=== PATIENT | female | born 1945 | race Caucasian/White ===

== ENCOUNTER 2017-01-09 09:13 | Day surgery (SDC) | payer OTHER ==
[2016-12-31 12:11] VITALS: BMI 46.0
--- NOTE | 2017-01-05 18:00 | HISTORY & PHYSICAL EXAMINATION ---
DATE OF ADMISSION: 01/09/2017 PREOPERATIVE DIAGNOSIS: Endometrial and/or cervical polyp. PROCEDURE: D\T\C, hysteroscopy and polypectomy. HISTORY OF PRESENT ILLNESS: The patient is a 71-year-old 3, para 3-0-0-3 white female who is postmenopausal, who had sudden onset of bright red bleeding in September, lasted for 2 days. The bleeding did become caramel cutter hand and is now only a brownish discharge at this time. She has had no cramping or abdominal pain. She has been on Xarelto and Plavix as a result of a CVA event several years ago. Pelvic exam was difficult, although on internal exam, a polyp could be felt protruding from the cervical os. Ultrasound showed that the uterus is small, but with a 17 mm thickened lining with cystic areas within it. The ovaries could not be identified. The patient is now scheduled for D\T\C, hysteroscopy, polypectomy. The patient understands the risks of procedure and is willing to proceed. PAST MEDICAL HISTORY: Significant for atrial fibrillation, hypertension, dyslipidemia, chronic kidney disease, the history of the CVA event in 1996, hypothyroidism, depression. ALLERGIES: CLINDAMYCIN, PIPERACILLIN AND VANCOMYCIN; WHICH CAUSED BLISTERING OF THE SKIN. MEDICATIONS: Atorvastatin 20 mg daily, hydrochlorothiazide 25 mg daily, levothyroxine 112 mcg daily, metoprolol 50 mg daily, omeprazole 20 mg daily, sertraline 50 mg daily, tramadol 50 mg 1 every 4-6 hours as needed for pain, Tylenol to be taken p.r.n. for pain, valsartan 320 mg daily, Xarelto 15 mg daily. PAST SURGICAL HISTORY: She had a pin placed to her hip at age 13 for a slipped epiphysis and then surgery to remove the pin. She has problems with contracture issues, is unable to extend her left hip. She has had 2 knee replacements followed by surgery because of infection in the surgical knee requiring a spacer and then subsequent revision. OBSTETRICAL AND GYNECOLOGICAL HISTORY: Uneventful premenstrual, premenopausal time period with 3 vaginal deliveries without complications. Menopause was also uneventful, no bleeding. She is unaware of when menopause actually happened, but seemed to be in the normal time period. No bleeding until this recent event in September. SOCIAL HISTORY: She does not smoke or drink. FAMILY HISTORY: Noncontributory. PHYSICAL EXAMINATION: GENERAL: She is a well-nourished, well-developed female who appears her stated age. LUNGS: Clear to auscultation. HEART: Somewhat irregular, but for the most part appeared to be in normal sinus rhythm at this time. ABDOMEN: Soft and nontender. There is no hepatosplenomegaly or other masses palpable. PELVIC: Declined at this time as we will perform this under general anesthetic. EXTREMITIES: Without calf tenderness. She has limited mobility of her knees and her hips, both particularly with extension of her left hip. ASSESSMENT: A 71-year-old with palpable cervical polyp noted on pelvic exam, confirmed by ultrasound with thickened endometrium, now scheduled for a dilation and curettage, hysteroscopy, polypectomy. Please see the orders for further directions. She will stop her Xarelto and Plavix as planned following her consult in internal medicine. She will take her Lopressor the morning of the surgery as also recommended by her internal medicine physician. I discussed at length positioning for the procedure and the possibility for bleeding, possible infection after the procedure. The patient and her daughter's questions were all answered to their satisfaction and they are willing to proceed. ROGER
[~2017-01-09] VITALS: Ht 157.5 cm; Wt 113.6 kg
[~2017-01-09 09:13] MED LIST: ACET-1175 PO; ATOR-54 PO; ATROPINE SULFATE 0.1 MG/ML 5ML SYR IV PRN; CEFAZOLIN 3000 MG/65 ML D5W 65 ML IV SCH; CLOP1TAB54 PO; EpHEDrine SULFATE INJ 50 MG/ML AMP IV PRN; FENTANYL CITRATE INJ 50 MCG/1 ML 2 ML VIAL IV PRN; FERR324T PO; HYDR25TA4 PO; LACTATED RINGER'S 1000ML IV SCH; LEVO112T2 PO; METO-551 PO; PRLSR20 PO; RIVA1TAB4 PO; SERT50TA PO; TRAM-10 PO; VALS320T PO
[2017-01-09 09:41] VITALS: BP 157/79; PULSE 73; TEMP 36.7; O2SAT 93; Ht 157.5 cm; Wt 113.6 kg
[2017-01-09 09:46] LABS: HEMATOCRIT 43.4 % (37-47); MEAN CELL VOLUME 91.4 fL (80-100); MEAN CORPUSCULAR HEMOGLOBIN 31.6 pg (25-34); MEAN PLATELET VOLUME 10.8 fL (7.4-10.4); PLATELET COUNT 178 K/uL (130-400); RED BLOOD COUNT 4.75 M/uL (4.2-5.4)
[2017-01-09 09:50] LABS: MEAN CORPUSCULAR HGB CONC 34.6 g/dl (32-36)
[2017-01-09] MEDS ORDERED: SUCCINYLCHOLINE CHLORIDE 20 MG/ML 10 ML VIAL IV ONE (10:05)
[2017-01-09] MEDS ORDERED: PHENYLEPHRINE HCL INJ 10 MG/ML VIAL ONE (10:05)
[2017-01-09] MEDS ORDERED: EpHEDrine SULFATE INJ 50 MG/ML AMP ONE (10:05)
[2017-01-09] MEDS ORDERED: DEXAMETHASONE SOD INJ 4 MG/ML VIAL ONE (10:05)
[2017-01-09] MEDS ORDERED: ONDANSETRON INJ 2 MG/ML 2 ML VIAL ONE (10:05)
[2017-01-09] MEDS ORDERED: PROPOFOL IV EMULSION 10 MG/ML 20 ML VIAL IV ONE ×2 (10:05→11:02)
[2017-01-09] MEDS ORDERED: LIDOCAINE HCL 2% 2 ML VIAL (20MG/ML) ONE (10:05)
[2017-01-09] MEDS ORDERED: GLYCOPYRROLATE INJ 0.2 MG/ML VIAL ONE (10:05)
[2017-01-09] MEDS ORDERED: ROCURONIUM BROMIDE 10 MG/ML 5 ML VIAL ONE (10:05)
[2017-01-09] MEDS ORDERED: NEOSTIGMINE METHYLSULFATE 5 MG/5 ML SYR ONE (10:05)
[2017-01-09] MEDS ORDERED: FENTANYL CITRATE INJ 50 MCG/1 ML 2 ML VIAL ONE (10:06)
[2017-01-09] MEDS ORDERED: MIDAZOLAM HCL 1 MG/ML 2ML VIAL ONE (10:06)
--- NOTE | 2017-01-09 10:06 | History & Physical Bridge Note ---
H&P Re-Evaluation Bridge Note: I have examined the patient, reviewed the History & Physical and in the interval since the performance of the History & Physical I have noted the following changes of clinical significance: No changes noted
[2017-01-09 10:09] LABS: BUN/CREATININE RATIO 23.8 (10-20); CALCIUM 9.1 mg/dl (8.5-10.1); CREATININE 1.3 mg/dl (0.60-1.20)
[2017-01-09] MEDS ORDERED: SODIUM CHLORIDE 0.9% 1000ML 1,000 ML IV SCH (11:28)
[2017-01-09] MEDS ORDERED: OXYCODONE/ACETAMINOPHEN 5-325 TAB PO PRN ×2 (11:30)
[2017-01-09] MEDS ORDERED: ONDANSETRON INJ 2 MG/ML 2 ML VIAL IV PRN (11:30)
--- NOTE | 2017-01-09 11:30 | [facility] Operative Report ---
Operative Report Operative Date Jan 09, 2017. Pre-Operative Diagnosis Endometrial polyp Post-Operative Diagnosis same Procedure(s) Performed D&C, polypectomy, diagnostic hysteroscopy Surgeon Dr. Belia Angel Aerodynamics Engineer Surgeon(s) None Estimated Blood Loss 10ml Findings cervix is normal with tip of polyp protruding from the os Specimens A: Endometrial polyp and curettings Drains none Anesthesia GET Complication(s) None Disposition Recovery Room / PACU I attest to the content of the Intraoperative Record and any orders documented therein. Any exceptions are noted below.
--- NOTE | 2017-01-09 11:32 | Discharge Instructions ---
Discharge Instructions Visit Reason for Visit: Post Menopausal Bleeding, Cervical Polyp Discharge Discharge Diagnosis / Problem: polyp removal Discharge Goals Goal(s): Therapeutic intervention Activity Recommendations Activity Limitations: per Instructions/Follow-up section Anesthesia . Post Anesthesia Instructions: If you have had General Anesthesia or IV Sedation: * Do not drive today. * Resume driving when surgeon permits. * Do not make important decisions or sign legal documents today. * Call surgeon for: 1. Temperature elevations greater than 101 degrees F. 2. Uncontrollable pain. 3. Excessive bleeding. 4. Persistent nausea and vomiting. 5. Medication intolerance (nausea, vomiting or rash). * For nausea and vomiting use only clear liquids such as: tea, soda, bouillon until nausea subsides, then gradually increase diet as tolerated. * If you have any concerns or questions, call your surgeon's office. If physician is unavailable and it is an emergency, call 911 or go to the nearest emergency room. . Instructions / Follow-Up Instructions / Follow-Up ACTIVITY RECOMMENDATIONS: * Avoid tampons, douching, hot tubs, pools, and intercourse until bleeding has stopped. * May shower as usual. * No strenuous activity for 24-48 hours. After 24-48 hours, you may do anything you feel like doing (driving and sports are okay). SPECIAL CARE INSTRUCTIONS: Special Diet: * Mild nausea may occur in the immediate post-operative period. * Take clear liquids such as tea, cola or bouillon until all nausea has subsided; you may then resume your normal diet. Special Care: * Light bleeding and vaginal spotting can last from a few days to 3-4 weeks. Call your doctor if bleeding becomes heavier than the heaviest part of your period. * Check your temperature twice a day for one week. If it goes above 100.4 degrees Fahrenheit (38.0 Celsius), notify your doctor. * Call your doctor's office for an appointment for 6 weeks after your surgery. FOLLOW-UP VISIT: Call your doctor's office for an appointment for 6 weeks after your surgery. Procedures Procedures Performed: Hysteroscopy, Dilation and Curettage, Polypectomy Pending Studies Studies pending at discharge: no Medical Emergencies . Who to Call and When: Medical Emergencies: If at any time you feel your situation is an emergency, please call 911 immediately. . Non-Emergent Contact Non-Emergency issues call your: Primary Care Provider . . "Provider Documentation" section prepared by Belia Angel.
[2017-01-09 12:00] VITALS: BP 121/76; PULSE 68; TEMP 36.3; O2SAT 93
--- NOTE | 2017-01-09 12:29 | Anesthesiology Progress Note ---
Anesthesia Post Op Note Date & Time Jan 09, 2017 at 12:29 Vital Signs Pain Intensity: 0 Vital Signs Past 12 Hours Date Time Temp Pulse Resp B/P Pulse Ox O2 Delivery O2 Flow Rate FiO2 01/09/17 11:55 36.4 68 16 143/91 99 Nasal Cannula 3 01/09/17 11:45 71 16 148/86 99 Nasal Cannula 3 01/09/17 11:35 65 16 141/87 99 Mask 10 01/09/17 11:25 36.2 75 14 161/91 97 Mask 10 01/09/17 09:41 36.7 73 20 157/79 93 Room Air Notes Mental Status: alert / awake / arousable, participated in evaluation Pt Amnestic to Procedure: Yes Nausea / Vomiting: adequately controlled Pain: adequately controlled Airway Patency, RR, SpO2: stable & adequate BP & HR: stable & adequate Hydration State: stable & adequate Anesthetic Complications: no major complications apparent
[2017-01-09 12:30] VITALS: BP 116/67; PULSE 66; O2SAT 93
[2017-01-09 13:00] VITALS: BP 125/79; PULSE 76; O2SAT 98
--- NOTE | 2017-01-09 17:14 | OPERATIVE REPORT ---
DATE OF OPERATION: 01/09/2017 SURGEON: Belia Angel MD PREOPERATIVE DIAGNOSIS: Postmenopausal bleeding with endometrial polyp. POSTOPERATIVE DIAGNOSIS: Same. PROCEDURE: D\T\C, polypectomy, and diagnostic hysteroscopy. ANESTHESIA: General endotracheal. BLOOD LOSS: 10 mL. HISTORY OF PRESENT ILLNESS: The patient is a 71-year-old 3, para 3-0-0-3 white female who has been on anticoagulant for 10 years as a result of a prior cerebrovascular accident. She developed postmenopausal bleeding. She was noted to have on exam a polyp extruding from the cervix. She is now scheduled for D\T\C, hysteroscopy and polypectomy. The patient has had limited flexibility in her hips and knees, so therefore the case is being done in the main hospital OR for better visualization. The patient understands the risks of the procedure and is willing to proceed. GROSS FINDINGS: External genitalia are multiparous and without lesions. Cervix is without lesions, but the tip of the endometrial polyp is protruding from the os. Under direct hysteroscopic visualization, there was only 1 polyp noted and it encompassed the endometrial cavity. DESCRIPTION OF PROCEDURE: After the patient received adequate general endotracheal anesthesia, she was prepped and draped in the usual sterile fashion. After bladder was emptied, a weighted speculum was placed in the vagina and the anterior lip of the cervix was grasped with a single tooth tenaculum. The portion of the polyp that was extruding was removed. The cervix was then dilated to a #29 Hanks dilator. Sharp curettage and polyp forceps were used to remove the remaining polyp. Post-polypectomy hysteroscopy using normal saline as the expanding medium showed that there was no retained tissue and no residual polyp stalk. After it was apparent that the polyp had been removed in total, the case was terminated. The single tooth tenaculum was removed from the cervix. Hemostasis was noted to be excellent and the patient was taken down from the [facility] and hemostasis was excellent at the end of the case. The patient did well and was stable upon arrival in recovery room. I attest to the content of the Intraoperative Record and any orders documented therein. Any exceptio ns are noted below.
== END 2017-01-09 13:50 | disposition home or self-care (01) ==
LOC: C.ACU 09:13
PROVIDERS: ATTEND Obstetrics & Gynecology
DX: N95.0 Postmenopausal bleeding (principal); N84.0 Polyp of corpus uteri; I48.91 Unspecified atrial fibrillation; I12.9 Hypertensive chronic kidney disease with stage 1 through stage 4 chronic kidney disease, or unspecified chronic kidney disease; N18.9 Chronic kidney disease, unspecified; E78.5 Hyperlipidemia, unspecified; E03.9 Hypothyroidism, unspecified; F32.9 Major depressive disorder, single episode, unspecified; Z86.73 Personal history of transient ischemic attack (TIA), and cerebral infarction without residual deficits

== ENCOUNTER → 2017-09-09 | Outpatient (CLI) | payer OTHER ==
[~2017-09-09] MED LIST changes: -ATROPINE SULFATE 0.1 MG/ML 5ML SYR IV PRN; -CEFAZOLIN 3000 MG/65 ML D5W 65 ML IV SCH; -EpHEDrine SULFATE INJ 50 MG/ML AMP IV PRN; -FENTANYL CITRATE INJ 50 MCG/1 ML 2 ML VIAL IV PRN; -LACTATED RINGER'S 1000ML IV SCH
[2017-09-09 12:19] LABS: BASO % 0.3 %; BASO ABS # 0.02 K/uL (0-0.2); COMPLETE YES; EOS % 3.3 %; HEMATOCRIT 40.6 % (37-47); IG% 0.5 %; LYMPH % 22.5 %; LYMPH ABS # 1.29 K/uL (1.2-3.4); MEAN CELL VOLUME 94.2 fL (80-100); MEAN CORPUSCULAR HEMOGLOBIN 30.2 pg (25-34); MEAN PLATELET VOLUME 11.1 fL (7.4-10.4); MONO % 7.5 %; NEUT % 65.9 %; PLATELET COUNT 169 K/uL (130-400); RED BLOOD COUNT 4.31 M/uL (4.2-5.4); WHITE BLOOD COUNT 5.73 K/uL (4.8-10.8)
[2017-09-09 12:26] LABS: ALT/SGPT 16 U/L (12-78); BLOOD UREA NITROGEN 29 mg/dl (7-18); BUN/CREATININE RATIO 28.4 (10-20); C-REACTIVE PROTEIN < 0.29 mg/dl (0-0.29); CALCIUM 9.6 mg/dl (8.5-10.1); CARBON DIOXIDE 27 mmol/L (21-32); CHLORIDE 106 mmol/L (98-107); CHOLESTEROL 133 mg/dl (0-200); CREATININE 1.03 mg/dl (0.60-1.20); GLUCOSE 88 mg/dl (70-99); POTASSIUM 4.1 mmol/L (3.5-5.1); SODIUM 140 mmol/L (136-145)
[2017-09-09 12:35] LABS: ALB/GLOB RATIO 0.9 (0.9-2); ALKALINE PHOSPHATASE 67 U/L (45-117); AST/SGOT 24 U/L (15-37); HDL CHOLESTEROL 45 mg/dl; LDL CHOLESTEROL CALCULATED 46 mg/dl; THYROID STIMULATING HORMONE 0.296 uIu/ml (0.300-4.500); TRIGLYCERIDES 212 mg/dl (0-150); VERY LOW DENSITY LIPOPROT CALC 42 mg/dl
== END | disposition home or self-care (01) ==
LOC: C.LABBFT 10:09
PROVIDERS: ATTEND Internal Medicine
DX: E78.5 Hyperlipidemia, unspecified (principal); N18.9 Chronic kidney disease, unspecified; E03.9 Hypothyroidism, unspecified; E55.9 Vitamin D deficiency, unspecified; L98.499 Non-pressure chronic ulcer of skin of other sites with unspecified severity

== ENCOUNTER → 2018-03-31 | Outpatient (CLI) | payer OTHER ==
[2018-03-31 17:32] LABS: BLOOD UREA NITROGEN 33 mg/dl (7-18); CALCIUM 9.1 mg/dl (8.5-10.1); CARBON DIOXIDE 26 mmol/L (21-32); CREATININE 1.35 mg/dl (0.60-1.20); GLUCOSE 81 mg/dl (70-99); POTASSIUM 4.4 mmol/L (3.5-5.1); SODIUM 137 mmol/L (136-145)
== END | disposition home or self-care (01) ==
LOC: C.LABBFT 12:01
PROVIDERS: ATTEND Physician Assistant Medical
DX: N18.3 Chronic kidney disease, stage 3 (moderate) (principal); E03.9 Hypothyroidism, unspecified; E55.9 Vitamin D deficiency, unspecified

== ENCOUNTER 2018-06-13 12:34 | Inpatient (IN) | payer OTHER ==
[~2018-06-13] VITALS: Ht 167.6 cm; Wt 108.0 kg
[2018-06-13] MEDS ORDERED: CEFTRIAXONE SOD INJ 1 GM ADDVIAL IV STA (12:52)
[2018-06-13] MEDS ORDERED: SODIUM CHLORIDE 0.9% 1000ML 1,000 ML IV STA ×2 (12:52→13:55)
[2018-06-13 13:28] LABS: HEMATOCRIT 39.1 % (37-47); HEMOGLOBIN 13.3 g/dL (12.0-16.0); MEAN CELL VOLUME 91.6 fL (80-100); MEAN CORPUSCULAR HEMOGLOBIN 31.1 pg (25-34); MEAN PLATELET VOLUME 11.4 fL (7.4-10.4); PLATELET COUNT 141 K/uL (130-400); RED CELL DISTRIBUTION WIDTH CV 12.7 % (11.5-14.5); RED CELL DISTRIBUTION WIDTH SD 42.4 fL (36.4-46.3)
[2018-06-13 13:45] LABS: BLOOD UREA NITROGEN 43 mg/dl (7-18); CALCIUM 8.8 mg/dl (8.5-10.1); CARBON DIOXIDE 23 mmol/L (21-32); CREATININE 1.99 mg/dl (0.60-1.20); GLUCOSE 103 mg/dl (70-99); SODIUM 137 mmol/L (136-145)
--- NOTE | 2018-06-13 13:59 | DIAGNOSTIC IMAGING REPORT ---
L TOE(S) MIN 2 VIEWS HISTORY: 72 years-old Female L 1st toe acute pain of the left great toe COMPARISON: None available TECHNIQUE: 3 views of the left toes FINDINGS: Demineralized appearance of the bones. There is flexion of the interphalangeal joints which limits the study. Moderate first MTP joint osteoarthritis. Degenerative changes are seen, the remaining intertarsal phalangeal and interphalangeal joints. Demineralized appearance of the bones without acute fracture or dislocation identified. Moderate soft tissue swelling about the forefoot. With [employer] over the lateral mid foot. IMPRESSION: 1. Soft tissue swelling without acute fracture identified. 2. Degenerative changes as above. 3. Demineralized appearance of the bones. The above report was generated using voice recognition software. It may contain grammatical, syntax or spelling errors. Electronically signed by: Andrés Mar M.D. 06/13/2018 1:58 PM Dictated Date/Time: 06/13/2018 1:57 PM
[2018-06-13 14:00] LABS: BASO % 0.1 %; BASO ABS # 0.02 K/uL (0-0.2); EOS ABS # 0.01 K/uL (0-0.5); IG# 0.11 K/uL (0.00-0.02); LYMPH % 4.8 %; LYMPH ABS # 1.01 K/uL (1.2-3.4); MONO % 2.5 %; MONO ABS # 0.52 K/uL (0.11-0.59); NEUT % 92.1 %; NEUT ABS # 19.53 K/uL (1.4-6.5)
[2018-06-13] MEDS ORDERED: ACETAMINOPHEN 325 MG TAB PO PRN (14:00)
[2018-06-13] MEDS ORDERED: MAGNESIUM HYDROXIDE SUSP 30 ML UDC PO PRN (14:00)
[2018-06-13] MEDS ORDERED: ONDANSETRON INJ 2 MG/ML 2 ML VIAL IV PRN (14:00)
[2018-06-13] MEDS ORDERED: ALUMINUM/MAGNESIUM/SIMETH (MAALOX MAX) 30 ML UDC PO PRN (14:00)
[2018-06-13] MEDS ORDERED: POLYETHYLENE (MIRALAX) 17 GM PACK PO PRN (14:00)
[2018-06-13] MEDS ORDERED: TRAMADOL HCL 50 MG TAB PO PRN (14:00)
[2018-06-13] MEDS ORDERED: SPIR1TAB72 PO (14:11)
[2018-06-13] MEDS ORDERED: TRAM-10 PO (14:11)
[2018-06-13] MEDS ORDERED: XRL15 PO (14:11)
[2018-06-13] MEDS ORDERED: CHOL2000 PO (14:11)
[2018-06-13 14:15] VITALS: O2SAT 96; Ht 167.6 cm; Wt 108.0 kg
[2018-06-13] MEDS ORDERED: IRBE1TAB50 PO (14:18)
[2018-06-13] MEDS ORDERED: IMIPENEM-CILASTATIN 250 MG in DEXTROSE 5% 100ML 100 ML IV STA (14:35)
--- NOTE | 2018-06-13 14:43 | History and Physical ---
History & Physical Date & Time of Service: Jun 13, 2018 at 14:35 Chief Complaint: Infected Sore On Toe Primary Care Physician: Tacos Davis M.D. History of Present Illness 72 F with complaints of constant left toe pain beginning three days ago that has progressed to erythema ascending left leg to groin Per daughter subsequent to old stroke pt is non ambulatory and uses feet to push wheel chair, , the patient had a callous on her left big toe two weeks ago, which started bleeding last week. 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 The patient also complains of nausea and chills and urinary incontinence last pm. Past Medical/Surgical History Medical Problems: (1) Atrial Fibrillation (2) Cellulitis of leg (3) CVA (4) Hyperlipidemia Nec/Nos (5) Morbid Obesity (6) Visual loss, right eye Family History She is family history of heart disease diabetes and stroke Social History Smoking Status: Never Smoker Drug Use: none Marital Status: Occupational Status: retired Immunizations History of Influenza Vaccine: Yes Influenza Vaccine Date: Oct 11, 2009 History of Tetanus Vaccine?: No History of Pneumococcal: Yes Pneumococcal Date: Oct 11, 2009 History of Hepatitis B Vaccine: No Allergies Coded Allergies: Clindamycin (Verified Allergy, Unknown, HIVES, 06/13/18) Piperacillin (Verified Allergy, Unknown, HIVES, 06/13/18) Vancomycin (Verified Allergy, Unknown, unknown, 06/13/18) Home Medications Scheduled Atorvastatin (Lipitor), 20 MG PO QAM Cholecalciferol (Vitamin D3), 1 CAP PO BID Clopidogrel Bisulfate (Plavix), 75 MG PO QAM Ferrous Gluconate (Iron Supplement), 324 MG PO DAILY Hctz/Spironolactone (Spironolactone/Hydrochlor 25-25 mg), 1 TAB PO DAILY Irbesartan (Irbesartan), 1 TAB PO DAILY Levothyroxine Sodium (Synthroid), 112 MCG PO QAM Metoprolol Tartrate (Lopressor), 75 MG PO BID Omeprazole (Prilosec), 20 MG PO QAM Rivaroxaban (Xarelto), 15 MG PO DAILY Sertraline (Zoloft), 50 MG PO QAM Tramadol (Ultram), 50 MG PO HS Scheduled PRN Acetaminophen (Tylenol), 650 MG PO Q6HR PRN for Pain or Fever Tramadol (Ultram), 50 MG PO Q6 PRN for Pain Review of Systems ROS: well nourished well developed. Patient is obese she is functionally paraplegic having not been able to walk since her stroke in 1996 she scoots around with her feet which cause difficulty with callus formation of her legs No double vision blurry vision No problems with speech or swallowing No palpitations, chest pain or pressure No Wheezing or breathing issues No abdominal pain she did have nausea vomiting in the last 24 hours but no diarrhea No burning urine urine frequency or changes in color but she did have urinary continence in the last 24 hours No focal joint pain or muscle pain She is changes of chronic venous stasis to her left lower extremity this is from previously known peripheral artery disease however there is worsening erythema she also has marked onychomycosis callus formation and hemorrhage into a callus on her left foot No unusual bruising or bleeding except for her foot No focused back pain or numbness or loss of strength over her usual baseline No changes in memory or confusion Physical Exam Vital Signs Date Time Temp Pulse Resp B/P (MAP) Pulse Ox O2 Delivery O2 Flow Rate FiO2 06/13/18 14:22 86 25 97/77 96 Room Air 06/13/18 14:16 90 06/13/18 14:13 96 26 77/59 94 Room Air 06/13/18 14:12 77/59 06/13/18 14:04 92 20 82/63 95 Room Air 06/13/18 12:37 37.1 72 20 92/58 96 Room Air General Appearance: + mild distress, + obese Head: normocephalic, atraumatic Eyes: normal inspection, PERRL, EOMI, sclerae normal Neck: supple, no JVD Respiratory/Chest: chest non-tender, lungs clear, + decreased breath sounds ( Due to body habitus and morbid obesity) Cardiovascular: regular rate, rhythm (Although history of atrial fibrillation) , no murmur Abdomen/GI: normal bowel sounds, non tender, soft Extremities/Musculoskelatal: + pertinent finding (Markedly decreased pulses her left foot also decreased capillary refill) Neurologic/Psych: alert, oriented x 3 Skin: + pertinent finding (Changes of chronic venous stasis and callus formation noted on bilateral feet with hammertoes on bilateral feet) Diagnostics Laboratory Results Results Past 24 Hours Test 06/13/18 13:10 06/13/18 14:14 Range/Units White Blood Count 21.20 4.8-10.8 K/uL Red Blood Count 4.27 4.2-5.4 M/uL Hemoglobin 13.3 12.0-16.0 g/dL Hematocrit 39.1 37-47 % Mean Corpuscular Volume 91.6 80-100 fL Mean Corpuscular Hemoglobin 31.1 25-34 pg Mean Corpuscular Hemoglobin Concent 34.0 32-36 g/dl Platelet Count 141 130-400 K/uL Mean Platelet Volume 11.4 7.4-10.4 fL Neutrophils (%) (Auto) 92.1 % Lymphocytes (%) (Auto) 4.8 % Monocytes (%) (Auto) 2.5 % Eosinophils (%) (Auto) 0.0 % Basophils (%) (Auto) 0.1 % Neutrophils # (Auto) 19.53 1.4-6.5 K/uL Lymphocytes # (Auto) 1.01 1.2-3.4 K/uL Monocytes # (Auto) 0.52 0.11-0.59 K/uL Eosinophils # (Auto) 0.01 0-0.5 K/uL Basophils # (Auto) 0.02 0-0.2 K/uL RDW Standard Deviation 42.4 36.4-46.3 fL RDW Coefficient of Variation 12.7 11.5-14.5 % Immature Granulocyte % (Auto) 0.5 % Immature Granulocyte # (Auto) 0.11 0.00-0.02 K/uL Red Blood Cell Morphology Unremarkable Sodium Level 137 136-145 mmol/L Potassium Level 4.0 3.5-5.1 mmol/L Chloride Level 104 98-107 mmol/L Carbon Dioxide Level 23 21-32 mmol/L Anion Gap 10.0 3-11 mmol/L Blood Urea Nitrogen 43 7-18 mg/dl Creatinine 1.99 0.60-1.20 mg/dl Estimated GFR () 28.4 Estimated GFR (Non- 24.5 BUN/Creatinine Ratio 21.4 10-20 Random Glucose 103 70-99 mg/dl Lactic Acid Level 2.5 0.4-2.0 mmol/L Calcium Level 8.8 8.5-10.1 mg/dl Microbiology Results 06/13/18 Blood Culture, Received Pending 06/13/18 Blood Culture, Ordered Pending 06/13/18 Blood Culture, Ordered Pending 06/13/18 Blood Culture, Received Pending Diagnostic Radiology Toe x-ray without changes of osteomyelitis Impression Assessment and Plan (1) Cellulitis of leg Assessment & Plan: due to history of concern of resistent organisms, will have on renal dose adjusted daptomycin and primaxin, ID consult and cultures are pending evaluate perfusion with arterial Doppler to gauge if can repair to aid in healing (2) Acute kidney injury Assessment & Plan: hold diuretics and arbs, hydrate and follow renal dose adjusting meds (3) Atrial Fibrillation Assessment & Plan: maintain rate control with metoprolol and anticoagulation with xarelto (4) CVA Assessment & Plan: Pt has mobility issues and is a fall risk PT/OT (5) Morbid Obesity Assessment & Plan: this impacts venous stasis, mobility and healing (6) Depression Assessment & Plan: continue zoloft, clinically seems compensated (7) HTN (hypertension) holding arb and diuretics, is low on admission, hydrate and follow maintaining metoprolol for bp control and afib Resuscitation Status VTE Prophylaxis Will order VTE Prophylaxis: Yes Reason for no VTE drug order: Contraindicated (pt takes full anticoagulation with xarelto) Reason no Mechanical VTE Order: Refusal of treatment by pt
[2018-06-13] MEDS ORDERED: CLONIDINE HCL 0.1 MG TAB PO PRN (14:45)
[2018-06-13] MEDS ORDERED: OXYCODONE HCL IR 5 MG TAB (IMMEDIATE RELEASE) PO PRN (14:45)
[2018-06-13 15:57] VITALS: BP 94/58; PULSE 83; TEMP 37.4; O2SAT 92
[2018-06-13] MEDS: DAPTOMYCIN IV SCH (16:18)
[2018-06-13] MEDS: SODIUM CHLORIDE 0.9% 1000ML 1,000 ML IV SCH (16:18)
[2018-06-13] MEDS ORDERED: NURSING DECISION MEDICATION ORDER SCH (16:45)
--- NOTE | 2018-06-13 16:47 | EMERGENCY ROOM VISIT NOTE ---
History Report prepared by Itz: Julio C Reed Under the Supervision of: Nuria RamO. First contact with patient: 12:46 Chief Complaint: TOE PAIN, INJURY Stated Complaint: INFECTED SORE ON TOE History of Present Illness The patient is a 72 year old female who presents to the Emergency Room with complaints of constant left toe pain beginning three days ago. Per daughter, the patient had a callous on her left big toe two weeks ago. She states that the patient's callous then started bleeding last week. She notes that she has not seen the patient's toe within the last week, but reports that she noticed that the patient's left leg was becoming red yesterday. She states that the patient's toe might be infected. The patient also complains of nausea and chills last night. She denies any cough, rhinorrhea, sorethroat, vomiting, diarrhea, CP, and SOB. She rates her pain as a 3/10. She notes that she has a history of PAD and has a problem with her thyroid. Source of History: patient Onset: three days Position: toe(s) (left) Symptom Intensity: 3/10 Timing: constant Associated Symptoms: + chills, + nausea, No sorethroat, No cough, No chest pain, No SOB, No vomiting, No diarrhea Note: The patient also denies any rhinorrhea. Review of Systems See HPI for pertinent positives & negatives. A total of 10 systems reviewed and were otherwise negative. Past Medical & Surgical Medical Problems: (1) Atrial Fibrillation (2) Cellulitis (3) CVA (4) Depression (5) HTN (hypertension) (6) Hyperlipidemia Nec/Nos (7) Morbid Obesity (8) Stomach ulcer Surgical Problems: (1) History of hip surgery (2) History of knee surgery Family History Cancer Heart disease Hypertension Social History Smoking Status: Never Smoker Drug Use: none Marital Status: Occupation Status: retired Current/Historical Medications Scheduled Atorvastatin (Lipitor), 20 MG PO QAM Cholecalciferol (Vitamin D3), 1 CAP PO BID Clopidogrel Bisulfate (Plavix), 75 MG PO QAM Ferrous Gluconate (Iron Supplement), 324 MG PO DAILY Hctz/Spironolactone (Spironolactone/Hydrochlor 25-25 mg), 1 TAB PO DAILY Irbesartan (Irbesartan), 1 TAB PO DAILY Levothyroxine Sodium (Synthroid), 112 MCG PO QAM Metoprolol Tartrate (Lopressor), 75 MG PO BID Omeprazole (Prilosec), 20 MG PO QAM Rivaroxaban (Xarelto), 15 MG PO DAILY Sertraline (Zoloft), 50 MG PO QAM Tramadol (Ultram), 50 MG PO HS Scheduled PRN Acetaminophen (Tylenol), 650 MG PO Q6HR PRN for Pain or Fever Tramadol (Ultram), 50 MG PO Q6 PRN for Pain Allergies Coded Allergies: Clindamycin (Verified Allergy, Unknown, HIVES, 06/13/18) Piperacillin (Verified Allergy, Unknown, HIVES, 06/13/18) Vancomycin (Verified Allergy, Unknown, unknown, 06/13/18) Physical Exam Vital Signs Date Time Temp Pulse Resp B/P (MAP) Pulse Ox O2 Delivery O2 Flow Rate FiO2 06/13/18 12:37 37.1 72 20 92/58 96 Room Air Physical Exam GENERAL: Sitting up in bed, alert, disheveled appearing, well nourished, no distress, non-toxic EYE EXAM: normal conjunctiva. OROPHARYNX: no exudate, no erythema, lips, buccal mucosa, and tongue normal and mucous membranes are moist NECK: supple, no nuchal rigidity, no adenopathy, non-tender LUNGS: Clear to auscultation. Normal chest wall mechanics HEART: no murmurs, S1 normal and S2 normal ABDOMEN: abdomen soft, non-tender, normo-active bowel sounds, no masses, no rebound or guarding. BACK: Back is symmetrical on inspection and there is no deformity, no midline tenderness, no CVA tenderness. SKIN: no rashes and no bruising UPPER EXTREMITIES: upper extremities are grossly normal. LOWER EXTREMITIES: No pitting edema. Necrotic ulcer at the base of the left first toe with erythema tracking up to the left mid thigh. NEURO EXAM: Normal sensorium, cranial nerves II-XII grossly intact, normal speech, no gross weakness of arms, no gross weakness of legs. Medical Decision & Procedures ER Provider Diagnostic Interpretation: Radiology results as stated below per my review and the radiologist's interpretation: L TOE(S) MIN 2 VIEWS FINDINGS: Demineralized appearance of the bones. There is flexion of the interphalangeal joints which limits the study. Moderate first MTP joint osteoarthritis. Degenerative changes are seen, the remaining intertarsal phalangeal and interphalangeal joints. Demineralized appearance of the bones without acute fracture or dislocation identified. Moderate soft tissue swelling about the forefoot. With [employer] over the lateral mid foot. IMPRESSION: 1. Soft tissue swelling without acute fracture identified. 2. Degenerative changes as above. 3. Demineralized appearance of the bones. The above report was generated using voice recognition software. It may contain grammatical, syntax or spelling errors. Electronically signed by: Andrés Mar M.D. 06/13/2018 1:58 PM Dictated Date/Time: 06/13/2018 1:57 PM Laboratory Results 06/13/18 13:10 Red Blood Count 4.27, Mean Corpuscular Volume 91.6, Mean Corpuscular Hemoglobin 31.1, Mean Corpuscular Hemoglobin Concent 34.0, Mean Platelet Volume 11.4, Neutrophils (%) (Auto) 92.1, Lymphocytes (%) (Auto) 4.8, Monocytes (%) (Auto) 2.5, Eosinophils (%) (Auto) 0.0, Basophils (%) (Auto) 0.1, Neutrophils # (Auto) 19.53, Lymphocytes # (Auto) 1.01, Monocytes # (Auto) 0.52, Eosinophils # (Auto) 0.01, Basophils # (Auto) 0.02 06/13/18 13:10 Test 06/13/18 13:10 White Blood Count 21.20 K/uL (4.8-10.8) Red Blood Count 4.27 M/uL (4.2-5.4) Hemoglobin 13.3 g/dL (12.0-16.0) Hematocrit 39.1 % (37-47) Mean Corpuscular Volume 91.6 fL (80-100) Mean Corpuscular Hemoglobin 31.1 pg (25-34) Mean Corpuscular Hemoglobin Concent 34.0 g/dl (32-36) Platelet Count 141 K/uL (130-400) Mean Platelet Volume 11.4 fL (7.4-10.4) Neutrophils (%) (Auto) 92.1 % Lymphocytes (%) (Auto) 4.8 % Monocytes (%) (Auto) 2.5 % Eosinophils (%) (Auto) 0.0 % Basophils (%) (Auto) 0.1 % Neutrophils # (Auto) 19.53 K/uL (1.4-6.5) Lymphocytes # (Auto) 1.01 K/uL (1.2-3.4) Monocytes # (Auto) 0.52 K/uL (0.11-0.59) Eosinophils # (Auto) 0.01 K/uL (0-0.5) Basophils # (Auto) 0.02 K/uL (0-0.2) RDW Standard Deviation 42.4 fL (36.4-46.3) RDW Coefficient of Variation 12.7 % (11.5-14.5) Immature Granulocyte % (Auto) 0.5 % Immature Granulocyte # (Auto) 0.11 K/uL (0.00-0.02) Red Blood Cell Morphology Unremarkable Anion Gap 10.0 mmol/L (3-11) Estimated GFR () 28.4 Estimated GFR (Non- 24.5 BUN/Creatinine Ratio 21.4 (10-20) Lactic Acid Level 2.5 mmol/L (0.4-2.0) Calcium Level 8.8 mg/dl (8.5-10.1) Total Creatine Kinase 276 U/L (26-192) Laboratory results per my review. Medications Administered Medications (Trade) Dose Ordered Sig/Abril Route Start Time Stop Time Status Last Admin Dose Admin Sodium Chloride 1,000 ml @ 999 mls/hr Q1H1M STAT IV 06/13/18 12:52 06/13/18 13:52 DC 06/13/18 12:52 999 MLS/HR Ceftriaxone Sodium (Rocephin Inj) 1 gm NOW STAT IV 06/13/18 12:52 06/13/18 12:54 DC 06/13/18 13:10 1 GM Sodium Chloride 1,000 ml @ 999 mls/hr Q1H1M STAT IV 06/13/18 13:55 06/13/18 15:00 DC 06/13/18 13:55 999 MLS/HR ED Course ED COURSE: Vital signs were reviewed and showed that he was hypotensive. The patients medical record was reviewed The above diagnostic studies were performed and reviewed. ED treatments and interventions as stated above. 1249: The patient was evaluated in room A3. A complete history and physical examination was performed. 1252: Rocephin Inj 1gm IV, Sodium Chloride 1000 ml @ 999 mls/hr IV 1347: Upon reevaluation, the patient is stable. I discussed my findings with the patient and she understands and agrees with the treatment plan. Based on the patients age, coexisting illnesses, exam and lab findings the decision to treat as an inpatient was made. The patient remained stable while under my care. Discussed the patient's case with Dr. White - CONSTANCE Garcia. The patient will be evaluated for further management. 1355: Sodium Chloride 1000 ml @ 999 mls/hr IV 1412: The patient's pressure dropped to 82. Her repeat pressure was 75. She started to receive pressure bags and two additional liters. Medical Decision Differential diagnosis includes etiologies such as sepsis, UTI, pneumonia, metabolic, electrolyte abnormalities, cardiac sources, intracerebral event, toxicologic, neurologic, as well as others were entertained. Patient is a 72-year-old female who presents the ER for left foot pain. On exam patient has a clear cellulitis tracking up to her mid thigh. question oseto of the left first toe. Patient was given IV Rocephin due to allergies. She was fairly well appearing upon presentation. Consequently only obtained one blood culture a lactic acid CBC and BMP. She had a leukocytosis of 21,000. Lactate was 2.5. She did eventually drop her pressure into the 70s. Additional IV was obtained. She was given pressure backed 2-1/2 L normal saline. At that point internal medicine had also ordered additional antibiotics. I did call the pharmacy to have them shipped up quicker. Patient still had good mentation. She was not tachycardic. She was monitored closely set up to the floor. Repeat blood pressures trended back up to systolics of 97. She had no additional complaints. Medication Reconcilliation Current Medication List: was personally reviewed by or Blood Pressure Screening Patient's blood pressure: Low blood pressure Elevated blood pressure will be monitored by hospitalist. Consults Time Called: 1345 Consulting Physician: Dr. White - CONSTANCE Garcia Returned Call: 134 I reviewed the patient's case with Dr. White. He will evaluate the patient for further management. Impression Primary Impression: Sepsis Additional Impressions: Hypotension Cellulitis of leg Critical Care I have personally spent 35 minutes of critical care time in the direct management of this patient. This includes bedside care, interpretation of diagnostic studies, and testing, discussion with consultants, patient, and family members, and other required patient management activities. This 35 minutes is in excess of all separately billable procedures. Scribe Attestation The scribe's documentation has been prepared under my direction and personally reviewed by me in its entirety. I confirm that the note above accurately reflects all work, treatment, procedures, and medical decision making performed by me. Departure Information Dispostion Being Evaluated By Hospitalist Tacos Newman M.D. (PCP) Patient Instructions My [facility] Problem Qualifiers Primary Impression: Sepsis Sepsis type: sepsis due to unspecified organism Qualified Codes: A41.9 - Sepsis, unspecified organism Additional Impressions: Hypotension Hypotension type: unspecified hypotension type Qualified Codes: I95.9 - Hypotension, unspecified Cellulitis of leg Laterality: left Qualified Codes: L03.116 - Cellulitis of left lower limb
[2018-06-13] MEDS: MICONAZOLE NITRATE POWDER 43 GM EXT PRN (17:15)
[2018-06-13] MEDS: IMIPENEM-CILASTATIN 250 MG in DEXTROSE 5% 100ML 100 ML IV SCH (19:34)
--- NOTE | 2018-06-13 19:36 | DIAGNOSTIC IMAGING REPORT ---
LEFT LOWER EXTERNALLY ARTERIAL DOPPLER STUDY CLINICAL HISTORY: eval for worsening occlusion. Left leg pain. COMPARISON STUDY: Left lower extremity arterial Doppler study 02/14/2013. FINDINGS: The left ankle-brachial index measured with the posterior tibial artery was 0.7 and the dorsalis pedis artery was 0.6. The left peroneal artery is not identified on this study. Monophasic waveforms seen throughout the left lower arterial system suggestive of diffuse hepatic structures. There is diffuse calcified plaque throughout the visualized arteries. No occlusion. No elevated velocities to suggest stenosis. IMPRESSION: 1. No areas of arterial occlusion identified within the left lower extremity. 2. Monophasic waveforms seen throughout the left lower extremity arterial system consistent with diffuse atherosclerotic disease. 3. No areas of hemodynamically significant stenosis identified. 4. Ankle brachial indices as described above. Electronically signed by: Fransisco Edwards M.D. 06/13/2018 7:35 PM Dictated Date/Time: 06/13/2018 7:32 PM
[2018-06-13 19:38] VITALS: BP 104/72; PULSE 72; O2SAT 97
[2018-06-13] MEDS: METOPROLOL TARTRATE 25 MG TAB PO SCH (19:40)
[2018-06-13] MEDS ORDERED: METOPROLOL TARTRATE 50 MG TAB PO SCH (21:00)
[2018-06-13] MEDS ORDERED: LINEZOLID / D5W 600 MG in PREMIXED IN D5W 300 ML IV SCH (21:00)
[2018-06-14] MEDS: SODIUM CHLORIDE 0.9% 1000ML 1,000 ML IV SCH ×3 (00:56→23:46)
[2018-06-14] MEDS: IMIPENEM-CILASTATIN 250 MG in DEXTROSE 5% 100ML 100 ML IV SCH ×4 (01:47→20:07)
[2018-06-14] MEDS: LEVOTHYROXINE 112 MCG TAB PO SCH (05:57)
[2018-06-14 06:22] LABS: HEMOGLOBIN 11.4 g/dL (12.0-16.0); MEAN CELL VOLUME 92.8 fL (80-100); MEAN CORPUSCULAR HEMOGLOBIN 30.2 pg (25-34); MEAN CORPUSCULAR HGB CONC 32.6 g/dl (32-36); RED CELL DISTRIBUTION WIDTH SD 44.4 fL (36.4-46.3); WHITE BLOOD COUNT 11.45 K/uL (4.8-10.8)
[2018-06-14 06:48] LABS: CALCIUM 8.1 mg/dl (8.5-10.1); CREATININE 1.38 mg/dl (0.60-1.20); MEAN PLATELET VOLUME 11.6 fL (7.4-10.4); PLATELET COUNT 93 K/uL (130-400); POTASSIUM 3.6 mmol/L (3.5-5.1)
[2018-06-14 07:46] VITALS: BP 108/60; PULSE 71; TEMP 37.6; O2SAT 96
--- NOTE | 2018-06-14 08:20 | Progress Note ---
Subjective Date of Service: Jun 14, 2018. Subjective this pt is feeling improved, she has less redness to the site and overall has more energy Problem List Medical Problems: (1) Cellulitis of leg Status: Acute (2) Hypotension Status: Acute (3) Sepsis Status: Acute Review of Systems Constitutional: No fever, No chills Respiratory: No cough, No sputum, No wheezing Abdomen: No pain, No nausea Musculoskeletal: No joint pain, No muscle pain Female : No dysuria, No urinary frequency Psychiatric: No depression symptoms, No anhedonism Skin: + new/changing skin lesions, + color change Objective Vital Signs Date Time Temp Pulse Resp B/P (MAP) Pulse Ox O2 Delivery O2 Flow Rate FiO2 06/14/18 07:46 37.6 71 16 108/60 (76) 96 06/13/18 20:00 Room Air 06/13/18 19:38 72 18 104/72 (83) 97 Room Air 06/13/18 16:00 Room Air 06/13/18 15:57 37.4 83 20 94/58 (70) 92 Room Air 06/13/18 15:14 92 16 97/73 96 06/13/18 14:53 90 28 98/66 96 Room Air 06/13/18 14:22 86 25 97/77 96 Room Air 06/13/18 14:16 90 06/13/18 14:15 96 Room Air 06/13/18 14:13 96 26 77/59 94 Room Air 06/13/18 14:12 77/59 06/13/18 14:04 92 20 82/63 95 Room Air 06/13/18 12:37 37.1 72 20 92/58 96 Room Air Physical Exam General Appearance: + mild distress, + obese Eyes: normal inspection, sclerae normal Neck: supple, no JVD Respiratory/Chest: chest non-tender, lungs clear, normal breath sounds Cardiovascular: regular rate, rhythm, no murmur Abdomen: non tender, soft Extremities: + slow capillary refill, + pertinent finding (poor pulses but overall improved) Laboratory Results Last 24 Hours Test 06/13/18 13:10 06/14/18 06:01 White Blood Count 21.20 K/uL 11.45 K/uL Red Blood Count 4.27 M/uL 3.77 M/uL Hemoglobin 13.3 g/dL 11.4 g/dL Hematocrit 39.1 % 35.0 % Mean Corpuscular Volume 91.6 fL 92.8 fL Mean Corpuscular Hemoglobin 31.1 pg 30.2 pg Mean Corpuscular Hemoglobin Concent 34.0 g/dl 32.6 g/dl Platelet Count 141 K/uL 93 K/uL Mean Platelet Volume 11.4 fL 11.6 fL Neutrophils (%) (Auto) 92.1 % Lymphocytes (%) (Auto) 4.8 % Monocytes (%) (Auto) 2.5 % Eosinophils (%) (Auto) 0.0 % Basophils (%) (Auto) 0.1 % Neutrophils # (Auto) 19.53 K/uL Lymphocytes # (Auto) 1.01 K/uL Monocytes # (Auto) 0.52 K/uL Eosinophils # (Auto) 0.01 K/uL Basophils # (Auto) 0.02 K/uL RDW Standard Deviation 42.4 fL 44.4 fL RDW Coefficient of Variation 12.7 % 13.0 % Immature Granulocyte % (Auto) 0.5 % Immature Granulocyte # (Auto) 0.11 K/uL Red Blood Cell Morphology Unremarkable Sodium Level 137 mmol/L 139 mmol/L Potassium Level 4.0 mmol/L 3.6 mmol/L Chloride Level 104 mmol/L 108 mmol/L Carbon Dioxide Level 23 mmol/L 23 mmol/L Anion Gap 10.0 mmol/L 8.0 mmol/L Blood Urea Nitrogen 43 mg/dl 37 mg/dl Creatinine 1.99 mg/dl 1.38 mg/dl Estimated GFR () 28.4 44.2 Estimated GFR (Non- 24.5 38.1 BUN/Creatinine Ratio 21.4 26.4 Random Glucose 103 mg/dl 90 mg/dl Lactic Acid Level 2.5 mmol/L Calcium Level 8.8 mg/dl 8.1 mg/dl Total Creatine Kinase 276 U/L Platelet Estimate DECREASED Est Creatinine Clear Calc Drug Dose 45.8 ml/min Magnesium Level 1.4 mg/dl Assessment and Plan (1) Cellulitis of leg Assessment & Plan: due to history of concern of resistant organisms, will have on renal dose adjusted daptomycin and primaxin, ID consult and cultures are pending, wbc did improve evaluate perfusion with arterial Doppler to gauge if can repair to aid in healing, however in past intervention was not recommended preliminary gram positive blood cultures may suggest bacteremia at presentation , may prolongue antibiotic course (2) Acute kidney injury Assessment & Plan: hold diuretics and arbs, hydrate and follow renal dose adjusting meds, improving (3) Atrial Fibrillation Assessment & Plan: contines to maintain rate control with metoprolol and anticoagulation with xarelto (4) CVA Assessment & Plan: Pt has mobility issues and is a fall risk PT/OT, may need subacute rehab (5) Morbid Obesity Assessment & Plan: this impacts venous stasis, mobility and healing (6) Depression Assessment & Plan: continue zoloft, clinically seems compensated (7) HTN (hypertension) (8) Hypomagnesemia Assessment & Plan: replete orally and watch for diarrhea holding arb and diuretics, is low on admission, hydrate and follow maintaining metoprolol for bp control and afib Problem Qualifiers (1) Cellulitis of leg: Laterality: left Qualified Codes: L03.116 - Cellulitis of left lower limb
[2018-06-14] MEDS: PANTOprazole SOD 40 MG TAB PO SCH (08:40)
[2018-06-14] MEDS: METOPROLOL TARTRATE 25 MG TAB PO SCH ×2 (08:40→20:06)
[2018-06-14] MEDS: RIVAROXABAN TAB 15 MG TAB PO SCH (08:40)
[2018-06-14] MEDS: CLOPIDOGREL BISULFATE 75 MG TAB PO SCH (08:40)
[2018-06-14] MEDS: SERTRALINE HCL 50 MG TAB PO SCH (08:41)
[2018-06-14] MEDS ORDERED: RIVAROXABAN 10 MG TAB PO SCH (09:00)
[2018-06-14] MEDS: MAGNESIUM OXIDE 400 MG TAB PO SCH ×2 (10:29→20:05)
[2018-06-14] MEDS: MICONAZOLE NITRATE POWDER 43 GM EXT PRN (10:31)
--- NOTE | 2018-06-14 11:38 | Medical Consult ---
Consultation Date of Consultation: Jun 14, 2018. Attending Physician: Naren White M.D. Reason for Consultation: Advice on antibiotic choice with allergies History of Present Illness 72-year-old female with history of hypertension, atrial fibrillation, prior CVA , reported vascular disease involving her left leg, who was had a callus on her left great toe for several weeks. Reportedly last week area started to bleed, and over the last 3 days, patient developed progressively worsening redness and swelling involving her left leg up into her groin. She did not report any significant fever. She did have nausea with episode of vomiting. She eventually came to the emergency department where she was found to have evidence of left lower extremity cellulitis, and was admitted and started empirically on daptomycin and imipenem. X-ray of the toe, read by me, shows no obvious bone involvement. Vascular ultrasound shows no obvious high-grade arterial stenosis in the left leg. Blood cultures have been negative to date. Patient has remained afebrile. Past Medical/Surgical History Medical Problems: (1) Cellulitis of leg Status: Acute (2) Hypotension Status: Acute (3) Sepsis Status: Acute Medical Problems: (1) Atrial Fibrillation (2) Cellulitis (3) CVA (4) Depression (5) HTN (hypertension) (6) Hyperlipidemia Nec/Nos (7) Hypomagnesemia (8) Morbid Obesity (9) Stomach ulcer Surgical Problems: (1) History of hip surgery (2) History of knee surgery Family History Cancer Heart disease Hypertension Social History Smoking Status: Never Smoker Drug Use: none Marital Status: Occupation Status: retired Allergies Coded Allergies: Clindamycin (Verified Allergy, Unknown, HIVES, 06/13/18) Piperacillin (Verified Allergy, Unknown, HIVES, 06/13/18) Vancomycin (Verified Allergy, Unknown, unknown, 06/13/18) Current Inpatient Medications Current Inpatient Medications Medications (Trade) Dose Ordered Sig/Abril Route Start Time Stop Time Status Last Admin Dose Admin Clopidogrel Bisulfate (plAVix TAB) 75 mg QAM PO 06/14/18 08:00 07/14/18 08:59 06/14/18 08:40 75 MG Levothyroxine Sodium (Synthroid Tab) 112 mcg DAILYBB PO 06/14/18 06:30 07/14/18 06:59 06/14/18 05:57 112 MCG Sertraline HCl (Zoloft Tab) 50 mg QAM PO 06/14/18 08:00 07/14/18 08:59 06/14/18 08:41 50 MG Tramadol HCl (Ultram Tab) 50 mg Q6 PRN PO 06/13/18 14:00 07/13/18 13:59 Pantoprazole Sodium (Protonix Tab) 40 mg QAM PO 06/14/18 08:00 07/14/18 08:59 06/14/18 08:40 40 MG Acetaminophen (Tylenol Tab) 650 mg Q4H PRN PO 06/13/18 14:00 07/13/18 13:59 Al Hydrox/Mg Hydrox/Simethicone (Maalox Max Susp) 15 ml Q4H PRN PO 06/13/18 14:00 07/13/18 13:59 Magnesium Hydroxide (Milk Of Magnesia Susp) 30 ml Q6H PRN PO 06/13/18 14:00 07/13/18 13:59 Polyethylene (Miralax Powder Packet) 17 gm DAILY PRN PO 06/13/18 14:00 07/13/18 13:59 Ondansetron HCl (Zofran Inj) 4 mg Q6H PRN IV 06/13/18 14:00 07/13/18 13:59 Imipenem/ Cilastatin Sodium 250 mg/Dextrose 110 ml @ 100 mls/hr Q6H IV 06/13/18 20:00 06/23/18 19:59 06/14/18 08:40 100 MLS/HR Sodium Chloride 1,000 ml @ 100 mls/hr Q10H IV 06/13/18 14:15 07/13/18 14:14 06/14/18 10:29 100 MLS/HR Metoprolol Tartrate (Lopressor Tab) 75 mg BID PO 06/13/18 20:00 07/13/18 20:59 06/14/18 08:40 75 MG Rivaroxaban (Xarelto Tab) 15 mg QAM PO 06/14/18 08:00 07/14/18 08:59 06/14/18 08:40 15 MG Daptomycin 475 mg/ Syringe 9.5 ml @ 4.75 mls/ min Q24H IV 06/13/18 16:00 06/23/18 15:59 06/13/18 16:18 4.75 MLS/MIN Clonidine HCl (Catapres Tab) 0.1 mg Q8 PRN PO 06/13/18 14:45 07/13/18 14:44 Oxycodone HCl (Roxicodone Immediate Rel Tab) 5 mg Q6 PRN PO 06/13/18 14:45 06/27/18 14:44 Miconazole Nitrate (Desenex Powder) 1 appln PRN PRN EXT 06/13/18 17:15 07/13/18 17:14 06/14/18 10:31 1 APPLN Magnesium Oxide (Mag-Ox Tab) 400 mg BID PO 06/14/18 08:30 07/14/18 08:29 06/14/18 10:29 400 MG Review of Systems All systems were reviewed and are negative except as per HPI Physical Exam Date Time Temp Pulse Resp B/P (MAP) Pulse Ox O2 Delivery O2 Flow Rate FiO2 06/14/18 08:57 Room Air 06/14/18 07:46 37.6 71 16 108/60 (76) 96 06/13/18 20:00 Room Air 06/13/18 19:38 72 18 104/72 (83) 97 Room Air 06/13/18 16:00 Room Air 06/13/18 15:57 37.4 83 20 94/58 (70) 92 Room Air 06/13/18 15:14 92 16 97/73 96 06/13/18 14:53 90 28 98/66 96 Room Air 06/13/18 14:22 86 25 97/77 96 Room Air 06/13/18 14:16 90 06/13/18 14:15 96 Room Air 06/13/18 14:13 96 26 77/59 94 Room Air 06/13/18 14:12 77/59 06/13/18 14:04 92 20 82/63 95 Room Air 06/13/18 12:37 37.1 72 20 92/58 96 Room Air General Appearance: WD/WN, no apparent distress Head: normocephalic, atraumatic Eyes: normal inspection, EOMI, sclerae normal ENT: normal ENT inspection, hearing grossly normal, pharynx normal Neck: supple, no adenopathy, thyroid normal, trachea midline Respiratory/Chest: chest non-tender, lungs clear, normal breath sounds, no respiratory distress Cardiovascular: regular rate, rhythm, no gallop, no murmur Abdomen/GI: normal bowel sounds, non tender, soft, no organomegaly Back: normal inspection, no CVA tenderness Extremities/Musculoskelatal: no calf tenderness, + slow capillary refill Neurologic/Psych: alert, oriented x 3, + pertinent finding (Leg weakness) Skin: normal color, warm/dry, + pertinent finding (Left great toe plantar callus with old blood, cellulitis of her left leg to the groin.) Lymphatic: no adenopathy Laboratory Results Date/Time Source Procedure Growth Status 06/13/18 14:03 Blood Blood Culture Pending Received 06/13/18 13:10 Blood Blood Culture Pending Received Last 24 Hours Test 06/13/18 13:10 06/14/18 06:01 White Blood Count 21.20 K/uL 11.45 K/uL Red Blood Count 4.27 M/uL 3.77 M/uL Hemoglobin 13.3 g/dL 11.4 g/dL Hematocrit 39.1 % 35.0 % Mean Corpuscular Volume 91.6 fL 92.8 fL Mean Corpuscular Hemoglobin 31.1 pg 30.2 pg Mean Corpuscular Hemoglobin Concent 34.0 g/dl 32.6 g/dl Platelet Count 141 K/uL 93 K/uL Mean Platelet Volume 11.4 fL 11.6 fL Neutrophils (%) (Auto) 92.1 % Lymphocytes (%) (Auto) 4.8 % Monocytes (%) (Auto) 2.5 % Eosinophils (%) (Auto) 0.0 % Basophils (%) (Auto) 0.1 % Neutrophils # (Auto) 19.53 K/uL Lymphocytes # (Auto) 1.01 K/uL Monocytes # (Auto) 0.52 K/uL Eosinophils # (Auto) 0.01 K/uL Basophils # (Auto) 0.02 K/uL RDW Standard Deviation 42.4 fL 44.4 fL RDW Coefficient of Variation 12.7 % 13.0 % Immature Granulocyte % (Auto) 0.5 % Immature Granulocyte # (Auto) 0.11 K/uL Red Blood Cell Morphology Unremarkable Sodium Level 137 mmol/L 139 mmol/L Potassium Level 4.0 mmol/L 3.6 mmol/L Chloride Level 104 mmol/L 108 mmol/L Carbon Dioxide Level 23 mmol/L 23 mmol/L Anion Gap 10.0 mmol/L 8.0 mmol/L Blood Urea Nitrogen 43 mg/dl 37 mg/dl Creatinine 1.99 mg/dl 1.38 mg/dl Estimated GFR () 28.4 44.2 Estimated GFR (Non- 24.5 38.1 BUN/Creatinine Ratio 21.4 26.4 Random Glucose 103 mg/dl 90 mg/dl Lactic Acid Level 2.5 mmol/L Calcium Level 8.8 mg/dl 8.1 mg/dl Total Creatine Kinase 276 U/L Platelet Estimate DECREASED Est Creatinine Clear Calc Drug Dose 45.8 ml/min Magnesium Level 1.4 mg/dl [~ rep ct add3]] L TOE(S) MIN 2 VIEWS HISTORY: 72 years-old Female L 1st toe acute pain of the left great toe COMPARISON: None available TECHNIQUE: 3 views of the left toes FINDINGS: Demineralized appearance of the bones. There is flexion of the interphalangeal joints which limits the study. Moderate first MTP joint osteoarthritis. Degenerative changes are seen, the remaining intertarsal phalangeal and interphalangeal joints. Demineralized appearance of the bones without acute fracture or dislocation identified. Moderate soft tissue swelling about the forefoot. With [employer] over the lateral mid foot. IMPRESSION: 1. Soft tissue swelling without acute fracture identified. 2. Degenerative changes as above. 3. Demineralized appearance of the bones. The above report was generated using voice recognition software. It may contain grammatical, syntax or spelling errors. Assessment & Plan Left lower extremity cellulitis with left great toe being likely portal of entry. Current antibiotics appropriate pending further culture results. Length of IV antibiotics will be determined by clinical response. Will follow.
[2018-06-14 15:34] VITALS: BP 103/72; PULSE 119; TEMP 36.5; O2SAT 95
[2018-06-14] MEDS: DAPTOMYCIN IV SCH (16:11)
[2018-06-14 23:05] VITALS: BP 139/85; PULSE 88; TEMP 37.2; O2SAT 95
[2018-06-15] VITALS: O2SAT 95
[2018-06-15] MEDS: IMIPENEM-CILASTATIN 250 MG in DEXTROSE 5% 100ML 100 ML IV SCH ×3 (02:09→13:12)
[2018-06-15 06:09] LABS: HEMATOCRIT 35.6 % (37-47); HEMOGLOBIN 11.6 g/dL (12.0-16.0); MEAN CORPUSCULAR HEMOGLOBIN 30.3 pg (25-34); MEAN CORPUSCULAR HGB CONC 32.6 g/dl (32-36); RED CELL DISTRIBUTION WIDTH CV 13.1 % (11.5-14.5); RED CELL DISTRIBUTION WIDTH SD 44.7 fL (36.4-46.3); WHITE BLOOD COUNT 7.12 K/uL (4.8-10.8)
[2018-06-15 06:13] LABS: MEAN PLATELET VOLUME 11.2 fL (7.4-10.4); PLATELET COUNT 89 K/uL (130-400)
[2018-06-15 07:39] VITALS: BP 125/77; PULSE 66; TEMP 36.5; O2SAT 95
[2018-06-15 08:00] VITALS: O2SAT 95
[2018-06-15] MEDS: SODIUM CHLORIDE 0.9% 1000ML 1,000 ML IV SCH ×2 (08:17→19:59)
[2018-06-15] MEDS: PANTOprazole SOD 40 MG TAB PO SCH (08:18)
[2018-06-15] MEDS: LEVOTHYROXINE 112 MCG TAB PO SCH (08:18)
[2018-06-15] MEDS: CLOPIDOGREL BISULFATE 75 MG TAB PO SCH (08:18)
[2018-06-15] MEDS: MAGNESIUM OXIDE 400 MG TAB PO SCH ×2 (08:18→19:59)
[2018-06-15] MEDS: RIVAROXABAN TAB 15 MG TAB PO SCH (08:18)
[2018-06-15] MEDS: METOPROLOL TARTRATE 25 MG TAB PO SCH ×2 (08:18→20:00)
[2018-06-15] MEDS: SERTRALINE HCL 50 MG TAB PO SCH (08:18)
[2018-06-15 14:52] VITALS: BP 120/80; PULSE 66; TEMP 36.5; O2SAT 97
--- NOTE | 2018-06-15 15:14 | Progress Note ---
Subjective Date of Service: Jun 15, 2018. Subjective This patient continues to feel well her rash from her leg infection is improving her intertrigo is also being treated with powder we are awaiting final sensitivities of her blood cultures to determine the duration and type of antibiotic especially given the fact that she does have drug allergies Problem List Medical Problems: (1) Cellulitis of leg Status: Acute (2) Hypotension Status: Acute (3) Sepsis Status: Acute Review of Systems Constitutional: No fever, No chills, No weakness, No fatigue Respiratory: No cough, No shortness of breath, No dyspnea on exertion Cardiac: No chest pain, No orthopnea, No edema Abdomen: No pain, No nausea, No vomiting, No diarrhea Musculoskeletal: + problem reported (Changes of chronic leg discoloration), No joint pain, No muscle pain Psychiatric: No depression symptoms, No anhedonism, No anxiety Objective Vital Signs Date Time Temp Pulse Resp B/P (MAP) Pulse Ox O2 Delivery O2 Flow Rate FiO2 06/15/18 07:39 36.5 66 18 125/77 (93) 95 06/15/18 00:00 95 Room Air 06/14/18 23:05 37.2 88 20 139/85 (103) 95 Room Air 06/14/18 16:20 Room Air 06/14/18 15:34 36.5 119 20 103/72 (82) 95 Room Air 06/14/18 08:57 Room Air Physical Exam General Appearance: + mild distress, + obese Eyes: normal inspection, sclerae normal Neck: supple, no adenopathy Respiratory/Chest: chest non-tender, lungs clear Cardiovascular: regular rate, rhythm, + systolic murmur Abdomen: normal bowel sounds, non tender, soft Extremities: + pedal edema, + pertinent finding (Changes of chronic venous stasis) Neurologic/Psychiatric: alert, oriented x 3 Laboratory Results Last 24 Hours Test 06/15/18 05:39 White Blood Count 7.12 K/uL Red Blood Count 3.83 M/uL Hemoglobin 11.6 g/dL Hematocrit 35.6 % Mean Corpuscular Volume 93.0 fL Mean Corpuscular Hemoglobin 30.3 pg Mean Corpuscular Hemoglobin Concent 32.6 g/dl RDW Standard Deviation 44.7 fL RDW Coefficient of Variation 13.1 % Platelet Count 89 K/uL Mean Platelet Volume 11.2 fL Assessment and Plan (1) Cellulitis of leg Assessment & Plan: due to history of concern of resistant organisms, will have on renal dose adjusted daptomycin as preliminary cultures are strep, ID consult and final cultures are pending, reasonable perfusion with arterial Doppler capillary refill is slow preliminary gram positive blood cultures may suggest bacteremia at presentation , will prologue antibiotic course (2) Acute kidney injury Assessment & Plan: continue hold diuretics and arbs, blood pressure is controlled (3) Atrial Fibrillation Assessment & Plan: remains with rate control with metoprolol and anticoagulation with xarelto (4) CVA Assessment & Plan: Pt has mobility issues and is a fall risk PT/OT, may need subacute rehab (5) Morbid Obesity Assessment & Plan: this impacts venous stasis, mobility and healing (6) Depression Assessment & Plan: mariaoft, clinically seems compensated (7) HTN (hypertension) Assessment & Plan: Patient's hypertension has been controlled despite holding diuretic therapy and ARB therapy. The patient will continue to have these held unless hypertension needs to be treated this will likely also help improve her chronic kidney disease however we may consider adding low-dose ARB for renal protective effects holding arb and diuretics, is low on admission, hydrate and follow maintaining metoprolol for bp control and afib Problem Qualifiers (1) Cellulitis of leg: Laterality: left Qualified Codes: L03.116 - Cellulitis of left lower limb
[2018-06-15] MEDS: DAPTOMYCIN IV SCH (16:33)
[2018-06-15 19:58] VITALS: BP 136/89; PULSE 84
--- NOTE | 2018-06-15 20:19 | Infectious Disease Progress Nt ---
Progress Note Date of Service Jun 15, 2018. Subjective Pt evaluation today including: conversation w/ patient, physical exam, chart review, lab review, review of studies, conversation w/ polymer materials consultant, review of inpatient medication list Patient feeling better, remains afebrile. Left leg erythema improving. Blood cultures now positive for group B Streptococcus. All Other Systems: Reviewed and Negative Medications Current Inpatient Medications Medications (Trade) Dose Ordered Sig/Abril Route Start Time Stop Time Status Last Admin Dose Admin Clopidogrel Bisulfate (plAVix TAB) 75 mg QAM PO 06/14/18 08:00 07/14/18 08:59 06/15/18 08:18 75 MG Levothyroxine Sodium (Synthroid Tab) 112 mcg DAILYBB PO 06/14/18 06:30 07/14/18 06:59 06/15/18 08:18 112 MCG Sertraline HCl (Zoloft Tab) 50 mg QAM PO 06/14/18 08:00 07/14/18 08:59 06/15/18 08:18 50 MG Tramadol HCl (Ultram Tab) 50 mg Q6 PRN PO 06/13/18 14:00 07/13/18 13:59 06/15/18 20:04 50 MG Pantoprazole Sodium (Protonix Tab) 40 mg QAM PO 06/14/18 08:00 07/14/18 08:59 06/15/18 08:18 40 MG Acetaminophen (Tylenol Tab) 650 mg Q4H PRN PO 06/13/18 14:00 07/13/18 13:59 06/14/18 22:34 650 MG Al Hydrox/Mg Hydrox/Simethicone (Maalox Max Susp) 15 ml Q4H PRN PO 06/13/18 14:00 07/13/18 13:59 Magnesium Hydroxide (Milk Of Magnesia Susp) 30 ml Q6H PRN PO 06/13/18 14:00 07/13/18 13:59 Polyethylene (Miralax Powder Packet) 17 gm DAILY PRN PO 06/13/18 14:00 07/13/18 13:59 Ondansetron HCl (Zofran Inj) 4 mg Q6H PRN IV 06/13/18 14:00 07/13/18 13:59 Sodium Chloride 1,000 ml @ 100 mls/hr Q10H IV 06/13/18 14:15 07/13/18 14:14 06/15/18 19:59 100 MLS/HR Metoprolol Tartrate (Lopressor Tab) 75 mg BID PO 06/13/18 20:00 07/13/18 20:59 06/15/18 20:00 75 MG Rivaroxaban (Xarelto Tab) 15 mg QAM PO 06/14/18 08:00 07/14/18 08:59 06/15/18 08:18 15 MG Daptomycin 475 mg/ Syringe 9.5 ml @ 4.75 mls/ min Q24H IV 06/13/18 16:00 06/23/18 15:59 06/15/18 16:33 4.75 MLS/MIN Clonidine HCl (Catapres Tab) 0.1 mg Q8 PRN PO 06/13/18 14:45 07/13/18 14:44 Oxycodone HCl (Roxicodone Immediate Rel Tab) 5 mg Q6 PRN PO 06/13/18 14:45 06/27/18 14:44 Miconazole Nitrate (Desenex Powder) 1 appln PRN PRN EXT 06/13/18 17:15 07/13/18 17:14 06/14/18 10:31 1 APPLN Magnesium Oxide (Mag-Ox Tab) 400 mg BID PO 06/14/18 08:30 07/14/18 08:29 06/15/18 19:59 400 MG Objective Vital Signs Date Time Temp Pulse Resp B/P (MAP) Pulse Ox O2 Delivery O2 Flow Rate FiO2 06/15/18 19:58 84 136/89 (105) 06/15/18 14:52 36.5 66 18 120/80 (93) 97 06/15/18 08:00 95 Room Air 06/15/18 07:39 36.5 66 18 125/77 (93) 95 06/15/18 00:00 95 Room Air 06/14/18 23:05 37.2 88 20 139/85 (103) 95 Room Air Physical Exam General Appearance: WD/WN, no apparent distress Eyes: normal inspection, EOMI, sclerae normal ENT: normal ENT inspection, pharynx normal Neck: supple, no adenopathy, thyroid normal, trachea midline Respiratory/Chest: chest non-tender, lungs clear, normal breath sounds, no respiratory distress Cardiovascular: regular rate, rhythm, no gallop, no murmur Abdomen: normal bowel sounds, non tender, soft, no organomegaly Extremities: no calf tenderness, + inflammation (Left lower leg improving), + swelling (Left lower leg improving) Neurologic/Psychiatric: alert, oriented x 3 Skin: warm/dry, no rash, + pertinent finding (Left leg cellulitis improving) Lymphatic: no adenopathy Laboratory Results RUN DATE: 06/15/18 [facility] LAB PAGE 1 RUN TIME: 1223 Specimen Inquiry PATIENT: ENDER FOSTER Terrence LOC: [facility] U # : [id number] AGE/SX: 72/F ROOM: [facility] REG : 06/13/[address]: Naren White M : 1945 BED: 1 DIS : STATUS: ADM IN TLOC: SPEC #: [id number] JUAN ANTONIO: 06/13/18-1310 STATUS: RES REQ #: [id number] RECD: 06/13/18-[address]: Franc Jules DO SOURCE: BLOOD ENTR: 06/13/18-[address] [facility] [address]: Naren White M.D. [facility]: Tacos Davis M.D. ORDERED: BLOOD CULTURE COMMENTS: SET 1 Procedure Result Verified Site BLD CULT Preliminary 06/15/18-1223 Organism 1 GROUP B BETA STREP SENS SENSITIVITY TO FOLLOW Phoned Positive Blood Culture Gram Stain Report to MICHELLE GENTILE on 06/14/18 At 1213 By JAMMIE. Results were verbalized back to JAMMIE. Last 24 Hours Test 06/15/18 05:39 White Blood Count 7.12 K/uL Red Blood Count 3.83 M/uL Hemoglobin 11.6 g/dL Hematocrit 35.6 % Mean Corpuscular Volume 93.0 fL Mean Corpuscular Hemoglobin 30.3 pg Mean Corpuscular Hemoglobin Concent 32.6 g/dl RDW Standard Deviation 44.7 fL RDW Coefficient of Variation 13.1 % Platelet Count 89 K/uL Mean Platelet Volume 11.2 fL Assessment and Plan (1) Cellulitis of leg Status: Acute due to history of concern of resistant organisms, will have on renal dose adjusted daptomycin as preliminary cultures are strep, ID consult and final cultures are pending, reasonable perfusion with arterial Doppler capillary refill is slow preliminary gram positive blood cultures may suggest bacteremia at presentation , will prologue antibiotic course (2) Acute kidney injury Status: Acute continue hold diuretics and arbs, blood pressure is controlled (3) Atrial Fibrillation Status: Chronic remains with rate control with metoprolol and anticoagulation with xarelto (4) CVA Status: Chronic Pt has mobility issues and is a fall risk PT/OT, may need subacute rehab (5) Morbid Obesity Status: Chronic this impacts venous stasis, mobility and healing (6) Depression Status: Chronic zoloft, clinically seems compensated (7) HTN (hypertension) Status: Chronic Left lower extremity cellulitis with left great toe being likely portal of entry , with blood cultures positive for group B strep, likely pathogen in this case. Patient will need 14 days of IV antibiotics, would recommend ceftriaxone 2 g daily. Will discuss with all involved. Will follow.
[2018-06-15 23:29] VITALS: BP 126/73; PULSE 71; TEMP 36.7; O2SAT 95
[2018-06-16] MEDS ORDERED: NURSING VERBAL MED ORDER ONE (04:45)
[2018-06-16] MEDS: SODIUM CHLORIDE 0.9% 1000ML 1,000 ML IV SCH ×2 (05:23→13:51)
[2018-06-16] MEDS: LEVOTHYROXINE 112 MCG TAB PO SCH (05:23)
[2018-06-16 07:28] VITALS: BP 128/81; PULSE 74; TEMP 36.8; O2SAT 97
[2018-06-16] MEDS: PANTOprazole SOD 40 MG TAB PO SCH (08:13)
[2018-06-16] MEDS: RIVAROXABAN TAB 15 MG TAB PO SCH (08:13)
[2018-06-16] MEDS: SERTRALINE HCL 50 MG TAB PO SCH (08:13)
[2018-06-16] MEDS: CLOPIDOGREL BISULFATE 75 MG TAB PO SCH (08:13)
[2018-06-16] MEDS: MAGNESIUM OXIDE 400 MG TAB PO SCH ×2 (08:13→16:33)
[2018-06-16] MEDS: METOPROLOL TARTRATE 25 MG TAB PO SCH (08:13)
[2018-06-16 08:30] VITALS: O2SAT 97
[2018-06-16 09:20] LABS: HEMATOCRIT 35.8 % (37-47); HEMOGLOBIN 11.8 g/dL (12.0-16.0); MEAN CORPUSCULAR HEMOGLOBIN 30.6 pg (25-34); MEAN PLATELET VOLUME 11.3 fL (7.4-10.4); PLATELET COUNT 105 K/uL (130-400); RED CELL DISTRIBUTION WIDTH SD 43.8 fL (36.4-46.3); WHITE BLOOD COUNT 5.84 K/uL (4.8-10.8)
[2018-06-16 09:57] LABS: CALCIUM 8.7 mg/dl (8.5-10.1); CREATININE 0.86 mg/dl (0.60-1.20); POTASSIUM 3.8 mmol/L (3.5-5.1)
[2018-06-16] MEDS ORDERED: CEFT1INJ26 IV (12:24)
[2018-06-16] MEDS ORDERED: MGNO400 PO (12:24)
--- NOTE | 2018-06-16 12:25 | Discharge Instructions ---
Discharge Instructions Date of Service Jun 16, 2018. Admission Reason for Admission: Cellulitis Of Leg Discharge Discharge Diagnosis / Problem: strep skin infection Discharge Goals Goal(s): Diagnostic testing, Therapeutic intervention Activity Recommendations Activity Limitations: as noted below Lifting Limitations: gradually increase as tolerated Please follow up with a foot doctor to help with your blood blister beneath your callous on your left foot . Current Hospital Diet Patient's current hospital diet: Regular Diet Discharge Diet Recommended Diet: Regular Diet Pending Studies Studies pending at discharge: no Medical Emergencies . Who to Call and When: Medical Emergencies: If at any time you feel your situation is an emergency, please call 911 immediately. . Non-Emergent Contact Non-Emergency issues call your: Primary Care Provider, Specialist (podiarist) Call Non-Emergent contact if: temperature is above 101, your pain is not controlled . . "Provider Documentation" section prepared by Naren White. .
[2018-06-16] MEDS ORDERED: CEFTRIAXONE SOD INJ 1 GM in DEXTROSE 5% ADD-VANTAGE 50ML 50 ML IV ONE (12:30)
[2018-06-16 15:38] VITALS: BP 128/81; PULSE 74; TEMP 36.8; O2SAT 97
--- NOTE | 2018-06-16 16:46 | Discharge Summary ---
Discharge Summary Date of Service Jun 16, 2018. Discharge Summary Admission Date: Jun 13, 2018 at 14:01 Discharge Date: Jun 16, 2018 Discharge Disposition: Home with services Principal Diagnosis: cellulitis left lower leg, shanta resolved Immunizations: Have You Had Influenza Vaccine: Yes Influenza Vaccine Date: Oct 11, 2009 History of Tetanus Vaccine?: No History of Pneumococcal: Yes Pneumococcal Date: Oct 11, 2009 History of Hepatitis B Vaccine: No Medication Reconciliation New Medications: Ceftriaxone Sodium (Rocephin) 1 Gm Inj 1 GM IV DAILY, #11 DOSE Magnesium Oxide (Magnesium-Oxide) 400 Mg Tab 400 MG PO BID, #60 TAB 4 Refills Continued Medications: Acetaminophen (Tylenol) 325 Mg Tab 650 MG PO Q6HR PRN for Pain or Fever, TAB Atorvastatin (Lipitor) 20 Mg Tab 20 MG PO QAM, TAB Cholecalciferol (Vitamin D3) 2,000 Unit Cap 1 CAP PO BID for 90 Days, #180 CAP 3 Refills Clopidogrel Bisulfate (Plavix) 75 Mg Tab 75 MG PO QAM, TAB Ferrous Gluconate (Iron Supplement) 324 Mg Tab 324 MG PO DAILY, TAB Levothyroxine Sodium (Synthroid) 112 Mcg Tab 112 MCG PO QAM, TAB Metoprolol Tartrate (Lopressor) 50 Mg Tab 75 MG PO BID, TAB Omeprazole (Prilosec) 20 Mg Capcr 20 MG PO QAM, CAP Rivaroxaban (Xarelto) 15 Mg Tab 15 MG PO DAILY Sertraline (Zoloft) 50 Mg Tab 50 MG PO QAM, TAB Tramadol (Ultram) 50 Mg Tab 50 MG PO Q6 PRN for Pain, TAB Tramadol (Ultram) 50 Mg Tab 50 MG PO HS Discontinued Medications: Hctz/Spironolactone (Spironolactone/Hydrochlor 25-25 mg) 1 Ea Tab 1 TAB PO DAILY Irbesartan (Irbesartan) 300 Mg Tab 1 TAB PO DAILY for 90 Days, #90 TAB 3 Refills Discharge Exam Review of Systems: Constitutional: No fever, No chills, No sweats Abdomen: No pain, No nausea Musculoskeletal: No joint pain, No muscle pain Physical Exam: General Appearance: + mild distress, + obese Eyes: normal inspection, sclerae normal Respiratory/Chest: chest non-tender, lungs clear, normal breath sounds Abdomen / GI: normal bowel sounds, soft Extremities: + pertinent finding (cellulitis has resolved , has callous on feet) Hospital Course (1) Cellulitis of leg blood cultures are strep, with her allergies and sensitivities will have home to complete rocephin for a two week total reasonable perfusion with arterial Doppler capillary refill is slow she does have a hemorrhagic bullae below callous, will see outpt podiatry for possible drainage (2) Acute kidney injury resolved,will hold arb at discharge and also spironolactone but will recommend close follow up (3) Atrial Fibrillation remains with rate control with metoprolol and anticoagulation with xarelto (4) CVA Pt has mobility issues and is a fall risk, family has cared for her for some time, will be home with family (5) Morbid Obesity this impacts venous stasis, mobility and healing (6) Depression zoloft, clinically seems compensated (7) HTN (hypertension) continue holding arb and diuretics, maintaining metoprolol for bp control and afib Total Time Spent: Greater than 30 minutes This includes examination of the patient, discharge planning, medication reconciliation, and communication with other providers. Discharge Instructions Please refer to the electronic Patient Visit Report (Discharge Instructions) for additional information. Problem Qualifiers (1) Cellulitis of leg: Laterality: left Qualified Codes: L03.116 - Cellulitis of left lower limb
--- NOTE | 2018-06-22 13:07 | EDITING REQUIRED CODING QUERY ---
SEPSIS To promote full compliance with coding requirements relating to patient care, physician participation is requested in all cases of paper bag maker uncertainty. Please assist us with the question(s) below: In responding to this query, please exercise your independent professional judgement. The fact that a question is asked does not imply that any particular answer is desired or expected. We appreciate your clarification on this issue. Throughout the medical record, you have clearly documented a localized infection and your patient has clinical evidence of a generalized sepsis or severe sepsis. The term urosepsis is a nonspecific entity and is coded as an UTI. If the patient has sepsis, severe sepsis, from an urinary source or some other source, please clarify in your response below. The medical record reflects the following clinical findings: Left leg cellulitis, hypotension, KATINA ( )Bacteremia (Nonspecific laboratory finding of bacteria in the blood) Specify Organism ( xx) Present on Admission ( ) Not present on admission ( ) Unable to clinically determine ( ) Septicemia (Systemic disease associated with the presence of pathogenic microorganisms in the blood): Specify Organism ( ) Present on Admission ( ) Not present on admission ( ) Unable to clinically determine ( ) Sepsis Specify Organism Specify Associated Condition/Diagnosis ( ) Present on Admission ( ) Not present on admission ( ) Unable to clinically determine ( ) Severe Sepsis (Sepsis associated with acute organ dysfunction) Specify Organism Specify Associated Condition/Diagnosis ( ) Present on Admission ( ) Not present on admission ( ) Unable to clinically determine ( ) Septic Shock (Severe sepsis with acute circulatory failure, unexplained by other causes) ( ) Present on Admission ( ) Not present on admission ( ) Unable to clinically determine ( ) Other, patient has:
== END 2018-06-16 16:58 | disposition home health service (06) | DRG 603 ==
LOC: C.EDB 12:35 → C.4E 14:01 → ENRESERV 14:09 → EDBEDREQ 14:17
PROVIDERS: ADMIT Internal Medicine; ATTEND Internal Medicine
DX: L03.116 Cellulitis of left lower limb (principal); N17.9 Acute kidney failure, unspecified; R78.81 Bacteremia; I48.91 Unspecified atrial fibrillation; F32.9 Major depressive disorder, single episode, unspecified; I10 Essential (primary) hypertension; E78.5 Hyperlipidemia, unspecified; E66.01 Morbid (severe) obesity due to excess calories; Z88.1 Allergy status to other antibiotic agents; Z83.3 Family history of diabetes mellitus; Z82.49 Family history of ischemic heart disease and other diseases of the circulatory system; I87.8 Other specified disorders of veins; Z86.73 Personal history of transient ischemic attack (TIA), and cerebral infarction without residual deficits; E83.42 Hypomagnesemia; B95.5 Unspecified streptococcus as the cause of diseases classified elsewhere

== ENCOUNTER → 2018-06-22 | Outpatient (CLI) | payer OTHER ==
[~2018-06-22] MED LIST changes: +CEFT1INJ26 IV; +CHOL2000 PO; -HYDR25TA4 PO; +MGNO400 PO; -RIVA1TAB4 PO; -VALS320T PO; +XRL15 PO
[2018-06-22 16:45] LABS: BASO % 0.3 %; BASO ABS # 0.03 K/uL (0-0.2); EOS % 4.1 %; EOS ABS # 0.36 K/uL (0-0.5); HEMATOCRIT 37.5 % (37-47); HEMOGLOBIN 12.4 g/dL (12.0-16.0); IG# 0.14 K/uL (0.00-0.02); LYMPH % 18.2 %; LYMPH ABS # 1.59 K/uL (1.2-3.4); MEAN CELL VOLUME 92.8 fL (80-100); MEAN CORPUSCULAR HEMOGLOBIN 30.7 pg (25-34); MEAN CORPUSCULAR HGB CONC 33.1 g/dl (32-36); MEAN PLATELET VOLUME 11.3 fL (7.4-10.4); MONO % 4.1 %; MONO ABS # 0.36 K/uL (0.11-0.59); NEUT % 71.7 %; NEUT ABS # 6.28 K/uL (1.4-6.5); PLATELET COUNT 194 K/uL (130-400); RED CELL DISTRIBUTION WIDTH CV 12.8 % (11.5-14.5); RED CELL DISTRIBUTION WIDTH SD 43.2 fL (36.4-46.3); WHITE BLOOD COUNT 8.76 K/uL (4.8-10.8)
[2018-06-22 17:00] LABS: ALKALINE PHOSPHATASE 75 U/L (45-117); ALT/SGPT 16 U/L (12-78); AST/SGOT 24 U/L (15-37); BLOOD UREA NITROGEN 17 mg/dl (7-18); CALCIUM 9.2 mg/dl (8.5-10.1); CARBON DIOXIDE 28 mmol/L (21-32); CREATININE 1.04 mg/dl (0.60-1.20); GLUCOSE 128 mg/dl (70-99); POTASSIUM 4.1 mmol/L (3.5-5.1); SODIUM 140 mmol/L (136-145); TOTAL PROTEIN 7.3 gm/dl (6.4-8.2)
== END | disposition home or self-care (01) ==
LOC: C.LABSPEC 14:18
PROVIDERS: ATTEND Internal Medicine Infectious Disease
DX: L03.116 Cellulitis of left lower limb (principal); E83.42 Hypomagnesemia

== ENCOUNTER 2020-12-01 20:45 | Observation (INO) ==
[2020-12-01] MEDS ORDERED: XYLOCAINE 1%/SOD BICARB 20 ML VIAL INFIL ONE (21:09)
[2020-12-01] MEDS ORDERED: METOPROLOL TARTRATE 25 MG TAB PO STA (21:46)
--- NOTE | 2020-12-01 23:04 | Emergency Department Note ---
Impression & Plan Acute anterior epistaxis ED Provider Note INFORMANT: Patient ED PROVIDER(S): Jason Lewis MD CHIEF COMPLAINT: Epistaxis PLAN: Disposition: Discharged Condition: Good Outpatient prescription management: none Referral: Back to the ER the day after tomorrow for packing removal. MEDICAL DECISION MAKING: Patient presented back to the emergency department for evaluation of continued epistaxis despite Merocel packing placement earlier today by Dr. Calhoun. She had some mild anterior bleeding. Some mild posterior bleeding noted. He was unable to find a source to cauterize. I did review the case with him. I evaluated her and was unable to find a source of bleeding despite thorough inspection of the right naris. No obvious bleeding from the left naris. The patient and I discussed treatment options. Without an obvious source to cauterize she would need packing. I did place a 7.5 cm Rhinostat balloon. This was inflated in the standard fashion and the bleeding appeared to be controlled. She was observed. She was given her oral evening dose of her metoprolol. The patient had improvement of her blood pressure. Clinically she looked well. She felt comfortable with conservative management. She will need to come back to the emergency department the day after tomorrow for packing removal. If she has any worsening problems or recurrent bleeding she will come back sooner. I gave my usual and customary discussion regarding this issue. By the evaluation outlined above other emergent etiologies such as those listed in the differential, as well as others, were deemed relatively unlikely. The patient was educated about the findings as listed above. All questions were answered and the patient was pleased with the treatment. Return instructions were outlined and the patient was discharged in stable condition. The patient was referred for follow-up for a recheck of the current condition. Triage Nursing notes reviewed and agree them. Additional history obtained from her treating physician from earlier today, Dr. Calhoun. Vital Signs: reviewed and remarkable for hypertension Differential diagnosis: Anterior epistaxis, coagulopathy, traumatic injury, fracture, septal hematoma, posterior epistaxis, infections, as well as other pathologies. Diagnostics interpreted by me: Deferred Consultation(s): none HPI: The patient is a 75 year old female who presents to the Emergency Room with complaints of epistaxis. This started again this evening after being in the emergency department and receiving right nasal packing. The patient also notes the following associated symptoms, none. The patient has tried additional Afrin for relieving factors. Current pain is rated as 0/10. Patient did not paola e her evening Xarelto. Pt denies LOC, headache, fevers, chills, diaphoresis, visual changes, neck pain, chest pain, breathing difficulties, nausea, vomiting, abdominal pain, back pain, melena, hematochezia, urinary symptoms, numbness, weakness, lymphadenopathy, rash, or other complaints. ROS: See above HPI for pertinent positives & negatives. A total of 8 systems reviewed and were otherwise negative. PAST MEDICAL HISTORY:See Below , high cholesterol, A. fib PAST SURGICAL HISTORY:See Below, FAMILY HISTORY:See Below SOCIAL HISTORY:See Below, lives with family HOME MEDICATIONS:[See Below] ALLERGIES:[See Below] VITALS:[See Below] PHYSICAL EXAMINATION: GENERAL: Awake, alert, well-appearing, in no distress HENT: Normocephalic, atraumatic. Oropharynx unremarkable except for minimal posterior bleeding noted. Dried blood around the mouth. The patient had a Merocel packing in the right naris that was tinted pink. EYES: Normal conjunctiva. Sclera non-icteric. NECK: Inspection normal. Non-tender. Supple. No nuchal rigidity. FROM. No masses. RESPIRATORY: Clear to auscultation. No wheezes. No rales. Normal respiratory effort. CARDIAC: Normal rate. Normal rhythm. No murmurs. No rubs. Extremities warm and well perfused. Pulses equal. No JVD. MUSCULOSKELETAL: Atraumatic. NEURO: Normal sensorium. No sensory or motor deficits noted. SKIN: No rash or jaundice noted. ED COURSE: Anterior Nasal Packing: Verbal consent obtained. Risks and benefits discussed. Clots were removed. The naris was prepped with Afrin and lidocaine. A 7.5-cm nasal balloon was placed in a standard fashion. The patient tolerated this well. Bleeding was controlled. No complications. Jason Lewis MD Past Med/Surg History Medical History Acute kidney injury Atrial fibrillation Cellulitis of leg CVA (cerebral vascular accident) Depression Graves disease H/O gastric ulcer HTN (hypertension) Hypomagnesemia Peripheral vascular disease Surgical History H/O colonoscopy No significant past surgical history S/P foot surgery, left S/P hammer toe correction S/P knee surgery Status post hip surgery Family History Other No pertinent family history Social History Smoking Status: Former smoker Second Hand Exposure: No; Hx Alcohol Use: No Hx Substance Use: No Preferred Language: Georgian Hearing Ability: Normal Cbx Operator Required: No Beliefs That Will Affect Care: None marital status: Current Living Situation: Family current occupational status: retired Feels Safe at Home: Yes Physical Activity Frequency: Does not Exercise Seatbelt Use: never Allergies Allergies Allergy/AdvReac Type Severity Reaction Status Date / Time clindamycin Allergy Intermediate HIVES Verified 12/01/20 13:23 piperacillin Allergy Intermediate HIVES Verified 12/01/20 13:23 vancomycin Allergy Unknown unknown Verified 12/01/20 13:23 Home Meds Home Medications Medication Instructions Recorded Confirmed acetaminophen [Tylenol] 650 mg PO Q6H PRN 11/17/18 12/01/20 cholecalciferol (vitamin D3) 1,000 unit PO BID 11/17/18 12/01/20 [Vitamin D3] atorvastatin 20 mg PO QAM 12/01/20 12/01/20 cholecalciferol (vitamin D3) 50,000 unit PO WK 12/01/20 12/01/20 tramadol 50 mg PO HS PRN 12/01/20 12/01/20 Previous Rx's Medication Instructions Recorded omeprazole 20 mg capsule,delayed 20 mg PO DAILY #30 cap 06/09/19 release levothyroxine 100 mcg tablet 100 mcg PO DAILY #90 tab 03/20/20 metoprolol tartrate 50 mg tablet 75 mg PO BID #270 tab 04/25/20 nystatin 100,000 unit/gram topical 1 appln TOP BID PRN #60 gm 05/16/20 powder rivaroxaban 15 mg tablet 15 mg PO DAILY #90 tab 06/20/20 sertraline 50 mg tablet 50 mg PO DAILY #30 tab 09/13/20 clopidogrel 75 mg tablet 75 mg PO DAILY #30 tab 09/17/20 Saccharomyces boulardii [Florastor] 250 mg PO BID #20 cap 12/01/20 doxycycline hyclate 100 mg PO BID 7 Days #14 tab 12/01/20 Results & Data (ED) Vital Signs Vital Signs - 24 hr 12/01/20 20:47 12/01/20 21:53 Temperature 36.4 C L Temperature Source Oral Pulse Rate 76 Pulse Rate [Finger] 80 Respiratory Rate 18 18 Respiratory Effort / Characteristics Non-Labored Spontaneous Respiratory Depth Normal Blood Pressure 187/129 H Blood Pressure [Right Arm] 148/90 H Blood Pressure Mean 148 Blood Pressure Mean [Right Arm] 109 Pulse Oximetry 96 93 Oxygen Delivery Method Room Air Room Air Sepsis Recent Fever Within 48 Hours No Sepsis New/Unexplained Change in Mental Status N/A Sepsis Action Taken by Nursing No Action Required Administered Medications Discontinued Medications Lidocaine HCl (Xylocaine 1%/Sod Bicarb 20 Ml Vial) Confirm Administered Dose 20 ml [facility]FIL [facility] Stop: 12/01/20 21:10 Last Admin: 12/01/20 21:12 Dose: 20 ml Documented by: [id number] Metoprolol Tartrate (Metoprolol Tartrate 25 Mg Tab) 75 mg PO NOW STA Stop: 12/01/20 21:47 Last Admin: 12/01/20 21:53 Dose: 75 mg Documented by: [id number] Discharge Plan Visit Data Chief Complaint: Nose Bleed (Minor) Stated Complaint: NOSE BLEED ED Provider: Jason Lewis Discharge Problem: Acute anterior epistaxis Patient Disposition: Home - Self-Care Discharge Instructions Activity Restrictions/Additional Instructions: Hold your Xarelto tonight and tomorrow. Restart on Thursday. Continue current medications and new prescriptions. Return to the emergency department in 2 days for packing removal. Any time on Thursday is acceptable. Return to the emergency room sooner for any fever, difficulty breathing, uncontrolled bleeding, or as needed. Forms Stand Alone Forms: [facility], Virtual Emergency Department, Important Visit Information Prescriptions Prescriptions: No Action omeprazole 20 mg capsule,delayed release(DR/EC) 20 mg PO DAILY Qty: 30 RF: 5 levothyroxine 100 mcg tablet 100 mcg PO DAILY Qty: 90 RF: 3 metoprolol tartrate 50 mg tablet 75 mg PO BID Qty: 270 RF: 3 rivaroxaban 15 mg tablet 15 mg PO DAILY Qty: 90 RF: 3 sertraline 50 mg tablet 50 mg PO DAILY Qty: 30 RF: 5 clopidogrel 75 mg tablet 75 mg PO DAILY Qty: 30 RF: 5 nystatin 100,000 unit/gram powder 1 appln TOP BID PRN (Reason: Candidiasis) Qty: 60 RF: 5 acetaminophen [Tylenol] 325 mg Tablet 650 mg PO Q6H PRN (Reason: Pain) RF: 0 cholecalciferol (vitamin D3) [Vitamin D3] 1,000 unit Capsule 1,000 unit PO BID RF: 0 Hold Instructions: on higher dose x2 months, then switch back atorvastatin 20 mg tablet 20 mg PO QAM RF: 0 tramadol 50 mg tablet 50 mg PO HS PRN (Reason: pain) RF: 0 cholecalciferol (vitamin D3) 1,250 mcg (50,000 unit) capsule 50,000 unit PO WK RF: 0 Saccharomyces boulardii [Florastor] 250 mg capsule 250 mg PO BID Qty: 20 RF: 0 doxycycline hyclate 100 mg tablet 100 mg PO BID 7 Days Qty: 14 RF: 0 Referrals Referrals: Rustam Davis MD [Primary Care Provider] -
[2020-12-01 23:47] LABS: Basophils # (auto) 0.03 K/uL (0-0.2); Basophils % (auto) 0.3 %; Eosinophils # (auto) 0.35 K/uL (0-0.5); Eosinophils % (auto) 3.2 %; Hematocrit (blood only) 39.6 % (37-47); Hemoglobin 13.2 g/dL (12.0-16.0); Immature Granulocytes # (auto) 0.03 K/uL (0.00-0.02); Immature Granulocytes % (auto) 0.3 %; Lymphocytes # (auto) 2.64 K/uL (1.2-3.4); Lymphocytes % (auto) 24.1 %; Mean Corpuscular Hemoglobin 31.7 pg (25-34); Mean Corpuscular Hgb Conc 33.3 g/dL (32-36); Mean Corpuscular Volume 95.2 fL (80-100); Mean Platelet Volume 10.3 fL (7.4-10.4); Monocytes # (auto) 0.77 K/uL (0.11-0.59); Neutrophils # (auto) 7.14 K/uL (1.4-6.5); Neutrophils % (auto) 65.1 %; Platelet Count 230 K/uL (130-400); RDW Coefficient of Variation 13.2 % (11.5-14.5); RDW Standard Deviation 46.3 fL (36.4-46.3); Red Blood Count 4.16 M/uL (4.2-5.4); White Blood Count 10.96 K/uL (4.8-10.8)
[2020-12-01 23:58] LABS: INR 1.1 (0.9-1.1); Partial Thromboplastin Ratio 1.1; Prothrombin Time 11.6 Seconds (9.0-12.0)
[2020-12-02 00:10] LABS: Alanine Aminotransferase 21 U/L (12-78); Albumin Level 3.2 gm/dl (3.4-5.0); Aspartate Aminotransferase 24 U/L (15-37); Blood Urea Nitrogen 57 mg/dl (7-18); Calcium 9.3 mg/dl (8.5-10.1); Carbon Dioxide 28 mmol/L (21-32); Chloride 105 mmol/L (98-107); Est GFR (African American) 65.4; Est GFR (Non-African American) 56.4; Glucose 98 mg/dl (70-99); Potassium 4.7 mmol/L (3.5-5.1); Sodium 138 mmol/L (136-145)
[2020-12-02 00:13] LABS: Albumin Globulin Ratio 0.8 (0.9-2); Alkaline Phosphatase 80 U/L (45-117); Bilirubin,Total 0.9 mg/dl (0.2-1); Globulin 4.3 gm/dl (2.5-4.0); Total Protein 7.5 gm/dl (6.4-8.2)
[2020-12-02 00:50] LABS: Influenza A virus by PCR Negative (Neg); Influenza B virus by PCR Negative (Neg); RSV by PCR Negative (Neg); SARS CoV2 RNA(COVID-19) InHosp NEGATIVE (Negative)
--- NOTE | 2020-12-02 01:25 | History & Physical Report ---
Date of Service December 02, 2020 Assessment & Plan (1) Epistaxis: Missy Olson is a 75-year-old female with a past medical history of atrial fibrillation on DOAC anticoagulation with rivaroxaban, hyperlipidemia, hypothyroidism, hypertension, CKD 3, and history of CVD on Plavix with an episod e of epistaxis. who presents. Per ED report patient was treated with Rhino Rocket and had a recurrent bleed and has been recommended for admission for observation. Epistaxis while on anticoagulation Hemoglobin 13.2, last known baseline 13.0 Patient skipped her last dose of rivaroxaban - H&H Q6H Tachycardia is not present No life-threatening or critical bleed to indicate urgent reversal Admit for observation, trend H&H Case discussed with Dr. Diaz by emergency provider, may consult and be seen by ENT in the morning if having persistent bleeding Type and screen on file PT/PTT within normal limits, XA level not available Atrial fibrillation Continue rate control with metoprolol 75 mg tartrate twice daily DOAC held in the setting of acute bleed Pt irregularly irregular on exam Story of CVA Plavix held in the setting of acute bleed No indication for DDAVP at this time Continue atorvastatin 20 mg every morning Hypothyroidism Continue PEDIATRICIAN Synthroid 100 mcg daily Anxiety/depression Continue sertraline 50 mg daily GERD Convert to pantoprazole 20 mg daily while inpatient Diet: N.p.o. in the setting of acute epistaxis DVT prophylaxis: SCDs, pharmacal prophylaxis contraindicated in the setting of bleed Disposition: Medical/surgical with telemetry CODE STATUS: Full code (2) On rivaroxaban therapy: (3) Acute anterior epistaxis: (4) Chronic kidney disease, stage III (moderate): (5) PAD (peripheral artery disease): (6) Morbid obesity: (7) Gait disturbance: (8) Vitamin D deficiency: (9) Anticoagulant long-term use: (10) Hyperlipidemia: (11) Hypothyroidism: (12) Atrial fibrillation: (13) Graves disease: History of Present Illness Chief Complaint: Epistaxis Primary Care Provider: Tacos Davis MD Missy Olson is a 75-year-old female with a past medical history of atrial fibrillation on DOAC anticoagulation with rivaroxaban, hyperlipidemia, hypothyroidism, hypertension, CKD 3, and history of CVD on Plavix with an episode of epistaxis. who presents. Per ED report patient was treated with Rh vivek Rocket and had a recurrent bleed and has been recommended for admission for observation. Missy reports that she is on 2 blood thinners, 1 for A. fib in 1 for a stroke. She reports that the evening of admission she developed a sudden large-volume nosebleed. She reports she had 1 similar nosebleed 2 years ago, otherwise has not had any problems with nosebleeds. Denies any regular gum bleeding or other bleeding. She reports that the bleeding did not stop with pinching her nose. She reports she gets intermittently dizzy at baseline, but has not had any increased dizziness. She does not feel lightheaded. She denies chest pain, chest pressure, palpitations, difficulty breathing, shortness of breath, nausea, vomiting, diarrhea, constipation, vomiting. She denies recent fever, chills, sweats and recent illness. She reports she has a mild stomachache. She reports she has not had a change in urination, and last peed before coming to the hospital. Medical: Reviewed in EMR SHX: Reviewed in EMR Allergies: Reviewed in EMR, pt reports multiple antibiotic allergies but is a poor historian of these MEdications: Poor historian, reviewed in EMR. Pt reports last took blood thinner a day before admission, took her Thursday AM meds otherwise Social: Lives with her daughter at home, independently ambulatory, denies falls. Denies tobacco, alcohol, recreational drug use. Denies sick contacts. CODE STATUS: Full code per pt Allergies Allergy/AdvReac Type Severity Reaction Status Date / Time clindamycin Allergy Intermediate HIVES Verified 12/01/20 13:23 piperacillin Allergy Intermediate HIVES Verified 12/01/20 13:23 vancomycin Allergy Unknown unknown Verified 12/01/20 13:23 Home Medications Medication Instructions Recorded Confirmed Type acetaminophen [Tylenol] 650 mg PO Q6H PRN 11/17/18 12/01/20 History cholecalciferol (vitamin D3) 1,000 unit PO BID 11/17/18 12/01/20 History [Vitamin D3] omeprazole 20 mg capsule,delayed 20 mg PO DAILY #30 cap 06/09/19 12/01/20 Rx release levothyroxine 100 mcg tablet 100 mcg PO DAILY #90 tab 03/20/20 12/01/20 Rx metoprolol tartrate 50 mg tablet 75 mg PO BID #270 tab 04/25/20 12/01/20 Rx nystatin 100,000 unit/gram topical 1 appln TOP BID PRN #60 gm 05/16/20 12/01/20 Rx powder rivaroxaban 15 mg tablet 15 mg PO DAILY #90 tab 06/20/20 12/01/20 Rx sertraline 50 mg tablet 50 mg PO DAILY #30 tab 09/13/20 12/01/20 Rx clopidogrel 75 mg tablet 75 mg PO DAILY #30 tab 09/17/20 12/01/20 Rx Saccharomyces boulardii [Florastor] 250 mg PO BID #20 cap 12/01/20 12/01/20 Rx atorvastatin 20 mg PO QAM 12/01/20 12/01/20 History cholecalciferol (vitamin D3) 50,000 unit PO WK 12/01/20 12/01/20 History doxycycline hyclate 100 mg PO BID 7 Days #14 tab 12/01/20 12/01/20 Rx tramadol 50 mg PO HS PRN 12/01/20 12/01/20 History Past Med/Surg History Medical History Acute kidney injury Atrial fibrillation Cellulitis of leg CVA (cerebral vascular accident) Depression Graves disease H/O gastric ulcer HTN (hypertension) Hypomagnesemia Peripheral vascular disease Surgical History H/O colonoscopy No significant past surgical history S/P foot surgery, left S/P hammer toe correction S/P knee surgery Status post hip surgery Family History Other No pertinent family history Social History Smoking Status: Never smoker Second Hand Exposure: No; Hx Alcohol Use: No Hx Substance Use: No Preferred Language: South Korean Communication Ability: Effective Hearing Ability: Normal Puncher Required: No Beliefs That Will Affect Care: None marital status: Current Living Situation: Family current occupational status: retired Other Information That Helps Us Care for You: No Feels Safe at Home: Yes Safety Concerns: Feels Safe At This Time Physical Activity Frequency: Does not Exercise Seatbelt Use: never Assistive Devices: Denture - Upper, Denture - Lower, Special Shoe and Wheelchair Review of Systems Review of Systems: Constitutional: Denies fever, chills, malaise Eyes: Denies double vision, vision change, eye pain ENT: Denies ear pain, sore throat, sinus pain Cardiovascular: Denies Chest pain, chest pressure, palpitations Respiratory: Denies shortness of breath, cough, sputum production, difficulty breathing Gastrointestinal: Denies abdominal pain, nausea, vomiting, constipation, diarrhea Genitourinary: Denies pain with urination, urinary urgency, urinary frequency Musculoskeletal: Denies acute weakness, muscle aches/pain, joint aches/pain Integumentary:Denies rash, lesions, bruising Neurological: Denies headache, numbness, tingling. Endorses chronic weakness in her left arm and left leg residual from past stroke. Patient reports unable to extend her left fingers at baseline, sensation in distal fingertips intact bilaterally. Physical Exam Physical Exam: General: A&Ox3. NAD. Cooperative. HEENT: Normocephalic. Rhino Rocket present in right nare. Left nare patent, no septal erosion or perforation. No sign of left-sided plexus bleed. Posterior oropharynx with blood and small residual blood clot. Pulm: CTAB A&P. -wheezes, -rales, -rhonchi. Symmetrical chest rise. No increase work of breathing. No respiratory distress. Cardiac: irregularly irregular, -mrg. Radial pulses intact and symmetrical. Abdominal: Nontender, nondistended, soft. BS present. Ext: Minimal L hip flexion, ankle dorsiflexion/plantarflexion. L elbow flexion intact, left finger ore smelter 3/5. L finger extension 1/5. R hi pflexion, ankle dors iflexion/plantarflexion 5/5. Sensation intact in fingertips and toes. Results & Data Results & Data ([facility]) Vital Signs (Past 12 Hours) Vital Signs Temp Pulse Pulse Resp BP BP Pulse Ox 12/01/20 23:50 68 20 168/83 H 95 12/01/20 21:53 80 18 148/90 H 93 12/01/20 20:47 36.4 C L 76 18 187/129 H 96 Supervising Physician Co-Signing Physician Notes Attending addendum: I have physically seen this patient, have supervised the medical residents activities, and agree with the H&P unless as otherwise noted. Assessment and Plan: Epistaxis uncontrolled in the ED- Hold Xarelto and Plavix H&H every 6 hours Observation admission If bleeds more significantly overnight, will look at reversing. Atrial fibrillation/CVA/hypertension- Continue metoprolol tartrate 75 mg twice daily with hold parameters Hold Xarelto and Plavix as noted above Resume after definitive treatment of epistaxis Remaining orders and notations as noted Resident Activity Tracking Resident Involvement: Resident Care Provided Care Provided: Adult Hospital Medicine
[2020-12-02] MEDS ORDERED: ACETAMINOPHEN 325 MG TAB PO PRN ×2 (03:10)
[2020-12-02] MEDS ORDERED: traMADol HCL 50 MG TABLET PO PRN (03:10)
[2020-12-02] MEDS: SODIUM CHLORIDE 0.9% 1000ML 1,000 ML IV SCH ×3 (03:10→23:59)
[2020-12-02] MEDS ORDERED: NYSTATIN POWDER 15GM BTL EXT PRN (03:10)
[2020-12-02] MEDS: LEVOTHYROXINE SODIUM 100 MCG TABLET PO SCH (06:21)
[2020-12-02 06:58] LABS: Hematocrit (blood only) 37.5 % (37-47); Hemoglobin 12.2 g/dL (12.0-16.0)
[2020-12-02] MEDS ORDERED: WATER, STERILE 10 ML, TETRACAINE 0.4 GM TOP ONE (07:22)
[2020-12-02 07:29] LABS: BUN Creatinine Ratio 70.5 (10-20); Calcium 8.9 mg/dl (8.5-10.1); Creatinine Clr Calc Pharmacy 56.5 ml/min; Est GFR (African American) 71.5; Est GFR (Non-African American) 61.7; Potassium 4.3 mmol/L (3.5-5.1)
[2020-12-02] MEDS: PANTOprazole 40 MG TAB PO SCH (07:43)
[2020-12-02] MEDS: ATORVASTATIN 20 MG TAB PO SCH (07:43)
[2020-12-02] MEDS: SERTRALINE HCL 50 MG TABLET PO SCH (07:43)
[2020-12-02] MEDS: METOPROLOL TARTRATE 25 MG TAB PO SCH ×2 (07:44→20:27)
--- NOTE | 2020-12-02 08:10 | ENT Consultation ---
Date of Consultation December 02, 2020 Assessment & Plan (1) Epistaxis: For endoscopic cautery and packing (2) On rivaroxaban therapy: (3) Acute anterior epistaxis: (4) Chronic kidney disease, stage III (moderate): (5) PAD (peripheral artery disease): (6) Atrial fibrillation: (7) Visual loss, right eye: (8) Hemiparesis affecting left side as late effect of stroke: History of Present Illness Reason for Consultation: Right-sided nosebleed. This 75-year-old female presented with acute onset of right-sided epistaxis. She did have a similar episode previously. She was seen earlier and had a Merocel packing but broke through that packing and had to have the epi stat inserted on the right side but continued to have oozing and was admitted for observation and then endoscopic cautery if needed. She complains of significant pressure of the right side of the nose and still has some oozing posteriorly. Attending Physician: Sherwin Anderson MD Allergies Allergy/AdvReac Type Severity Reaction Status Date / Time clindamycin Allergy Intermediate HIVES Verified 12/01/20 13:23 piperacillin Allergy Intermediate HIVES Verified 12/01/20 13:23 vancomycin Allergy Unknown unknown Verified 12/01/20 13:23 Home Medications Medication Instructions Recorded Confirmed Type acetaminophen [Tylenol] 650 mg PO Q6H PRN 11/17/18 12/01/20 History cholecalciferol (vitamin D3) 1,000 unit PO BID 11/17/18 12/01/20 History [Vitamin D3] omeprazole 20 mg capsule,delayed 20 mg PO DAILY #30 cap 06/09/19 12/01/20 Rx release levothyroxine 100 mcg tablet 100 mcg PO DAILY #90 tab 03/20/20 12/01/20 Rx metoprolol tartrate 50 mg tablet 75 mg PO BID #270 tab 04/25/20 12/01/20 Rx nystatin 100,000 unit/gram topical 1 appln TOP BID PRN #60 gm 05/16/20 12/01/20 Rx powder rivaroxaban 15 mg tablet 15 mg PO DAILY #90 tab 06/20/20 12/01/20 Rx sertraline 50 mg tablet 50 mg PO DAILY #30 tab 09/13/20 12/01/20 Rx clopidogrel 75 mg tablet 75 mg PO DAILY #30 tab 09/17/20 12/01/20 Rx Saccharomyces boulardii [Florastor] 250 mg PO BID #20 cap 12/01/20 12/01/20 Rx atorvastatin 20 mg PO QAM 12/01/20 12/01/20 History cholecalciferol (vitamin D3) 50,000 unit PO WK 12/01/20 12/01/20 History doxycycline hyclate 100 mg PO BID 7 Days #14 tab 12/01/20 12/01/20 Rx tramadol 50 mg PO HS PRN 12/01/20 12/01/20 History Patient History Medical History Acute kidney injury Atrial fibrillation Cellulitis of leg CVA (cerebral vascular accident) Depression Graves disease H/O gastric ulcer HTN (hypertension) Hypomagnesemia Peripheral vascular disease Surgical History H/O colonoscopy No significant past surgical history S/P foot surgery, left S/P hammer toe correction S/P knee surgery Status post hip surgery Family History Other No pertinent family history Social History Smoking Status: Never smoker Second Hand Exposure: No; Hx Alcohol Use: No Hx Substance Use: No Preferred Language: Tongan Communication Ability: Effective Hearing Ability: Normal Mutual Funds Agent Required: No Beliefs That Will Affect Care: None marital status: Current Living Situation: Family current occupational status: retired Other Information That Helps Us Care for You: No Feels Safe at Home: Yes Safety Concerns: Feels Safe At This Time Physical Activity Frequency: Does not Exercise Seatbelt Use: never Assistive Devices: Denture - Upper, Denture - Lower, Special Shoe and Wheelchair Physical Exam Constitutional: + ill appearing and + obese Eyes: PERRL, conjunctivae normal, anicteric sclerae ENMT: Nose: + nasal mucous membrane abnormality (Epistatic packing in the right nostril with dried blood and slight oozing) and + nasal discharge (Slight bleeding continues) Neck: trachea midline, no thyromegaly Respiratory: normal respiratory effort, lungs clear to auscultation Cardiovascular: Irregularly irregular rate Results & Data ([facility]) Vital Signs (Past 12 Hours) Vital Signs Temp Pulse Pulse Resp BP BP Pulse Ox 12/02/20 07:38 36.5 C 68 16 170/88 H 92 12/02/20 07:11 71 12/02/20 05:29 68 12/02/20 04:47 36.5 C 64 21 166/80 H 94 12/02/20 02:30 36.5 C 64 21 166/80 H 94 12/02/20 02:03 71 22 143/86 H 96 12/01/20 23:50 68 20 168/83 H 95 12/01/20 21:53 80 18 148/90 H 93 12/01/20 20:47 36.4 C L 76 18 187/129 H 96
[2020-12-02] MEDS ORDERED: GELATIN SPONGE SZ 100 ONE (08:31)
--- NOTE | 2020-12-02 08:44 | Anesthesiology Consultation ---
Date of Service December 02, 2020 Assessment & Plan (1) Encounter for pre-operative examination: Chart Review Chart Review: Acceptable Risk for Surgery Consults Requested none History Surgery Operation Date: 12/02/20 09:15 Proposed Procedures p Nasal Bleed Control - Chantelle Diaz MD Height/Weight Height: 5 ft 2 in Weight: 92.4 kg Allergies Allergy/AdvReac Type Severity Reaction Status Date / Time clindamycin Allergy Intermediate HIVES Verified 12/01/20 13:23 piperacillin Allergy Intermediate HIVES Verified 12/01/20 13:23 vancomycin Allergy Unknown unknown Verified 12/01/20 13:23 Medications Home Medications Medication Instructions Recorded Confirmed Last Taken acetaminophen [Tylenol] 650 mg PO Q6H PRN 11/17/18 12/01/20 05/06/19 08:00 cholecalciferol (vitamin D3) 1,000 unit PO BID 11/17/18 12/01/20 06/04/19 [Vitamin D3] omeprazole 20 mg capsule,delayed 20 mg PO DAILY #30 cap 06/09/19 12/01/20 Unknown release levothyroxine 100 mcg tablet 100 mcg PO DAILY #90 tab 03/20/20 12/01/20 Unknown metoprolol tartrate 50 mg tablet 75 mg PO BID #270 tab 04/25/20 12/01/20 Unknown nystatin 100,000 unit/gram topical 1 appln TOP BID PRN #60 gm 05/16/20 12/01/20 Unknown powder rivaroxaban 15 mg tablet 15 mg PO DAILY #90 tab 06/20/20 12/01/20 Unknown sertraline 50 mg tablet 50 mg PO DAILY #30 tab 09/13/20 12/01/20 Unknown clopidogrel 75 mg tablet 75 mg PO DAILY #30 tab 09/17/20 12/01/20 Unknown Saccharomyces boulardii [Florastor] 250 mg PO BID #20 cap 12/01/20 12/01/20 Unknown atorvastatin 20 mg PO QAM 12/01/20 12/01/20 Unknown cholecalciferol (vitamin D3) 50,000 unit PO WK 12/01/20 12/01/20 Unknown doxycycline hyclate 100 mg PO BID 7 Days #14 tab 12/01/20 12/01/20 Unknown tramadol 50 mg PO HS PRN 12/01/20 12/01/20 Unknown Active Medications Generic Name Dose Route Start Last Admin Trade Name Greer PRN Reason Stop Dose Admin Atorvastatin Calcium 20 mg 12/02/20 09:00 12/02/20 07:43 Atorvastatin 20 Mg Tab PO 01/01/21 08:59 20 mg QAM AZUL Administration Sodium Chloride 1,000 mls @ 100 mls/hr 12/02/20 03:10 12/02/20 03:10 Nss 1000ml IV 12/03/20 09:09 100 mls/hr .Q10H AZUL Administration Levothyroxine Sodium 100 mcg 12/02/20 06:30 12/02/20 06:21 Levothyroxine Sodium 100 Mcg Tablet PO 01/01/21 06:29 100 mcg DAILYBB AZUL Administration Metoprolol Tartrate 75 mg 12/02/20 09:00 12/02/20 07:44 Metoprolol Tartrate 25 Mg Tab PO 01/01/21 08:59 75 mg BID AZUL Administration Pantoprazole Sodium 40 mg 12/02/20 09:00 12/02/20 07:43 Pantoprazole 40 Mg Tab PO 01/01/21 08:59 40 mg DAILY AZUL Administration Sertraline HCl 50 mg 12/02/20 09:00 12/02/20 07:43 Sertraline Hcl 50 Mg Tablet PO 01/01/21 08:59 50 mg DAILY AZUL Administration Past Medical History Medical History Acute kidney injury Atrial fibrillation Cellulitis of leg CVA (cerebral vascular accident) Depression Graves disease H/O gastric ulcer HTN (hypertension) Hypomagnesemia Peripheral vascular disease Past Family History Family History Other No pertinent family history Past Surgical History Surgical History H/O colonoscopy No significant past surgical history S/P foot surgery, left S/P hammer toe correction S/P knee surgery Status post hip surgery Social History Smoking Status: Never smoker Hx Alcohol Use: No Hx Substance Use: No substance use type: does not use Physical Exam Vital Signs Last Vital Signs Temp 36.5 C 12/02/20 07:38 Pulse 68 12/02/20 07:38 Resp 16 12/02/20 07:38 BP 170/88 H 12/02/20 07:38 Pulse Ox 92 12/02/20 07:38 Testing Laboratory Results 12/02/20 06:37 12/02/20 06:37 PT 11.6 Seconds (9.0-12.0) 12/01/20 23:35 INR 1.1 (0.9-1.1) 12/01/20 23:35 APTT 31.0 Seconds (21.0-31.0) 12/01/20 23:35 Blood Type O Positive 12/01/20 23:35 Antibody Screen NEGATIVE 12/01/20 23:35 Electrocardiogram Date: 10/22/20 Findings: + AFIB @ (95)
[2020-12-02] MEDS ORDERED: LIDOCAINE/EPINE 2% 1:100,000 20ML ONE (08:46)
[2020-12-02] MEDS ORDERED: MUPIROCIN 2% OINT 22 GM TUBE ONE (08:46)
[2020-12-02] MEDS ORDERED: TRIAMCINOLONE ACET 40 MG/ML VIAL ONE (08:47)
[2020-12-02] MEDS ORDERED: LIDOCAINE 4% INH SOLN 4 ML BTL ONE (08:47)
[2020-12-02] MEDS ORDERED: EpINEphrine HCL INJ 1 MG/ML 1ML SYRINGE ONE (08:47)
[2020-12-02] MEDS ORDERED: MIDAZOLAM HCL 1 MG/ML 2ML VIAL ONE (09:17)
[2020-12-02] MEDS ORDERED: fentaNYL citrate 100 MCG/2 ML VIAL ONE (09:17)
--- NOTE | 2020-12-02 10:04 | Operative Report ---
PG Post Operative Report Pre & Post Diagnosis Operation Date: 12/02/20 09:15 Pre-Op Diagnosis: EPISTAXIS Post-Op Diagnosis: EPISTAXIS I identified the patient and participated in the time-out.: Yes Procedure Operation Date: 12/02/20 09:15 Actual Procedures p Nasal Bleed Control, endoscopic cautery and posterior packing- Chantelle Diaz MD Surgeon Chantelle Diaz MD Compotype Operator None Estimated Blood Loss 25 Findings Consistent with Post-Op Diagnosis Specimens None Anesthesia Type MAC Complications none Disposition Accompanied Patient To Recovery: Yes Disposition: Recovery Room Indications Acute epistaxis with 2 visits to ER requiring Merisel then epistatic packing with continued oozing Description of Procedure She was brought to the operating room, properly identified, prepped and draped in the usual sterile manner after sedation. The 0 degree endoscope was used with the camera visualizing the right nasal cavity which was decongested and anesthetized using topical cottonoids with a solution of 4 cc of 4% Xylocaine mixed with 1 cc of epinephrine. Injection was not used. The clots were removed and the bleeding site was identified as small protruding vessel right mid to posterior septum opposite the right middle turbinate. This was cauterized using the suction cautery with good control. Packing was started posteriorly with a single piece of Gelfoam with bacitracin followed by 5 cc of FloSeal and then another piece of Gelfoam anteriorly. She tolerated the procedure well and was taken recovery area in satisfactory condition. I attest to the content of the Intraoperative Record and any orders documented therein. Any exceptions are noted below.
--- NOTE | 2020-12-02 10:14 | Anesthesiology Progress Note ---
Date of Service December 02, 2020 Anesthesia Post Procedure Vital Signs Vital Signs: Temp Pulse Pulse Pulse Resp BP BP 12/02/20 10:10 78 18 119/44 L 12/02/20 10:03 36.6 C 79 16 109/87 12/02/20 07:38 36.5 C 68 16 170/88 H 12/02/20 07:11 71 12/02/20 05:29 68 12/02/20 04:47 36.5 C 64 21 166/80 H 12/02/20 02:30 36.5 C 64 21 166/80 H 12/02/20 02:03 71 22 143/86 H 12/01/20 23:50 68 20 168/83 H 12/01/20 21:53 80 18 148/90 H 12/01/20 20:47 36.4 C L 76 18 187/129 H Pulse Ox 12/02/20 10:10 95 12/02/20 10:03 98 12/02/20 07:38 92 12/02/20 07:11 12/02/20 05:29 12/02/20 04:47 94 12/02/20 02:30 94 12/02/20 02:03 96 12/01/20 23:50 95 12/01/20 21:53 93 12/01/20 20:47 96 Transfer of Care Handoff Completed per policy Notes Mental Status: alert / awake / arousable and participated in evaluation Nausea / Vomiting: adequately controlled Pain: adequately controlled Airway Patency, RR, SpO2: stable & adequate BP & HR: stable & adequate Hydration State: stable & adequate Anesthetic Complications: no major complications apparent and Pt Satisfied with anesthetic care
[2020-12-02 11:43] LABS: Hematocrit (blood only) 35.9 % (37-47); Hemoglobin 11.6 g/dL (12.0-16.0)
--- NOTE | 2020-12-02 14:37 | Hospitalist Progress Note ---
Date of Service December 02, 2020 Assessment & Plan (1) Epistaxis: Epistaxis while on anticoagulation. Patient has had epistaxis with Xeralto before about two gabriel ago per her daughter which was treated in the ED Hemoglobin 13.2, hgb today 11.6 Patient skipped her last dose of rivaroxaban NEON PUMPER - Take to OR 12/02 for endoscopic cautery and packing Continue NSS @ 100 ml/hr (2) On rivaroxaban therapy: (3) Atrial fibrillation: Hold rivaroxaban until ok with ENT to resume Continue metoprolol Rate controlled on monitor (4) CVA (cerebral vascular accident): Hold clopidogrel for now Continue statin (5) Hypothyroidism: continue Synthroid (6) DVT prophylaxis: SCD Daughter updated over the phone Dispo: if no bleeding recurrence overnight, can probably discharge tomorrow. Discussed with daughter - she is her time clock inspector caregiver and she has no concerns about her care at home. Admission and Anticipated Discharge Date Admission Date: December 02, 2020 Supervising Physician Co-Signing Physician Notes chart reviewed and case d/w S Lou LAMAS. as above Subjective Ms. Olson is still drowsy following anesthesia for procedure. She does awaken with verbal stimulus and denies any discomfort. Patient is rate controlled atrial fibrillation on the monitor Review of Systems Constitutional: no fever, no chills and no body aches Respiratory: no cough and no dyspnea Cardiovascular: no chest pain, no dyspnea and no palpitations Gastrointestinal: no abdominal pain, no nausea and no vomiting Genitourinary: no dysuria and no urinary hesitancy Musculoskeletal: no back pain and no joint pain Integumentary: no rash Physical Exam Physical Exam: General: no distress Eyes: normal inspection, PERLL Respiratory: chest non tender, clear to auscultation, normal breath sounds, no respiratory distress, no accessory muscle use Cardiac: regular rate and rhythm, no rub or gallop, no murmur, no edema, no jvd GI/: active bowel sounds, no abd pain or tenderness, soft, non distended Extremities: normal range of motion, normal strength, non tender Neuro/Psych: drowsy and oriented x 3, normal mood and affect Skin: normal color, dry Results & Data Results & Data ([facility]) Vital Signs (Past 12 Hours) Vital Signs Temp Pulse Pulse Pulse Resp BP Pulse Ox 12/02/20 12:30 37 C 67 16 135/77 94 12/02/20 12:00 36.9 C 72 16 147/83 H 97 12/02/20 11:30 37 C 75 16 151/76 H 93 12/02/20 11:00 36.9 C 74 16 127/75 94 12/02/20 10:36 36.7 C 72 18 146/78 H 97 12/02/20 10:20 36.7 C 78 18 129/80 96 12/02/20 10:10 78 18 119/44 L 95 12/02/20 10:03 36.6 C 79 16 109/87 98 12/02/20 07:38 36.5 C 68 16 170/88 H 92 12/02/20 07:11 71 12/02/20 05:29 68 12/02/20 04:47 36.5 C 64 21 166/80 H 94 12/02/20 02:30 36.5 C 64 21 166/80 H 94 PG Care Time/CCT Total # of Minutes Spent Total Time Spent with Patient: Total time spent is greater than 50% in coordination of care (as documented) at patient's floor/unit and/or counseling patient: Coding Level of Care Code 51522 Subseq Hosp Care Lvl 2 Diagnoses Epistaxis R04.0 On rivaroxaban therapy Z79.01 Atrial fibrillation I48.91 CVA (cerebral vascular accident) I63.9 Hypothyroidism E03.9 DVT prophylaxis Z29.9
[2020-12-02 16:51] LABS: Hemoglobin 11.3 g/dL (12.0-16.0)
--- NOTE | 2020-12-02 19:43 | Billing Data ---
Date of Service December 02, 2020 Coding Level of Care Code 43187 OBS Care - Level 3
[2020-12-03] MEDS: LEVOTHYROXINE SODIUM 100 MCG TABLET PO SCH (05:21)
[2020-12-03 06:07] LABS: Hematocrit (blood only) 35.4 % (37-47); Hemoglobin 11.7 g/dL (12.0-16.0); Mean Corpuscular Hemoglobin 31.5 pg (25-34); Mean Corpuscular Hgb Conc 33.1 g/dL (32-36); Mean Corpuscular Volume 95.2 fL (80-100); Mean Platelet Volume 10.7 fL (7.4-10.4); Platelet Count 180 K/uL (130-400); RDW Coefficient of Variation 13.5 % (11.5-14.5); RDW Standard Deviation 46.8 fL (36.4-46.3); Red Blood Count 3.72 M/uL (4.2-5.4); White Blood Count 8.02 K/uL (4.8-10.8)
[2020-12-03 06:53] LABS: Calcium 8.7 mg/dl (8.5-10.1); Creatinine Clr Calc Pharmacy 55.2 ml/min; Est GFR (African American) 69.7; Est GFR (Non-African American) 60.1; Potassium 4.2 mmol/L (3.5-5.1)
[2020-12-03] MEDS: ATORVASTATIN 20 MG TAB PO SCH (07:40)
[2020-12-03] MEDS: SERTRALINE HCL 50 MG TABLET PO SCH (07:40)
[2020-12-03] MEDS: PANTOprazole 40 MG TAB PO SCH (07:41)
[2020-12-03] MEDS: METOPROLOL TARTRATE 25 MG TAB PO SCH (07:41)
[2020-12-03] MEDS ORDERED: SODIUM CHLORIDE 0.9% 1000ML 1,000 ML IV SCH (08:00)
[2020-12-03 08:14] VITALS: TEMP 97.9; O2SAT 94
--- NOTE | 2020-12-03 10:09 | Discharge Summary ---
Date of Service December 03, 2020 Admission HPI Per Admitting Provider Missy Olson is a 75-year-old female with a past medical history of atrial fibrillation on DOAC anticoagulation with rivaroxaban, hyperlipidemia, hypothyroidism, hypertension, CKD 3, and history of CVD on Plavix with an episode of epistaxis. who presents. Per ED report patient was treated with Rhino Rocket and had a recurrent bleed and has been recommended for admission for observation. Missy reports that she is on 2 blood thinners, 1 for A. fib in 1 for a stroke. She reports that the evening of admission she developed a sudden large-volume nosebleed. She reports she had 1 similar nosebleed 2 years ago, otherwise has not had any problems with nosebleeds. Denies any regular gum bleeding or other bleeding. She reports that the bleeding did not stop with pinching her nose. She reports she gets intermittently dizzy at baseline, but has not had any increased dizziness. She does not feel lightheaded. She denies chest pain, chest pressure, palpitations, difficulty breathing, shortness of breath, nausea, vomiting, diarrhea, constipation, vomiting. She denies recent fever, chills, sweats and recent illness. She reports she has a mild stomachache. She reports she has not had a change in urination, and last peed before coming to the hospital. Medical: Reviewed in EMR SHX: Reviewed in EMR Allergies: Reviewed in EMR, pt reports multiple antibiotic allergies but is a poor historian of these MEdications: Poor historian, reviewed in EMR. Pt reports last took blood thinner a day before admission, took her Thursday AM meds otherwise Social: Lives with her daughter at home, independently ambulatory, denies falls. Denies tobacco, alcohol, recreational drug use. Denies sick contacts. CODE STATUS: Full code per pt Admission Exam Per Admitting Provider General: A&Ox3. NAD. Cooperative. HEENT: Normocephalic. Rhino Rocket present in right nare. Left nare patent, no septal erosion or perforation. No sign of left-sided plexus bleed. Posterior oropharynx with blood and small residual blood clot. Pulm: CTAB A&P. -wheezes, -rales, -rhonchi. Symmetrical chest rise. No increase work of breathing. No respiratory distress. Cardiac: irregularly irregular, -mrg. Radial pulses intact and symmetrical. Abdominal: Nontender, nondistended, soft. BS present. Ext: Minimal L hip flexion, ankle dorsiflexion/plantarflexion. L elbow flexion intact, left finger character impersonator 3/5. L finger extension 1/5. R hi pflexion, ankle dorsiflexion/plantarflexion 5/5. Sensation intact in fingertips and toes. Principal Diagnosis Epistaxis Discharge Exam Constitutional well developed, well nourished and + obese; no acute distress Eyes PERRL, conjunctivae normal, anicteric sclerae ENMT Mouth: + dentures and + edentulous; no TMJ abnormality and oral opening not small Mallampati Class: II turbinates without evidence of bleeding Neck trachea midline, no thyromegaly normal visual inspection; neck extension not limited Respiratory normal respiratory effort, lungs clear to auscultation normal respiratory effort Auscultation: lungs clear to auscultation bilaterally Cardiovascular Rate/Rhythm: regular rate; + abnormal rhythm Heart Sounds: no murmur Gastrointestinal (Abdomen) normal bowel sounds, soft, nontender, no hepatosplenomegaly Musculoskeletal Minimal L hip flexion, ankle dorsiflexion/plantarflexion. L elbow flexion intact, left finger character impersonator 3/5. L finger extension 1/5. R hi pflexion, ankle dorsiflexion/plantarflexion 5/5. Sensation intact in fingertips and toes. wheelchair bound Skin no rashes, warm and dry Neurologic moves all extremities Psychiatric Orientation: alert and oriented x 3 Genitourinary NO MUSA Lymphatic no cervical or axillary lymphadenopathy Discharge Data Allergies Allergy/AdvReac Type Severity Reaction Status Date / Time clindamycin Allergy Intermediate HIVES Verified 12/01/20 13:23 piperacillin Allergy Intermediate HIVES Verified 12/01/20 13:23 vancomycin Allergy Unknown unknown Verified 12/01/20 13:23 Consultations 12/02/20 03:10 Consult Otolaryngology (Head and Neck) Routine Procedures Performed Operation Date: 12/02/20 09:15 Actual Procedures p Nasal Bleed Control - Chantelle Diaz MD Hospital Course (1) Epistaxis: Epistaxis while on anticoagulation. Patient has had epistaxis with Xeralto before about two gabriel ago per her daughter which was treated in the ED Developed re-bleeding and drop in h/h ENT consulted s/p cauterization on 12/[address] Diaz Discussed with Dr. Diaz, as patient would like to be discharged -- ok to resume Xarelto on with follow-up with PCP on Thursday for close monitoring Repeat CBC with improvement in h/h Of note, patient with POSITIVE fecal occult blood -- discussed with both patient and daughter about having this repeated as an outpatient as was likely positive due to epistaxis and swallowing blood as no mackenzie blood in stool noted or dysuria. If repeat positive still, would recommend following up with colonoscopy outpatient. Per patient, she has had them done in the past but not recently. (2) On rivaroxaban therapy: (3) Acute anterior epistaxis: (4) Chronic kidney disease, stage III (moderate): (5) PAD (peripheral artery disease): (6) Morbid obesity: (7) Gait disturbance: (8) Vitamin D deficiency: (9) Anticoagulant long-term use: (10) Hyperlipidemia: (11) Hypothyroidism: continued Synthroid (12) Atrial fibrillation: Held rivaroxaban due to bleeding -- discussed with ENT to be resumed this week Afib rate controlled -- continued metoprolol (13) Graves disease: Total Time Total Time Spent Total Time Spent (In Minutes): 60 Discharge Plan Discharge Items Patient Disposition: Home - Self-Care Reason For Visit: EPISTAXIS Discharge Diagnosis: Epistaxis Goals: You have been hospitalized for an urgent problem which required surgery. During your stay at [facility], we have made an effort to correct the problem that brought you to the hospital while keeping you as comfortable as possible. Surgery and medications were used to bring your condition under control and your discharge instructions will include directions for any me dications you should take after leaving the hospital. Please make sure to follow the advice of your surgeon regarding follow up with the surgeon and with your primary care provider. Activity: Resume your previous activity Non-emergency contact: Primary Care Provider Call non-emergency contact if: you have any medication questions and your symptoms worsen Follow-up/Referrals: Rustam Davis MD [Primary Care Provider] - 12/07/20 10:30 am Chantelle Diaz MD [Physician] - (1-2 weeks) Diet: Heart Healthy Addtl Attending Provider Instructions: You have been hospitalized for a nose bleed. This was attempted to be controlled without intervention, however you required consultation with ENT and underwent cauterization to stop the bleeding. You blood counts have remained stable, and are improved on morning labs. You should resume your Rivaroxaban THURSDAY, DECEMBER 06. It is ideal to hold this medication for 7 days, but given your history of afib/stroke, it is best to resume as soon as possible but will need to monitor closely for bleeding. You should continue to monitor for bleeding and alert your primary care provider immediately if you notice blood in your stool, urine, or repeat nose bleeds. A fecal occult blood sample was positive for your stool, which is likely secondary to nose bleed and swallowing some amount of the blood. You should have this repeated in the upcoming 1-2 months to ensure resolution and if still positive should consider having a colonoscopy in the future. You should follow up with your primary care provider in the next week to monitor your progress. Please return to the emergency for any repeat bleeding that will not stop, shortness of breath, chest pain, or for any other symptoms that are concerning for you. It has been a pleasure being a part of the medical team providing for you while you have been in the hospital. Take care! Pending Studies at Discharge: No Stand-Alone Forms: My [facility] [employer], Smoking Cessation Medications and DC Order Prescriptions: Continued omeprazole 20 mg capsule,delayed release(DR/EC) 20 mg PO DAILY Qty: 30 RF: 5 levothyroxine 100 mcg tablet 100 mcg PO DAILY Qty: 90 RF: 3 metoprolol tartrate 50 mg tablet 75 mg PO BID Qty: 270 RF: 3 rivaroxaban 15 mg tablet 15 mg PO DAILY Qty: 90 RF: 3 sertraline 50 mg tablet 50 mg PO DAILY Qty: 30 RF: 5 clopidogrel 75 mg tablet 75 mg PO DAILY Qty: 30 RF: 5 nystatin 100,000 unit/gram powder 1 appln TOP BID PRN (Reason: Candidiasis) Qty: 60 RF: 5 acetaminophen [Tylenol] 325 mg Tablet 650 mg PO Q6H PRN (Reason: Pain) RF: 0 cholecalciferol (vitamin D3) [Vitamin D3] 1,000 unit Capsule 1,000 unit PO BID RF: 0 Hold Instructions: on higher dose x2 months, then switch back atorvastatin 20 mg tablet 20 mg PO QAM RF: 0 tramadol 50 mg tablet 50 mg PO HS PRN (Reason: pain) RF: 0 cholecalciferol (vitamin D3) 1,250 mcg (50,000 unit) capsule 50,000 unit PO WK RF: 0 Saccharomyces boulardii [Florastor] 250 mg capsule 250 mg PO BID Qty: 20 RF: 0 doxycycline hyclate 100 mg tablet 100 mg PO BID 7 Days Qty: 14 RF: 0 Discharge Orders: Discharge Order (Routine); Ordered 12/03/20 Ordered By: Kassy Fox Admission Data Admit Date/Time: 12/02/20 01:56 Attending Provider: Naren White Admit Provider: Matthew Das Primary Care Provider: Rustam Davis Other Providers: Sherwin Anderson Yi How Other Interventions: Discharge Summary Assessment (RN) Last Done: 12/03/20 11:02 Coding Level of Care Code 28395 OBS Care - Discharge Diagnoses Epistaxis R04.0 On rivaroxaban therapy Z79.01 Acute anterior epistaxis R04.0 Chronic kidney disease, stage III (moderate) N18.3 PAD (peripheral artery disease) I73.9 Morbid obesity E66.01 Gait disturbance R26.9 Vitamin D deficiency E55.9 Anticoagulant long-term use Z79.01 Hyperlipidemia E78.5 Hypothyroidism E03.9 Atrial fibrillation I48.91 Graves disease E05.00
[2020-12-03 11:15] VITALS: BP 134/84; PULSE 71
== END 2020-12-03 12:30 | disposition home or self-care (01) ==
LOC: ED 20:45 → 2N 20:45 → SUATTDRO 12-02 01:56 → 2N 12-02 02:26

== ENCOUNTER 2021-02-28 04:56 | Inpatient (IN) ==
--- NOTE | 2021-02-28 05:28 | Emergency Department Note ---
History of Present Illness General Chief complaint: Infection, Wound Stated complaint: FEVER, VOMITING, LEFT LEG INFECTION? Time Seen by Provider: 02/28/21 05:03 Source: patient Mode of arrival: ambulatory Limitations: no limitations History of Present Illness Provider complaint: Fever, chills, leg infection Onset (ago): day(s) 1 Location: lower extremity Radiation: non-radiation This is a 75-year-old female brought in by family with concerns for fevers, chills, and worsening leg infection. Both patient and family at bedside states she has a chronic redness and wound noted to the left lower extremity. They family member states the patient's daughter was concerned and felt that the leg appeared more red and was covering a wider area than before. She also was concerned that patient had a fever tonight. Patient notes feeling very chilled yesterday, but states she did not have a fever or feel warm until this morning. She denies any change in appetite, change in bowel or bladder function, cough, chest pain, trouble breathing, or headaches. Patient states the involved area on her left lower extremity is not painful, she denies numbness or tingling. Patient states she is not a diabetic although does have a history of kidney p roblems. States she is a former smoker. States she has previously been told she had MRSA. Patient states her leg wound has been managed by her PCP, she has not needed to see wound care or a vascular surgeon. Patient states she does take blood thinners. Patient is not currently on antibiotics. Pt seen during a time of high acuity and national emergency pandemic while wearing PPE. Home Medications Medication Instructions Recorded Confirmed Type acetaminophen [Tylenol] 650 mg PO Q6H PRN 11/17/18 02/28/21 History cholecalciferol (vitamin D3) 1,000 unit PO BID 11/17/18 02/28/21 History [Vitamin D3] omeprazole 20 mg capsule,delayed 20 mg PO DAILY #30 cap 06/09/19 02/28/21 Rx release metoprolol tartrate 50 mg tablet 75 mg PO BID #270 tab 04/25/20 02/28/21 Rx nystatin 100,000 unit/gram topical 1 appln TOP BID PRN #60 gm 05/16/20 02/28/21 Rx powder rivaroxaban 15 mg tablet 15 mg PO DAILY #90 tab 06/20/20 02/28/21 Rx sertraline 50 mg tablet 50 mg PO DAILY #30 tab 09/13/20 02/28/21 Rx Saccharomyces boulardii [Florastor] 250 mg PO BID #20 cap 12/01/20 02/28/21 Rx cholecalciferol (vitamin D3) 1,250 50,000 unit PO WK #8 cap 12/05/20 02/28/21 Rx mcg (50,000 unit) capsule clopidogrel 75 mg tablet 75 mg PO DAILY #30 tab 01/17/21 02/28/21 Rx atorvastatin 20 mg tablet 20 mg PO QAM #90 tab 02/11/21 02/28/21 Rx ferrous sulfate [iron] 325 mg PO [id number] 02/28/21 02/28/21 History levothyroxine 100 mcg PO QAM 02/28/21 02/28/21 History tramadol 50 mg PO HS PRN 02/28/21 02/28/21 History Allergies Allergy/AdvReac Type Severity Reaction Status Date / Time clindamycin Allergy Intermediate HIVES Verified 02/28/21 07:08 piperacillin Allergy Intermediate HIVES Verified 02/28/21 07:08 vancomycin Allergy Unknown unknown Verified 02/28/21 07:08 Past Med/Surg History Medical History Acute kidney injury Anticoagulant long-term use Atrial fibrillation Cellulitis of leg Chronic kidney disease, stage III (moderate) CVA (cerebral vascular accident) Depression Elevated blood protein Graves disease H/O gastric ulcer Hemiparesis affecting left side as late effect of stroke HTN (hypertension) Hyperlipidemia Hypomagnesemia Hypothyroidism Morbid obesity PAD (peripheral artery disease) Peripheral vascular disease Vitamin D deficiency Surgical History H/O colonoscopy No significant past surgical history S/P foot surgery, left S/P hammer toe correction S/P knee surgery Status post hip surgery Family History Other No pertinent family history Social History Smoking Status: Never smoker Second Hand Exposure: No; Hx Alcohol Use: No Hx Substance Use: No Preferred Language: Macedonian Communication Ability: Effective Visual Impairment: No Limitations Hearing Ability: Normal Operations Recruiter Required: No Beliefs That Will Affect Care: None marital status: Current Living Situation: Family current occupational status: retired Other Information That Helps Us Care for You: No Feels Safe at Home: Yes Safety Concerns: Feels Safe At This Time Physical Activity Frequency: Does not Exercise Seatbelt Use: never Assistive Devices: None Review of Systems See HPI for pertinent positives & negatives. and A total of 10 systems reviewed and were otherwise negative Physical Exam Vital Signs Vital Signs - 24 hr 02/28/21 05:00 02/28/21 05:46 02/28/21 06:00 Temperature 37.3 C Temperature Source Temporal Artery Scan Pulse Rate 88 75 Pulse Rate from SpO2 Sensor 83 Respiratory Rate 20 16 24 Respiratory Effort / Characteristics Non-Labored Spontaneous Respiratory Depth Normal Normal Blood Pressure 117/74 88/57 L Blood Pressure [Right Arm] 73/34 L Blood Pressure Mean 88 67 Blood Pressure Mean [Right Arm] 47 Blood Pressure Position Sitting Blood Pressure Position [Right Arm] Lying Pulse Oximetry 98 96 89 L Oxygen Delivery Method Room Air Room Air Sepsis Recent Fever Within 48 Hours Yes Sepsis New/Unexplained Change in Mental Status N/A Sepsis Action Taken by Nursing No Action Required 02/28/21 06:06 02/28/21 06:10 02/28/21 06:12 Temperature Temperature Source Pulse Rate 75 79 Pulse Rate from SpO2 Sensor 82 Respiratory Rate 25 H 25 H Respiratory Effort / Characteristics Non-Labored Respiratory Depth Blood Pressure 87/66 L Blood Pressure [Right Arm] Blood Pressure Mean 73 Blood Pressure Mean [Right Arm] Blood Pressure Position Blood Pressure Position [Right Arm] Pulse Oximetry 92 95 95 Oxygen Delivery Method Room Air Sepsis Recent Fever Within 48 Hours Sepsis New/Unexplained Change in Mental Status Sepsis Action Taken by Nursing 02/28/21 06:26 02/28/21 06:30 02/28/21 06:31 Temperature Temperature Source Pulse Rate 78 80 90 Pulse Rate from SpO2 Sensor 83 74 84 Respiratory Rate 25 H 26 H 24 Respiratory Effort / Characteristics Respiratory Depth Blood Pressure 103/71 66/28 L Blood Pressure [Right Arm] Blood Pressure Mean 81 40 Blood Pressure Mean [Right Arm] Blood Pressure Position Blood Pressure Position [Right Arm] Pulse Oximetry 94 92 92 Oxygen Delivery Method Sepsis Recent Fever Within 48 Hours Sepsis New/Unexplained Change in Mental Status Sepsis Action Taken by Nursing 02/28/21 06:33 02/28/21 06:37 Temperature Temperature Source Pulse Rate 74 Pulse Rate from SpO2 Sensor 78 Respiratory Rate 26 H 28 H Respiratory Effort / Characteristics Respiratory Depth Blood Pressure 113/70 Blood Pressure [Right Arm] Blood Pressure Mean 84 Blood Pressure Mean [Right Arm] Blood Pressure Position Blood Pressure Position [Right Arm] Pulse Oximetry 96 Oxygen Delivery Method Sepsis Recent Fever Within 48 Hours Sepsis New/Unexplained Change in Mental Status Sepsis Action Taken by Nursing GENERAL: alert, well appearing, well nourished, no distress, non-toxic EYE EXAM: normal conjunctiva, PERRL and EOM's grossly intact OROPHARYNX: no exudate, no erythema, lips, buccal mucosa, and tongue normal and mucous membranes are moist NECK: supple, no nuchal rigidity, no adenopathy, non-tender LUNGS: Clear to auscultation. Normal chest wall mechanics, no w/r/r HEART: no murmurs, S1 normal and S2 normal ABDOMEN: abdomen soft, non-tender, normo-active bowel sounds, no masses, no rebound or guarding. BACK: Back is symmetrical on inspection and there is no deformity, no midline tenderness, no CVA tenderness. SKIN: no rashes and no bruising UPPER EXTREMITIES: upper extremities are grossly normal. FROM, nml pulses b/l. LOWER EXTREMITIES: No pitting edema. FROM, nml to decreased pulses b/l. Chronic appearing erythema and skin changes noted to the left anterior tib-fib region. Acute appearing surrounding erythema surrounding the chronic appearing area that also extends proximally along the posterior and medial aspect of her leg. No active discharge or drainage. Compartments soft. No crepitus. No joint effusions. NEURO EXAM: Normal sensorium, cranial nerves II-XII grossly intact, normal speech, no gross weakness of arms, no gross weakness of legs. Gross sensation intact. Course Course 0610: Pt doesn't recall reaction to vancomycin. BP 88/57. IVF opened wide. 0625: Involved area of left lower extremity outlined with sterile marking pen. Repeat blood pressure is improving, new systolic 103. 0642: Discussed with hospitalist. Oncoming day team to see pt in the ER. 0702: BP had dropped again, now back up once 2nd L IVF started. 0824: BP had dropped again when IVF changed over to maintenance, given 250 ml bolus and now holding and IVF turned back to maintenance rate. Pt continues to be well appearing, denies any new or evolving symptoms. Hospitalist team recontacted to assure they were aware of patient as case was discussed with thomas varma just before change of shift. They confirmed they are aware or the admission. Administered Medications Acetaminophen (Acetaminophen 325 Mg Tab) 650 mg PO Q6H PRN PRN Reason: Pain Stop: 03/30/21 12:18 Last Admin: 02/28/21 13:31 Dose: 650 mg Documented by: [id number] Clopidogrel Bisulfate (Clopidogrel Bisulfate 75 Mg Tab) 75 mg PO DAILY [facility] Stop: 03/30/21 12:29 Last Admin: 03/01/21 08:08 Dose: 75 mg Documented by: [id number] Admin: 02/28/21 13:25 Dose: 75 mg Documented by: [id number] Ergocalciferol (Ergocalciferol 50,000 Units 1250 Mcg Cap) 50,000 units PO We@0900 [facility] Stop: 03/30/21 12:29 Last Admin: 02/28/21 13:27 Dose: Not Given Documented by: [id number] Ferrous Sulfate (Ferrous Sulfate 325 Mg Tab) 325 mg PO MoWeFr@0900 [facility] Stop: 03/31/21 08:59 Last Admin: 03/01/21 08:08 Dose: 325 mg Documented by: [id number] Cefepime HCl 2,000 mg/ Syringe 20 mls @ 5 mls/min IV Q12H [facility]; Protocol Stop: 03/07/21 17:59 Last Admin: 03/01/21 17:51 Dose: 5 mls/min Documented by: [id number] Admin: 03/01/21 05:44 Dose: 5 mls/min Documented by: [id number] Admin: 02/28/21 19:18 Dose: 5 mls/min Documented by: [id number] Lactated Ringer's (Lr) 1,000 mls @ 100 mls/hr IV .Q10H [facility] Stop: 03/31/21 18:42 Last Admin: 03/01/21 20:38 Dose: 100 mls/hr Documented by: [id number] Levothyroxine Sodium (Levothyroxine Sodium 100 Mcg Tablet) 100 mcg PO DAILYBB [facility] Stop: 03/31/21 06:29 Last Admin: 03/01/21 05:43 Dose: 100 mcg Documented by: [id number] Metoprolol Tartrate (Metoprolol Tartrate 25 Mg Tab) 75 mg PO BID [facility] Stop: 03/30/21 20:59 Last Admin: 03/01/21 20:39 Dose: 75 mg Documented by: [id number] Admin: 03/01/21 08:08 Dose: 75 mg Documented by: [id number] Admin: 02/28/21 21:04 Dose: 75 mg Documented by: [id number] Pantoprazole Sodium (Pantoprazole 40 Mg Tab) 40 mg PO DAILY [facility] Stop: 03/31/21 08:59 Last Admin: 03/01/21 08:08 Dose: 40 mg Documented by: [id number] Rivaroxaban (Rivaroxaban 15 Mg Tab) 15 mg PO DAILY@1800 [facility] Stop: 03/30/21 17:59 Last Admin: 03/01/21 17:51 Dose: 15 mg Documented by: [id number] Admin: 02/28/21 17:51 Dose: 15 mg Documented by: [id number] Saccharomyces Boulardii (Saccharomyces Boulardii 250 Mg Cap) 250 mg PO BID [facility] Stop: 03/30/21 20:59 Last Admin: 03/01/21 20:39 Dose: 250 mg Documented by: [id number] Admin: 03/01/21 08:08 Dose: 250 mg Documented by: [id number] Admin: 02/28/21 21:05 Dose: 250 mg Documented by: [id number] Sertraline HCl (Sertraline Hcl 50 Mg Tablet) 50 mg PO DAILY [facility] Stop: 03/30/21 12:29 Last Admin: 03/01/21 08:08 Dose: 50 mg Documented by: [id number] Admin: 02/28/21 13:25 Dose: 50 mg Documented by: [id number] Tramadol HCl (Tramadol Hcl 50 Mg Tablet) 50 mg PO HS PRN PRN Reason: pain Stop: 03/30/21 12:18 Last Admin: 02/28/21 21:07 Dose: 50 mg Documented by: [id number] Vitamin D (Cholecalciferol 1,000 Units 25 Mcg Tab) 1,000 units PO BID [facility] Stop: 03/30/21 20:59 Last Admin: 03/01/21 20:39 Dose: 1,000 units Documented by: [id number] Admin: 03/01/21 08:08 Dose: 1,000 units Documented by: [id number] Admin: 02/28/21 21:04 Dose: 1,000 units Documented by: [id number] Discontinued Medications Lactated Ringer's (Lr) 1,000 mls @ 150 mls/hr IV .Q6H40M [facility] Stop: 03/30/21 05:29 Last Admin: 03/01/21 07:15 Dose: Not Given Documented by: [id number] Infusion: 02/28/21 12:58 Dose: 0 mls/hr Documented by: [id number] Admin: 02/28/21 06:15 Dose: 150 mls/hr Documented by: [id number] Daptomycin 425 mg/ Syringe 8.5 mls @ 0 mls/min IV ONE ONE; Protocol Stop: 02/28/21 06:31 Last Admin: 02/28/21 06:28 Dose: 5 mls/min Documented by: [id number] Cefepime HCl 2,000 mg/ Syringe 20 mls @ 5 mls/min IV ONE ONE Stop: 02/28/21 06:33 Last Admin: 02/28/21 06:28 Dose: 5 mls/min Documented by: [id number] Lactated Ringer's (Lr) 1,000 mls @ 999 mls/hr IV .Q1H1M [facility] Stop: 02/28/21 07:43 Last Infusion: 02/28/21 08:03 Dose: 0 mls/hr Documented by: [id number] Admin: 02/28/21 07:00 Dose: 999 mls/hr Documented by: [id number] Lactated Ringer's (Lr) 1,000 mls @ 125 mls/hr IV .Q8H [facility] Stop: 03/30/21 07:59 Last Infusion: 03/01/21 18:55 Dose: 0 mls/hr Documented by: [id number] Admin: 03/01/21 16:28 Dose: 125 mls/hr Documented by: [id number] Infusion: 03/01/21 16:07 Dose: 125 mls/hr Documented by: [id number] Admin: 03/01/21 08:07 Dose: 125 mls/hr Documented by: [id number] Infusion: 03/01/21 08:07 Dose: 125 mls/hr Documented by: [id number] Admin: 03/01/21 03:07 Dose: 125 mls/hr Documented by: [id number] Infusion: 03/01/21 01:51 Dose: 125 mls/hr Documented by: [id number] Admin: 02/28/21 17:51 Dose: 125 mls/hr Documented by: [id number] Admin: 02/28/21 07:52 Dose: Not Given Documented by: [id number] Daptomycin 425 mg/ Syringe 8.5 mls @ 2.75 mls/min IV Q24H [facility]; Protocol Stop: 03/08/21 05:59 Last Admin: 03/01/21 05:43 Dose: 2.75 mls/min Documented by: [id number] Lactated Ringer's (Lr) 500 mls @ 999 mls/hr IV .Q31M ONE Stop: 03/01/21 00:27 Last Infusion: 03/01/21 00:40 Dose: 0 mls/hr Documented by: [id number] Admin: 03/01/21 00:09 Dose: 999 mls/hr Documented by: [id number] Critical Care Time Critical Care Time: Yes Total Critical Care Time: 58 Critical care of 58 min performed to assess and manage high likelihood of life-threatening septic shock, involving labs and imaging performed with assessment to evaluate sepsis diagnosis with frequent reassessment. This time includes bedside time, treatment discussions with patient/family/consultants, documentation time and excludes procedure time. Medical Decision Making Differential Diagnosis Differential diagnosis includees etiologies such as cellulitis, abscess, MRSA infection, DVT, necrotizing fasciitis, dermatitis, drug eruption, as well as others were entertained. Medical Records Attestation: I reviewed the patient's medical records. Home Medications Current Medication List: was personally reviewed by me Laboratory Data Attestation: I reviewed the patient's lab results. Result diagrams: 03/01/21 04:44 03/01/21 04:44 Lab Results 02/28/21 02/28/21 02/28/21 Range/Units 05:34 05:34 05:34 WBC 22.71 H (4.8-10.8) K/uL RBC 4.78 (4.2-5.4) M/uL Hgb 15.1 (12.0-16.0) g/dL Hct 45.1 (37-47) % MCV 94.4 (80-100) fL MCH 31.6 (25-34) pg MCHC 33.5 (32-36) g/dL RDW Std Deviation 42.2 (36.4-46.3) fL RDW Coeff of Fozia 12.3 (11.5-14.5) % Plt Count 175 (130-400) K/uL MPV 11.1 H (7.4-10.4) fL Immature Gran % (Auto) 0.7 % Neut % (Auto) 92.9 % Lymph % (Auto) 3.3 % Simpson % (Auto) 2.9 % Eos % (Auto) 0.1 % Baso % (Auto) 0.1 % Neut # (Auto) 21.09 H (1.4-6.5) K/uL Lymph # (Auto) 0.76 L (1.2-3.4) K/uL Simpson # (Auto) 0.65 H (0.11-0.59) K/uL Eos # (Auto) 0.02 (0-0.5) K/uL Baso # (Auto) 0.02 (0-0.2) K/uL Immature Gran # (Auto) 0.17 H (0.00-0.02) K/uL PT (9.0-12.0) Seconds INR (0.9-1.1) APTT (21.0-31.0) Seconds PTT Ratio Sodium 139 (136-145) mmol/L Potassium 4.3 (3.5-5.1) mmol/L Chloride 106 (98-107) mmol/L Carbon Dioxide 30 (21-32) mmol/L Anion Gap 3.0 (3-11) BUN 29 H (7-18) mg/dl Creatinine 1.35 H (0.6-1.2) mg/dl Est Cr Clr Drug Dosing 39.6 ml/min Est GFR ( Amer) 44.4 Est GFR (Non-Af Amer) 38.3 BUN/Creatinine Ratio 21.2 H (10-20) Glucose 114 H (70-99) mg/dl Lactate (0.4-2.0) mmol/L Calcium 9.1 (8.5-10.1) mg/dl Magnesium 2.0 (1.8-2.4) mg/dl Total Bilirubin 0.7 (0.2-1) mg/dl AST 29 (15-37) U/L ALT 22 (12-78) U/L Alkaline Phosphatase 87 (45-117) U/L Troponin I 0.204 H* (0-0.045) ng/ml Total Protein 8.1 (6.4-8.2) gm/dl Albumin 3.3 L (3.4-5.0) gm/dl Globulin 4.8 H (2.5-4.0) gm/dl Albumin/Globulin Ratio 0.7 L (0.9-2) Procalcitonin 7.96 H (0-0.5) ng/ml COVID-19 Eval Order SARS-CoV-2 (PCR) (Negative) Influenza Type A (PCR) (Neg) Influenza Type B (PCR) (Neg) RSV (RT-PCR) (Neg) 02/28/21 02/28/21 02/28/21 Range/Units 05:34 05:34 05:45 WBC (4.8-10.8) K/uL RBC (4.2-5.4) M/uL Hgb (12.0-16.0) g/dL Hct (37-47) % MCV (80-100) fL MCH (25-34) pg MCHC (32-36) g/dL RDW Std Deviation (36.4-46.3) fL RDW Coeff of Fozia (11.5-14.5) % Plt Count (130-400) K/uL MPV (7.4-10.4) fL Immature Gran % (Auto) % Neut % (Auto) % Lymph % (Auto) % Simpson % (Auto) % Eos % (Auto) % Baso % (Auto) % Neut # (Auto) (1.4-6.5) K/uL Lymph # (Auto) (1.2-3.4) K/uL Simpson # (Auto) (0.11-0.59) K/uL Eos # (Auto) (0-0.5) K/uL Baso # (Auto) (0-0.2) K/uL Immature Gran # (Auto) (0.00-0.02) K/uL PT 11.9 (9.0-12.0) Seconds INR 1.2 H (0.9-1.1) APTT 32.2 H (21.0-31.0) Seconds PTT Ratio 1.2 Sodium (136-145) mmol/L Potassium (3.5-5.1) mmol/L Chloride (98-107) mmol/L Carbon Dioxide (21-32) mmol/L Anion Gap (3-11) BUN (7-18) mg/dl Creatinine (0.6-1.2) mg/dl Est Cr Clr Drug Dosing ml/min Est GFR ( Amer) Est GFR (Non-Af Amer) BUN/Creatinine Ratio (10-20) Glucose (70-99) mg/dl Lactate 2.9 H* (0.4-2.0) mmol/L Calcium (8.5-10.1) mg/dl Magnesium (1.8-2.4) mg/dl Total Bilirubin (0.2-1) mg/dl AST (15-37) U/L ALT (12-78) U/L Alkaline Phosphatase (45-117) U/L Troponin I (0-0.045) ng/ml Total Protein (6.4-8.2) gm/dl Albumin (3.4-5.0) gm/dl Globulin (2.5-4.0) gm/dl Albumin/Globulin Ratio (0.9-2) Procalcitonin (0-0.5) ng/ml COVID-19 Eval Order CovFluRsv at [facility] SARS-CoV-2 (PCR) (Negative) Influenza Type A (PCR) (Neg) Influenza Type B (PCR) (Neg) RSV (RT-PCR) (Neg) 02/28/21 02/28/21 Range/Units 05:45 07:33 WBC (4.8-10.8) K/uL RBC (4.2-5.4) M/uL Hgb (12.0-16.0) g/dL Hct (37-47) % MCV (80-100) fL MCH (25-34) pg MCHC (32-36) g/dL RDW Std Deviation (36.4-46.3) fL RDW Coeff of Fozia (11.5-14.5) % Plt Count (130-400) K/uL MPV (7.4-10.4) fL Immature Gran % (Auto) % Neut % (Auto) % Lymph % (Auto) % Simpson % (Auto) % Eos % (Auto) % Baso % (Auto) % Neut # (Auto) (1.4-6.5) K/uL Lymph # (Auto) (1.2-3.4) K/uL Simpson # (Auto) (0.11-0.59) K/uL Eos # (Auto) (0-0.5) K/uL Baso # (Auto) (0-0.2) K/uL Immature Gran # (Auto) (0.00-0.02) K/uL PT (9.0-12.0) Seconds INR (0.9-1.1) APTT (21.0-31.0) Seconds PTT Ratio Sodium (136-145) mmol/L Potassium (3.5-5.1) mmol/L Chloride (98-107) mmol/L Carbon Dioxide (21-32) mmol/L Anion Gap (3-11) BUN (7-18) mg/dl Creatinine (0.6-1.2) mg/dl Est Cr Clr Drug Dosing ml/min Est GFR ( Amer) Est GFR (Non-Af Amer) BUN/Creatinine Ratio (10-20) Glucose (70-99) mg/dl Lactate 3.1 H* (0.4-2.0) mmol/L Calcium (8.5-10.1) mg/dl Magnesium (1.8-2.4) mg/dl Total Bilirubin (0.2-1) mg/dl AST (15-37) U/L ALT (12-78) U/L Alkaline Phosphatase (45-117) U/L Troponin I (0-0.045) ng/ml Total Protein (6.4-8.2) gm/dl Albumin (3.4-5.0) gm/dl Globulin (2.5-4.0) gm/dl Albumin/Globulin Ratio (0.9-2) Procalcitonin (0-0.5) ng/ml COVID-19 Eval Order SARS-CoV-2 (PCR) NEGATIVE (Negative) Influenza Type A (PCR) Negative (Neg) Influenza Type B (PCR) Negative (Neg) RSV (RT-PCR) Negative (Neg) Imaging Data My Impression: X-ray: I interpreted the following studies. Chest: A single view study of the chest was reviewed and was negative for cardiomegaly, focal infiltrate, effusion, pulmonary edema, or wide mediastinum. ECG Data Attestation: I personally reviewed and interpreted this ECG as follows: Indication: + weakness Rate (beats per minute): 81 Rhythm: + atrial fibrillation ECG Intervals/blocks: + Normal QRS and + Normal QT ECG [place]: + Normal ECG ST segments: + Nonspecific ST abnormalities MDM Narrative This is a well appearing 75 yo women who presents ad family's insistence due to concern for worsening infection of the LLE and fever. Pt admits to feeling chills, denies fevers. Denies pain. No other evolving symptoms. A sepsis evaluation was started and after significant discussion with pharmacy and review of pt's prior hx in EMR, IV anbitiotics chosen. Pt given IVF. She did have hopotension which was fluid responsive. Patient and family confirm she likely doesn't drink enough water. I suspect hypovolemia contributed to hypotension in the setting of sepsis. Pt given 30 ml/kg based on ideal body weight. Pt hadn't yet urinated while I was with her in the ER after >3 hours and > 2 L of IVF. Cellulitis of LLE obvious, outlined with sterile marking pen by me and likely the source of her sepsis. KATINA also noted. Trop elevated. Reassuring ekg and no chest pain, elevated trop more likely from sepsis. Pt anticoagulated due to a.fib. Pt and family updated on all results and plan. Case discussed with hospitalist. An order was placed for continuous cardiac monitoring. The monitor shows a rate of 80 with _a.fib_ rhythm. Impression & Plan Sepsis, Cellulitis, CKD (chronic kidney disease), Atrial fibrillation, Dehydration, Elevated troponin Discharge Plan Visit Data Chief Complaint: Infection, Wound Stated Complaint: FEVER, VOMITING, LEFT LEG INFECTION? ED Provider: Bijal Luna Discharge Problem: Sepsis, Cellulitis, CKD (chronic kidney disease), Atrial fibrillation, Dehydration, Elevated troponin Patient Disposition: Admitted As Inpatient Discharge Instructions Interventions: ED Discharge Assessment Last Done: 02/28/21 12:56 Discharge Problem: Sepsis Qualifiers: Sepsis type: sepsis due to unspecified organism Sepsis acute organ dysfunction status: with acute organ dysfunction Severe sepsis acute organ dysfunction type: acute renal failure Acute renal failure type: unspecified Severe sepsis shock status: without septic shock Qualified Code(s): A41.9 - Sepsis, unspecified organism Cellulitis Qualifiers: Site of cellulitis: extremity Site of cellulitis of extremity: lower extremity Laterality: left Qualified Code(s): L03.116 - Cellulitis of left lower limb CKD (chronic kidney disease) Qualifiers: Chronic kidney disease stage: unspecified stage Qualified Code(s): N18.9 - Chronic kidney disease, unspecified Atrial fibrillation Qualifiers: Atrial fibrillation type: unspecified chronic Qualified Code(s): I48.20 - Chronic atrial fibrillation, unspecified
[2021-02-28 05:51] LABS: Hematocrit (blood only) 45.1 % (37-47); Hemoglobin 15.1 g/dL (12.0-16.0); Mean Corpuscular Hemoglobin 31.6 pg (25-34); Mean Corpuscular Hgb Conc 33.5 g/dL (32-36); Mean Corpuscular Volume 94.4 fL (80-100); Mean Platelet Volume 11.1 fL (7.4-10.4); Platelet Count 175 K/uL (130-400); RDW Coefficient of Variation 12.3 % (11.5-14.5); RDW Standard Deviation 42.2 fL (36.4-46.3); Red Blood Count 4.78 M/uL (4.2-5.4); White Blood Count 22.71 K/uL (4.8-10.8)
[2021-02-28 06:01] LABS: INR 1.2 (0.9-1.1); Partial Thromboplastin Ratio 1.2; Partial Thromboplastin Time 32.2 Seconds (21.0-31.0); Prothrombin Time 11.9 Seconds (9.0-12.0)
[2021-02-28 06:05] LABS: Albumin Level 3.3 gm/dl (3.4-5.0); BUN Creatinine Ratio 21.2 (10-20); Calcium 9.1 mg/dl (8.5-10.1); Creatinine Clr Calc Pharmacy 39.6 ml/min; Est GFR (African American) 44.4; Est GFR (Non-African American) 38.3; Potassium 4.3 mmol/L (3.5-5.1)
[2021-02-28 06:12] LABS: Basophils # (auto) 0.02 K/uL (0-0.2); Basophils % (auto) 0.1 %; Eosinophils # (auto) 0.02 K/uL (0-0.5); Eosinophils % (auto) 0.1 %; Immature Granulocytes # (auto) 0.17 K/uL (0.00-0.02); Immature Granulocytes % (auto) 0.7 %; Lymphocytes # (auto) 0.76 K/uL (1.2-3.4); Lymphocytes % (auto) 3.3 %; Monocytes # (auto) 0.65 K/uL (0.11-0.59); Monocytes % (auto) 2.9 %; Neutrophils # (auto) 21.09 K/uL (1.4-6.5); Neutrophils % (auto) 92.9 %
[2021-02-28] MEDS: LACTATED RINGER'S 1,000 ML IV SCH ×3 (06:15→17:51)
[2021-02-28 06:21] LABS: Albumin Globulin Ratio 0.7 (0.9-2); Bilirubin,Total 0.7 mg/dl (0.2-1); Globulin 4.8 gm/dl (2.5-4.0); Total Protein 8.1 gm/dl (6.4-8.2); Troponin I 0.204 ng/ml (0-0.045)
[2021-02-28] MEDS ORDERED: CEFEPIME 2,000 MG in SYRINGE 0 ML IV ONE (06:30)
[2021-02-28] MEDS ORDERED: DAPTOmycin 425 MG in SYRINGE 0 ML IV ONE (06:30)
[2021-02-28] MEDS ORDERED: LACTATED RINGER'S 1,000 ML IV ONE (06:43)
[2021-02-28 06:47] LABS: Influenza A virus by PCR Negative (Neg); Influenza B virus by PCR Negative (Neg); RSV by PCR Negative (Neg); SARS CoV2 RNA(COVID-19) InHosp NEGATIVE (Negative)
--- NOTE | 2021-02-28 07:22 | History & Physical Report ---
Date of Service February 28, 2021 Assessment & Plan (1) Sepsis: Septic shock Presents with left lower extremity cellulitis, tachypnea, leukocytosis of 22, subjective fevers at home, elevated lactate at 2.9, and hypotension which responded to crystalloid bolus. Procalcitonin elevated at 7.96 Admit to PCU Continue LR at 125 mL's per hour and recheck lactate With a history of MRSA and Pseudomonas-continue IV cefepime and IV daptomycin started in the ER Follow cellulitis clinically Follow CBC, CMP, procalcitonin in the morning Follow blood cultures (2) Cellulitis: As above Tramadol as needed for pain (3) Elevated troponin: Troponin 0.2 on admission, could be myocardial demand ischemia in the setting of sepsis She has no chest pain and no acute ischemic changes on ECG Serial troponin Check echocardiogram Monitor on telemetry (4) Atrial fibrillation: With rate controlled atrial fibrillation upon admission She has permanent atrial fibrillation Continue home Xarelto which is renally dosed Continue home metoprolol tartrate 75 mg p.o. twice daily Monitor on telemetry (5) Anticoagulant long-term use: For atrial fibrillation, continue Xarelto (6) Chronic kidney disease, stage III (moderate): Creatinine at 1.35 which is an increase from her baseline of 0.9-1.0, with some mild renal insufficiency here Could be secondary to sepsis Giving IV fluid resuscitation Follow BMP (7) CVA (cerebral vascular accident): With a remote history of CVA with residual left-sided hemiparesis Is mostly wheelchair-bound Continue Xarelto and Plavix Hold home atorvastatin while on daptomycin (8) Depression: Stable Continue home sertraline 50 mg daily (9) H/O gastric ulcer: Continue PPI No acute issues (10) Hemiparesis affecting left side as late effect of stroke: As above (11) HTN (hypertension): Blood pressures low upon admission but improved with IV fluids Continue metoprolol with hold parameters as above for rate control (12) Hyperlipidemia: Hold statin while on daptomycin (13) Hypothyroidism: TSH normal at 3.9 in 10/2020 Continue home levothyroxine (14) Morbid obesity: BMI 39.9 Weight loss to be managed as an outpatient (15) PAD (peripheral artery disease): With a history of left popliteal artery occlusion which did not have intervention Last seen by vascular surgery in 2012 who recommended no intervention. Continue Plavix, resume statin once off daptomycin (16) Vitamin D deficiency: Continue vitamin D (17) DVT prophylaxis: Xarelto Disposition-admit to PCU Full code-discussed with patient with her son at the bedside I also contacted her daughter by phone who is the POA and updated her History of Present Illness Chief Complaint: Fever, chills, leg infection Primary Care Provider: Tacos Davis MD This patient is a 75-year-old female with a history of permanent atrial fibrillation on Xarelto, hypertension, hyperlipidemia, CKD stage III, CVA with weakness and wheelchair dependence, anxiety/depression, GERD/PUD, and PAD, who presents to the ER with fevers, chills, and worsening leg infection over the last 24 hours. She does have a history of chronic venous stasis and redness and wound to the left lower extremity. Family member noted that the leg appeared more red and was covering a wider area than before. She does have a history of MRSA and Pseudomonas infections. She has not been seen by her PCP or started on antibiotics as an outpatient. In the ER, she was found to have a leukocytosis of 22 with neutrophilia, mild acute renal insufficiency, elevated lactate of 2.9, and elevated troponin of 0.2, and an elevated procalcitonin at 7.96. Her Covid-19 was negative. She was hypotensive at one point at 66/28 in the ER but after receiving isotonic IV fluids, her BP came up to 112/63. She was afebrile but was tachypneic. She will be admitted for lower extremity cellulitis and sepsis with shock. Allergies Allergy/AdvReac Type Severity Reaction Status Date / Time clindamycin Allergy Intermediate HIVES Verified 02/28/21 07:08 piperacillin Allergy Intermediate HIVES Verified 02/28/21 07:08 vancomycin Allergy Unknown unknown Verified 02/28/21 07:08 Home Medications Medication Instructions Recorded Confirmed Type acetaminophen [Tylenol] 650 mg PO Q6H PRN 11/17/18 02/28/21 History cholecalciferol (vitamin D3) 1,000 unit PO BID 11/17/18 02/28/21 History [Vitamin D3] omeprazole 20 mg capsule,delayed 20 mg PO DAILY #30 cap 06/09/19 02/28/21 Rx release metoprolol tartrate 50 mg tablet 75 mg PO BID #270 tab 04/25/20 02/28/21 Rx nystatin 100,000 unit/gram topical 1 appln TOP BID PRN #60 gm 05/16/20 02/28/21 Rx powder rivaroxaban 15 mg tablet 15 mg PO DAILY #90 tab 06/20/20 02/28/21 Rx sertraline 50 mg tablet 50 mg PO DAILY #30 tab 09/13/20 02/28/21 Rx Saccharomyces boulardii [Florastor] 250 mg PO BID #20 cap 12/01/20 02/28/21 Rx cholecalciferol (vitamin D3) 1,250 50,000 unit PO WK #8 cap 12/05/20 02/28/21 Rx mcg (50,000 unit) capsule clopidogrel 75 mg tablet 75 mg PO DAILY #30 tab 01/17/21 02/28/21 Rx atorvastatin 20 mg tablet 20 mg PO QAM #90 tab 02/11/21 02/28/21 Rx ferrous sulfate [iron] 325 mg PO 3XWK 02/28/21 02/28/21 History levothyroxine 100 mcg PO QAM 02/28/21 02/28/21 History tramadol 50 mg PO HS PRN 02/28/21 02/28/21 History Past Med/Surg History Medical History Acute kidney injury Anticoagulant long-term use Atrial fibrillation Cellulitis of leg Chronic kidney disease, stage III (moderate) CVA (cerebral vascular accident) Depression Elevated blood protein Graves disease H/O gastric ulcer Hemiparesis affecting left side as late effect of stroke HTN (hypertension) Hyperlipidemia Hypomagnesemia Hypothyroidism Morbid obesity PAD (peripheral artery disease) Peripheral vascular disease Vitamin D deficiency Surgical History H/O colonoscopy No significant past surgical history S/P foot surgery, left S/P hammer toe correction S/P knee surgery Status post hip surgery Family History Other No pertinent family history Social History Smoking Status: Never smoker Second Hand Exposure: No; Hx Alcohol Use: No Hx Substance Use: No Preferred Language: [place]ankan Communication Ability: Effective Visual Impairment: No Limitations Hearing Ability: Normal Transfer Specialist Required: No Beliefs That Will Affect Care: None marital status: Current Living Situation: Family current occupational status: retired Other Information That Helps Us Care for You: No Feels Safe at Home: Yes Safety Concerns: Feels Safe At This Time Physical Activity Frequency: Does not Exercise Seatbelt Use: never Assistive Devices: Wheelchair Review of Systems Review of Systems: All systems reviewed & are unremarkable except as noted in HPI & below Denies headache or lightheadedness, no chest pain or shortness of breath, no cough. Denies abdominal pain, no constipation or diarrhea. No urinary symptoms. Physical Exam Constitutional: WD/WN, vitals as above + obese Eyes: PERRL, conjunctivae normal, anicteric sclerae ENMT: external ear and nose normal, oropharynx normal Neck: trachea midline, no thyromegaly Respiratory: normal respiratory effort, lungs clear to auscultation Cardiovascular: Rate/Rhythm: regular rate and + irregularly irregular Heart Sounds: no murmur Extremities: + edema (Trace pitting edema of the lower extremities left greater than right) Chest (Breasts): Chest: normal inspection of chest Gastrointestinal (Abdomen): normal bowel sounds, soft, nontender, no hepatosplenomegaly Musculoskeletal: Extremities: + extremities abnormal to inspection (Left lower extremity with some atrophy and contracture of the ankle), no cyanosis and no clubbing Skin: + ulcer (Scabbed wound left anterior leg) and + erythema (Entire left leg circumferential spreading up to distal thigh anterior) Chronic venous stasis changes with purplish discoloration of left anterior leg Neurologic: moves all extremities, + focal motor deficit (4/5 strength in left upper and left lower extremities) and awake; not confused Psychiatric: A+Ox3, euthymic affect Genitourinary: Gibbons catheter in place draining clear yellow urine Results & Data Results & Data ([facility]) Vital Signs (Past 12 Hours) Vital Signs Temp Pulse Resp BP BP Pulse Ox 02/28/21 07:03 79 24 112/63 92 02/28/21 06:37 28 H 02/28/21 06:33 74 26 H 113/70 96 02/28/21 06:31 90 24 66/28 L 92 02/28/21 06:30 80 26 H 92 02/28/21 06:26 78 25 H 103/71 94 02/28/21 06:12 79 25 H 87/66 L 95 02/28/21 06:10 75 25 H 95 02/28/21 06:06 92 02/28/21 06:00 75 24 88/57 L 89 L 02/28/21 05:46 16 73/34 L 96 02/28/21 05:00 37.3 C 88 20 117/74 98 Laboratory Results 02/28/21 02/28/21 02/28/21 Range/Units 07:33 05:45 05:45 WBC (4.8-10.8) K/uL RBC (4.2-5.4) M/uL Hgb (12.0-16.0) g/dL Hct (37-47) % MCV (80-100) fL MCH (25-34) pg MCHC (32-36) g/dL RDW Std Deviation (36.4-46.3) fL RDW Coeff of Fozia (11.5-14.5) % Plt Count (130-400) K/uL MPV (7.4-10.4) fL Immature Gran % (Auto) % Neut % (Auto) % Lymph % (Auto) % [place] % (Auto) % Eos % (Auto) % Baso % (Auto) % Neut # (Auto) (1.4-6.5) K/uL Lymph # (Auto) (1.2-3.4) K/uL [place] # (Auto) (0.11-0.59) K/uL Eos # (Auto) (0-0.5) K/uL Baso # (Auto) (0-0.2) K/uL Immature Gran # (Auto) (0.00-0.02) K/uL PT (9.0-12.0) Seconds INR (0.9-1.1) APTT (21.0-31.0) Seconds PTT Ratio Sodium (136-145) mmol/L Potassium (3.5-5.1) mmol/L Chloride (98-107) mmol/L Carbon Dioxide (21-32) mmol/L Anion Gap (3-11) BUN (7-18) mg/dl Creatinine (0.6-1.2) mg/dl Est Cr Clr Drug Dosing ml/min Est GFR ( Amer) Est GFR (Non-Af Amer) BUN/Creatinine Ratio (10-20) Glucose (70-99) mg/dl Lactate Pending (0.4-2.0) mmol/L Calcium (8.5-10.1) mg/dl Magnesium (1.8-2.4) mg/dl Total Bilirubin (0.2-1) mg/dl AST (15-37) U/L ALT (12-78) U/L Alkaline Phosphatase (45-117) U/L Troponin I (0-0.045) ng/ml Total Protein (6.4-8.2) gm/dl Albumin (3.4-5.0) gm/dl Globulin (2.5-4.0) gm/dl Albumin/Globulin Ratio (0.9-2) Procalcitonin (0-0.5) ng/ml COVID-19 Eval Order CovFluRsv at [facility] SARS-CoV-2 (PCR) NEGATIVE (Negative) Influenza Type A (PCR) Negative (Neg) Influenza Type B (PCR) Negative (Neg) RSV (RT-PCR) Negative (Neg) 02/28/21 02/28/21 02/28/21 Range/Units 05:34 05:34 05:34 WBC 22.71 H (4.8-10.8) K/uL RBC 4.78 (4.2-5.4) M/uL Hgb 15.1 (12.0-16.0) g/dL Hct 45.1 (37-47) % MCV 94.4 (80-100) fL MCH 31.6 (25-34) pg MCHC 33.5 (32-36) g/dL RDW Std Deviation 42.2 (36.4-46.3) fL RDW Coeff of Fozia 12.3 (11.5-14.5) % Plt Count 175 (130-400) K/uL MPV 11.1 H (7.4-10.4) fL Immature Gran % (Auto) 0.7 % Neut % (Auto) 92.9 % Lymph % (Auto) 3.3 % [place] % (Auto) 2.9 % Eos % (Auto) 0.1 % Baso % (Auto) 0.1 % Neut # (Auto) 21.09 H (1.4-6.5) K/uL Lymph # (Auto) 0.76 L (1.2-3.4) K/uL [place] # (Auto) 0.65 H (0.11-0.59) K/uL Eos # (Auto) 0.02 (0-0.5) K/uL Baso # (Auto) 0.02 (0-0.2) K/uL Immature Gran # (Auto) 0.17 H (0.00-0.02) K/uL PT 11.9 (9.0-12.0) Seconds INR 1.2 H (0.9-1.1) APTT 32.2 H (21.0-31.0) Seconds PTT Ratio 1.2 Sodium (136-145) mmol/L Potassium (3.5-5.1) mmol/L Chloride (98-107) mmol/L Carbon Dioxide (21-32) mmol/L Anion Gap (3-11) BUN (7-18) mg/dl Creatinine (0.6-1.2) mg/dl Est Cr Clr Drug Dosing ml/min Est GFR ( Amer) Est GFR (Non-Af Amer) BUN/Creatinine Ratio (10-20) Glucose (70-99) mg/dl Lactate 2.9 H* (0.4-2.0) mmol/L Calcium (8.5-10.1) mg/dl Magnesium (1.8-2.4) mg/dl Total Bilirubin (0.2-1) mg/dl AST (15-37) U/L ALT (12-78) U/L Alkaline Phosphatase (45-117) U/L Troponin I (0-0.045) ng/ml Total Protein (6.4-8.2) gm/dl Albumin (3.4-5.0) gm/dl Globulin (2.5-4.0) gm/dl Albumin/Globulin Ratio (0.9-2) Procalcitonin (0-0.5) ng/ml COVID-19 Eval Order SARS-CoV-2 (PCR) (Negative) Influenza Type A (PCR) (Neg) Influenza Type B (PCR) (Neg) RSV (RT-PCR) (Neg) 02/28/21 02/28/21 Range/Units 05:34 05:34 WBC (4.8-10.8) K/uL RBC (4.2-5.4) M/uL Hgb (12.0-16.0) g/dL Hct (37-47) % MCV (80-100) fL MCH (25-34) pg MCHC (32-36) g/dL RDW Std Deviation (36.4-46.3) fL RDW Coeff of Fozia (11.5-14.5) % Plt Count (130-400) K/uL MPV (7.4-10.4) fL Immature Gran % (Auto) % Neut % (Auto) % Lymph % (Auto) % [place] % (Auto) % Eos % (Auto) % Baso % (Auto) % Neut # (Auto) (1.4-6.5) K/uL Lymph # (Auto) (1.2-3.4) K/uL [place] # (Auto) (0.11-0.59) K/uL Eos # (Auto) (0-0.5) K/uL Baso # (Auto) (0-0.2) K/uL Immature Gran # (Auto) (0.00-0.02) K/uL PT (9.0-12.0) Seconds INR (0.9-1.1) APTT (21.0-31.0) Seconds PTT Ratio Sodium 139 (136-145) mmol/L Potassium 4.3 (3.5-5.1) mmol/L Chloride 106 (98-107) mmol/L Carbon Dioxide 30 (21-32) mmol/L Anion Gap 3.0 (3-11) BUN 29 H (7-18) mg/dl Creatinine 1.35 H (0.6-1.2) mg/dl Est Cr Clr Drug Dosing 39.6 ml/min Est GFR ( Amer) 44.4 Est GFR (Non-Af Amer) 38.3 BUN/Creatinine Ratio 21.2 H (10-20) Glucose 114 H (70-99) mg/dl Lactate (0.4-2.0) mmol/L Calcium 9.1 (8.5-10.1) mg/dl Magnesium 2.0 (1.8-2.4) mg/dl Total Bilirubin 0.7 (0.2-1) mg/dl AST 29 (15-37) U/L ALT 22 (12-78) U/L Alkaline Phosphatase 87 (45-117) U/L Troponin I 0.204 H* (0-0.045) ng/ml Total Protein 8.1 (6.4-8.2) gm/dl Albumin 3.3 L (3.4-5.0) gm/dl Globulin 4.8 H (2.5-4.0) gm/dl Albumin/Globulin Ratio 0.7 L (0.9-2) Procalcitonin 7.96 H (0-0.5) ng/ml COVID-19 Eval Order SARS-CoV-2 (PCR) (Negative) Influenza Type A (PCR) (Neg) Influenza Type B (PCR) (Neg) RSV (RT-PCR) (Neg) Diagnostic Findings Chest x-ray image personally reviewed by me and agree with the following report: XR chest 1V portable CLINICAL HISTORY: SEPSIS COMPARISON STUDY: Chest radiograph May 06, 2019. FINDINGS: Patient is rotated. Lung volumes are diminished. Cardiomegaly is unchanged. There is no evidence for pulmonary edema. No lobar consolidation is identified. Patient is rotated. IMPRESSION: No acute cardiopulmonary findings. ECG Additional Comments: ECG on 02/28/2021 at 0 551 with atrial fibrillation, rate 81, PVCs versus aberrantly conducted complexes, nonspecific ST and T wave abnormality in lateral leads Code Status & VTE Plan Code Status Full code VTE Prophylaxis Plan VTE Prophylaxis will be ordered: Yes PG Care Time/CCT Total # of Minutes Spent Total Time Spent with Patient: Total time spent is greater than 50% in coordination of care (as documented) at patient's floor/unit and/or counseling patient: Coding Level of Care Code 99917 Initial Inpt Care Lvl 3 Diagnoses Sepsis A41.9 Sepsis acute organ dysfunction status: unspecified Sepsis type: sepsis due to unspecified organism Cellulitis L03.116 Laterality: left Site of cellulitis: extremity Site of cellulitis of extremity: lower extremity Elevated troponin R77.8 Atrial fibrillation I48.91 Anticoagulant long-term use Z79.01 Chronic kidney disease, stage III (moderate) N18.3 CVA (cerebral vascular accident) I63.9 Depression F32.9 H/O gastric ulcer Z87.19 Hemiparesis affecting left side as late effect of stroke I69.354 HTN (hypertension) I10 Hyperlipidemia E78.5 Hypothyroidism E03.9 Morbid obesity E66.01 PAD (peripheral artery disease) I73.9 Vitamin D deficiency E55.9 DVT prophylaxis Z29.9 (1) Cellulitis Laterality: left Site of cellulitis: extremity Site of cellulitis of extremity: lower extremity Qualified Code(s): L03.116 - Cellulitis of left lower limb (2) Sepsis Sepsis acute organ dysfunction status: unspecified Sepsis type: sepsis due to unspecified organism Qualified Code(s): A41.9 - Sepsis, unspecified organism
--- NOTE | 2021-02-28 08:48 | XRay Report ---
XR chest 1V portable CLINICAL HISTORY: SEPSIS COMPARISON STUDY: Chest radiograph May 06, 2019. FINDINGS: Patient is rotated. Lung volumes are diminished. Cardiomegaly is unchanged. There is no violet dence for pulmonary edema. No lobar consolidation is identified. Patient is rotated. IMPRESSION: No acute cardiopulmonary findings. ACT 112: Negative or not required by law. Electronically signed by: Mike Hardy M.D. 02/28/2021 8:46 AM
[2021-02-28 11:32] LABS: Appearance Urine Clear (Clear); Bacteria Urine Automated Negative (Negative); Bilirubin Urine Negative (Negative); Blood Urine Negative (Negative); Color Urine Yellow; Epithelial Cell Urine Auto >30 /lpf (0-5); Glucose Urine UA Negative (Negative); Ketones Urine Negative (Negative); Leukocyte Esterase Urine Negative (Negative); Nitrite Urine Negative (Negative); RBC Urine Automated 0-4 /hpf (0-4); Urobilinogen Urine Negative (Negative); pH Urine 7.5 (4.5-7.5)
[2021-02-28 11:35] LABS: Protein Urine Trace (Negative)
--- NOTE | 2021-02-28 12:06 | XCELERA ---
[id number]
[2021-02-28] MEDS ORDERED: ALUMINUM/MAGNESIUM SUSP 30 ML UDC PO PRN (12:19)
[2021-02-28] MEDS ORDERED: NYSTATIN POWDER 15GM BTL EXT PRN (12:19)
[2021-02-28] MEDS ORDERED: ONDANSETRON INJ 2 MG/ML 2 ML VIAL IV PRN (12:19)
[2021-02-28] MEDS ORDERED: MAGNESIUM HYDROXIDE SUSP 30 ML UDC PO PRN (12:19)
[2021-02-28] MEDS ORDERED: POLYETHYLENE (MIRALAX) 17 GM PACK PO PRN (12:19)
[2021-02-28] MEDS: ERGOCALCIFEROL 50,000 UNITS 1250 MCG CAP PO SCH ×2 (13:25→13:27)
[2021-02-28] MEDS: SERTRALINE HCL 50 MG TABLET PO SCH (13:25)
[2021-02-28] MEDS: CLOPIDOGREL BISULFATE 75 MG TAB PO SCH (13:25)
[2021-02-28] MEDS: ACETAMINOPHEN 325 MG TAB PO PRN (13:31)
--- NOTE | 2021-02-28 15:31 | Electrocardiogram Report ---
Test Reason : Blood Pressure : / mmHG Vent. Rate : 081 BPM Atrial Rate : 340 BPM P-R Int : 000 ms QRS Dur : 082 ms QT Int : 386 ms P-R-T Axes : 000 044 071 degrees QTc Int : 448 ms Poor data quality, interpretation may be adversely affected Atrial fibrillation with frequent Aberrant conduction Nonspecific ST and T wave abnormality Abnormal ECG When compared with ECG of 06-MAY-2019 17:47, Nonspecific T wave abnormality no longer evident in Anterior leads Inverted T waves have replaced nonspecific T wave abnormality in Lateral leads Aberrant conduction is now Present Confirmed by Dario Negrete ([id number]) on 02/28/2021 3:31:06 PM Referred By: REFERRED SELF Confirmed By:Dario Negrete
[2021-02-28] MEDS: RIVAROXABAN 15 MG TAB PO SCH (17:51)
[2021-02-28] MEDS: CEFEPIME 2,000 MG in SYRINGE 0 ML IV SCH (19:18)
[2021-02-28] MEDS: METOPROLOL TARTRATE 25 MG TAB PO SCH (21:04)
[2021-02-28] MEDS: CHOLECALCIFEROL 1,000 UNITS 25 MCG TAB PO SCH (21:04)
[2021-02-28] MEDS: SACCHAROMYCES BOULARDII 250 MG CAP PO SCH (21:05)
[2021-02-28] MEDS: traMADol HCL 50 MG TABLET PO PRN (21:07)
[2021-02-28] MEDS ORDERED: LACTATED RINGER'S 500 ML IV ONE (23:57)
--- NOTE | 2021-03-01 00:08 | Communication Note ---
Date of Service: March 01, 2021 Notified patient was having softer pressure high 80's/50's. Per chart review it appears patient has had ~2L of fluid resuscitation throughout the day. Patient sleeping comfortably at this time. Review of echo showing EF 60-65% -Will give 500ml bolus LR at this time and resume LR 125ml/hr -Lactic has improved from 3.1 on admission to 1.8 on recheck -will continue to monitor patient throughout the night, if pressures begin to stay <80's systolic will consider consulting Real Estate Services Administrator for pressors. Resident Activity Tracking Resident Involvement: Resident Care Provided and Psychologist Counseling Coverage Note Care Provided: Adult Hospital Medicine
[2021-03-01] MEDS: LACTATED RINGER'S 1,000 ML IV SCH ×5 (03:07→20:38)
[2021-03-01] MEDS: LEVOTHYROXINE SODIUM 100 MCG TABLET PO SCH (05:43)
[2021-03-01] MEDS: CEFEPIME 2,000 MG in SYRINGE 0 ML IV SCH ×2 (05:44→17:51)
[2021-03-01 05:52] LABS: Albumin Globulin Ratio 0.6 (0.9-2); Albumin Level 2.2 gm/dl (3.4-5.0); BUN Creatinine Ratio 27.3 (10-20); Bilirubin,Total 0.8 mg/dl (0.2-1); Calcium 8.3 mg/dl (8.5-10.1); Creatinine Clr Calc Pharmacy 53.5 ml/min; Est GFR (African American) 63.8; Est GFR (Non-African American) 55.1; Globulin 3.9 gm/dl (2.5-4.0); Magnesium 1.8 mg/dl (1.8-2.4); Phosphorus 2.5 mg/dl (2.5-4.9); Potassium 4.4 mmol/L (3.5-5.1); Total Protein 6.1 gm/dl (6.4-8.2)
[2021-03-01] MEDS ORDERED: DAPTOmycin 425 MG in SYRINGE 0 ML IV SCH (06:00)
[2021-03-01 06:16] LABS: Basophils # (auto) 0.02 K/uL (0-0.2); Basophils % (auto) 0.1 %; Eosinophils # (auto) 0.07 K/uL (0-0.5); Eosinophils % (auto) 0.5 %; Hematocrit (blood only) 35.5 % (37-47); Hemoglobin 11.9 g/dL (12.0-16.0); Immature Granulocytes # (auto) 0.06 K/uL (0.00-0.02); Immature Granulocytes % (auto) 0.4 %; Lymphocytes # (auto) 1.26 K/uL (1.2-3.4); Lymphocytes % (auto) 9.1 %; Mean Corpuscular Hemoglobin 31.6 pg (25-34); Mean Corpuscular Hgb Conc 33.5 g/dL (32-36); Mean Corpuscular Volume 94.4 fL (80-100); Monocytes # (auto) 0.44 K/uL (0.11-0.59); Monocytes % (auto) 3.2 %; Neutrophils # (auto) 11.97 K/uL (1.4-6.5); Neutrophils % (auto) 86.7 %; Platelet Count 103 K/uL (130-400); RDW Coefficient of Variation 12.7 % (11.5-14.5); RDW Standard Deviation 43.6 fL (36.4-46.3); Red Blood Count 3.76 M/uL (4.2-5.4); White Blood Count 13.82 K/uL (4.8-10.8)
[2021-03-01] MEDS: CLOPIDOGREL BISULFATE 75 MG TAB PO SCH (08:08)
[2021-03-01] MEDS: SERTRALINE HCL 50 MG TABLET PO SCH (08:08)
[2021-03-01] MEDS: CHOLECALCIFEROL 1,000 UNITS 25 MCG TAB PO SCH ×2 (08:08→20:39)
[2021-03-01] MEDS: METOPROLOL TARTRATE 25 MG TAB PO SCH ×2 (08:08→20:39)
[2021-03-01] MEDS: SACCHAROMYCES BOULARDII 250 MG CAP PO SCH ×2 (08:08→20:39)
[2021-03-01] MEDS: PANTOprazole 40 MG TAB PO SCH (08:08)
[2021-03-01] MEDS: FERROUS SULFATE 325 MG TAB PO SCH (08:08)
--- NOTE | 2021-03-01 11:01 | Hospitalist Progress Note ---
Date of Service March 01, 2021 Assessment & Plan (1) Sepsis: Septic shock Presents with left lower extremity cellulitis, tachypnea, leukocytosis of 22, subjective fevers at home, elevated lactate at 2.9, and hypotension which responded to crystalloid bolus. Procalcitonin elevated at 7.96 and then up to 12 WBC count improved today down to 12, afebrile Leg slightly improved MRSA swab neg BP soft but improved and tolerating metoprolol today Continue LR but reduce to 100 mL's per hour and recheck lactate With a history of MRSA and Pseudomonas -continue IV cefepime but will dc IV daptomycin after today's dose, can redose tomorrow if worsening or no improving Follow cellulitis clinically Follow CBC, CMP, procalcitonin in the morning Follow blood cultures-NGTD (2) Cellulitis: As above Tramadol as needed for pain (3) Elevated troponin: Troponin 0.2 on admission and then trended downward, could be myocardial demand ischemia in the setting of sepsis She has no chest pain and no acute ischemic changes on ECG echocardiogram with no WMAs Monitor on telemetry (4) Atrial fibrillation: With rate controlled atrial fibrillation upon admission She has permanent atrial fibrillation Continue home Xarelto which is renally dosed Continue home metoprolol tartrate 75 mg p.o. twice daily Monitor on telemetry (5) Anticoagulant long-term use: For atrial fibrillation, continue Xarelto (6) Chronic kidney disease, stage III (moderate): Creatinine at 1.35 on admission which is an increase from her baseline of 0.9-1.0, with some mild renal insufficiency here--> now resolved with iVFs secondary to sepsis Follow BMP (7) CVA (cerebral vascular accident): With a remote history of CVA with residual left-sided hemiparesis Is mostly wheelchair-bound Continue Xarelto and Plavix Hold home atorvastatin while on daptomycin but can restart tomorrow (8) Depression: Stable Continue home sertraline 50 mg daily (9) H/O gastric ulcer: Continue PPI No acute issues (10) Hemiparesis affecting left side as late effect of stroke: As above PT/OT evals (11) HTN (hypertension): Blood pressures low upon admission but improved with IV fluids Continue metoprolol with hold parameters as above for rate control (12) Hyperlipidemia: Hold statin while on daptomycin (13) Hypothyroidism: TSH normal at 3.9 in 10/2020 Continue home levothyroxine (14) Morbid obesity: BMI 39.9 Weight loss to be managed as an outpatient (15) PAD (peripheral artery disease): With a history of left popliteal artery occlusion which did not have intervention Last seen by vascular surgery in 2013 who recommended no intervention. Continue Plavix, resume statin once off daptomycin (16) Vitamin D deficiency: Continue vitamin D (17) DVT prophylaxis: Xarelto Disposition-continued stay, transfer downgrade to [facility] tele Full code-discussed with patient with her son at the bedside Admission and Anticipated Discharge Date Admission Date: February 28, 2021 Subjective Feeling well. Had some soft BPs overnight and was given a small bolus of LR. Denies chest pain or SOB, remains on 2L. Denies nausea or abd pain. Is eating and drinking. Tele with rate controlled Afib, PVCs Review of Systems Review of Systems: All systems reviewed & are unremarkable except as noted in HPI & below Physical Exam Constitutional: WD/WN, vitals as above + obese Eyes: + anicteric sclerae Neck: trachea midline, no thyromegaly Respiratory: normal respiratory effort, lungs clear to auscultation Cardiovascular: Rate/Rhythm: regular rate and + irregularly irregular Heart Sounds: no murmur Extremities: + edema (Trace pitting edema of the lower extremities left greater than right) Chest (Breasts): Chest: normal inspection of chest Gastrointestinal (Abdomen): normal bowel sounds, soft, nontender, no hepatosplenomegaly Musculoskeletal: Extremities: + extremities abnormal to inspection (Left lower extremity with some atrophy and contracture of the ankle), no cyanosis and no clubbing Skin: + ulcer (Scabbed wound left anterior leg) and + erythema (left leg spreading up to distal thigh anterior slightly slightly improved) Neurologic: moves all extremities, + focal motor deficit (4/5 strength in left upper and left lower extremities) and awake; not confused Psychiatric: A+Ox3, euthymic affect Genitourinary: Gibbons in place with clear yellow urine Results & Data Results & Data ([facility]) Vital Signs (Past 12 Hours) Vital Signs Temp Pulse Pulse Resp BP Pulse Ox Pulse Ox 03/01/21 08:00 36.8 C 68 20 127/77 91 03/01/21 03:11 36.7 C 60 18 112/65 95 03/01/21 01:13 94 03/01/21 00:39 66 106/56 L 02/28/21 23:59 75 02/28/21 23:03 36.7 C 66 20 92/52 L 94 Laboratory Results 03/01/21 03/01/21 03/01/21 Range/Units 04:44 04:44 04:44 WBC 13.82 H (4.8-10.8) K/uL RBC 3.76 L (4.2-5.4) M/uL Hgb 11.9 L D (12.0-16.0) g/dL Hct 35.5 L (37-47) % MCV 94.4 (80-100) fL MCH 31.6 (25-34) pg MCHC 33.5 (32-36) g/dL RDW Std Deviation 43.6 (36.4-46.3) fL RDW Coeff of [place]oz[place] 12.7 (11.5-14.5) % Plt Count 103 L (130-400) K/uL MPV 11.0 H (7.4-10.4) fL Immature Gran % (Auto) 0.4 % Neut % (Auto) 86.7 % Lymph % (Auto) 9.1 % [place] % (Auto) 3.2 % Eos % (Auto) 0.5 % Baso % (Auto) 0.1 % Neut # (Auto) 11.97 H (1.4-6.5) K/uL Lymph # (Auto) 1.26 (1.2-3.4) K/uL [place] # (Auto) 0.44 (0.11-0.59) K/uL Eos # (Auto) 0.07 (0-0.5) K/uL Baso # (Auto) 0.02 (0-0.2) K/uL Immature Gran # (Auto) 0.06 H (0.00-0.02) K/uL Sodium 138 (136-145) mmol/L Potassium 4.4 (3.5-5.1) mmol/L Chloride 107 (98-107) mmol/L Carbon Dioxide 29 (21-32) mmol/L Anion Gap 2.0 L (3-11) BUN 27 H (7-18) mg/dl Creatinine 1.00 D (0.6-1.2) mg/dl Est Cr Clr Drug Dosing 53.5 ml/min Est GFR ( Amer) 63.8 Est GFR (Non-Af Amer) 55.1 BUN/Creatinine Ratio 27.3 H (10-20) Glucose 83 (70-99) mg/dl Lactate (0.4-2.0) mmol/L Calcium 8.3 L (8.5-10.1) mg/dl Phosphorus 2.5 (2.5-4.9) mg/dl Magnesium 1.8 (1.8-2.4) mg/dl Total Bilirubin 0.8 (0.2-1) mg/dl AST 17 (15-37) U/L ALT 14 (12-78) U/L Alkaline Phosphatase 64 (45-117) U/L Troponin I (0-0.045) ng/ml Total Protein 6.1 L D (6.4-8.2) gm/dl Albumin 2.2 L (3.4-5.0) gm/dl Globulin 3.9 (2.5-4.0) gm/dl Albumin/Globulin Ratio 0.6 L (0.9-2) Procalcitonin 12.09 H (0-0.5) ng/ml Urine Color Urine Appearance (Clear) Urine pH (4.5-7.5) Ur Specific [place] (1.000-1.030) Urine Protein (Negative) Urine Glucose (UA) (Negative) Urine Ketones (Negative) Urine Blood (Negative) Urine Nitrite (Negative) Urine Bilirubin (Negative) Urine Urobilinogen (Negative) Ur Leukocyte Esterase (Negative) Urine WBC (Auto) (0-5) /hpf Urine RBC (Auto) (0-4) /hpf U Hyaline Cast (Auto) (0-5) /lpf U Epithel Cells (Auto) (0-5) /lpf Urine Bacteria (Auto) (Negative) Ur Renal Epithelial Cell Nasal Screen MRSA (PCR) (Negative) 02/28/21 02/28/21 02/28/21 Range/Units 21:10 20:49 18:02 WBC (4.8-10.8) K/uL RBC (4.2-5.4) M/uL Hgb (12.0-16.0) g/dL Hct (37-47) % MCV (80-100) fL MCH (25-34) pg MCHC (32-36) g/dL RDW Std Deviation (36.4-46.3) fL RDW Coeff of Fozia (11.5-14.5) % Plt Count (130-400) K/uL MPV (7.4-10.4) fL Immature Gran % (Auto) % Neut % (Auto) % Lymph % (Auto) % [place] % (Auto) % Eos % (Auto) % Baso % (Auto) % Neut # (Auto) (1.4-6.5) K/uL Lymph # (Auto) (1.2-3.4) K/uL [place] # (Auto) (0.11-0.59) K/uL Eos # (Auto) (0-0.5) K/uL Baso # (Auto) (0-0.2) K/uL Immature Gran # (Auto) (0.00-0.02) K/uL Sodium (136-145) mmol/L Potassium (3.5-5.1) mmol/L Chloride (98-107) mmol/L Carbon Dioxide (21-32) mmol/L Anion Gap (3-11) BUN (7-18) mg/dl Creatinine (0.6-1.2) mg/dl Est Cr Clr Drug Dosing ml/min Est GFR ( Amer) Est GFR (Non-Af Amer) BUN/Creatinine Ratio (10-20) Glucose (70-99) mg/dl Lactate 1.8 (0.4-2.0) mmol/L Calcium (8.5-10.1) mg/dl Phosphorus (2.5-4.9) mg/dl Magnesium (1.8-2.4) mg/dl Total Bilirubin (0.2-1) mg/dl AST (15-37) U/L ALT (12-78) U/L Alkaline Phosphatase (45-117) U/L Troponin I 0.124 H* (0-0.045) ng/ml Total Protein (6.4-8.2) gm/dl Albumin (3.4-5.0) gm/dl Globulin (2.5-4.0) gm/dl Albumin/Globulin Ratio (0.9-2) Procalcitonin (0-0.5) ng/ml Urine Color Urine Appearance (Clear) Urine pH (4.5-7.5) Ur Specific [place] (1.000-1.030) Urine Protein (Negative) Urine Glucose (UA) (Negative) Urine Ketones (Negative) Urine Blood (Negative) Urine Nitrite (Negative) Urine Bilirubin (Negative) Urine Urobilinogen (Negative) Ur Leukocyte Esterase (Negative) Urine WBC (Auto) (0-5) /hpf Urine RBC (Auto) (0-4) /hpf U Hyaline Cast (Auto) (0-5) /lpf U Epithel Cells (Auto) (0-5) /lpf Urine Bacteria (Auto) (Negative) Ur Renal Epithelial Cell Nasal Screen MRSA (PCR) Negative (Negative) 02/28/21 02/28/21 Range/Units 11:55 11:15 WBC (4.8-10.8) K/uL RBC (4.2-5.4) M/uL Hgb (12.0-16.0) g/dL Hct (37-47) % MCV (80-100) fL MCH (25-34) pg MCHC (32-36) g/dL RDW Std Deviation (36.4-46.3) fL RDW Coeff of Fozia (11.5-14.5) % Plt Count (130-400) K/uL MPV (7.4-10.4) fL Immature Gran % (Auto) % Neut % (Auto) % Lymph % (Auto) % [place] % (Auto) % Eos % (Auto) % Baso % (Auto) % Neut # (Auto) (1.4-6.5) K/uL Lymph # (Auto) (1.2-3.4) K/uL [place] # (Auto) (0.11-0.59) K/uL Eos # (Auto) (0-0.5) K/uL Baso # (Auto) (0-0.2) K/uL Immature Gran # (Auto) (0.00-0.02) K/uL Sodium (136-145) mmol/L Potassium (3.5-5.1) mmol/L Chloride (98-107) mmol/L Carbon Dioxide (21-32) mmol/L Anion Gap (3-11) BUN (7-18) mg/dl Creatinine (0.6-1.2) mg/dl Est Cr Clr Drug Dosing ml/min Est GFR ( Amer) Est GFR (Non-Af Amer) BUN/Creatinine Ratio (10-20) Glucose (70-99) mg/dl Lactate (0.4-2.0) mmol/L Calcium (8.5-10.1) mg/dl Phosphorus (2.5-4.9) mg/dl Magnesium (1.8-2.4) mg/dl Total Bilirubin (0.2-1) mg/dl AST (15-37) U/L ALT (12-78) U/L Alkaline Phosphatase (45-117) U/L Troponin I 0.160 H* (0-0.045) ng/ml Total Protein (6.4-8.2) gm/dl Albumin (3.4-5.0) gm/dl Globulin (2.5-4.0) gm/dl Albumin/Globulin Ratio (0.9-2) Procalcitonin (0-0.5) ng/ml Urine Color Yellow Urine Appearance Clear (Clear) Urine pH 7.5 (4.5-7.5) Ur Specific [place] 1.020 (1.000-1.030) Urine Protein Trace H (Negative) Urine Glucose (UA) Negative (Negative) Urine Ketones Negative (Negative) Urine Blood Negative (Negative) Urine Nitrite Negative (Negative) Urine Bilirubin Negative (Negative) Urine Urobilinogen Negative (Negative) Ur Leukocyte Esterase Negative (Negative) Urine WBC (Auto) 1-5 (0-5) /hpf Urine RBC (Auto) 0-4 (0-4) /hpf U Hyaline Cast (Auto) 1-5 (0-5) /lpf U Epithel Cells (Auto) >30 H (0-5) /lpf Urine Bacteria (Auto) Negative (Negative) Ur Renal Epithelial Cell Not Reportable Nasal Screen MRSA (PCR) (Negative) BCxs -NGTD MRSA swab neg PG Care Time/CCT Total # of Minutes Spent Total Time Spent with Patient: Total time spent is greater than 50% in coordination of care (as documented) at patient's floor/unit and/or counseling patient: Coding Level of Care Code 04363 Subseq Hosp Care Lvl 3 Diagnoses Sepsis A41.9 Sepsis acute organ dysfunction status: unspecified Sepsis type: sepsis due to unspecified organism Cellulitis L03.116 Laterality: left Site of cellulitis: extremity Site of cellulitis of extremity: lower extremity Elevated troponin R77.8 Atrial fibrillation I48.91 Anticoagulant long-term use Z79.01 Chronic kidney disease, stage III (moderate) N18.3 CVA (cerebral vascular accident) I63.9 Depression F32.9 H/O gastric ulcer Z87.19 Hemiparesis affecting left side as late effect of stroke I69.354 HTN (hypertension) I10 Hyperlipidemia E78.5 Hypothyroidism E03.9 Morbid obesity E66.01 PAD (peripheral artery disease) I73.9 Vitamin D deficiency E55.9 DVT prophylaxis Z29.9 (1) Cellulitis Laterality: left Site of cellulitis: extremity Site of cellulitis of extremity: lower extremity Qualified Code(s): L03.116 - Cellulitis of left lower limb (2) Sepsis Sepsis acute organ dysfunction status: unspecified Sepsis type: sepsis due to unspecified organism Qualified Code(s): A41.9 - Sepsis, unspecified organism
[2021-03-01] MEDS: RIVAROXABAN 15 MG TAB PO SCH (17:51)
[2021-03-01] MEDS: traMADol HCL 50 MG TABLET PO PRN (23:29)
[2021-03-02] MEDS: CEFEPIME 2,000 MG in SYRINGE 0 ML IV SCH ×2 (06:12→17:03)
[2021-03-02] MEDS: LEVOTHYROXINE SODIUM 100 MCG TABLET PO SCH (06:12)
[2021-03-02] MEDS: LACTATED RINGER'S 1,000 ML IV SCH ×2 (06:13→17:03)
[2021-03-02] MEDS: METOPROLOL TARTRATE 25 MG TAB PO SCH ×2 (08:48→20:29)
[2021-03-02] MEDS: PANTOprazole 40 MG TAB PO SCH (08:48)
[2021-03-02] MEDS: CHOLECALCIFEROL 1,000 UNITS 25 MCG TAB PO SCH ×3 (08:48→20:29)
[2021-03-02] MEDS: SACCHAROMYCES BOULARDII 250 MG CAP PO SCH ×2 (08:48→20:28)
[2021-03-02] MEDS: SERTRALINE HCL 50 MG TABLET PO SCH (08:49)
[2021-03-02] MEDS: CLOPIDOGREL BISULFATE 75 MG TAB PO SCH (08:49)
[2021-03-02 11:25] LABS: Basophils # (auto) 0.01 K/uL (0-0.2); Basophils % (auto) 0.1 %; Eosinophils # (auto) 0.28 K/uL (0-0.5); Eosinophils % (auto) 3.1 %; Hematocrit (blood only) 35.5 % (37-47); Hemoglobin 11.8 g/dL (12.0-16.0); Immature Granulocytes # (auto) 0.01 K/uL (0.00-0.02); Immature Granulocytes % (auto) 0.1 %; Lymphocytes # (auto) 1.21 K/uL (1.2-3.4); Lymphocytes % (auto) 13.6 %; Mean Corpuscular Hemoglobin 31.1 pg (25-34); Mean Corpuscular Hgb Conc 33.2 g/dL (32-36); Mean Corpuscular Volume 93.7 fL (80-100); Mean Platelet Volume 11.1 fL (7.4-10.4); Monocytes # (auto) 0.42 K/uL (0.11-0.59); Monocytes % (auto) 4.7 %; Neutrophils # (auto) 6.99 K/uL (1.4-6.5); Neutrophils % (auto) 78.4 %; Platelet Count 105 K/uL (130-400); RDW Coefficient of Variation 12.4 % (11.5-14.5); RDW Standard Deviation 42.8 fL (36.4-46.3); Red Blood Count 3.79 M/uL (4.2-5.4); White Blood Count 8.92 K/uL (4.8-10.8)
[2021-03-02] MEDS: ATORVASTATIN 20 MG TAB PO SCH (11:26)
[2021-03-02 11:42] LABS: Albumin Level 2.3 gm/dl (3.4-5.0); BUN Creatinine Ratio 24.1 (10-20); Creatinine Clr Calc Pharmacy 52.8 ml/min; Est GFR (African American) 61.6; Est GFR (Non-African American) 53.1
[2021-03-02 11:45] LABS: Albumin Globulin Ratio 0.6 (0.9-2); Bilirubin,Total 0.6 mg/dl (0.2-1); Total Protein 6.3 gm/dl (6.4-8.2)
[2021-03-02] MEDS: RIVAROXABAN 15 MG TAB PO SCH (17:09)
--- NOTE | 2021-03-02 19:23 | Hospitalist Progress Note ---
Date of Service March 02, 2021 Assessment & Plan (1) Sepsis: Septic shock Presents with left lower extremity cellulitis, tachypnea, leukocytosis of 22, subjective fevers at home, elevated lactate at 2.9, and hypotension which responded to crystalloid bolus. Procalcitonin elevated at 7.96 and then up to 12, now back down again to 6 Leukocytosis resolved now and remains afebrile Leg slightly improved but still erythema Blood pressures are now mildly elevated DC IV fluids With a history of MRSA and Pseudomonas, but MRSA swab neg -continue IV cefepime but have since discontinued IV daptomycin Follow cellulitis clinically Follow CBC, CMP, procalcitonin in the morning Follow blood cultures-NGTD (2) Cellulitis: As above Tramadol as needed for pain (3) Elevated troponin: Troponin 0.2 on admission and then trended downward, could be myocardial demand ischemia in the setting of sepsis She has no chest pain and no acute ischemic changes on ECG echocardiogram with no WMAs Monitored on telemetry-no events, will downgrade to medical/surgical floor (4) Atrial fibrillation: With rate controlled atrial fibrillation upon admission She has permanent atrial fibrillation Continue home Xarelto which is renally dosed Continue home metoprolol tartrate 75 mg p.o. twice daily Can downgrade off telemetry (5) Anticoagulant long-term use: For atrial fibrillation, continue Xarelto (6) Chronic kidney disease, stage III (moderate): Creatinine at 1.35 on admission which is an increase from her baseline of 0.9-1.0, with some mild renal insufficiency here--> now resolved with iVFs- creatinine 1.03 secondary to sepsis Follow BMP (7) CVA (cerebral vascular accident): With a remote history of CVA with residual left-sided hemiparesis Is mostly wheelchair-bound Continue Xarelto and Plavix Continue atorvastatin (8) Depression: Stable Continue home sertraline 50 mg daily (9) H/O gastric ulcer: Continue PPI No acute issues (10) Hemiparesis affecting left side as late effect of stroke: As above PT/OT evals appreciated (11) HTN (hypertension): Blood pressures low upon admission but improved with IV fluids and now are actually a bit high Continue metoprolol with hold parameters as above for rate control (12) Hyperlipidemia: restarted atorvastatin (13) Hypothyroidism: TSH normal at 3.9 in 10/2020 Continue home levothyroxine (14) Morbid obesity: BMI 39.9 Weight loss to be managed as an outpatient (15) PAD (peripheral artery disease): With a history of left popliteal artery occlusion which did not have intervention Last seen by vascular surgery in 2013 who recommended no intervention. Continue Plavix, statin (16) Vitamin D deficiency: Continue vitamin D (17) Thrombocytopenia: Platelets mildly low at 105 but improved from yesterday Likely secondary to sepsis which is now improving Follow CBC (18) DVT prophylaxis: Xarelto Disposition-continued stay, transfer downgrade to med/surgical floor Full code-discussed with patient with her son at the bedside Admission and Anticipated Discharge Date Admission Date: February 28, 2021 Subjective Patient reports feeling very well today and asked when she can go home. She is eating and drinking, no nausea. Moved her bowels once today. Remains afebrile. Has been weaned off oxygen Telemetry with atrial fibrillation with PVCs with rates in the 70s to 80s. Denies chest pain or shortness of breath Review of Systems Review of Systems: All systems reviewed & are unremarkable except as noted in HPI & below Physical Exam Constitutional: WD/WN, vitals as above + obese Eyes: + anicteric sclerae ENMT: external ear and nose normal, oropharynx normal Neck: trachea midline, no thyromegaly Respiratory: normal respiratory effort, lungs clear to auscultation Cardiovascular: Rate/Rhythm: regular rate and + irregularly irregular Heart Sounds: no murmur Extremities: + edema (Trace pitting edema of the lower extremities left greater than right) Chest (Breasts): Chest: normal inspection of chest Gastrointestinal (Abdomen): normal bowel sounds, soft, nontender, no hepatosplenomegaly Musculoskeletal: Extremities: + extremities abnormal to inspection (Left lower extremity with some atrophy and contracture of the foot), no cyanosis and no clubbing Skin: + ulcer (Scabbed wound left anterior leg) and + erythema (left leg spreading up to distal thigh medially but improved) Neurologic: moves all extremities, + focal motor deficit (4/5 strength in left upper and left lower extremities) and awake; not confused Psychiatric: A+Ox3, euthymic affect Results & Data Results & Data ([facility]) Vital Signs (Past 12 Hours) Vital Signs Temp Pulse Pulse Resp BP Pulse Ox 03/02/21 18:12 36.5 C 87 20 146/72 H 97 03/02/21 15:30 36.9 C 69 20 119/64 93 03/02/21 14:19 68 03/02/21 11:00 36.7 C 70 16 140/74 92 03/02/21 08:36 72 03/02/21 08:30 37 C 87 20 147/74 H 94 Laboratory Results 03/02/21 03/02/21 03/02/21 Range/Units 11:00 11:00 11:00 WBC 8.92 (4.8-10.8) K/uL RBC 3.79 L (4.2-5.4) M/uL Hgb 11.8 L (12.0-16.0) g/dL Hct 35.5 L (37-47) % MCV 93.7 (80-100) fL MCH 31.1 (25-34) pg MCHC 33.2 (32-36) g/dL RDW Std Deviation 42.8 (36.4-46.3) fL RDW Coeff of Fozia 12.4 (11.5-14.5) % Plt Count 105 L (130-400) K/uL MPV 11.1 H (7.4-10.4) fL Immature Gran % (Auto) 0.1 % Neut % (Auto) 78.4 % Lymph % (Auto) 13.6 % [place] % (Auto) 4.7 % Eos % (Auto) 3.1 % Baso % (Auto) 0.1 % Neut # (Auto) 6.99 H (1.4-6.5) K/uL Lymph # (Auto) 1.21 (1.2-3.4) K/uL [place] # (Auto) 0.42 (0.11-0.59) K/uL Eos # (Auto) 0.28 (0-0.5) K/uL Baso # (Auto) 0.01 (0-0.2) K/uL Immature Gran # (Auto) 0.01 (0.00-0.02) K/uL Sodium 138 (136-145) mmol/L Potassium 4.0 (3.5-5.1) mmol/L Chloride 106 (98-107) mmol/L Carbon Dioxide 28 (21-32) mmol/L Anion Gap 4.0 (3-11) BUN 25 H (7-18) mg/dl Creatinine 1.03 (0.6-1.2) mg/dl Est Cr Clr Drug Dosing 52.8 ml/min Est GFR ( Amer) 61.6 Est GFR (Non-Af Amer) 53.1 BUN/Creatinine Ratio 24.1 H (10-20) Glucose 77 (70-99) mg/dl Calcium 9.0 (8.5-10.1) mg/dl Magnesium 2.0 (1.8-2.4) mg/dl Total Bilirubin 0.6 (0.2-1) mg/dl AST 14 L (15-37) U/L ALT 11 L (12-78) U/L Alkaline Phosphatase 73 (45-117) U/L Total Protein 6.3 L (6.4-8.2) gm/dl Albumin 2.3 L (3.4-5.0) gm/dl Globulin 4.0 (2.5-4.0) gm/dl Albumin/Globulin Ratio 0.6 L (0.9-2) Procalcitonin 6.02 H (0-0.5) ng/ml Blood cultures-no growth to date PG Care Time/CCT Total # of Minutes Spent Total Time Spent with Patient: Total time spent is greater than 50% in coordination of care (as documented) at patient's floor/unit and/or counseling patient: Coding Level of Care Code 92807 Subseq Hosp Care Lvl 3 Diagnoses Sepsis A41.9; R65.20; N17.9 Acute renal failure type: unspecified Sepsis acute organ dysfunction status: with acute organ dysfunction Sepsis type: sepsis due to unspecified organism Severe sepsis acute organ dysfunction type: acute renal failure Severe sepsis shock status: without septic shock Cellulitis L03.116 Laterality: left Site of cellulitis: extremity Site of cellulitis of extremity: lower extremity Elevated troponin R77.8 Atrial fibrillation I48.20 Atrial fibrillation type: unspecified chronic Anticoagulant long-term use Z79.01 Chronic kidney disease, stage III (moderate) N18.3 CVA (cerebral vascular accident) I63.9 Depression F32.9 H/O gastric ulcer Z87.19 Hemiparesis affecting left side as late effect of stroke I69.354 HTN (hypertension) I10 Hyperlipidemia E78.5 Hypothyroidism E03.9 Morbid obesity E66.01 PAD (peripheral artery disease) I73.9 Vitamin D deficiency E55.9 Thrombocytopenia D69.6 DVT prophylaxis Z29.9 (1) Sepsis Acute renal failure type: unspecified Sepsis acute organ dysfunction status: with acute organ dysfunction Sepsis type: sepsis due to unspecified organism Severe sepsis acute organ dysfunction type: acute renal failure Severe sepsis shock status: without septic shock Qualified Code(s): A41.9 - Sepsis, unspecified organism; R65.20 - Severe sepsis without septic shock; N17.9 - Acute kidney failure, unspecified (2) Cellulitis Laterality: left Site of cellulitis: extremity Site of cellulitis of extremity: lower extremity Qualified Code(s): L03.116 - Cellulitis of left lower limb (3) Atrial fibrillation Atrial fibrillation type: unspecified chronic Qualified Code(s): I48.20 - Chronic atrial fibrillation, unspecified
[2021-03-03] MEDS: traMADol HCL 50 MG TABLET PO PRN (00:29)
[2021-03-03 06:23] LABS: Basophils # (auto) 0.01 K/uL (0-0.2); Basophils % (auto) 0.1 %; Eosinophils # (auto) 0.29 K/uL (0-0.5); Hemoglobin 12.3 g/dL (12.0-16.0); Immature Granulocytes # (auto) 0.03 K/uL (0.00-0.02); Immature Granulocytes % (auto) 0.4 %; Lymphocytes # (auto) 1.21 K/uL (1.2-3.4); Lymphocytes % (auto) 16.7 %; Mean Corpuscular Hemoglobin 31.1 pg (25-34); Mean Corpuscular Hgb Conc 33.2 g/dL (32-36); Mean Corpuscular Volume 93.7 fL (80-100); Mean Platelet Volume 11.3 fL (7.4-10.4); Monocytes # (auto) 0.46 K/uL (0.11-0.59); Monocytes % (auto) 6.4 %; Neutrophils # (auto) 5.23 K/uL (1.4-6.5); Neutrophils % (auto) 72.4 %; Platelet Count 122 K/uL (130-400); RDW Coefficient of Variation 12.2 % (11.5-14.5); RDW Standard Deviation 42.1 fL (36.4-46.3); Red Blood Count 3.95 M/uL (4.2-5.4); White Blood Count 7.23 K/uL (4.8-10.8)
[2021-03-03] MEDS: LEVOTHYROXINE SODIUM 100 MCG TABLET PO SCH (06:31)
[2021-03-03] MEDS: CEFEPIME 2,000 MG in SYRINGE 0 ML IV SCH ×2 (06:34→17:07)
[2021-03-03 06:48] LABS: Calcium 9.1 mg/dl (8.5-10.1); Creatinine Clr Calc Pharmacy 54.9 ml/min; Est GFR (African American) 64.6; Est GFR (Non-African American) 55.7; Potassium 3.9 mmol/L (3.5-5.1)
[2021-03-03] MEDS: PANTOprazole 40 MG TAB PO SCH (07:47)
[2021-03-03] MEDS: CLOPIDOGREL BISULFATE 75 MG TAB PO SCH (07:47)
[2021-03-03] MEDS: SERTRALINE HCL 50 MG TABLET PO SCH (07:48)
[2021-03-03] MEDS: SACCHAROMYCES BOULARDII 250 MG CAP PO SCH ×2 (07:48→21:19)
[2021-03-03] MEDS: ATORVASTATIN 20 MG TAB PO SCH (07:48)
[2021-03-03] MEDS: METOPROLOL TARTRATE 25 MG TAB PO SCH ×2 (07:48→21:19)
[2021-03-03] MEDS: CHOLECALCIFEROL 1,000 UNITS 25 MCG TAB PO SCH ×2 (07:48→21:20)
[2021-03-03] MEDS ORDERED: FUROSEMIDE 20 MG in SYRINGE 0 ML IV ONE (10:45)
--- NOTE | 2021-03-03 15:20 | Hospitalist Progress Note ---
Date of Service March 03, 2021 Assessment & Plan (1) Sepsis: Septic shock Presents with left lower extremity cellulitis, tachypnea, leukocytosis of 22, subjective fevers at home, elevated lactate at 2.9, and hypotension to the 60s systolic which responded to crystalloid bolus. Procalcitonin elevated at 7.96 and then up to 12, now back down again to 4 Leukocytosis resolved now and remains afebrile LLE cellulitis improved but still erythema up medial thigh not much improved from yesterday Blood pressures are now mildly elevated With a history of MRSA and Pseudomonas, but MRSA swab neg -continue IV cefepime but have since discontinued IV daptomycin Follow cellulitis clinically Follow CBC, CMP, procalcitonin in the morning Follow blood cultures-NGTD Can likely go home on Thursday if cellulitis continues to improve. Would give po Cipro and keflex for Pseudomonas and Strep/Staph coverage (but doesn't need MRSA coverage) (2) Cellulitis: As above Tramadol as needed for pain (3) Elevated troponin: Troponin 0.2 on admission and then trended downward, could be myocardial demand ischemia in the setting of sepsis She has no chest pain and no acute ischemic changes on ECG echocardiogram with no WMAs Monitored on telemetry-no events, downgraded to medical/surgical floor (4) Atrial fibrillation: With rate controlled atrial fibrillation upon admission She has permanent atrial fibrillation Continue home Xarelto which is renally dosed Continue home metoprolol tartrate 75 mg p.o. twice daily have since downgraded off telemetry (5) Anticoagulant long-term use: For atrial fibrillation, continue Xarelto (6) Chronic kidney disease, stage III (moderate): Creatinine at 1.35 on admission which is an increase from her baseline of 0.9-1.0, with some mild renal insufficiency here--> now resolved with iVFs- creatinine 0.99 secondary to sepsis Follow BMP (7) CVA (cerebral vascular accident): With a remote history of CVA with residual left-sided hemiparesis Is mostly wheelchair-bound Continue Xarelto and Plavix Continue atorvastatin (8) Depression: Stable Continue home sertraline 50 mg daily (9) H/O gastric ulcer: Continue PPI No acute issues (10) Hemiparesis affecting left side as late effect of stroke: As above PT/OT evals appreciated (11) HTN (hypertension): Blood pressures low upon admission but improved with IV fluids and now are actually a bit high Continue metoprolol with hold parameters as above for rate control -giving IV lasix today for volume overload (12) Hyperlipidemia: restarted atorvastatin (13) Hypothyroidism: TSH normal at 3.9 in 10/2020 Continue home levothyroxine (14) Morbid obesity: BMI 39.9 Weight loss to be managed as an outpatient (15) PAD (peripheral artery disease): With a history of left popliteal artery occlusion which did not have intervention Last seen by vascular surgery in 2012 who recommended no intervention. Continue Plavix, statin (16) Vitamin D deficiency: Continue vitamin D (17) Thrombocytopenia: Platelets mildly low at 105 but improved today to 122 Likely secondary to sepsis which is now improving Follow CBC (18) Acute respiratory failure with hypoxia: requiring O2 since admission gave IV lasix today and now weaned to room air will give another dose of IV lasix in the AM (19) DVT prophylaxis: Xarelto Disposition-continued stay, on med/surgical floor, possible dc on Thursday if cellulitis continues to improve Full code Admission and Anticipated Discharge Date Admission Date: February 28, 2021 Subjective Pt feeling well. Has some SOB with movement when turned in bed. Is weaned off O2 now after receiving lasix this AM. Afebrile, no pain anywhere. Is eating and drinking. Had 2 BMs today Review of Systems Review of Systems: All systems reviewed & are unremarkable except as noted in HPI & below Physical Exam Constitutional: WD/WN, vitals as above + obese Eyes: + anicteric sclerae Neck: trachea midline, no thyromegaly Respiratory: normal respiratory effort, lungs clear to auscultation Cardiovascular: Rate/Rhythm: regular rate and + irregularly irregular Heart Sounds: no murmur Extremities: + edema (Trace pitting edema of the lower extremities left greater than right) Chest (Breasts): Chest: normal inspection of chest Gastrointestinal (Abdomen): normal bowel sounds, soft, nontender, no hepatosplenomegaly Musculoskeletal: Extremities: + extremities abnormal to inspection (Left lower extremity with some atrophy and contracture of the foot), no cyanosis and no clubbing Skin: + ulcer (Scabbed wound left anterior leg) and + erythema (left leg spreading to distal medial thigh but improved overall) Neurologic: moves all extremities, + focal motor deficit (4/5 strength in left upper and left lower extremities) and awake; not confused Psychiatric: A+Ox3, euthymic affect Results & Data Results & Data ([facility]) Vital Signs (Past 12 Hours) Vital Signs Temp Pulse Resp BP Pulse Ox 03/03/21 08:02 36.8 C 74 18 161/92 H 93 Laboratory Results 03/03/21 03/03/21 03/03/21 Range/Units 05:57 05:57 05:57 WBC 7.23 (4.8-10.8) K/uL RBC 3.95 L (4.2-5.4) M/uL Hgb 12.3 (12.0-16.0) g/dL Hct 37.0 (37-47) % MCV 93.7 (80-100) fL MCH 31.1 (25-34) pg MCHC 33.2 (32-36) g/dL RDW Std Deviation 42.1 (36.4-46.3) fL RDW Coeff of Fozia 12.2 (11.5-14.5) % Plt Count 122 L (130-400) K/uL MPV 11.3 H (7.4-10.4) fL Immature Gran % (Auto) 0.4 % Neut % (Auto) 72.4 % Lymph % (Auto) 16.7 % [place] % (Auto) 6.4 % Eos % (Auto) 4.0 % Baso % (Auto) 0.1 % Neut # (Auto) 5.23 (1.4-6.5) K/uL Lymph # (Auto) 1.21 (1.2-3.4) K/uL [place] # (Auto) 0.46 (0.11-0.59) K/uL Eos # (Auto) 0.29 (0-0.5) K/uL Baso # (Auto) 0.01 (0-0.2) K/uL Immature Gran # (Auto) 0.03 H (0.00-0.02) K/uL Sodium 139 (136-145) mmol/L Potassium 3.9 (3.5-5.1) mmol/L Chloride 106 (98-107) mmol/L Carbon Dioxide 29 (21-32) mmol/L Anion Gap 4.0 (3-11) BUN 24 H (7-18) mg/dl Creatinine 0.99 (0.6-1.2) mg/dl Est Cr Clr Drug Dosing 54.9 ml/min Est GFR ( Amer) 64.6 Est GFR (Non-Af Amer) 55.7 BUN/Creatinine Ratio 24.0 H (10-20) Glucose 93 (70-99) mg/dl Calcium 9.1 (8.5-10.1) mg/dl Magnesium 2.0 (1.8-2.4) mg/dl Procalcitonin 4.12 H (0-0.5) ng/ml BCxs NGTD PG Care Time/CCT Total # of Minutes Spent Total Time Spent with Patient: Total time spent is greater than 50% in coordination of care (as documented) at patient's floor/unit and/or counseling patient: Coding Level of Care Code 18714 Subseq Hosp Care Lvl 2 Diagnoses Sepsis A41.9; R65.20; N17.9 Acute renal failure type: unspecified Sepsis acute organ dysfunction status: with acute organ dysfunction Sepsis type: sepsis due to unspecified organism Severe sepsis acute organ dysfunction type: acute renal failure Severe sepsis shock status: without septic shock Cellulitis L03.116 Laterality: left Site of cellulitis: extremity Site of cellulitis of extremity: lower extremity Elevated troponin R77.8 Atrial fibrillation I48.20 Atrial fibrillation type: unspecified chronic Anticoagulant long-term use Z79.01 Chronic kidney disease, stage III (moderate) N18.3 CVA (cerebral vascular accident) I63.9 Depression F32.9 H/O gastric ulcer Z87.19 Hemiparesis affecting left side as late effect of stroke I69.354 HTN (hypertension) I10 Hyperlipidemia E78.5 Hypothyroidism E03.9 Morbid obesity E66.01 PAD (peripheral artery disease) I73.9 Vitamin D deficiency E55.9 Thrombocytopenia D69.6 Acute respiratory failure with hypoxia J96.01 DVT prophylaxis Z29.9 (1) Atrial fibrillation Atrial fibrillation type: unspecified chronic Qualified Code(s): I48.20 - Chronic atrial fibrillation, unspecified (2) Cellulitis Laterality: left Site of cellulitis: extremity Site of cellulitis of extremity: lower extremity Qualified Code(s): L03.116 - Cellulitis of left lower limb (3) Sepsis Acute renal failure type: unspecified Sepsis acute organ dysfunction status: with acute organ dysfunction Sepsis type: sepsis due to unspecified organism Severe sepsis acute organ dysfunction type: acute renal failure Severe sepsis shock status: without septic shock Qualified Code(s): A41.9 - Sepsis, unspecified organism; R65.20 - Severe sepsis without septic shock; N17.9 - Acute kidney failure, unspecified
[2021-03-03] MEDS: RIVAROXABAN 15 MG TAB PO SCH (17:08)
[2021-03-04] MEDS: CEFEPIME 2,000 MG in SYRINGE 0 ML IV SCH (05:20)
[2021-03-04] MEDS: LEVOTHYROXINE SODIUM 100 MCG TABLET PO SCH (05:20)
[2021-03-04 07:06] LABS: Basophils # (auto) 0.03 K/uL (0-0.2); Basophils % (auto) 0.4 %; Eosinophils # (auto) 0.38 K/uL (0-0.5); Eosinophils % (auto) 4.6 %; Hematocrit (blood only) 38.8 % (37-47); Immature Granulocytes # (auto) 0.05 K/uL (0.00-0.02); Immature Granulocytes % (auto) 0.6 %; Lymphocytes % (auto) 12.2 %; Mean Corpuscular Hemoglobin 30.7 pg (25-34); Mean Corpuscular Hgb Conc 33.5 g/dL (32-36); Mean Corpuscular Volume 91.7 fL (80-100); Mean Platelet Volume 10.8 fL (7.4-10.4); Monocytes # (auto) 0.68 K/uL (0.11-0.59); Monocytes % (auto) 8.3 %; Neutrophils # (auto) 6.09 K/uL (1.4-6.5); Neutrophils % (auto) 73.9 %; Platelet Count 145 K/uL (130-400); RDW Coefficient of Variation 12.1 % (11.5-14.5); RDW Standard Deviation 40.8 fL (36.4-46.3); Red Blood Count 4.23 M/uL (4.2-5.4); White Blood Count 8.23 K/uL (4.8-10.8)
[2021-03-04] MEDS: ACETAMINOPHEN 325 MG TAB PO PRN (07:10)
[2021-03-04 07:34] LABS: Calcium 9.1 mg/dl (8.5-10.1); Creatinine Clr Calc Pharmacy 54.9 ml/min; Est GFR (African American) 64.6; Est GFR (Non-African American) 55.7
--- NOTE | 2021-03-04 08:39 | Discharge Summary ---
Date of Service March 04, 2021 Admission HPI Per Admitting Provider This patient is a 75-year-old female with a history of permanent atrial fibrillation on Xarelto, hypertension, hyperlipidemia, CKD stage III, CVA with weakness and wheelchair dependence, anxiety/depression, GERD/PUD, and PAD, who presents to the ER with fevers, chills, and worsening leg infection over the last 24 hours. She does have a history of chronic venous stasis and redness and wound to the left lower extremity. Family member noted that the leg appeared more red and was covering a wider area than before. She does have a history of MRSA and Pseudomonas infections. She has not been seen by her PCP or started on antibiotics as an outpatient. In the ER, she was found to have a leukocytosis of 22 with neutrophilia, mild acute renal insufficiency, elevated lactate of 2.9, and elevated troponin of 0.2, and an elevated procalcitonin at 7.96. Her Covid-19 was negative. She was hypotensive at one point at 66/28 in the ER but after receiving isotonic IV fluids, her BP came up to 112/63. She was afebrile but was tachypneic. She will be admitted for lower extremity cellulitis and sepsis with shock. Principal Diagnosis Sepsis, left lower extremity cellulitis Discharge Exam Constitutional WD/WN, vitals as above + obese Eyes + anicteric sclerae Neck trachea midline, no thyromegaly Respiratory normal respiratory effort, lungs clear to auscultation Cardiovascular Rate/Rhythm: regular rate and + irregularly irregular Heart Sounds: no murmur Extremities: + edema (Trace pitting edema of the lower extremities left greater than right) Chest (Breasts) Chest: normal inspection of chest Gastrointestinal (Abdomen) normal bowel sounds, soft, nontender, no hepatosplenomegaly Musculoskeletal Extremities: + extremities abnormal to inspection (Left lower extremity with some atrophy and contracture of the foot), no cyanosis and no clubbing Skin + ulcer (Very small now closed over wound of left anterior jenkins) and + erythema (Very minimal erythema in left medial thigh down medial knee improved) Neurologic moves all extremities, + focal motor deficit (4/5 strength in left upper and left lower extremities) and awake; not confused Psychiatric A+Ox3, euthymic affect Discharge Data Allergies Allergy/AdvReac Type Severity Reaction Status Date / Time clindamycin Allergy Intermediate HIVES Verified 02/28/21 07:08 piperacillin Allergy Intermediate HIVES Verified 02/28/21 07:08 vancomycin Allergy Unknown unknown Verified 02/28/21 07:08 Consultations 02/28/21 06:43 ED Decision to Admit Stat Ordered Studies Chest x-ray Echocardiogram Hospital Course (1) Sepsis: Septic shock Presents with left lower extremity cellulitis, tachypnea, leukocytosis of 22, subjective fevers at home, elevated lactate at 2.9, and hypotension to the 60s systolic which responded to crystalloid bolus. Procalcitonin elevated at 7.96 and then up to 12, now back down again to 4 Leukocytosis resolved now and remains afebrile throughout her hospital course LLE cellulitis much improved with minimal residual erythema in left medial thigh and medial to the knee but clinically much improved Blood pressures are now mildly elevated With a history of MRSA and Pseudomonas, but MRSA swab neg here She received 1 dose of IV daptomycin and then received IV cefepime for 4 days in the hospital -DC to home on p.o. Cipro (history of Pseudomonas) and p.o. doxycycline for staph/strep coverage given penicillin allergy (also with history of MRSA although MRSA swab here is now negative) Follow cellulitis clinically as an outpatient and with home health Blood cultures remain no growth to date after 4 days Stable for discharge to home (2) Cellulitis: As above, improving Tramadol and Tylenol as needed for pain (3) Elevated troponin: Troponin 0.2 on admission and then trended downward, could be myocardial demand ischemia in the setting of sepsis She has no chest pain and no acute ischemic changes on ECG echocardiogram with no WMAs Monitored on telemetry-no events, downgraded to medical/surgical floor (4) Atrial fibrillation: With rate controlled atrial fibrillation upon admission She has permanent atrial fibrillation Continue home Xarelto which is renally dosed Continue home metoprolol tartrate 75 mg p.o. twice daily have since downgraded off telemetry (5) Anticoagulant long-term use: For atrial fibrillation, continue Xarelto (6) Chronic kidney disease, stage III (moderate): Creatinine at 1.35 on admission which is an increase from her baseline of 0.9-1.0, with some mild renal insufficiency here--> now resolved with iVFs- creatinine 0.99 secondary to sepsis Follow as an outpatient (7) CVA (cerebral vascular accident): With a remote history of CVA with residual left-sided hemiparesis Is mostly wheelchair-bound Continue Xarelto and Plavix Continue atorvastatin (8) Depression: Stable Continue home sertraline 50 mg daily (9) H/O gastric ulcer: Continue PPI No acute issues (10) Hemiparesis affecting left side as late effect of stroke: As above PT/OT evals appreciated (11) HTN (hypertension): Blood pressures low upon admission but improved with IV fluids and now are actually a bit high Continue metoprolol with hold parameters as above for rate control Gave IV Lasix 2 days in a row prior to discharge for mild volume overload and elevated blood pressures (12) Hyperlipidemia: Continue atorvastatin (13) Hypothyroidism: TSH normal at 3.9 in 10/2020 Continue home levothyroxine (14) Morbid obesity: BMI 39.9 Weight loss to be managed as an outpatient (15) PAD (peripheral artery disease): With a history of left popliteal artery occlusion which did not have intervention Last seen by vascular surgery in 2012 who recommended no intervention. Continue Plavix, statin (16) Vitamin D deficiency: Continue vitamin D (17) Thrombocytopenia: Platelets mildly low at 105 but improved today to 145 Likely was secondary to sepsis which is now resolved (18) Acute respiratory failure with hypoxia: Required O2 throughout the first 2 days of hospital admission Now weaned to room air after receiving IV Lasix for mild volume overload (19) DVT prophylaxis: Xarelto Disposition-stable for discharge to home with home health. Patient was weaker than her usual and will need assistance with her usual transfers from wheelchair to bed and toilet, however she and her daughter that lives with her both feel comfortable with her going home instead of to rehab Full code Total Time Total Time Spent Total Time Spent (In Minutes): 35 minutes Total Time Includes: Examination of the Patient, Discharge Planning and Medication Reconciliation Discharge Plan Discharge Items Patient Disposition: Home - Home Health Services Reason For Visit: SEPSIS,CELLULITIS Discharge Diagnosis: Sepsis, cellulitis Condition on Discharge: Good Activity: As commented below Bathing: No limitations Exercise/Sports: Gradually increase as tolerated Non-emergency contact: Primary Care Provider Call non-emergency contact if: you have any medication questions, your symptoms worsen, your pain is not controlled, your pain is worsening, you have a fever and your temperature is above 101 Follow-up/Referrals: Rustam Davis MD [Primary Care Provider] - (Please follow-up within 1 to 2 weeks.) Diet: Heart Healthy Addtl Attending Provider Instructions: You were admitted for cellulitis of the leg causing sepsis. Your leg is improved but still has some redness from the infection. Your blood pressures were very low upon admission from sepsis and are now greatly improved. No bacteria were ever found in your bloodstream on blood cultures. You were treated with IV antibiotics in the hospital and can now go home on 2 different antibiotics. One is called ciprofloxacin to be taken twice a day and the other one is called doxycycline also to be taken twice a day; both antibiotics should be taken for 6 more days. Home health should be contacting you and coming to your house to check on you with both the nurse and physical therapist. Follow-up with your primary care physician within 1 to 2 weeks. Pending Studies at Discharge: Yes Stand-Alone Forms: My [facility] Medications and DC Order Prescriptions: New ciprofloxacin HCl 500 mg tablet 500 mg PO BID Qty: 12 RF: 0 doxycycline hyclate 100 mg tablet 100 mg PO BID Qty: 12 RF: 0 Continued omeprazole 20 mg capsule,delayed release(DR/EC) 20 mg PO DAILY Qty: 30 RF: 5 metoprolol tartrate 50 mg tablet 75 mg PO BID Qty: 270 RF: 3 rivaroxaban 15 mg tablet 15 mg PO DAILY Qty: 90 RF: 3 sertraline 50 mg tablet 50 mg PO DAILY Qty: 30 RF: 5 clopidogrel 75 mg tablet 75 mg PO DAILY Qty: 30 RF: 5 atorvastatin 20 mg tablet 20 mg PO QAM Qty: 90 RF: 3 nystatin 100,000 unit/gram powder 1 appln TOP BID PRN (Reason: Candidiasis) Qty: 60 RF: 5 cholecalciferol (vitamin D3) 1,250 mcg (50,000 unit) capsule 50,000 unit PO WK Qty: 8 RF: 0 acetaminophen [Tylenol] 325 mg Tablet 650 mg PO Q6H PRN (Reason: Pain) RF: 0 cholecalciferol (vitamin D3) [Vitamin D3] 1,000 unit Capsule 1,000 unit PO BID RF: 0 Hold Instructions: on higher dose x2 months, then switch back Saccharomyces boulardii [Florastor] 250 mg capsule 250 mg PO BID Qty: 20 RF: 0 ferrous sulfate [iron] 325 mg (65 mg iron) Tablet 325 mg PO 3XWK RF: 0 tramadol 50 mg tablet 50 mg PO HS PRN (Reason: pain) RF: 0 levothyroxine 100 mcg tablet 100 mcg PO QAM RF: 0 Discharge Orders: Discharge Order (Routine); Ordered 03/04/21 Ordered By: Odette Morris Admission Data Admit Date/Time: 02/28/21 10:35 Attending Provider: Odette Morris Admit Provider: Odette Morris Primary Care Provider: Rustam Davis Other Providers: Puja Martin ; [place] Coding Level of Care Code D/C Day Management >30 mins Diagnoses Sepsis A41.9; R65.20; N17.9 Acute renal failure type: unspecified Sepsis acute organ dysfunction status: with acute organ dysfunction Sepsis type: sepsis due to unspecified organism Severe sepsis acute organ dysfunction type: acute renal failure Severe sepsis shock status: without septic shock Cellulitis L03.116 Laterality: left Site of cellulitis: extremity Site of cellulitis of extremity: lower extremity Elevated troponin R77.8 Atrial fibrillation I48.20 Atrial fibrillation type: unspecified chronic Anticoagulant long-term use Z79.01 Chronic kidney disease, stage III (moderate) N18.3 CVA (cerebral vascular accident) I63.9 Depression F32.9 H/O gastric ulcer Z87.19 Hemiparesis affecting left side as late effect of stroke I69.354 HTN (hypertension) I10 Hyperlipidemia E78.5 Hypothyroidism E03.9 Morbid obesity E66.01 PAD (peripheral artery disease) I73.9 Vitamin D deficiency E55.9 Thrombocytopenia D69.6 Acute respiratory failure with hypoxia J96.01 DVT prophylaxis Z29.9
[2021-03-04] MEDS ORDERED: FUROSEMIDE 20 MG in SYRINGE 0 ML IV SCH (09:00)
[2021-03-04] MEDS: FERROUS SULFATE 325 MG TAB PO SCH (09:19)
[2021-03-04] MEDS: SACCHAROMYCES BOULARDII 250 MG CAP PO SCH (09:19)
[2021-03-04] MEDS: ATORVASTATIN 20 MG TAB PO SCH (09:20)
[2021-03-04] MEDS: METOPROLOL TARTRATE 25 MG TAB PO SCH (09:20)
[2021-03-04] MEDS: CLOPIDOGREL BISULFATE 75 MG TAB PO SCH (09:21)
[2021-03-04] MEDS: PANTOprazole 40 MG TAB PO SCH (09:21)
[2021-03-04] MEDS: CHOLECALCIFEROL 1,000 UNITS 25 MCG TAB PO SCH (09:21)
[2021-03-04] MEDS: SERTRALINE HCL 50 MG TABLET PO SCH (09:22)
== END 2021-03-04 12:10 | disposition home health service (06) | DRG 871 ==
LOC: ED 04:56 → EDINP 10:35 → 1E 20:53 → 2N 03-02 08:29 → 3N 03-03 00:13

== ENCOUNTER 2025-04-03 14:45 | Inpatient (IN) ==
[2025-04-03] MEDS: ALBUT/IPRATROP 3MG/0.5MG NEB 3 ML VIAL NEB STA (15:12)
[2025-04-03] MEDS: dexAMETHasone**PF** 10 MG/ML VIAL IV ONE (15:14)
[2025-04-03] MEDS: SODIUM CHLORIDE 0.9% 1,000 ML IV ONE (15:14)
[2025-04-03 15:15] LABS: Basophils # (auto) 0.05 K/uL (0.00-0.20); Basophils % (auto) 0.4 %; Eosinophils # (auto) 0.16 K/uL (0.00-0.50); Eosinophils % (auto) 1.2 %; Hematocrit (blood only) 41.4 % (37.0-47.0); Hemoglobin 13.4 g/dl (12.0-16.0); Immature Granulocytes # (auto) 0.07 K/uL (0.01-0.20); Immature Granulocytes % (auto) 0.5 %; Lymphocytes # (auto) 1.69 K/uL (1.20-3.40); Lymphocytes % (auto) 12.9 %; Mean Corpuscular Hgb Conc 32.4 g/dL (32.0-36.0); Mean Corpuscular Volume 95.8 fL (80.0-100.0); Mean Platelet Volume 11.6 fL (9.4-12.4); Monocytes # (auto) 1.23 K/uL (0.11-0.59); Monocytes % (auto) 9.4 %; Neutrophils # (auto) 9.89 K/uL (1.40-6.50); Neutrophils % (auto) 75.6 %; Platelet Count 144 K/uL (130-400); RDW Coefficient of Variation 13.3 % (11.5-14.5); RDW Standard Deviation 47.4 fL (36.4-46.3); Red Blood Count 4.32 M/uL (4.20-5.40); White Blood Count 13.09 K/ul (4.8-10.8)
--- NOTE | 2025-04-03 15:21 | Emergency Department Note ---
Impression & Plan Pneumonia, Sepsis ED Provider Note Name: ENDER FOSTER Age: 79 Sex: Female Arrives Via: Ambulance Informant: Patient, EMS ED Provider: Elvis Dennis MD Chief Complaint: Illness Impression: As Per Impressions Above Medical Decision Making: Pleasant 79-year-old female with worsening cough congestion and illness over the last week following interaction with grandson who had a respiratory illness. Hypoxic for EMS and started on DuoNebs with some improvement. Requiring oxygen which is new for patient. Patient is a bit hypotensive on arrival along with hypoxia. Given presumed respiratory infection sepsis workup initiated. Cultures lactate obtained. She is given IV fluids with improvement in blood pressure. Empiric antibiotics started as well, utilizing Levaquin for pulmonary management given the patient's allergy history. Triage/Nursing Notes reviewed by Me Sepsis resuscitation: Patient was given a 1000 mL normal saline bolus as sepsis resuscitation rather than 30 mL/kg given the concerns for fluid overload. Repeat sepsis evaluation: 3:50pm. 101/81, 91HR, 96% on 3L NC External Chart Review by me: PCP note from 02/22/2025 reviewed by me reviewing patient's past medical history Differential:Reactive airway disease, pneumonia, pneumothorax, COPD, CHF, infections, cardiac ischemia, pulmonary embolism, musculoskeletal, gastrointestinal, as well as other pathologies. Vital Signs: reviewed and remarkable for hypotension, hypoxia Interventions: Normal saline bolus, Levaquin IV, Decadron 10 mg IV, DuoNeb 3 mL nebulizer Labs:ED labs Reviewed by me and remarkable for normal lactate amongst other labs relatively unremarkable Imagin view chest x-ray as per my interpretation bilateral infiltrates versus pulmonary congestion EKG:As per my interpretation. Indication sepsis. Atrial fibrillation at 88 bpm and QTc of 484. Compared to February 11, 2025 EKG no significant change questionable mild T waves laterally. Cardiac/Tele Monitoring: Cardiac Monitoring: An Order was placed for continuous cardiac monitoring. The monitor shows a rate of 80 with a afib rhythm. Consults:Discussed with hospital service who will further evaluate and manage. Plan: Disposition:Hospitalization. Condition: Fair History of Present Illness: 79-year-old female arrives for evaluation of illness. Patient with worsening cough and congestion over the last week. Worsening weakness today. Noted to be having difficulty breathing at home. 911 was called. Patient states she feels a bit short of breath but denies any other symptoms. No reported fevers. She does have a sick grandson who she had interacted with a little over a week ago prior to the starting. Patient does have a history of lung disease but denies being on oxygen regularly. She was noted to be hypoxic at home and started on nasal cannula O2 with a DuoNeb with some improvement. Patient states her breathing is better now that she is on oxygen. Past Medical History:See Below Home Medications:See Below Allergies:See Below Vitals:Blood Pressure: 99/53, Pulse 92, RR 23, T 36.4C, O2 89% on RA Physical Exam: GENERAL: Patient is unwell/ill appearing and in moderate distress. RESPIRATORY: Diffuse wheezing, junky lung sounds and productive cough with moderate dyspnea/tachypnea. CARDIOVASCULAR: Regular rate and rhythm.No murmur appreciated. GASTROINTESTINAL: Abdomen soft, non-tender, no peritonitis. EXTREMITIES: Normal motion all extremities, no cyanosis, no edema. NEUROLOGIC: Alert and oriented. No focal neurologic deficits appreciated SKIN: No rash, no jaundice, no diaphoresis. PSYCH: Appropriate GCS: 15 ED Course: Times/Reassessments: Patient does appear much improved with initial fluid recess and nebulizer. Hospitalist will evaluate for further management. Elvis Dennis MD Past Med/Surg History Problem List (Updated 04/06/25 @ 11:30 by Elvis Dennis MD) Sepsis (Acute) Rhinovirus Pneumonia (Acute) Fever AMS (altered mental status) Hypoxia COPD exacerbation Wheezing Hematoma of left lower leg Stage III pressure ulcer of left heel (Acute) Secondary hyperparathyroidism Aortic insufficiency Contracture, right hand Carpal tunnel syndrome of right wrist (Acute) Cervical polyp (Acute) Chronic kidney disease, stage III (moderate) (Acute) Elevated blood protein (Acute) Gait disturbance (Acute) Hemiparesis affecting left side as late effect of stroke (Acute) Morbid obesity (Acute) PAD (peripheral artery disease) (Chronic) Post-menopausal bleeding (Acute) Anticoagulant long-term use Vitamin D deficiency (Chronic) Hyperlipidemia (Chronic) Hypothyroidism (Chronic) Atrial fibrillation (Chronic) H/O gastric ulcer (Chronic) Graves disease (Chronic) HTN (hypertension) (Chronic) Depression (Chronic) Visual loss, right eye (Acute) Medical History CVA (cerebral vascular accident) Cellulitis Elevated troponin DVT prophylaxis Acute anterior epistaxis Candidiasis of breast Pressure ulcer of left heel, stage 2 Peripheral vascular disease Cellulitis of leg Surgical History H/O colonoscopy S/P hammer toe correction S/P foot surgery, left S/P knee surgery Status post hip surgery No significant past surgical history Family History Father COPD (chronic obstructive pulmonary disease) Mother Brain cancer Sister Coronary heart disease Sister No problems noted. Brother No problems noted. Other No pertinent family history Denies family history of Ovarian cancer Prostate cancer Breast cancer Colorectal cancer Social History Smoking Status: Former smoker Tobacco Type: Cigarettes Age Started Using Tobacco: 14; Age Quit Using Tobacco: 39; packs per day: 1; Second Hand Exposure: No; Do You Dip or Chew Tobacco: No; Hx Alcohol Use: No Hx Substance Use: No Preferred Language: Arabic Communication Ability: Effective Visual Impairment: Limited Hearing Ability: Normal Business Development Engineer Required: No Beliefs That Will Affect Care: None marital status: Current Living Situation: Family Current Living Situation Comment: live with daughter (Brandi Hopson) current occupational status: retired Feels Safe at Home: Yes Diet: regular caffeine: No Dental Care, Regularly: No Physical Activity Frequency: Does not Exercise Seatbelt Use: never Assistive Devices: Hospital Bed, Raised Toilet Seat and Walker Allergies Allergies Allergy/AdvReac Type Severity Reaction Status Date / Time clindamycin Allergy Intermediate HIVES Verified 04/03/25 13:24 piperacillin Allergy Intermediate HIVES Verified 04/03/25 13:24 vancomycin Allergy Unknown unknown Verified 04/03/25 13:24 Home Meds Home Medications Medication Instructions Recorded Confirmed acetaminophen 325 mg tablet 650 mg PO Q6H PRN Pain 11/17/18 04/03/25 (Tylenol) ferrous sulfate 325 mg (65 mg 325 mg PO 3XWK 02/28/21 04/03/25 iron) tablet (iron) cholecalciferol (vitamin D3) 25 2,000 unit PO DAILY 09/21/24 04/03/25 mcg (1,000 unit) capsule (Vitamin D3) azithromycin 250 mg tablet 250 mg PO UD 04/03/25 04/03/25 Previous Rx's Medication Instructions Recorded dapagliflozin propanediol 10 mg 10 mg PO DAILY #90 tabs 06/23/24 tablet sertraline 50 mg tablet 50 mg PO DAILY #90 tabs 07/15/24 clopidogrel 75 mg tablet 75 mg PO DAILY #90 tabs 08/01/24 nystatin 100,000 unit/gram topical 1 applic topical BID PRN 09/05/24 powder Candidiasis #60 grams apixaban 5 mg tablet (Eliquis) 5 mg PO BID #180 tabs 09/21/24 levothyroxine 125 mcg tablet 125 mcg PO DAILY #90 tabs 09/21/24 metoprolol tartrate 50 mg tablet 50 mg PO BID #180 tabs 10/27/24 albuterol sulfate 90 mcg/actuation 2 puffs inhalation 6XD PRN 11/03/24 aerosol inhaler shortness of breath or wheezing #6.7 grams atorvastatin 20 mg tablet 20 mg PO QAM #90 tabs 01/24/25 tramadol 50 mg tablet 50 mg PO HS PRN pain #100 tabs 02/23/25 albuterol sulfate 1.25 mg/3 mL 1.25 mg (3 mL) inhalation QID #90 03/02/25 solution for nebulization mL ipratropium 0.5 mg-albuterol 3 mg 3 ml inhalation Q4H PRN wheezing 04/03/25 (2.5 mg base)/3 mL nebulization #180 mL soln nebulizer accessories #1 ea 04/03/25 nebulizer and compressor #1 ea 04/03/25 prednisone 20 mg tablet 40 mg (2 x 20 mg) PO DAILY #10 tabs 04/03/25 Results & Data (ED) Vital Signs Vital Signs - 24 hr 04/03/25 14:55 04/03/25 15:03 Temperature 36.4 C Temperature Source Oral Pulse Rate 90 92 H Respiratory Rate 23 Respiratory Effort / Characteristics Non-Labored Respiratory Depth Normal Respiratory Pattern Regular Blood Pressure 99/53 L Blood Pressure Mean 68 Pulse Oximetry 89 L Oxygen Delivery Method Room Air Sepsis Recent Fever Within 48 Hours Yes Sepsis New/Unexplained Change in Mental Status No Sepsis Action Taken by Nursing Physician Notified Laboratory Data 04/05/25 06:54 04/05/25 06:54 Lab Results 04/03/25 04/03/25 Range/Units 14:58 15:02 WBC 13.09 H (4.8-10.8) K/ul RBC 4.32 (4.20-5.40) M/uL Hgb 13.4 (12.0-16.0) g/dl Hct 41.4 (37.0-47.0) % MCV 95.8 (80.0-100.0) fL MCH 31.0 (25.0-34.0) pg MCHC 32.4 (32.0-36.0) g/dL RDW Std Deviation 47.4 H (36.4-46.3) fL RDW Coeff of Fozia 13.3 (11.5-14.5) % Plt Count 144 (130-400) K/uL MPV 11.6 (9.4-12.4) fL Immature Gran % (Auto) 0.5 % Neut % (Auto) 75.6 % Lymph % (Auto) 12.9 % Ray % (Auto) 9.4 % Eos % (Auto) 1.2 % Baso % (Auto) 0.4 % Neut # (Auto) 9.89 H (1.40-6.50) K/uL Lymph # (Auto) 1.69 (1.20-3.40) K/uL Ray # (Auto) 1.23 H (0.11-0.59) K/uL Eos # (Auto) 0.16 (0.00-0.50) K/uL Baso # (Auto) 0.05 (0.00-0.20) K/uL Immature Gran # (Auto) 0.07 (0.01-0.20) K/uL Sodium 137 (136-145) mmol/L Potassium 4.8 (3.5-5.1) mmol/L Chloride 103 (98-107) mmol/L Carbon Dioxide 29 (21-32) mmol/L Anion Gap 5 (3-11) BUN 32 H (6-23) mg/dl Creatinine 1.15 (0.6-1.2) mg/dl Est Cr Clr Drug Dosing 40.6 ml/min eGFR 48.46 BUN/Creatinine Ratio 27.8 H (10-20) Glucose 86 (70-99(Fasting)) mg/dl Lactate 1.5 (0.4-2.0) mmol/L Calcium 9.0 (8.6-10.3) mg/dl Magnesium 1.9 (1.7-2.4) mg/dl Total Bilirubin 1.0 (0.2-1.0) mg/dl Direct Bilirubin 0.2 (0-0.2) mg/dl AST 21 (13-39) U/L ALT 10 (7-52) U/L Alkaline Phosphatase 72 (34-104) U/L Troponin I High Sens 15.3 H (0-14) pg/ml Total Protein 6.9 (6.0-8.3) gm/dl Albumin 3.5 (3.4-5.0) gm/dl Procalcitonin 0.07 (0-0.5) ng/ml SARS-CoV-2 (PCR) NEGATIVE (Negative) Influenza Type A (PCR) Negative (Neg) Influenza Type B (PCR) Negative (Neg) RSV (RT-PCR) Negative (Neg) Administered Medications Albuterol (Albut/Ipratrop 3mg/0.5mg Neb 3 Ml Vial) 3 ml NEB Q6R AZUL; Protocol Stop: 05/03/25 18:59 Last Admin: 04/06/25 07:02 Dose: 3 ml Documented By: Admin: 04/06/25 00:13 Dose: 3 ml Documented By: Admin: 04/05/25 20:01 Dose: 3 ml Documented By: Admin: 04/05/25 14:19 Dose: 3 ml Documented By: Admin: 04/05/25 07:01 Dose: 3 ml Documented By: Admin: 04/05/25 00:52 Dose: 3 ml Documented By: Admin: 04/04/25 18:02 Dose: 3 ml Documented By: Admin: 04/04/25 13:31 Dose: 3 ml Documented By: Admin: 04/04/25 07:12 Dose: 3 ml Documented By: Admin: 04/04/25 00:11 Dose: 3 ml Documented By: Admin: 04/03/25 20:07 Dose: 3 ml Documented By: DALIA Apixaban (Apixaban 5 Mg Tablet) 5 mg PO BID [facility] Stop: 05/03/25 20:59 Last Admin: 04/06/25 07:55 Dose: 5 mg Documented By: [facility] Admin: 04/05/25 21:17 Dose: 5 mg Documented By: Admin: 04/05/25 09:34 Dose: 5 mg Documented By: LEE ANN Admin: 04/04/25 20:14 Dose: 5 mg Documented By: Admin: 04/04/25 08:42 Dose: 5 mg Documented By: Admin: 04/03/25 22:15 Dose: 5 mg Documented By: BELLE Atorvastatin Calcium (Atorvastatin 20 Mg Tab) 20 mg PO QAM AZUL Stop: 05/04/25 08:59 Last Admin: 04/06/25 07:55 Dose: 20 mg Documented By: Admin: 04/05/25 09:34 Dose: 20 mg Documented By: LEE ANN Admin: 04/04/25 08:42 Dose: 20 mg Documented By: AMANUEL Clopidogrel Bisulfate (Clopidogrel Bisulfate 75 Mg Tab) 75 mg PO DAILY [facility] Stop: 05/04/25 08:59 Last Admin: 04/06/25 07:56 Dose: 75 mg Documented By: Admin: 04/05/25 09:34 Dose: 75 mg Documented By: LEE ANN Admin: 04/04/25 08:42 Dose: 75 mg Documented By: AMANUEL Guaifenesin (Guaifenesin 600 Mg Tabcr) 600 mg PO Q12 AZUL Stop: 05/03/25 20:59 Last Admin: 04/06/25 07:55 Dose: 600 mg Documented By: Admin: 04/05/25 21:17 Dose: 600 mg Documented By: Admin: 04/05/25 09:34 Dose: 600 mg Documented By: LEE ANN Admin: 04/04/25 20:15 Dose: 600 mg Documented By: Admin: 04/04/25 08:42 Dose: 600 mg Documented By: Admin: 04/03/25 22:15 Dose: 600 mg Documented By: BELLE Levothyroxine Sodium (Levothyroxine Sodium 125 Mcg Tablet) 125 mcg PO DAILYBB [facility] Stop: 05/04/25 06:29 Last Admin: 04/06/25 05:48 Dose: 125 mcg Documented By: Admin: 04/05/25 05:50 Dose: 125 mcg Documented By: Admin: 04/04/25 06:02 Dose: 125 mcg Documented By: FELA Metoprolol Tartrate (Metoprolol Tartrate 50 Mg Tab) 50 mg PO BID [facility] Stop: 05/03/25 20:59 Last Admin: 04/06/25 07:55 Dose: 50 mg Documented By: Admin: 04/05/25 21:16 Dose: 50 mg Documented By: Admin: 04/05/25 09:34 Dose: 50 mg Documented By: LEE ANN Admin: 04/04/25 20:14 Dose: 50 mg Documented By: Admin: 04/04/25 08:41 Dose: 50 mg Documented By: Admin: 04/03/25 22:15 Dose: Not Given Documented By: BELLE Sertraline HCl (Sertraline Hcl 50 Mg Tablet) 50 mg PO DAILY [facility] Stop: 05/04/25 08:59 Last Admin: 04/06/25 07:56 Dose: 50 mg Documented By: Admin: 04/05/25 09:34 Dose: 50 mg Documented By: LEE ANN Admin: 04/04/25 08:42 Dose: 50 mg Documented By: AMANUEL Vitamin D (Cholecalciferol 25 Mcg (1000 Units) Tab) 25 mcg PO DAILY [facility] Stop: 05/04/25 08:59 Last Admin: 04/06/25 07:55 Dose: 25 mcg Documented By: Admin: 04/05/25 09:34 Dose: 25 mcg Documented By: LEE ANN Admin: 04/04/25 08:42 Dose: 25 mcg Documented By: AMANUEL Discontinued Medications Albuterol (Albut/Ipratrop 3mg/0.5mg Neb 3 Ml Vial) 3 ml NEB NOW STA; Protocol Stop: 04/03/25 15:00 Last Admin: 04/03/25 15:12 Dose: 3 ml Documented By: LUZ MARINA Ciprofloxacin (Ciprofloxacin 500 Mg Tab) 500 mg PO NOW STA Stop: 04/03/25 15:30 Last Admin: 04/03/25 15:53 Dose: Not Given Documented By: LUZ MARINA Dexamethasone Sodium Phosphate (DexamethasonePf 10 Mg/Ml Vial) 10 mg IV NOW ONE Stop: 04/03/25 15:00 Last Admin: 04/03/25 15:14 Dose: 10 mg Documented By: LUZ MARINA Sodium Chloride (Nss) 1,000 mls @ 999 mls/hr IV .Q1H1M ONE Stop: 04/03/25 15:59 Last Infusion: 04/03/25 18:09 Dose: Infused Documented By: Admin: 04/03/25 15:14 Dose: 999 mls/hr Documented By: LUZ MARINA Levofloxacin/Dextrose (Levaquin/D5w) 750 mg in 150 mls @ 100 mls/hr IV NOW STA Stop: 04/03/25 17:05 Last Infusion: 04/03/25 17:28 Dose: Infused Documented By: Admin: 04/03/25 15:55 Dose: 100 mls/hr Documented By: LUZ MARINA Levofloxacin/Dextrose (Levaquin/D5w) 750 mg in 150 mls @ 100 mls/hr IV Q24H AZUL; Protocol Stop: 04/07/25 17:29 Last Infusion: 04/05/25 17:44 Dose: Infused Documented By: Admin: 04/05/25 16:38 Dose: 100 mls/hr Documented By: Infusion: 04/04/25 17:04 Dose: Infused Documented By: Admin: 04/04/25 15:18 Dose: 100 mls/hr Documented By: AMANUEL Lactated Ringer's (Lr) 1,000 mls @ 999 mls/hr IV .Q1H1M ONE Stop: 04/03/25 19:30 Last Infusion: 04/03/25 20:08 Dose: Infused Documented By: Admin: 04/03/25 18:41 Dose: 999 mls/hr Documented By: VAISHALI Imaging Data Radiologist's Impression: Chest X-Ray 04/03/25 14:59 XR chest 1V portable CLINICAL HISTORY: Sepsis COMPARISON STUDY: 02/11/2025 FINDINGS: Stable cardiomegaly with mild pulmonary vascular congestion. Inspiration is shallow. No effusion, consolidation, or pneumothorax. IMPRESSION: Mild CHF. ACT 112: Negative or not required by law. Electronically signed by: Jorge Roberts M.D. 04/03/2025 3:32 PM Discharge Plan Visit Data Chief Complaint: Illness Stated Complaint: ILLNESS, COUGH, WEAKNESS, SOB ED Provider: Elvis Dennis Discharge Problem: Pneumonia, Sepsis Patient Disposition: Admitted As Inpatient Condition: Fair Discharge Instructions Interventions: ED Discharge Assessment Last Done: 04/03/25 17:31 Discharge Problem: Sepsis Qualifiers: Sepsis type: sepsis due to unspecified organism Sepsis acute organ dysfunction status: with acute organ dysfunction Severe sepsis acute organ dysfunction type: acute respiratory failure Acute respiratory failure type: with hypoxia Severe sepsis shock status: without septic shock Qualified Code(s): A41.9 - Sepsis, unspecified organism; R65.20 - Severe sepsis without septic shock; J96.01 - Acute respiratory failure with hypoxia
--- NOTE | 2025-04-03 15:33 | XRay Report ---
XR chest 1V portable CLINICAL HISTORY: Sepsis COMPARISON STUDY: 02/11/2025 FINDINGS: Stable cardiomegaly with mild pulmonary vascular congestion. Inspiration is shallow. No eff usion, consolidation, or pneumothorax. IMPRESSION: Mild CHF. ACT 112: Negative or not required by law. Electronically signed by: Jorge Roberts M.D. 04/03/2025 3:32 PM
[2025-04-03 15:39] LABS: Albumin Level 3.5 gm/dl (3.4-5.0); BUN Creatinine Ratio 27.8 (10-20); Bilirubin Direct 0.2 mg/dl (0-0.2); Creatinine Clr Calc Pharmacy 40.6 ml/min; Magnesium 1.9 mg/dl (1.7-2.4); Potassium 4.8 mmol/L (3.5-5.1); Total Protein 6.9 gm/dl (6.0-8.3)
[2025-04-03 15:46] LABS: Troponin I High Sensitivity 15.3 pg/ml (0-14)
[2025-04-03] MEDS: CIPROFLOXACIN 500 MG TAB PO STA (15:53)
[2025-04-03] MEDS: levoFLOXacin/D5W 750 MG/150 ML BAG IV STA (15:55)
[2025-04-03 16:11] LABS: Influenza A virus by PCR Negative (Neg); Influenza B virus by PCR Negative (Neg); RSV by PCR Negative (Neg); SARS CoV2 RNA(COVID-19) Ceph NEGATIVE (Negative)
[2025-04-03] MEDS ORDERED: ONDANSETRON INJ 2 MG/ML 2 ML VIAL IV PRN (16:36)
[2025-04-03] MEDS ORDERED: POLYETHYLENE (MIRALAX) 17 GM PACK PO PRN (16:36)
[2025-04-03] MEDS ORDERED: ACETAMINOPHEN 325 MG TAB PO PRN (16:36)
--- NOTE | 2025-04-03 17:10 | History & Physical Report ---
Date of Service April 03, 2025 Assessment & Plan (1) Sepsis: (2) Pneumonia: (3) Stage III pressure ulcer of left heel: (4) Elevated troponin: Plan This is a 79-year-old female with past medical history of aortic insufficiency, PAD, hypertension, CKD stage III who presented to the emergency department on 04/03/2025 from her PCPs office for hypoxia. While in the emergency department she did have a chest x-ray that did read as mild CHF but per personal interpretation was more concerning for pneumonia. She did have leukocytosis of 13.09. Her BMP did reveal stable electrolytes and renal function. Her troponin was mildly elevated at 15.3. Her procalcitonin was negative. RSV/flu/COVID was negative. Blood cultures are pending. She was given Levaquin, Decadron, and a DuoNeb along with 1 L of IV fluids in the ED. #Sepsis/Pneumonia Sepsis criteria met with fever, hypotension, tachycardia, and tachycardia helen on arrival with source respiratory Chest x-ray with mild CHF but upon personal review more consistent with pneumonia CBC with leukocytosis of 13.09; BMP with stable renal function and electrolytes Lactate negative at 1.5. Procalcitonin negative at 0.07 Troponin mildly elevated at 15.3suspect secondary to demand ischemia from hypoxia. Repeat pending RSV/flu/COVID testing negative Blood cultures pending S/p IV Levaquin in EDcontinue upon admission s/p 1L IVF caution excessive fluid w/ hx of heart disease DuoNebs every 6 hours Tylenol for fever as needed on 2L of O2 currently, wean when able back to room air (baseline) AM CBC/BMP #Stage III pressure wound of left heel appears to be healing well upon exam [place]s w/ [place] [facility] Continue Aquacel Ag every 2-3 days per wound clinic notes #History of A fib - Eliquis, Metoprolol #HLD - statin #History of CVA/PAD - Plavix, sees Dr. Harrington outpatient for PAD (@ this time limited benefit from a revascularization) #CKD III - @ baseline. Continue Farxiga #Hypothyroidism - Levothyroxine (TSH WNL 01/2025) #Mental Health - Sertraline DVT prophylaxis: Eliquis Code: full Case was discussed with Dr. Morris at time of admission Updated daughter at bedside 04/03. History of Present Illness Primary Care Provider: Tacos Davis MD This is a 79-year-old female with past medical history of aortic insufficiency, PAD, hypertension, CKD stage III who presented to the emergency department on 04/03/2025 from her PCPs office for hypoxia. The patient was seen and examined this evening with her daughter at bedside. Patient's daughter provides the majority of the history as Missy is a relatively poor historian. She states that Missy had been experiencing symptoms for about 1 week. She had been in contact with a sick grandchild at home. Her main symptoms were cough and congestion however yesterday she developed a fever at home of about 100 F. She was having a productive cough and was able to cough up mucus. She had seen her PCP in the office today and was given oxygen and a breathing treatment. However her pulse ox did not improve after DuoNeb so was recommended that she go to the ER. She also had a fever of 38.1 C at her PCPs office. Missy's daughter states that she has been sick on and off recently and has been having respiratory issues. She denies a formal diagnosis of any lung disease. She does note that she did use to use cigarettes approximately 40 ye ars ago. Missy had denied any chest pain, abdominal pain, nausea, vomiting, lower extremity edema, urinary urgency/frequency/hematuria. She does have a left heel pressure wound that she follows with the wound clinic for. She typically gets her dressing changed approximately every 2 to 3 days at home by her daughter. While in the emergency department she did have a chest x-ray that did read as mild CHF but per personal interpretation was more concerning for pneumonia. She did have leukocytosis of 13.09. Her BMP did reveal stable electrolytes and renal function. Her troponin was mildly elevated at 15.3. Her procalcitonin was negative. RSV/flu/COVID was negative. Blood cultures are pending. She was given Levaquin, Decadron, and a DuoNeb along with 1 L of IV fluids in the ED. Code discussion to take place and Missy and her daughter have both confirmed that she is a full code. Allergies Allergy/AdvReac Type Severity Reaction Status Date / Time clindamycin Allergy Intermediate HIVES Verified 04/03/25 13:24 piperacillin Allergy Intermediate HIVES Verified 04/03/25 13:24 vancomycin Allergy Unknown unknown Verified 04/03/25 13:24 Home Medications Medication Instructions Recorded Confirmed Type acetaminophen 325 mg tablet 650 mg PO Q6H PRN Pain 11/17/18 04/03/25 History (Tylenol) ferrous sulfate 325 mg (65 mg 325 mg PO 3XWK 02/28/21 04/03/25 History iron) tablet (iron) dapagliflozin propanediol 10 mg 10 mg PO DAILY #90 tabs 06/23/24 04/03/25 Rx tablet sertraline 50 mg tablet 50 mg PO DAILY #90 tabs 07/15/24 04/03/25 Rx clopidogrel 75 mg tablet 75 mg PO DAILY #90 tabs 08/01/24 04/03/25 Rx nystatin 100,000 unit/gram topical 1 applic topical BID PRN 09/05/24 04/03/25 Rx powder Candidiasis #60 grams apixaban 5 mg tablet (Eliquis) 5 mg PO BID #180 tabs 09/21/24 04/03/25 Rx cholecalciferol (vitamin D3) 25 2,000 unit PO DAILY 09/21/24 04/03/25 History mcg (1,000 unit) capsule (Vitamin D3) levothyroxine 125 mcg tablet 125 mcg PO DAILY #90 tabs 09/21/24 04/03/25 Rx metoprolol tartrate 50 mg tablet 50 mg PO BID #180 tabs 10/27/24 04/03/25 Rx albuterol sulfate 90 mcg/actuation 2 puffs inhalation 6XD PRN 11/03/24 04/03/25 Rx aerosol inhaler shortness of breath or wheezing #6.7 grams atorvastatin 20 mg tablet 20 mg PO QAM #90 tabs 01/24/25 04/03/25 Rx tramadol 50 mg tablet 50 mg PO HS PRN pain #100 tabs 02/23/25 04/03/25 Rx albuterol sulfate 1.25 mg/3 mL 1.25 mg (3 mL) inhalation QID #90 03/02/25 04/03/25 Rx solution for nebulization mL azithromycin 250 mg tablet 250 mg PO UD 04/03/25 04/03/25 History ipratropium 0.5 mg-albuterol 3 mg 3 ml inhalation Q4H PRN wheezing 04/03/25 04/03/25 Rx (2.5 mg base)/3 mL nebulization #180 mL soln nebulizer accessories #1 ea 04/03/25 04/03/25 Rx nebulizer and compressor #1 ea 04/03/25 04/03/25 Rx prednisone 20 mg tablet 40 mg (2 x 20 mg) PO DAILY #10 tabs 04/03/25 04/03/25 Rx Past Med/Surg History Problem List (Updated 04/03/25 @ 16:53 by Yamila Yarbrough PA-C) Pneumonia Fever AMS (altered mental status) Hypoxia COPD exacerbation Wheezing Hematoma of left lower leg Stage III pressure ulcer of left heel (Acute) Secondary hyperparathyroidism Aortic insufficiency Contracture, right hand Carpal tunnel syndrome of right wrist (Acute) Cervical polyp (Acute) Chronic kidney disease, stage III (moderate) (Acute) Elevated blood protein (Acute) Gait disturbance (Acute) Hemiparesis affecting left side as late effect of stroke (Acute) Morbid obesity (Acute) PAD (peripheral artery disease) (Chronic) Post-menopausal bleeding (Acute) Anticoagulant long-term use Vitamin D deficiency (Chronic) Hyperlipidemia (Chronic) Hypothyroidism (Chronic) Atrial fibrillation (Chronic) H/O gastric ulcer (Chronic) Graves disease (Chronic) HTN (hypertension) (Chronic) Depression (Chronic) Visual loss, right eye (Acute) Medical History CVA (cerebral vascular accident) Cellulitis Elevated troponin DVT prophylaxis Acute anterior epistaxis Candidiasis of breast Pressure ulcer of left heel, stage 2 Peripheral vascular disease Cellulitis of leg Surgical History H/O colonoscopy S/P hammer toe correction S/P foot surgery, left S/P knee surgery Status post hip surgery No significant past surgical history Family History Father COPD (chronic obstructive pulmonary disease) Mother Brain cancer Sister Coronary heart disease Sister No problems noted. Brother No problems noted. Other No pertinent family history Denies family history of Ovarian cancer Prostate cancer Breast cancer Colorectal cancer Social History Smoking Status: Former smoker Tobacco Type: Cigarettes Age Started Using Tobacco: 14; Age Quit Using Tobacco: 39; packs per day: 1; Second Hand Exposure: No; Do You Dip or Chew Tobacco: No; Hx Alcohol Use: No Hx Substance Use: No Preferred Language: Ukrainian Communication Ability: Effective Visual Impairment: Limited Hearing Ability: Normal Supplemental Nurse Required: No Beliefs That Will Affect Care: None marital status: Current Living Situation: Family Current Living Situation Comment: live with daughter (Brandi Hopson) current occupational status: retired Feels Safe at Home: Yes Safety Concerns: Feels Safe At This Time Diet: regular caffeine: No Dental Care, Regularly: No Physical Activity Frequency: Does not Exercise Seatbelt Use: never Assistive Devices: Denture - Upper, Denture - Lower, Glasses, Hospital Bed, Lift Chair, Raised Toilet Seat and Wheelchair Physical Exam Physical Exam: General: no acute distress. non toxic appearing; well nourished; cooperative. on 2L of O2 via nasal cannula HEENT: normocephalic, atraumatic; no scleral icterus. PERRLA w/ EOMs intact. Vision/hearing grossly intact Skin: left heel wound w/o drainage or surroudning erythema. area of ecchymosis on right calf CV: RR, no murmur/rub/gallop Pulm: symmetrical chest wall expansion; no acute respiratory distress; wheezing throughout lung florence. Abd: Soft. NTP; BS +; no distention MSK: no edema in LE b/l Neuro: normal mood/affect; fluent speech Results & Data Results & Data Vital Signs (Past 12 Hours) Vital Signs Temp Pulse Resp BP Pulse Ox O2 Del Method 04/03/25 15:03 92 H 04/03/25 14:55 36.4 C 90 23 99/53 L 89 L Room Air Supervising Physician Co-Signing Physician Notes PA Supervision Note: I personally saw and examined the patient. I verified all pritchett points and agree with ALE Yarbrough with the following exceptions and/or additions: S-Pt p/w confusion, fever, cough worsening over the last week. Was noted to be hypoxic at her PCP's office nad sent to the hospital. History and ROS reviewed otherwise as above. O- Vitals reviewed Gen: [AAOx2, NAD] HEENT: [anicteric sclerae] CV: [RRR no mgr nl S1S2] Pulm: [+upper airway rhonchi, some wheezing, no crackles, no tachypnea] Ext: [no edema] CBC, BMP, CXR, Procal reviewed A/P-79 yo female here with likely viral pneumonia and sepsis. COVID/Flu/RSV neg and CXR possibly with some developing PNA on right. Treat empirically with IV antibiotics, supplemental O2, ongoing supportive care, IVFs, nebs. No need for further steroids Check BioFire PG Care Time/CCT Total # of Minutes Spent Total Time Spent with Patient: Total time spent is greater than 50% in coordination of care (as documented) at patient's floor/unit and/or counseling patient: Coding Level of Care Code 67556 INT INP/OBS CARE 75MIN Diagnoses Sepsis A41.9 Pneumonia J18.9 Stage III pressure ulcer of left heel L89.623 Elevated troponin R77.8
[2025-04-03] MEDS ORDERED: traMADol HCL 50 MG TABLET PO PRN (18:02)
[2025-04-03] MEDS: LACTATED RINGER'S 1,000 ML IV ONE (18:41)
[2025-04-03] MEDS: ALBUT/IPRATROP 3MG/0.5MG NEB 3 ML VIAL NEB SCH (20:07)
[2025-04-03] MEDS: guaiFENesin 600 MG TABCR PO SCH (22:15)
[2025-04-03] MEDS: METOPROLOL TARTRATE 50 MG TAB PO SCH (22:15)
[2025-04-03] MEDS: APIXABAN 5 MG TABLET PO SCH (22:15)
[2025-04-03 23:57] LABS: Adenovirus PCR Not Detected (NotDetected); Bordetella parapertussis PCR Not Detected (NotDetected); Bordetella pertussis PCR Not Detected (NotDetected); Chlamydia pneumoniae PCR Not Detected (NotDetected); Coronavirus 229E PCR Not Detected (NotDetected); Coronavirus CoV-2 (COVID19)PCR Not Detected (NotDetected); Coronavirus HKU1 PCR Not Detected (NotDetected); Coronavirus NL63 PCR Not Detected (NotDetected); Coronavirus OC43PCR Not Detected (NotDetected); Human Metapneumovirus PCR Not Detected (NotDetected); Influenza A PCR Not Detected (NotDetected); Influenza B PCR Not Detected (NotDetected); Mycoplasma pneumoniae PCR Not Detected (NotDetected); Parainfluenza Virus 1 PCR Not Detected (NotDetected); Parainfluenza Virus 2 PCR Not Detected (NotDetected); Parainfluenza Virus 3 PCR Not Detected (NotDetected); Parainfluenza Virus 4 PCR Not Detected (NotDetected); Respiratory Syncytial VirusPCR Not Detected (NotDetected); Rhinovirus/Enterovirus PCR DETECTED (NotDetected)
[2025-04-04] MEDS: LEVOTHYROXINE SODIUM 125 MCG TABLET PO SCH (06:02)
[2025-04-04 06:30] LABS: Hematocrit (blood only) 37.1 % (37.0-47.0); Hemoglobin 11.9 g/dl (12.0-16.0); Mean Corpuscular Hemoglobin 30.8 pg (25.0-34.0); Mean Corpuscular Hgb Conc 32.1 g/dL (32.0-36.0); Mean Corpuscular Volume 96.1 fL (80.0-100.0); Mean Platelet Volume 11.7 fL (9.4-12.4); Platelet Count 120 K/uL (130-400); RDW Coefficient of Variation 13.2 % (11.5-14.5); RDW Standard Deviation 47.2 fL (36.4-46.3); Red Blood Count 3.86 M/uL (4.20-5.40); White Blood Count 8.74 K/ul (4.8-10.8)
[2025-04-04 06:46] LABS: BUN Creatinine Ratio 32.3 (10-20); Calcium 9.2 mg/dl (8.6-10.3); Creatinine Clr Calc Pharmacy 50.1 ml/min; Potassium 5.3 mmol/L (3.5-5.1)
[2025-04-04] MEDS: CLOPIDOGREL BISULFATE 75 MG TAB PO SCH (08:42)
[2025-04-04] MEDS: SERTRALINE HCL 50 MG TABLET PO SCH (08:42)
[2025-04-04] MEDS: CHOLECALCIFEROL 25 MCG (1000 UNITS) TAB PO SCH (08:42)
[2025-04-04] MEDS: ATORVASTATIN 20 MG TAB PO SCH (08:42)
[2025-04-04] MEDS ORDERED: DAPAGLIFLOZIN PROPANEDIOL 10 MG PO SCH (09:00)
[2025-04-04] MEDS ORDERED: PHA DELIRIUM CONSULT PRN (09:34)
[2025-04-04 10:13] LABS: Appearance Urine Clear (Clear); Bilirubin Urine Negative (Negative); Blood Urine Negative (Negative); Color Urine Yellow; Glucose Urine UA 3+ (Negative); Ketones Urine Trace (Negative); Leukocyte Esterase Urine Negative (Negative); Nitrite Urine Negative (Negative); Protein Urine Negative (Negative); Specific Gravity Urine 1.024 (1.000-1.030); Urobilinogen Urine Negative (Negative)
--- NOTE | 2025-04-04 10:44 | Electrocardiogram Report ---
Test Reason : Blood Pressure : */* mmHG Vent. Rate : 88 BPM Atrial Rate : * BPM P-R Int : * ms QRS Dur : 126 ms QT Int : 400 ms P-R-T Axes : * 65 -30 degrees QTcB Int : 484 ms Atrial fibrillation Right bundle branch block T wave abnormality, consider inferior ischemia Abnormal ECG When compared with ECG of 11-Feb-2025 16:27, T wave inversion more evident in Inferior leads Confirmed by Tacos García ([id number]) on 04/04/2025 10:43:42 AM Referred By: Tacos Davis Confirmed By: Tacos García
[2025-04-04] MEDS: levoFLOXacin/D5W 750 MG/150 ML BAG IV SCH (15:18)
--- NOTE | 2025-04-04 16:26 | Hospitalist Progress Note ---
Date of Service April 04, 2025 Assessment & Plan (1) Sepsis: (2) Pneumonia: (3) Stage III pressure ulcer of left heel: (4) Elevated troponin: Plan This is a 79-year-old female with past medical history of aortic insufficiency, PAD, hypertension, CKD stage III who presented to the emergency department on 04/03/2025 from her PCPs office for hypoxia. While in the emergency department she did have a chest x-ray that did read as mild CHF but per personal interpretation was more concerning for pneumonia. She did have leukocytosis of 13.09. Her BMP did reveal stable electrolytes and renal function. Her troponin was mildly elevated at 15.3. Her procalcitonin was negative. RSV/flu/COVID was negative. Blood cultures are pending. She was given Levaquin, Decadron, and a DuoNeb along with 1 L of IV fluids in the ED. #Sepsis/Pneumonia Sepsis criteria met with fever, hypotension, tachycardia, and tachycardia helen on arrival with source respiratory Chest x-ray with mild CHF but upon personal review more consistent with pneumonia CBC w/ resolution of leukocytosis; BMP w/ hyperkalemia of 5.3 Lactate negative at 1.5. Procalcitonin negative at 0.07 Troponin mildly elevated at 15.3 Repeat 12.9 suspect secondary to demand ischemia from hypoxia. Biofire + for Rhinovirus Blood cultures neg @ 24h Given recurrent respiratory infections & concern for pneumonia on CXR continue IV Levaquin DuoNebs every 6 hours; Tylenol for fever as needed Weaned to room air. Continue to monitor O2 sat closely. AM CBC/BMP #Stage III pressure wound of left heel appears to be healing well upon exam [place]s w/ [place] [facility] Continue Aquacel Ag every 2-3 days per wound clinic notes Wound nurse consulted, appreciate recommendations. #History of A fib - Eliquis, Metoprolol #HLD - statin #History of CVA/PAD - Plavix, sees Dr. Harrington outpatient for PAD (@ this time limited benefit from a revascularization) #CKD III - @ baseline. Farxiga @ home but we do not have on formulary inpatient, may resume upon discharge. #Hypothyroidism - Levothyroxine (TSH WNL 01/2025) #Mental Health - Sertraline DVT prophylaxis: Eliquis Code: full Updated daughter & grand daughter at bedside 04/04. Admission and Anticipated Discharge Date Admission Date: April 03, 2025 Supervising Physician Co-Signing Physician Notes PA Supervision Note: I did not personally see or examine the patient today, but I verified all pritchett points of ALE Yarbrough's assessment and plan with the following exceptions/additions: With mild hyperkalemia, follow BMP in the morning Milton Louis was seen and examined this morning, her granddaughter at her bedside. Reports improvement of cough/wheezing Physical Exam Physical Exam: General: no acute distress; non-toxic appearing; well-nourished; cooperative HEENT: normocephalic, atraumatic; no scleral icterus; PERRLA w/ EOMs intact; vision and hearing grossly intact Skin: warm, dry without signs of tenting; no cyanosis; no rashes, bruising, lesions, or erythema noted CV: chest wall NTP; RRR; S1/S2 normal; no murmurs/rubs/gallops Lungs: no acute respiratory distress; symmetrical chest wall expansion; + wheezing in upper b/l lung florence, diminshed @ bases Neuro:normal mood and affect; fluent speech; no focal deficits Results & Data Results & Data Vital Signs (Past 12 Hours) Vital Signs Temp Pulse Pulse Resp BP Pulse Ox O2 Del Method 04/04/25 15:42 94 Room Air 04/04/25 15:37 36.5 C 81 16 95/61 L 95 Room Air 04/04/25 13:32 72 18 96 Nasal Cannula 04/04/25 13:02 66 04/04/25 11:37 36.5 C 80 18 115/77 94 Room Air 04/04/25 10:00 Nasal Cannula 04/04/25 09:31 Nasal Cannula 04/04/25 07:48 36.5 C 103 H 16 113/72 97 Room Air 04/04/25 07:12 88 18 92 Nasal Cannula 04/04/25 07:00 82 O2 Flow Rate 04/04/25 15:42 04/04/25 15:37 04/04/25 13:32 2 04/04/25 13:02 04/04/25 11:37 04/04/25 10:00 1 04/04/25 09:31 1 04/04/25 07:48 04/04/25 07:12 1 04/04/25 07:00 PG Care Time/CCT Total # of Minutes Spent Total Time Spent with Patient: Total time spent is greater than 50% in coordination of care (as documented) at patient's floor/unit and/or counseling patient: Coding Level of Care Code 49922 SUB INP/OBS CARE 235MIN Diagnoses Sepsis A41.9 Pneumonia J18.9 Stage III pressure ulcer of left heel L89.623 Elevated troponin R77.8
[2025-04-05 07:33] LABS: Hematocrit (blood only) 39.3 % (37.0-47.0); Hemoglobin 12.8 g/dl (12.0-16.0); Mean Corpuscular Hemoglobin 30.8 pg (25.0-34.0); Mean Corpuscular Hgb Conc 32.6 g/dL (32.0-36.0); Mean Corpuscular Volume 94.5 fL (80.0-100.0); Mean Platelet Volume 11.4 fL (9.4-12.4); Platelet Count 147 K/uL (130-400); RDW Coefficient of Variation 12.9 % (11.5-14.5); RDW Standard Deviation 45.1 fL (36.4-46.3); Red Blood Count 4.16 M/uL (4.20-5.40); White Blood Count 10.67 K/ul (4.8-10.8)
[2025-04-05 07:50] LABS: BUN Creatinine Ratio 29.7 (10-20); Calcium 9.3 mg/dl (8.6-10.3); Creatinine Clr Calc Pharmacy 51.5 ml/min; Potassium 3.7 mmol/L (3.5-5.1)
--- NOTE | 2025-04-05 17:18 | Hospitalist Progress Note ---
Date of Service April 05, 2025 Assessment & Plan (1) Sepsis: (2) Pneumonia: (3) Stage III pressure ulcer of left heel: (4) Elevated troponin: (5) Rhinovirus: Plan This is a 79-year-old female with past medical history of aortic insufficiency, PAD, hypertension, CKD stage III who presented to the emergency department on 04/03/2025 from her PCPs office for hypoxia. While in the emergency department she did have a chest x-ray that did read as mild CHF but per personal interpretation was more concerning for pneumonia. She did have leukocytosis of 13.09. Her BMP did reveal stable electrolytes and renal function. Her troponin was mildly elevated at 15.3. Her procalcitonin was negative. RSV/flu/COVID was negative. Blood cultures are pending. She was given Levaquin, Decadron, and a DuoNeb along with 1 L of IV fluids in the ED. #Sepsis/Pneumonia/Rhinovirus Sepsis criteria met with fever, hypotension, tachycardia, and tachypnea on arrival with source respiratory Chest x-ray with mild CHF but upon personal review more consistent with pneumonia CBC w/ resolution of leukocytosis; BMP w/ stable K of 3.7. Lactate negative at 1.5. Procalcitonin negative at 0.07; Blood cultures neg @ 48h Troponin mildly elevated at 15.3 Repeat 12.9 suspect secondary to demand ischemia from hypoxia. Biofire + for Rhinovirus Transition from IV Levaquin to PO starting 04/06. DuoNebs every 6 hours; Tylenol for fever as needed Weaned to room air. PT/OT consulted --> OT recommending rehab upon discharge. Per family patient needs to be able to transfer from chair/bed to wheelchair on own in order to return home. AM CBC/BMP #Stage III pressure wound of left heel appears to be healing well upon exam [place]s [place]/ [place] [facility] Continue Aquacel Ag every 2-3 days per wound clinic notes Wound nurse consulted--> waffle boots in room. #History of A fib - Eliquis, Metoprolol #HLD - statin #History of CVA/PAD - Plavix, sees Dr. Harrington outpatient for PAD (@ this time limited benefit from a revascularization) #CKD III - @ baseline. Farxiga @ home but we do not have on formulary inpatient, may resume upon discharge. #Hypothyroidism - Levothyroxine (TSH WNL 01/2025) #Mental Health - Sertraline DVT prophylaxis: Eliquis Dispo-improving, possible dc in 1-2 days, OT recommending acute rehab, PT eval pending Admission and Anticipated Discharge Date Admission Date: April 03, 2025 Supervising Physician Co-Signing Physician Notes PA Supervision Note: I did not personally see or examine the patient today, but I verified all pritchett points of LAE Yarbrough's assessment and plan with the following exceptions/additions: none Subjective Missy seen and examined this morning. She reports to be feeling okay today. Denies SOB or wheezing. Physical Exam Physical Exam: General: no acute distress; non-toxic appearing; well-nourished; cooperative HEENT: normocephalic, atraumatic; no scleral icterus; PERRLA w/ EOMs intact; vision and hearing grossly intact Skin: warm, dry without signs of tenting; no cyanosis; no rashes, bruising, lesions, or erythema noted CV: chest wall NTP; RRR; S1/S2 normal; no murmurs/rubs/gallops; Lungs: no acute respiratory distress; symmetrical chest wall expansion; rhonchi @ bases b/l. No wheezing MSK: no edema noted in the LEs b/l, nonerythematous Neuro: confused Results & Data Results & Data Vital Signs (Past 12 Hours) Vital Signs Temp Pulse Pulse Resp BP Pulse Ox Pulse Ox 04/05/25 15:43 97 04/05/25 15:43 37.1 C 90 22 156/79 H 97 04/05/25 14:20 78 18 90 04/05/25 12:55 90 04/05/25 11:12 36.9 C 81 18 116/74 92 04/05/25 07:29 36.8 C 59 L 18 161/85 H 91 04/05/25 07:02 57 L 18 90 04/05/25 06:45 91 H O2 Del Method O2 Del Method 04/05/25 15:43 Room Air 04/05/25 15:43 Room Air 04/05/25 14:20 Room Air 04/05/25 12:55 04/05/25 11:12 Room Air 04/05/25 07:29 Room Air 04/05/25 07:02 Room Air 04/05/25 06:45 PG Care Time/CCT Total # of Minutes Spent Total Time Spent with Patient: Total time spent is greater than 50% in coordination of care (as documented) at patient's floor/unit and/or counseling patient: Coding Level of Care Code 27802 SUB INP/OBS CARE 2/35MIN Diagnoses Sepsis A41.9 Pneumonia J18.9 Stage III pressure ulcer of left heel L89.623 Elevated troponin R77.8 Rhinovirus B34.8
[2025-04-06] MEDS: levoFLOXacin 750 MG TAB PO SCH (13:05)
[2025-04-06] MEDS: ALBUT/IPRATROP 3MG/0.5MG NEB 3 ML VIAL NEB SCH (14:19)
--- NOTE | 2025-04-06 15:26 | Hospitalist Progress Note ---
Date of Service April 06, 2025 Assessment & Plan (1) Sepsis: (2) Pneumonia: (3) Stage III pressure ulcer of left heel: (4) Elevated troponin: (5) Rhinovirus: Plan This is a 79-year-old female with past medical history of aortic insufficiency, PAD, hypertension, CKD stage III who presented to the emergency department on 04/03/2025 from her PCPs office for hypoxia. While in the emergency department she did have a chest x-ray that did read as mild CHF but per personal interpretation was more concerning for pneumonia. She did have leukocytosis of 13.09. Her BMP did reveal stable electrolytes and renal function. Her troponin was mildly elevated at 15.3. Her procalcitonin was negative. RSV/flu/COVID was negative. Blood cultures are pending. She was given Levaquin, Decadron, and a DuoNeb along with 1 L of IV fluids in the ED. #Sepsis/Pneumonia/Rhinovirus Sepsis criteria met with fever, hypotension, tachycardia, and tachypnea on arrival with source respiratory Chest x-ray with mild CHF but upon personal review more consistent with pneumonia CBC w/ resolution of leukocytosis; BMP w/ stable K of 3.7. Lactate negative at 1.5. Procalcitonin negative at 0.07; Blood cultures neg @ 48h Troponin mildly elevated at 15.3 Repeat 12.9 suspect secondary to demand ischemia from hypoxia. Biofire + for Rhinovirus PO Levaquin through 04/07 DuoNebs every 8 hours; Tylenol for fever as needed Weaned to room air. PT/OT consulted --> recommended rehab, to go to [facility]. #Stage III pressure wound of left heel appears to be healing well upon exam [place]s [place]/ [place] Continue Aquacel Ag every 2-3 days per wound clinic notes Wound nurse consulted--> waffle boots in room. #History of A fib - Eliquis, Metoprolol #HLD - statin #History of CVA/PAD - Plavix, sees Dr. Harrington outpatient for PAD (@ this time limited benefit from a revascularization) #CKD III - @ baseline. Farxiga @ home but we do not have on formulary inpatient, may resume upon discharge. #Hypothyroidism - Levothyroxine (TSH WNL 01/2025) #Mental Health - Sertraline DVT prophylaxis: Prateek Updated daughter at bedside 04/06. To go to rehab when bed available, discussed w/ CM Admission and Anticipated Discharge Date Admission Date: April 03, 2025 Milton Louis seen and examined this morning. She denied any complaints. Physical Exam Physical Exam: General: no acute distress; non-toxic appearing; well-nourished; cooperative HEENT: normocephalic, atraumatic; no scleral icterus; PERRLA w/ EOMs intact; vision and hearing grossly intact Skin: warm, dry without signs of tenting; no cyanosis; no rashes, bruising, lesions, or erythema noted CV: RRR; S1/S2 normal; no murmurs/rubs/gallops Lungs: no acute respiratory distress; symmetrical chest wall expansion; rhonchi @ b/l bases. no wheezing MSK: no edema noted in the LEs b/l, nonerythematous Neuro: normal mood and affect; fluent speech; no focal deficits Results & Data Results & Data Vital Signs (Past 12 Hours) Vital Signs Temp Pulse Pulse Resp BP Pulse Ox O2 Del Method 04/06/25 14:19 88 20 94 Room Air 04/06/25 12:00 37.1 C 78 20 115/73 93 Room Air 04/06/25 07:38 92 H 04/06/25 07:16 37.0 C 93 H 18 140/86 95 Room Air 04/06/25 07:02 103 H 19 94 Room Air 04/06/25 03:54 36.5 C 103 H 18 150/73 H 90 Room Air PG Care Time/CCT Total # of Minutes Spent Total Time Spent with Patient: Total time spent is greater than 50% in coordination of care (as documented) at patient's floor/unit and/or counseling patient: Coding Level of Care Code 48080 SUB INP/OBS CARE 2/35MIN Diagnoses Sepsis A41.9 Pneumonia J18.9 Stage III pressure ulcer of left heel L89.623 Elevated troponin R77.8 Rhinovirus B34.8
[2025-04-07 05:58] VITALS: RESP 18
[2025-04-07 08:05] VITALS: TEMP 98.1; O2SAT 93
--- NOTE | 2025-04-07 10:27 | Discharge Summary ---
Discharge Summary Date of Service April 07, 2025 Principal Dx & Hospital Course #1 = Principal Diagnosis (1) Sepsis: (2) Pneumonia: (3) Stage III pressure ulcer of left heel: (4) Elevated troponin: (5) Rhinovirus: Plan This is a 79-year-old female with past medical history of aortic insufficiency, PAD, hypertension, CKD stage III who presented to the emergency department on 04/03/2025 from her PCPs office for hypoxia. While in the emergency department she did have a chest x-ray that did read as mild CHF but per personal interpretation was more concerning for pneumonia. She did have leukocytosis of 13.09. Her BMP did reveal stable electrolytes and renal function. Her troponin was mildly elevated at 15.3. Her procalcitonin was negative. RSV/flu/COVID was negative. Blood cultures are pending. She was given Levaquin, Decadron, and a DuoNeb along with 1 L of IV fluids in the ED. #Sepsis/Pneumonia/Rhinovirus Sepsis criteria met with fever, hypotension, tachycardia, and tachypnea on arriv al with source respiratory Chest x-ray with mild CHF but upon personal review more consistent with pneumonia CBC/BMP stable; Lactate & Procal negative @ time of admission. BC neg @ 48h Troponin 15.3 -->12.9, secondary to demand ischemia from hypoxia on admission Biofire + for Rhinovirus Course of Levquin completed inpatient Weaned to room air. PT/OT consulted --> recommended rehab, to go to [facility]. #Stage III pressure wound of left heel appears to be healing well upon exam Follows w/ [place] [facility] Continue Aquacel Ag every 2-3 days per wound clinic notes Wound nurse consulted--> waffle boots #History of A fib - Eliquis, Metoprolol #HLD - statin #History of CVA/PAD - Plavix, sees Dr. Harrington outpatient for PAD (@ this time limited benefit from a revascularization) #CKD III - @ baseline. Farxiga @ home but we do not have on formulary inpatient, may resume upon discharge. #Hypothyroidism - Levothyroxine (TSH WNL 01/2025) #Mental Health - Sertraline Discharged to [facility] 04/07 Admission HPI Per Admitting Provider This is a 79-year-old female with past medical history of aortic insufficiency, PAD, hypertension, CKD stage III who presented to the emergency department on 04/03/2025 from her PCPs office for hypoxia. The patient was seen and examined this evening with her daughter at bedside. Patient's daughter provides the majority of the history as Missy is a relatively poor historian. She states that Missy had been experiencing symptoms for about 1 week. She had been in contact with a sick grandchild at home. Her main symptoms were cough and congestion however yesterday she developed a fever at home of about 100 F. She was having a productive cough and was able to cough up mucus. She had seen her PCP in the office today and was given oxygen and a breathing treatment. However her pulse ox did not improve after DuoNeb so was recommended that she go to the ER. She also had a fever of 38.1 C at her PCPs office. Missy's daughter states that she has been sick on and off recently and has been having respiratory issues. She denies a formal diagnosis of any lung disease. She does note that she did use to use cigarettes approximately 40 years ago. Missy had denied any chest pain, abdominal pain, nausea, vomiting, lower extremity edema, urinary urgency/frequency/hematuria. She does have a left heel pressure wound that she follows with the wound clinic for. She typically gets her dressing changed approximately every 2 to 3 days at home by her daughter. While in the emergency department she did have a chest x-ray that did read as mild CHF but per personal interpretation was more concerning for pneumonia. She did have leukocytosis of 13.09. Her BMP did reveal stable electrolytes and renal function. Her troponin was mildly elevated at 15.3. Her procalcitonin was negative. RSV/flu/COVID was negative. Blood cultures are pending. She was given Levaquin, Decadron, and a DuoNeb along with 1 L of IV fluids in the ED. Code discussion to take place and Missy and her daughter have both confirmed that she is a full code. Discharge Exam General: no acute distress; non-toxic appearing; well-nourished; cooperative HEENT: normocephalic, atraumatic; no scleral icterus; PERRLA w/ EOMs intact; vision and hearing grossly intact Skin: warm, dry without signs of tenting; no cyanosis; no rashes, bruising, lesions, or erythema noted CV: chest wall NTP; RRR; S1/S2 normal; no murmurs/rubs/gallops Lungs: no acute respiratory distress; symmetrical chest wall expansion MSK: no edema noted in the LEs b/l, nonerythematous Neuro: A&Ox3; normal mood and affect; fluent speech; no focal deficits Discharge Plan Discharge Items Patient Disposition: Transfer Inpatient Rehab Fac Reason For Visit: FEVER,COUGH Discharge Diagnosis: Rhinovirus, Pneumonia Condition on Discharge: Fair Activity: Resume your previous activity Non-emergency contact: Primary Care Provider Call non-emergency contact if: you have any medication questions, your symptoms worsen, your pain is not controlled and your pain is worsening Follow-up/Referrals: Tacos Davis MD [Primary Care Provider] - Diet: Heart Healthy Addtl Attending Provider Instructions: Ms. Olson, You were recently hospitalized for cough and a fever. You were found to have rhinovirus and pneumonia. You were treated with antibiotics and breathing treatments. You have improved. Please see recommendations below regarding your discharge. You have completed your antibiotic course while hospitalized. You are going to rehab to get stronger prior to returning home. Please resume the remainder of your outpatient medications. Please follow up with your PCP within 1-2 weeks of discharge. If you develop any worsening symptoms including fever, chest pain, or shortness of breath please report back to the ER for further care. [facility] [place]! Yamila Yarbrough PA-C Pending Studies at Discharge: No Stand-Alone Forms: My [facility] Skilled Items Patient informed of condition?: Yes DNR: No Discharge Level of Care: Acute rehab Communicable Disease: Yes Discharge Prognosis: Improving Lines: None Urinary Catheter: No Medications and DC Order Prescriptions: Continued dapagliflozin propanediol 10 mg tablet 10 mg PO DAILY Qty: 90 3RF sertraline 50 mg tablet 50 mg PO DAILY Qty: 90 3RF clopidogrel 75 mg tablet 75 mg PO DAILY Qty: 90 3RF nystatin 100,000 unit/gram powder 1 applic TOP BID PRN (Reason: Candidiasis) Qty: 60 5RF Rx Instructions: filled 01/15 30 day supply levothyroxine 125 mcg tablet 125 mcg PO DAILY Qty: 90 3RF metoprolol tartrate 50 mg tablet 50 mg PO BID Qty: 180 3RF atorvastatin 20 mg tablet 20 mg PO QAM Qty: 90 3RF tramadol 50 mg tablet 50 mg PO HS PRN (Reason: pain) Qty: 100 0RF Rx Instructions: every 4-6 hours as needed Ongoing RX Dr. Tacos Davis HANSEL# [id number] License: [id number] albuterol sulfate 1.25 mg/3 mL solution for nebulization 1.25 mg inhalation QID Qty: 90 3RF Rx Instructions: no fill history unable to verify cholecalciferol (vitamin D3) [Vitamin D3] 25 mcg (1,000 unit) capsule 2,000 unit PO DAILY Hold Instructions: on higher dose x2 months, then switch back Rx Instructions: otc unable to verify Eliquis 5 mg tablet 5 mg PO BID Qty: 180 3RF ipratropium-albuterol 0.5 mg-3 mg(2.5 mg base)/3 mL solution for nebulization 3 ml inhalation Q4H PRN (Reason: wheezing) Qty: 180 1RF Rx Instructions: no fill history unable to verify prednisone 20 mg tablet 40 mg PO DAILY Qty: 10 0RF acetaminophen [Tylenol] 325 mg Tablet 650 mg PO Q6H PRN (Reason: Pain) Rx Instructions: otc unable to verify ferrous sulfate [iron] 325 mg (65 mg iron) Tablet 325 mg PO 3XWK Rx Instructions: otc/no fill history unable to verify albuterol sulfate 90 mcg/actuation HFA aerosol inhaler 2 puffs INH 6XD PRN (Reason: shortness of breath or wheezing) Qty: 6.7 0RF Rx Instructions: no fill history unable to verify Discontinued azithromycin 250 mg tablet 250 mg PO UD Rx Instructions: For 250 mg dose pack: take 500 mg today (day 1), then 250 mg for 4 days (days 2-5) PO No Action (DME) nebulizer and compressor Device See Rx Instructions .Route Qty: 1 0RF Rx Instructions: As directed (DME) nebulizer accessories Kit See Rx Instructions .Route Qty: 1 0RF Rx Instructions: As directed Discharge Orders: Discharge Order (Routine); Ordered 04/07/25 Ordered By: Yamila Yarbrough Admission Data Admit Date/Time: 04/03/25 16:36 Attending Provider: Chelsey Staton Admit Provider: Odette Morris Primary Care Provider: Tacos Davis Other Providers: [facility] Other Interventions: Discharge Summary Assessment (RN) Last Done: 04/07/25 11:13 Hospital Stay Data Pending Results Patient Have Any Pending Studies at Discharge: No Discharge Instructions Given to Patient (Per Discharging Provider) Ms. Olson, Klebre were recently hospitalized for cough and a fever. You were found to have rhinovirus and pneumonia. You were treated with antibiotics and breathing treatments. You have improved. Please see recommendations below regarding your discharge. You have completed your antibiotic course while hospitalized. You are going to rehab to get stronger prior to returning home. Please resume the remainder of your outpatient medications. Please follow up with your PCP within 1-2 weeks of discharge. If you develop any worsening symptoms including fever, chest pain, or shortness of breath please report back to the ER for further care. [facility] [place]! Yamila Yarbrough PA-C Total Time Total Time Spent Total Time Spent (In Minutes): 45 Total Time Includes: Examination of the Patient, Discharge Planning and Medication Reconciliation Coding Level of Care Code 24271 INP/OBS DISCH >30 MIN Diagnoses Sepsis A41.9 Pneumonia J18.9 Stage III pressure ulcer of left heel L89.623 Elevated troponin R77.8 Rhinovirus B34.8
[2025-04-07 11:14] VITALS: BP 95/61; PULSE 85
== END 2025-04-07 12:03 | DRG 871 ==
LOC: ED 14:45 → SUATTDRO 16:36 → 2N 16:36 → 2W 04-04 00:57
DX: E03.9 Hypothyroidism, unspecified; J12.89 Other viral pneumonia; L89.623 Pressure ulcer of left heel, stage 3; Z79.01 Long term (current) use of anticoagulants; I24.89 Other forms of acute ischemic heart disease; Z87.891 Personal history of nicotine dependence; Z88.1 Allergy status to other antibiotic agents; A41.9 Sepsis, unspecified organism; Z79.890 Hormone replacement therapy; I48.91 Unspecified atrial fibrillation; N18.30 Chronic kidney disease, stage 3 unspecified

== ENCOUNTER 2025-09-22 10:14 | Inpatient (IN) ==
--- NOTE | 2025-09-22 10:20 | Emergency Department Note ---
Impression & Plan Cutaneous abscess of right knee, Knee swelling, Atrial fibrillation ED Provider Note NAME: ENDER FOSTER AGE: 80 SEX: F : 1945 ARRIVES VIA: Ambulance INFORMANT: Patient, ED PROVIDER(S): Martin Mills MD CHIEF COMPLAINT: Right knee swelling MEDICAL DECISION MAKING: Patient presents due to concern for right knee swelling. I was concerned about the possibility of a septic joint. IV was established and blood work was obtained. After discussion with the pharmacy and the patient's recent admission patient was given on daptomycin and Rocephin empirically. IV fluids ordered. Did consult with orthopedics who agreed with current plan of care. The patient's blood work shows a normal white count hemoglobin 11.3 with a normal platelet count. The patient's kidney function is unremarkable but with prerenal azotemia. ESR of 113. Troponin negative. Pro-Ziggy negative. Discussion w/ other healthcare providers: Dr. Youssef Jimbo [facility] orthopedics Prior /Outside records reviewed: I reviewed part of a discharge summary from August 31, 2025 from [facility]. The patient was seen for weakness ambulatory dysfunction cellulitis of the left foot and fevers and chills. Patient with a known history of CVA residual left- sided hemiparesis COPD stage III CKD PAD with chronic left lower extremity wounds A-fib on Eliquis. Patient had been treated for left foot cellulitis with Dapto and Rocephin. Differential diagnosis: Fracture, sprain, strain, subluxation, dislocation, contusion, ligamentous injury, neurovascular, as well as other etiologies were considered. Diagnostics, as interpreted by me: ECG: A-fib ventricular rate of 58 normal axis no obvious ST elevations. No significant change for comparison August 27. Cardiac monitoring: An order was placed for continuous cardiac monitoring. The monitor shows a rate of 59 with irregularly irregular rhythm. Patient was placed on pulse oximetry Medical decision rules: None Imaging studies: I informally interpreted the patient's right knee x-ray does not show obvious fracture, hardware is noted, with formal report to follow. HPI: Patient presents from [facility] with concerns that the patient has developed swelling and redness to the right knee. The patient did have a relatively recent admission and discharge during the mid month of August for left lower extremity cellulitis and had been discharged on Bactrim. Patient denies any chest pain or cough no nausea vomiting. The patient does have a history of dementia and is oriented only to person per nursing report which is her baseline. No reported falls or trauma. PAST MEDICAL HISTORY: See Below PAST SURGICAL HISTORY: See Below SOCIAL HISTORY: See Below HOME MEDICATIONS: See Below ALLERGIES: See Below VITALS: See Below PHYSICAL EXAMINATION: GENERAL: NAD, non-toxic. EYE EXAM: Normal conjunctiva. PERRL, no anisocoria and EOM's grossly intact w/o pain. OROPHARYNX: Moist mucus membranes, grossly normal dentition. NECK: Trachea midline, no stridor. LUNGS: Clear to auscultation. Normal chest wall mechanics. HEART: Regular, no MRG. ABDOMEN: Abdomen soft, non-tender, no masses, no rebound or guarding. BACK: No CVA TTP. SKIN: No rashes and no bruising. UPPER EXTREMITIES: Upper extremities are grossly normal. LOWER EXTREMITIES: Swelling and redness to the right knee with the redness and majority of the swelling on the medial aspect, decreased range of motion. Neurovascular intact distally with soft compartments no crepitus. NEURO EXAM: Awake and alert, follows commands, no obvious facial asymmetry, normal speech, moves all 4 extremities. Past Med/Surg History Problem List (Updated 09/22/25 @ 17:55 by Martin Mills MD) Knee swelling (Acute) Decubitus ulcer of sacral region, unstageable POA 09/22/2025 Generalized weakness Cutaneous abscess of right knee (Acute) Contracture of joint of right foot Contracture of joint of left foot PAD (peripheral artery disease) Blister of foot Ambulatory dysfunction (Chronic) Secondary hyperparathyroidism Aortic insufficiency Contracture, right hand Carpal tunnel syndrome of right wrist (Acute) Cervical polyp (Acute) Chronic kidney disease, stage III (moderate) (Acute) Hemiparesis affecting left side as late effect of stroke (Chronic) Anticoagulant long-term use (Chronic) Vitamin D deficiency (Chronic) Hyperlipidemia (Chronic) Hypothyroidism (Chronic) Atrial fibrillation (Chronic) Graves disease (Chronic) HTN (hypertension) (Chronic) Depression (Chronic) Medical History H/O gastric ulcer Hematoma of left lower leg Stage III pressure ulcer of left heel COPD exacerbation Open wound of left great toe Cellulitis of left foot CVA (cerebral vascular accident) Acute anterior epistaxis Candidiasis of breast Cellulitis of leg Surgical History H/O colonoscopy S/P hammer toe correction S/P foot surgery, left S/P knee surgery Status post hip surgery Family History Father COPD (chronic obstructive pulmonary disease) Mother Brain cancer Sister Coronary heart disease Sister No problems noted. Brother No problems noted. Denies family history of Ovarian cancer Prostate cancer Breast cancer Colorectal cancer Social History Smoking Status: Former smoker Tobacco Type: Cigarettes Age Started Using Tobacco: 14; Age Quit Using Tobacco: 39; packs per day: 1; Second Hand Exposure: No; Do You Dip or Chew Tobacco: No; Hx Alcohol Use: No Hx Substance Use: No Preferred Language: Spanish Communication Ability: Effective Visual Impairment: Limited Hearing Ability: Normal Sound Technician Required: No Beliefs That Will Affect Care: None marital status: Current Living Situation: [facility] Current Living Situation Comment: at [facility] current occupational status: retired Feels Safe at Home: Yes Diet: regular caffeine: No during the past year weight has: remained stable Dental Care, Regularly: No Physical Activity Frequency: Does not Exercise Seatbelt Use: never Assistive Devices: Denture - Upper, Denture - Lower, Special Shoe and Wheelchair Allergies Allergies Allergy/AdvReac Type Severity Reaction Status Date / Time clindamycin Allergy Intermediate HIVES Verified 08/27/25 17:57 piperacillin Allergy Intermediate HIVES Verified 08/27/25 17:57 vancomycin Allergy Unknown unknown Verified 08/27/25 17:57 Home Meds Home Medications Medication Instructions Recorded Confirmed acetaminophen 325 mg tablet 650 mg PO Q6H PRN Pain 11/17/18 09/22/25 (Tylenol) ferrous sulfate 325 mg (65 mg 325 mg PO 3XWK 02/28/21 09/22/25 iron) tablet (iron) cholecalciferol (vitamin D3) 25 2,000 unit PO DAILY 09/21/24 09/22/25 mcg (1,000 unit) capsule (Vitamin D3) albuterol sulfate 1.25 mg/3 mL 1.25 mg inhalation QID PRN 08/27/25 09/22/25 solution for nebulization Shortness Of Breath Or Wheezing tramadol 50 mg tablet 50 mg PO .Q4-6HR PRN pain 08/27/25 09/22/25 Previous Rx's Medication Instructions Recorded nystatin 100,000 unit/gram topical 1 applic topical BID PRN 09/05/24 powder Candidiasis #60 grams apixaban 5 mg tablet (Eliquis) 5 mg PO BID #180 tabs 09/21/24 metoprolol tartrate 50 mg tablet 50 mg PO BID #180 tabs 10/27/24 albuterol sulfate 90 mcg/actuation 2 puffs inhalation 6XD PRN 11/03/24 aerosol inhaler shortness of breath or wheezing #6.7 grams atorvastatin 20 mg tablet 20 mg PO QAM #90 tabs 01/24/25 ipratropium 0.5 mg-albuterol 3 mg 3 ml inhalation Q4H PRN wheezing 04/03/25 (2.5 mg base)/3 mL nebulization #180 mL soln nebulizer accessories #1 ea 04/03/25 nebulizer and compressor #1 ea 04/03/25 Hospital Bed [facility] (Hospital [facility]1 ea 05/30/25 Bed) levothyroxine 125 mcg tablet 125 mcg PO DAILY #90 tabs 07/20/25 sertraline 50 mg tablet 50 mg PO DAILY #90 tabs 07/20/25 dapagliflozin propanediol 10 mg 10 mg PO DAILY #90 tabs 08/21/25 tablet aspirin 81 mg chewable tablet 81 mg PO DAILY #30 tabs 08/31/25 sulfamethoxazole 800 1 tab PO BID #9 tabs 08/31/25 mg-trimethoprim 160 mg tablet (Bactrim DS) Results & Data (ED) Vital Signs Vital Signs - 24 hr 09/22/25 10:29 09/22/25 10:29 09/22/25 10:42 Temperature 36.7 C Temperature Source Oral Pulse Rate 78 Respiratory Rate 22 Respiratory Effort / Characteristics Respiratory Depth Normal Normal Blood Pressure 116/63 Blood Pressure Mean 80 Pulse Oximetry 94 Oxygen Delivery Method Room Air Room Air Sepsis Recent Fever Within 48 Hours No Sepsis New/Unexplained Change in Mental Status No Sepsis Action Taken by Nursing No Action Required 09/22/25 10:42 09/22/25 11:30 Temperature Temperature Source Pulse Rate 66 Respiratory Rate 22 Respiratory Effort / Characteristics Non-Labored Respiratory Depth Normal Blood Pressure Blood Pressure Mean Pulse Oximetry Oxygen Delivery Method Sepsis Recent Fever Within 48 Hours Sepsis New/Unexplained Change in Mental Status Sepsis Action Taken by Skilled Nursing Medications Current Medication List: was personally reviewed by me Laboratory Data Attestation: I reviewed the patient's lab results. 09/22/25 10:25 09/22/25 10:25 Lab Results 09/22/25 09/22/25 Range/Units 10: 10:35 WBC 10.78 (4.8-10.8) K/ul RBC 3.90 L (4.20-5.40) M/uL Hgb 11.3 L (12.0-16.0) g/dl Hct 36.2 L (37.0-47.0) % MCV 92.8 (80.0-100.0) fL MCH 29.0 (25.0-34.0) pg MCHC 31.2 L (32.0-36.0) g/dL RDW Std Deviation 46.2 (36.4-46.3) fL RDW Coeff of Fozia 13.6 (11.5-14.5) % Plt Count 239 (130-400) K/uL MPV 10.2 (9.4-12.4) fL Immature Gran % (Auto) 0.8 % Neut % (Auto) 81.6 % Lymph % (Auto) 9.6 % Marin % (Auto) 6.5 % Eos % (Auto) 1.3 % Baso % (Auto) 0.2 % Neut # (Auto) 8.79 H (1.40-6.50) K/uL Lymph # (Auto) 1.04 L (1.20-3.40) K/uL Marin # (Auto) 0.70 H (0.11-0.59) K/uL Eos # (Auto) 0.14 (0.00-0.50) K/uL Baso # (Auto) 0.02 (0.00-0.20) K/uL Immature Gran # (Auto) 0.09 (0.01-0.20) K/uL ESR 113 H (0-30) mm/hr Sodium 139 (136-145) mmol/L Potassium 4.4 (3.5-5.1) mmol/L Chloride 101 (98-107) mmol/L Carbon Dioxide 32 (21-32) mmol/L Anion Gap 6 (3-11) BUN 33 H (6-23) mg/dl Creatinine 0.83 (0.6-1.2) mg/dl Est Cr Clr Drug Dosing 56.6 ml/min eGFR 71.22 BUN/Creatinine Ratio 39.8 H (10-20) Glucose 139 H (70-99(Fasting)) mg/dl Lactate 2.3 H* (0.4-2.0) mmol/L Calcium 9.3 (8.6-10.3) mg/dl Magnesium 2.1 (1.7-2.4) mg/dl Total Bilirubin 0.4 (0.2-1.0) mg/dl Direct Bilirubin 0.1 (0-0.2) mg/dl AST 38 (13-39) U/L ALT 26 (7-52) U/L Alkaline Phosphatase 106 H (34-104) U/L Troponin I High Sens 10.2 (0-14) pg/ml C-Reactive Protein 13.70 H (0-0.5) mg/dl Total Protein 7.2 (6.0-8.3) gm/dl Albumin 2.5 L (3.4-5.0) gm/dl Procalcitonin 0.05 (0-0.5) ng/ml Administered Medications Lactated Ringer's (Lr) 1,000 mls @ 115 mls/hr IV .Q8H42M [facility] Stop: 09/23/25 12:29 Last Admin: 09/22/25 16:50 Dose: 115 mls/hr Documented By: sonu Discontinued Medications Sodium Chloride (Nss) 1,000 mls @ 999 mls/hr IV .Q1H1M [facility] Stop: 09/22/25 11:45 Last Infusion: 09/22/25 12:11 Dose: Infused Documented By: amanna Admin: 09/22/25 10:53 Dose: 999 mls/hr Documented By: LORETA Daptomycin 550 mg/ Syringe 11 mls @ 5.5 mls/min IV NOW ONE; Protocol Stop: 09/22/25 11:16 Last Admin: 09/22/25 12:06 Dose: 5.5 mls/min Documented By: floyd Ceftriaxone Sodium (Rocephin) 2,000 mg in 50 mls @ 100 mls/hr IV NOW STA Stop: 09/22/25 11:34 Last Infusion: 09/22/25 12:57 Dose: Infused Documented By: floyd Admin: 09/22/25 12:06 Dose: 100 mls/hr Documented By: floyd Imaging Data Radiologist's Impression: Chest X-Ray 09/22/25 10:32 XR chest 1V portable CLINICAL HISTORY: Sepsis COMPARISON STUDY: 08/27/2025 FINDINGS: Stable cardiomegaly without pulmonary vascular congestion. Inspiration is shallow. No consolidation or pleural effusion. No pneumothorax. IMPRESSION: No acute findings. ACT 112: Negative or not required by law. Electronically signed by: Jorge Roberts M.D. 09/22/2025 10:56 AM Knee X-Ray 09/22/25 10:36 XR knee RT 3V CLINICAL HISTORY: swelling COMPARISON: None FINDINGS: Right knee prosthesis shows no hardware complication. There is chronic irregularity at the distal femur. No acute fracture or dislocation seen. No evidence of osteomyelitis seen. There are atherosclerotic calcifications. IMPRESSION: No acute osseous finding seen. ACT 112: Negative or not required by law. Electronically signed by: Jorge Roberts M.D. 09/22/2025 10:58 AM Discharge Plan Visit Data Chief Complaint: Leg Injury/Pain Stated Complaint: SWOLLEN R KNEE ED Provider: Martin Mills Discharge Problem: Cutaneous abscess of right knee, Knee swelling, Atrial fibrillation Patient Disposition: Admitted As Inpatient Condition: Good Discharge Instructions Interventions: ED Discharge Assessment Last Done: 09/22/25 16:28 Discharge Problem: Atrial fibrillation Qualifiers: Atrial fibrillation type: unspecified Qualified Code(s): I48.91 - Unspecified atrial fibrillation
[2025-09-22 10:51] LABS: Hematocrit (blood only) 36.2 % (37.0-47.0); Hemoglobin 11.3 g/dl (12.0-16.0); Immature Granulocytes # (auto) 0.09 K/uL (0.01-0.20); Immature Granulocytes % (auto) 0.8 %; Mean Corpuscular Hemoglobin 29.0 pg (25.0-34.0); Mean Corpuscular Volume 92.8 fL (80.0-100.0); Platelet Count 239 K/uL (130-400); RDW Standard Deviation 46.2 fL (36.4-46.3); Red Blood Count 3.90 M/uL (4.20-5.40); White Blood Count 10.78 K/ul (4.8-10.8)
[2025-09-22] MEDS: SODIUM CHLORIDE 0.9% 1,000 ML IV SCH (10:53)
--- NOTE | 2025-09-22 10:58 | XRay Report ---
XR chest 1V portable CLINICAL HISTORY: Sepsis COMPARISON STUDY: 08/27/2025 FINDINGS: Stable cardiomegaly without pulmonary vascular congestion. Inspiration is shallow. No conso lidation or pleural effusion. No pneumothorax. IMPRESSION: No acute findings. ACT 112: Negative or not required by law. Electronically signed by: Jorge Roberts M.D. 09/22/2025 10:56 AM
--- NOTE | 2025-09-22 10:59 | XRay Report ---
XR knee RT 3V CLINICAL HISTORY: swelling COMPARISON: None FINDINGS: Right knee prosthesis shows no hardware complication. There is chronic irregularity at the distal femur. No acute fracture or dislocation seen. No evidence of osteomyelitis seen. There are at herosclerotic calcifications. IMPRESSION: No acute osseous finding seen. ACT 112: Negative or not required by law. Electronically signed by: Jorge Roberts M.D. 09/22/2025 10:58 AM
[2025-09-22 11:18] LABS: Alanine Aminotransferase 26.0 U/L (7-52); Albumin Level 2.5 gm/dl (3.4-5.0); Alkaline Phosphatase 106.0 U/L (34-104); Anion Gap 6.0 (3-11); Bilirubin,Total 0.4 mg/dl (0.2-1.0); Blood Urea Nitrogen 33.0 mg/dl (6-23); Calcium 9.3 mg/dl (8.6-10.3); Carbon Dioxide 32.0 mmol/L (21-32); Chloride 101.0 mmol/L (98-107); Creatinine Clr Calc Pharmacy 56.6 ml/min; Glucose 139.0 mg/dl (70-99(Fasting)); Magnesium 2.1 mg/dl (1.7-2.4); Potassium 4.4 mmol/L (3.5-5.1); Sodium 139.0 mmol/L (136-145); Total Protein 7.2 gm/dl (6.0-8.3)
[2025-09-22] MEDS: cefTRIAXone SODIUM 2,000 MG/50 ML BAG IV STA (12:06)
[2025-09-22] MEDS: DAPTOmycin 550 MG in SYRINGE 0 ML IV ONE (12:06)
--- NOTE | 2025-09-22 12:26 | History & Physical Report ---
Date of Service September 22, 2025 Assessment & Plan (1) Cutaneous abscess of right knee: (2) Generalized weakness: (3) Decubitus ulcer of sacral region, unstageable: (4) Anticoagulant long-term use: (5) Hemiparesis affecting left side as late effect of stroke: (6) Graves disease: (7) Atrial fibrillation: (8) Chronic kidney disease, stage III (moderate): (9) Secondary hyperparathyroidism: (10) PAD (peripheral artery disease): Plan In summary this is an 80-year-old female who presents to the [facility] for persistent and progressive right knee pain concerning for potential septic arthritis #Septic arthritis versus cutaneous abscess of right knee // S/P right knee TKA On clinical exam this is not consistent with a typical septic joint given the lack of generalized erythema, the localized findings more consistent with a cutaneous abscess however with the patient's prosthesis the risk for infection or complications related to a local infection are much higher than the average individual; based on my clinical exam, suspect this is more likely a cutaneous abscess rather than a proper septic joint; orthopedic surgery was consulted by the patient's emergency department provider who are planning on evaluating the patient at bedside and determining further imaging based on their assessment in addition to the possibility of a joint aspiration; antibiotic regimen was discussed between the patient's emergency department provider and pharmacy based on their history of MDRO's, though the patient is hemodynamically stable, around of antibiotics have been administered previous to joint aspiration which may reduce future diagnostic yield however blood cultures were obtained prior to this Continue daptomycin 550 mg and ceftriaxone 2 g per pharmacy recommendations Continue IV fluids with lactated Ringer's at 150 mL/h for 24 hours Follow daily CMP, CBC with manual differential, magnesium Blood cultures pending Potential joint aspiration to be undergone on 09/22 by orthopedic surgery Orthopedic surgery consulted #Suspected sacral decubitus ulcer, unstaged Per the patient's daughter's report, there have been concerns raised at [facility] for possible sacral decubitus ulcers; the patient declined my examination today due to discomfort related to their right knee WOC consulted for continued care during hospitalization The remainder the patient's chronic medical conditions are stable and do not require adjustment to their outpatient regimen at this time History of Present Illness Chief Complaint: Progressive right knee pain Primary Care Provider: Ted Stewart III, MD Ms. Olson is an 80-year-old female whose active medical conditions include stage IIIa CKD secondary to hypertensive nephrosclerosis and complicated by secondary hyperparathyroidism, essential hypertension, Graves' disease, permanent atrial fibrillation, hyperlipidemia with peripheral arterial disease, previous CVA with residual left-sided hemiparesis among other chronic medical conditions who presented to the [facility] from [facility] on 09/22 due to progressive right knee pain. Obtaining history with respect to their presenting complaint is complicated as the patient is unable to provide significant history secondary to their moderately severe dementia, the patient's daughter is available at bedside to provide some history though detailed review of systems is difficult to fully obtain. In summary, it appears that after the patient's discharge from this facility on 08/31, the following weekend they began to develop some redness and swelling involving the right knee joint that would wax and wane however over the past week or so there is been progressive increased swelling involving the medial aspect of the joint with increasing discomfort per the patient's report. Due to the findings that are described further in the patient's physical exam they were brought to the emergency department for further evaluation. And a limited review of system secondary to the patient's cognitive impairments I was able to ascertain that they do have pain involving the medial aspect of the right knee both with active and passive range of motion; they deny any fevers, chills, nausea, vomiting, recent changes in their medication regimen though they are unsure of their baseline medication regimen. The patient's daughter is unsure if has been any recent changes to the patient's medication regimen at the time of my exam. Allergies Allergy/AdvReac Type Severity Reaction Status Date / Time clindamycin Allergy Intermediate HIVES Verified 08/27/25 17:57 piperacillin Allergy Intermediate HIVES Verified 08/27/25 17:57 vancomycin Allergy Unknown unknown Verified 08/27/25 17:57 Home Medications Medication Instructions Recorded Confirmed Type acetaminophen 325 mg tablet 650 mg PO Q6H PRN Pain 11/17/18 08/27/25 History (Tylenol) ferrous sulfate 325 mg (65 mg 325 mg PO 3XWK 02/28/21 08/27/25 History iron) tablet (iron) nystatin 100,000 unit/gram topical 1 applic topical BID PRN 09/05/24 08/27/25 Rx powder Candidiasis #60 grams apixaban 5 mg tablet (Eliquis) 5 mg PO BID #180 tabs 09/21/24 08/27/25 Rx cholecalciferol (vitamin D3) 25 2,000 unit PO DAILY 09/21/24 08/27/25 History mcg (1,000 unit) capsule (Vitamin D3) metoprolol tartrate 50 mg tablet 50 mg PO BID #180 tabs 10/27/24 08/27/25 Rx albuterol sulfate 90 mcg/actuation 2 puffs inhalation 6XD PRN 11/03/24 08/27/25 Rx aerosol inhaler shortness of breath or wheezing #6.7 grams atorvastatin 20 mg tablet 20 mg PO QAM #90 tabs 01/24/25 08/27/25 Rx ipratropium 0.5 mg-albuterol 3 mg 3 ml inhalation Q4H PRN wheezing 04/03/25 08/27/25 Rx (2.5 mg base)/3 mL nebulization #180 mL soln nebulizer accessories #1 ea 04/03/25 07/21/25 Rx nebulizer and compressor #1 ea 04/03/25 07/21/25 Rx Hospital [facility] (Hospital [facility] ea 05/30/25 07/21/25 Rx Bed) levothyroxine 125 mcg tablet 125 mcg PO DAILY #90 tabs 07/20/25 08/27/25 Rx sertraline 50 mg tablet 50 mg PO DAILY #90 tabs 07/20/25 08/27/25 Rx dapagliflozin propanediol 10 mg 10 mg PO DAILY #90 tabs 08/21/25 08/27/25 Rx tablet albuterol sulfate 1.25 mg/3 mL 1.25 mg inhalation QID PRN 08/27/25 08/27/25 History solution for nebulization Shortness Of Breath Or Wheezing tramadol 50 mg tablet 50 mg PO .Q4-6HR PRN pain 08/27/25 08/27/25 History aspirin 81 mg chewable tablet 81 mg PO DAILY #30 tabs 08/31/25 Rx sulfamethoxazole 800 1 tab PO BID #9 tabs 08/31/25 Rx mg-trimethoprim 160 mg tablet (Bactrim DS) Past Med/Surg History Problem List Decubitus ulcer of sacral region, unstageable POA 09/22/2025 Generalized weakness Cutaneous abscess of right knee Contracture of joint of right foot Contracture of joint of left foot PAD (peripheral artery disease) Blister of foot Ambulatory dysfunction (Chronic) Secondary hyperparathyroidism Aortic insufficiency Contracture, right hand Carpal tunnel syndrome of right wrist (Acute) Cervical polyp (Acute) Chronic kidney disease, stage III (moderate) (Acute) Hemiparesis affecting left side as late effect of stroke (Chronic) Anticoagulant long-term use (Chronic) Vitamin D deficiency (Chronic) Hyperlipidemia (Chronic) Hypothyroidism (Chronic) Atrial fibrillation (Chronic) Graves disease (Chronic) HTN (hypertension) (Chronic) Depression (Chronic) Medical History H/O gastric ulcer Hematoma of left lower leg Stage III pressure ulcer of left heel COPD exacerbation Open wound of left great toe Cellulitis of left foot CVA (cerebral vascular accident) Acute anterior epistaxis Candidiasis of breast Cellulitis of leg Surgical History H/O colonoscopy S/P hammer toe correction S/P foot surgery, left S/P knee surgery Status post hip surgery Family History (Updated 09/22/25 @ 13:31 by Greg Adorno DO) Father COPD (chronic obstructive pulmonary disease) Mother Brain cancer Sister Coronary heart disease Sister No problems noted. Brother No problems noted. Denies family history of Ovarian cancer Prostate cancer Breast cancer Colorectal cancer Social History (Updated 09/22/25 @ 13:31 by Greg Adorno DO) Smoking Status: Former smoker Tobacco Type: Cigarettes Age Started Using Tobacco: 14; Age Quit Using Tobacco: 39; packs per day: 1; Second Hand Exposure: No; Do You Dip or Chew Tobacco: No; Hx Alcohol Use: No Hx Substance Use: No Preferred Language: Greek Communication Ability: Effective Visual Impairment: Limited Hearing Ability: Normal Melt Room Operator Required: No Beliefs That Will Affect Care: None marital status: Current Living Situation: Family Current Living Situation Comment: Daughter current occupational status: retired Feels Safe at Home: Yes Diet: regular caffeine: No during the past year weight has: remained stable Dental Care, Regularly: No Physical Activity Frequency: Does not Exercise Seatbelt Use: never Assistive Devices: Raised Toilet Seat, Stair Lift, Walker and Wheelchair Review of Systems Review of Systems: Limited review of systems was able to be obtained due to the patient's ability to participate however review of constitutional, cardiovascular, pulmonary, musculoskeletal, neurologic systems was unremarkable except for pertinent positive and negative findings detailed in the HPI Physical Exam Physical Exam: General: Elderly female in no acute distress Vital Signs: Reviewed; irregular RR interval noted on telemetry with controlled rate HEENT: Tacky mucous membranes; pupils equally round and reactive to light with extraocular motion intact Pulmonary: Symmetric chest wall excursion without restriction; clear to auscultation bilaterally Cardiovascular: Irregularly irregular rhythm with controlled rate; no murmurs, rubs, or gallops; right radial pulse 2+; bilateral posterior tibial and dorsalis pedis pulses 1+ without notable lower extremity edema Gastrointestinal: Soft, nondistended; nontender throughout Musculoskeletal: The right knee has a large midline surgical scar at the distal aspect of which just past the tibial tuberosity there is a 6 mm circular epithelial defect with a dark eschar overlying; beginning approximately 1 to 2 cm superior and medial to this lesion there is a 5 to 6 cm ellipsoid fluctuant, tender raised lesion that is radiating heat; there is another raised lesion superior and medial to the patella that is approximately 1 cm in diameter with similar characteristics to the former lesion, these are not obviously communicating on physical exam; there is significant pain involving the right knee joint with both active and passive range of motion Neurologic: CN II-XII grossly intact; no discernible focal weakness; patient r emains with limited sensorium in the left upper and lower extremity secondary to previous CVA Skin: Patient declined examination of the sacral region, though there is mention in the patient's daughter that there was concern for an early stage sacral decubitus ulcer at [facility]; the patient's previously documented left heel pressure ulcer is resolved on exam today Results & Data Results & Data Vital Signs (Past 12 Hours) Vital Signs Temp Pulse Resp BP Pulse Ox O2 Del Method 09/22/25 11:30 66 09/22/25 10:42 22 09/22/25 10:42 Room Air 09/22/25 10:29 36.7 C 78 22 116/63 94 Room Air Laboratory Results Normal white blood cell count phone noted to have elevated count of 12.16 on 09/21 during routine blood work obtained at [facility] [place] ESR 113, CRP 13.70 Lactic acid of 2.3 improved to 1.8 Procalcitonin 0.05 Diagnostic Findings Plain film of the right knee with 3 views does not show any acute complications; prosthesis noted Portable chest film does not show any acute findings Code Status & VTE Plan Code Status Full code VTE Prophylaxis Plan VTE Prophylaxis will be ordered: No Reason for no VTE drug order: Drug interaction PG Care Time/CCT Total # of Minutes Spent Total Time Spent with Patient: Total time spent is greater than 50% in coordination of care (as documented) at patient's floor/unit and/or counseling patient: Coding Level of Care Code 47014 INT INP/OBS CARE 3/75MIN Diagnoses Cutaneous abscess of right knee L02.415 Generalized weakness R53.1 Decubitus ulcer of sacral region, unstageable L89.150 Anticoagulant long-term use Z79.01 Hemiparesis affecting left side as late effect of stroke I69.354 Graves disease E05.00 Permanent atrial fibrillation I48.21 Atrial fibrillation type: permanent Stage 3a chronic kidney disease N18.31 Chronic kidney disease stage 3 subtype: stage 3a (GFR 45-59) Secondary hyperparathyroidism N25.81 PAD (peripheral artery disease) I73.9 (7) Atrial fibrillation Atrial fibrillation type: permanent Qualified Code(s): I48.21 - Permanent atrial fibrillation (8) Chronic kidney disease, stage III (moderate) Chronic kidney disease stage 3 subtype: stage 3a (GFR 45-59) Qualified Code(s): N18.31 - Chronic kidney disease, stage 3a
--- NOTE | 2025-09-22 14:33 | Electrocardiogram Report ---
Test Reason : Blood Pressure : */* mmHG Vent. Rate : 58 BPM Atrial Rate : * BPM P-R Int : * ms QRS Dur : 130 ms QT Int : 412 ms P-R-T Axes : * 65 0 degrees QTcB Int : 404 ms Atrial fibrillation with slow ventricular response Right bundle branch block Abnormal ECG When compared with ECG of 27-Aug-2025 16:20, No significant change was found Confirmed by Tacos García ([id number]) on 09/22/2025 2:33:34 PM Referred By: Confirmed By: Tacos García
[2025-09-22] MEDS ORDERED: NON-FORMULARY MEDICATION (Albuterol Sulfate 1.25 mg/3 mL solution for nebulization) INH PRN (15:53)
[2025-09-22] MEDS ORDERED: ALBUTEROL HFA 8 GM INHALER INH PRN (15:53)
[2025-09-22] MEDS ORDERED: ALBUT/IPRATROP 3MG/0.5MG NEB 3 ML VIAL INH PRN (15:53)
[2025-09-22] MEDS: LACTATED RINGER'S 1,000 ML IV SCH (16:50)
--- NOTE | 2025-09-22 17:40 | Orthopedic Consultation ---
Date of Consultation September 22, 2025 Assessment & Plan (1) Knee swelling: Missy is an 80-year-old female with about 2-3 week history of right knee swelling, redness, pain, warmth in setting of total knee arthroplasty approximately 25 years ago, unsure of surgeon but daughter believes her revision was done in [place]. There is a concern for prosthetic knee joint infection. Discussed this with patient and daughter today. It does appear that the soft tissue swelling is communicating with the joint. The aspiration was attempted of the anterior medial pocket of fluid 4 cc of thick, cloudy, infected appearing fluid was able to be aspirated. Band-Aid was applied. This was sent off for testing including cell count with differential, and aerobic anaerobic culture, Gram stain, fungal/yeast culture and AFB culture. Patient was seen in conjunction with Dr. Youssef who also communicated with the medicine service. Continue antibiotics per their protocol and can tailor antibiotics once cultures result. Discussed with patient and her family that there is a possibility she will need to go down to [place] to have further surgical management. All of her questions and concerns were addressed. We will continue to follow testing results. Procedure: Verbal consent was obtained after discussing risks and benefits of the procedure. Anteromedial aspiration site over soft tissue fluid pocket was palpated and marked as the aspiration site. This area was cleansed with 3 Betadine swabs. Using an 18-gauge needle on a 20 cc syringe, approximately 4 cc of thick, cloudy, glass/white blood-tinged fluid was able to be aspirated. Band- Aid was applied. Cap was placed on the syringe and this was sent off for the above noted synovial fluid testing. Supervising Physician Co-Signing Physician Notes I, Dr. Youssef, saw and examined the patient with my PA and discussed the management with my PA. I reviewed my PAs note and agree with the documented findings and the plan of care I developed. My PA preformed the aspiration under my direct supervision. History of Present Illness Reason for Consultation: Right knee abscess/swelling Requesting Physician: Richar Youssef MD Attending Physician: Greg Adorno DO History of Present Illness Missy is an 80-year-old female who is here with her daughter. She had that knee replaced the daughter recalls approximately 1997 or . In 1999 she had to have a revision due to an infection. She had an antibiotic spacer and eventually got a new knee replacement and has done well since then. This was done at [facility] the daughter believes. For years now she has been nonambulatory and just does transfers. She was discharged from the hospital on 08/31 and the following weekend she began to have swelling, pain and redness in the knee that progressively got worse. Most of her pain is medially. She has difficulty moving the knee. Allergies Allergy/AdvReac Type Severity Reaction Status Date / Time clindamycin Allergy Intermediate HIVES Verified 08/27/25 17:57 piperacillin Allergy Intermediate HIVES Verified 08/27/25 17:57 vancomycin Allergy Unknown unknown Verified 08/27/25 17:57 Home Medications Medication Instructions Recorded Confirmed Type acetaminophen 325 mg tablet 650 mg PO Q6H PRN Pain 11/17/18 09/22/25 History (Tylenol) ferrous sulfate 325 mg (65 mg 325 mg PO 3XWK 02/28/21 09/22/25 History iron) tablet (iron) nystatin 100,000 unit/gram topical 1 applic topical BID PRN 09/05/24 09/22/25 Rx powder Candidiasis #60 grams apixaban 5 mg tablet (Eliquis) 5 mg PO BID #180 tabs 09/21/24 09/22/25 Rx cholecalciferol (vitamin D3) 25 2,000 unit PO DAILY 09/21/24 09/22/25 History mcg (1,000 unit) capsule (Vitamin D3) metoprolol tartrate 50 mg tablet 50 mg PO BID #180 tabs 10/27/24 09/22/25 Rx albuterol sulfate 90 mcg/actuation 2 puffs inhalation 6XD PRN 11/03/24 09/22/25 Rx aerosol inhaler shortness of breath or wheezing #6.7 grams atorvastatin 20 mg tablet 20 mg PO QAM #90 tabs 01/24/25 09/22/25 Rx ipratropium 0.5 mg-albuterol 3 mg 3 ml inhalation Q4H PRN wheezing 04/03/25 09/22/25 Rx (2.5 mg base)/3 mL nebulization #180 mL soln nebulizer accessories #1 ea 04/03/25 07/21/25 Rx nebulizer and compressor #1 ea 04/03/25 07/21/25 Rx Hospital Bed [facility] (Hospital #1 ea 05/30/25 07/21/25 Rx Bed) levothyroxine 125 mcg tablet 125 mcg PO DAILY #90 tabs 07/20/25 09/22/25 Rx sertraline 50 mg tablet 50 mg PO DAILY #90 tabs 07/20/25 09/22/25 Rx dapagliflozin propanediol 10 mg 10 mg PO DAILY #90 tabs 08/21/25 09/22/25 Rx tablet albuterol sulfate 1.25 mg/3 mL 1.25 mg inhalation QID PRN 08/27/25 09/22/25 History solution for nebulization Shortness Of Breath Or Wheezing tramadol 50 mg tablet 50 mg PO .Q4-6HR PRN pain 08/27/25 09/22/25 History aspirin 81 mg chewable tablet 81 mg PO DAILY #30 tabs 08/31/25 09/22/25 Rx sulfamethoxazole 800 1 tab PO BID #9 tabs 08/31/25 09/22/25 Rx mg-trimethoprim 160 mg tablet (Bactrim DS) Patient History Medical History H/O gastric ulcer Hematoma of left lower leg Stage III pressure ulcer of left heel COPD exacerbation Open wound of left great toe Cellulitis of left foot CVA (cerebral vascular accident) Acute anterior epistaxis Candidiasis of breast Cellulitis of leg Surgical History H/O colonoscopy S/P hammer toe correction S/P foot surgery, left S/P knee surgery Status post hip surgery Family History Father COPD (chronic obstructive pulmonary disease) Mother Brain cancer Sister Coronary heart disease Sister No problems noted. Brother No problems noted. 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 Upon examination of her right knee there appears to be the effusion anterior medial soft tissue swelling that appears to be communicating with the knee joint. Patient is exquisitely tender over this area. She also is tender over the medial and the lateral joint line. She has very limited range of motion of the knee and does have a flexion contracture. She is only able to flex her knee to about 45 degrees. She is able to freely wiggle all of her toes and dorsiflex and plantarflex against some light resistance. Results & Data Vital Signs (Past 12 Hours) Vital Signs Temp Pulse Pulse Resp BP BP Pulse Ox 09/22/25 17:09 74 09/22/25 16:38 09/22/25 15:54 36.7 C 75 18 148/82 H 93 09/22/25 15:28 71 23 121/76 96 09/22/25 15:19 75 19 103/65 96 09/22/25 11:30 66 09/22/25 10:42 22 09/22/25 10:42 09/22/25 10:29 36.7 C 78 22 116/63 94 O2 Del Method 09/22/25 17:09 09/22/25 16:38 Room Air 09/22/25 15:54 Room Air 09/22/25 15:28 Room Air 09/22/25 15:19 09/22/25 11:30 09/22/25 10:42 09/22/25 10:42 Room Air 09/22/25 10:29 Room Air Laboratory Results 09/22/25 09/22/25 09/22/25 Range/Units 16:50 13:00 10:35 WBC (4.8-10.8) K/ul RBC (4.20-5.40) M/uL Hgb (12.0-16.0) g/dl Hct (37.0-47.0) % MCV (80.0-100.0) fL MCH (25.0-34.0) pg MCHC (32.0-36.0) g/dL RDW Std Deviation (36.4-46.3) fL RDW Coeff of [place] (11.5-14.5) % Plt Count (130-400) K/uL MPV (9.4-12.4) fL Immature Gran % (Auto) % Neut % (Auto) % Lymph % (Auto) % [place] % (Auto) % Eos % (Auto) % Baso % (Auto) % Neut # (Auto) (1.40-6.50) K/uL Lymph # (Auto) (1.20-3.40) K/uL [place] # (Auto) (0.11-0.59) K/uL Eos # (Auto) (0.00-0.50) K/uL Baso # (Auto) (0.00-0.20) K/uL Immature Gran # (Auto) (0.01-0.20) K/uL ESR (0-30) mm/hr Sodium (136-145) mmol/L Potassium (3.5-5.1) mmol/L Chloride (98-107) mmol/L Carbon Dioxide (21-32) mmol/L Anion Gap (3-11) BUN (6-23) mg/dl Creatinine (0.6-1.2) mg/dl Est Cr Clr Drug Dosing ml/min eGFR BUN/Creatinine Ratio (10-20) Glucose (70-99(Fasting)) mg/dl Lactate 1.8 2.3 H* (0.4-2.0) mmol/L Calcium (8.6-10.3) mg/dl Magnesium (1.7-2.4) mg/dl Total Bilirubin (0.2-1.0) mg/dl Direct Bilirubin (0-0.2) mg/dl AST (13-39) U/L ALT (7-52) U/L Alkaline Phosphatase (34-104) U/L Troponin I High Sens (0-14) pg/ml C-Reactive Protein (0-0.5) mg/dl Total Protein (6.0-8.3) gm/dl Albumin (3.4-5.0) gm/dl Procalcitonin (0-0.5) ng/ml Nasal Screen MRSA (PCR) Pending 09/22/25 Range/Units 10:25 WBC 10.78 (4.8-10.8) K/ul RBC 3.90 L (4.20-5.40) M/uL Hgb 11.3 L (12.0-16.0) g/dl Hct 36.2 L (37.0-47.0) % MCV 92.8 (80.0-100.0) fL MCH 29.0 (25.0-34.0) pg MCHC 31.2 L (32.0-36.0) g/dL RDW Std Deviation 46.2 (36.4-46.3) fL RDW Coeff of [place]oz[place] 13.6 (11.5-14.5) % Plt Count 239 (130-400) K/uL MPV 10.2 (9.4-12.4) fL Immature Gran % (Auto) 0.8 % Neut % (Auto) 81.6 % Lymph % (Auto) 9.6 % [place] % (Auto) 6.5 % Eos % (Auto) 1.3 % Baso % (Auto) 0.2 % Neut # (Auto) 8.79 H (1.40-6.50) K/uL Lymph # (Auto) 1.04 L (1.20-3.40) K/uL [place] # (Auto) 0.70 H (0.11-0.59) K/uL Eos # (Auto) 0.14 (0.00-0.50) K/uL Baso # (Auto) 0.02 (0.00-0.20) K/uL Immature Gran # (Auto) 0.09 (0.01-0.20) K/uL ESR 113 H (0-30) mm/hr Sodium 139 (136-145) mmol/L Potassium 4.4 (3.5-5.1) mmol/L Chloride 101 (98-107) mmol/L Carbon Dioxide 32 (21-32) mmol/L Anion Gap 6 (3-11) BUN 33 H (6-23) mg/dl Creatinine 0.83 (0.6-1.2) mg/dl Est Cr Clr Drug Dosing 56.6 ml/min eGFR 71.22 BUN/Creatinine Ratio 39.8 H (10-20) Glucose 139 H (70-99(Fasting)) mg/dl Lactate (0.4-2.0) mmol/L Calcium 9.3 (8.6-10.3) mg/dl Magnesium 2.1 (1.7-2.4) mg/dl Total Bilirubin 0.4 (0.2-1.0) mg/dl Direct Bilirubin 0.1 (0-0.2) mg/dl AST 38 (13-39) U/L ALT 26 (7-52) U/L Alkaline Phosphatase 106 H (34-104) U/L Troponin I High Sens 10.2 (0-14) pg/ml C-Reactive Protein 13.70 H (0-0.5) mg/dl Total Protein 7.2 (6.0-8.3) gm/dl Albumin 2.5 L (3.4-5.0) gm/dl Procalcitonin 0.05 (0-0.5) ng/ml Nasal Screen MRSA (PCR) Diagnostic Findings Knee X-Ray 09/22/25 10:36 XR knee RT 3V CLINICAL HISTORY: swelling COMPARISON: None FINDINGS: Right knee prosthesis shows no hardware complication. There is chronic irregularity at the distal femur. No acute fracture or dislocation seen. No evidence of osteomyelitis seen. There are atherosclerotic calcifications. IMPRESSION: No acute osseous finding seen. ACT 112: Negative or not required by law. Electronically signed by: Jorge Roberts M.D. 09/22/2025 10:58 AM
[2025-09-22] MEDS: METOPROLOL TARTRATE 50 MG TAB PO SCH (20:30)
[2025-09-22 22:54] LABS: Color Synovial Fluid Red; RBC Synovial Fluid Manual 34375 /uL; Source Synovial Fluid Right Knee
[2025-09-23] MEDS: LEVOTHYROXINE SODIUM 125 MCG TABLET PO SCH (06:16)
[2025-09-23 07:28] LABS: Hematocrit (blood only) 34.2 % (37.0-47.0); Hemoglobin 10.6 g/dl (12.0-16.0); Immature Granulocytes # (auto) 0.11 K/uL (0.01-0.20); Immature Granulocytes % (auto) 1.1 %; Mean Corpuscular Hemoglobin 28.6 pg (25.0-34.0); Mean Corpuscular Volume 92.4 fL (80.0-100.0); Platelet Count 205 K/uL (130-400); RDW Standard Deviation 46.5 fL (36.4-46.3); Red Blood Count 3.70 M/uL (4.20-5.40); White Blood Count 10.27 K/ul (4.8-10.8)
[2025-09-23 08:14] LABS: Appearance Urine Clear (Clear); Bacteria Urine Automated None Seen (None Seen); Epithelial Cell Urine Auto 0-2 /hpf (0-2); Glucose Urine UA 3+ (Negative); RBC Urine Automated 0-2 /hpf (0-2)
[2025-09-23 08:22] LABS: Alanine Aminotransferase 20.0 U/L (7-52); Albumin Globulin Ratio 0.5 (0.9-2); Albumin Level 2.2 gm/dl (3.4-5.0); Alkaline Phosphatase 91.0 U/L (34-104); Anion Gap 4.0 (3-11); Bilirubin,Total 0.5 mg/dl (0.2-1.0); Blood Urea Nitrogen 25.0 mg/dl (6-23); Calcium 8.9 mg/dl (8.6-10.3); Carbon Dioxide 32.0 mmol/L (21-32); Chloride 102.0 mmol/L (98-107); Creatinine Clr Calc Pharmacy 61.5 ml/min; Globulin 4.1 gm/dl (2.5-4.0); Glucose 76.0 mg/dl (70-99(Fasting)); Magnesium 1.9 mg/dl (1.7-2.4); Potassium 4.2 mmol/L (3.5-5.1); Sodium 138.0 mmol/L (136-145); Total Protein 6.3 gm/dl (6.0-8.3)
[2025-09-23 08:33] LABS: Mononuclear WBC Synovial 14.8 %; Polynuclear WBC Synovial 85.2 %
[2025-09-23] MEDS ORDERED: LEVOTHYROXINE SODIUM 125 MCG TABLET PO SCH (09:00)
[2025-09-23] MEDS ORDERED: ATORVASTATIN 20 MG TAB PO SCH (09:00)
[2025-09-23] MEDS: SERTRALINE HCL 50 MG TABLET PO SCH (09:27)
[2025-09-23] MEDS: ENOXAPARIN INJ 40 MG/0.4 ML SYR SQ SCH (09:27)
--- NOTE | 2025-09-23 09:36 | Orthopedic Progress Note ---
Date of Service September 23, 2025 Assessment & Plan (1) Knee swelling: Plan: IMPRESSION: R TKA Infection, with gram + cocci PLAN: Treatment options of Abx suppression vs surgical intervention with likely I&D, removal hardware and Abx spacer (which would need to be done at a higher level of care, [place]) Continue broad spectrum antibiotics and can tailor antibiotics once cultures result. Possible transfer to [place] to have further surgical management, this could be done as an outpatient if medically stable. Will continue to follow. Activities as tolerated. Continue care per Hospitalist service Admission and Anticipated Discharge Date Admission Date: September 22, 2025 Physical Exam Physical Exam: RLE: Neurovascularly unchanged. Skin is warm. + Erythema. Diffuse tenderness to palpation about the knee. + swelling anteromedial. Limited ROM 15-30 deg. Results & Data Vital Signs (Past 12 Hours) Vital Signs Temp Pulse Pulse Pulse Resp BP Pulse Ox 09/23/25 07:44 36.8 C 69 18 126/68 93 09/23/25 07:21 65 09/23/25 03:30 36.6 C 66 18 121/62 92 09/22/25 23:08 36.7 C 66 18 118/78 92 09/22/25 22:54 09/22/25 21:53 62 O2 Del Method 09/23/25 07:44 Room Air 09/23/25 07:21 09/23/25 03:30 Room Air 09/22/25 23:08 Room Air 09/22/25 22:54 Room Air 09/22/25 21:53 Laboratory Results Laboratory Results WBC 10.27 K/ul (4.8-10.8) 09/23/25 06:55 RBC 3.70 M/uL (4.20-5.40) L 09/23/25 06:55 Hgb 10.6 g/dl (12.0-16.0) L 09/23/25 06:55 Hct 34.2 % (37.0-47.0) L 09/23/25 06:55 MCV 92.4 fL (80.0-100.0) 09/23/25 06:55 MCH 28.6 pg (25.0-34.0) 09/23/25 06:55 MCHC 31.0 g/dL (32.0-36.0) L 09/23/25 06:55 RDW Std Deviation 46.5 fL (36.4-46.3) H 09/23/25 06:55 RDW Coeff of Fozia 13.6 % (11.5-14.5) 09/23/25 06:55 Plt Count 205 K/uL (130-400) 09/23/25 06:55 MPV 10.2 fL (9.4-12.4) 09/23/25 06:55 Immature Gran % (Auto) 1.1 % 09/23/25 06:55 Neut % (Auto) 80.2 % 09/23/25 06:55 Lymph % (Auto) 11.0 % 09/23/25 06:55 [place] % (Auto) 5.8 % 09/23/25 06:55 Eos % (Auto) 1.7 % 09/23/25 06:55 Baso % (Auto) 0.2 % 09/23/25 06:55 Neut # (Auto) 8.24 K/uL (1.40-6.50) H 09/23/25 06:55 Lymph # (Auto) 1.13 K/uL (1.20-3.40) L 09/23/25 06:55 [place] # (Auto) 0.60 K/uL (0.11-0.59) H 09/23/25 06:55 Eos # (Auto) 0.17 K/uL (0.00-0.50) 09/23/25 06:55 Baso # (Auto) 0.02 K/uL (0.00-0.20) 09/23/25 06:55 Immature Gran # (Auto) 0.11 K/uL (0.01-0.20) 09/23/25 06:55 ESR 113 mm/hr (0-30) H 09/22/25 10:25 Sodium 138 mmol/L (136-145) 09/23/25 06:55 Potassium 4.2 mmol/L (3.5-5.1) 09/23/25 06:55 Chloride 102 mmol/L (98-107) 09/23/25 06:55 Carbon Dioxide 32 mmol/L (21-32) 09/23/25 06:55 Anion Gap 4 (3-11) 09/23/25 06:55 BUN 25 mg/dl (6-23) H 09/23/25 06:55 Creatinine 0.72 mg/dl (0.6-1.2) 09/23/25 06:55 Est Cr Clr Drug Dosing 61.5 ml/min 09/23/25 06:55 eGFR 84.47 09/23/25 06:55 BUN/Creatinine Ratio 34.7 (10-20) H 09/23/25 06:55 Glucose 76 mg/dl (70-99(Fasting)) 09/23/25 06:55 Lactate 1.8 mmol/L (0.4-2.0) 09/22/25 13:00 Calcium 8.9 mg/dl (8.6-10.3) 09/23/25 06:55 Magnesium 1.9 mg/dl (1.7-2.4) 09/23/25 06:55 Total Bilirubin 0.5 mg/dl (0.2-1.0) 09/23/25 06:55 Direct Bilirubin 0.1 mg/dl (0-0.2) 09/22/25 10:25 AST 28 U/L (13-39) 09/23/25 06:55 ALT 20 U/L (7-52) 09/23/25 06:55 Alkaline Phosphatase 91 U/L (34-104) 09/23/25 06:55 Troponin I High Sens 10.2 pg/ml (0-14) 09/22/25 10:25 C-Reactive Protein 13.70 mg/dl (0-0.5) H 09/22/25 10:25 Total Protein 6.3 gm/dl (6.0-8.3) 09/23/25 06:55 Albumin 2.2 gm/dl (3.4-5.0) L 09/23/25 06:55 Globulin 4.1 gm/dl (2.5-4.0) H 09/23/25 06:55 Albumin/Globulin Ratio 0.5 (0.9-2) L 09/23/25 06:55 Procalcitonin 0.05 ng/ml (0-0.5) 09/22/25 10:25 Urine Color Yellow 09/23/25 07:25 Urine Appearance Clear (Clear) 09/23/25 07:25 Urine pH 8.0 (4.5-7.5) H 09/23/25 07:25 Ur Specific [place] 1.026 (1.000-1.030) 09/23/25 07:25 Urine Protein Trace (Negative) H 09/23/25 07:25 Urine Glucose (UA) 3+ (Negative) H 09/23/25 07:25 Urine Ketones Negative (Negative) 09/23/25 07:25 Urine Blood Negative (Negative) 09/23/25 07:25 Urine Nitrite Negative (Negative) 09/23/25 07:25 Urine Bilirubin Negative (Negative) 09/23/25 07:25 Urine Urobilinogen Negative (Negative) 09/23/25 07:25 Ur Leukocyte Esterase Trace (Negative) H 09/23/25 07:25 Urine WBC (Auto) 11-20 /hpf (0-5) H 09/23/25 07:25 Urine RBC (Auto) 0-2 /hpf (0-2) 09/23/25 07:25 U Hyaline Cast (Auto) 3-5 /lpf (0-2) H 09/23/25 07:25 U Epithel Cells (Auto) 0-2 /hpf (0-2) 09/23/25 07:25 Urine Bacteria (Auto) None Seen (None Seen) 09/23/25 07:25 Urine Comment 09/23/25 07:25 Fluid Comment 09/22/25 Unknown Synovial Source Right Knee 09/22/25 Unknown Synovial Color Red 09/22/25 Unknown Synovial Appearance Turbid 09/22/25 Unknown Synovial WBC (Auto) CURRICULUM AND ASSESSMENT COORDINATOR 09/22/25 Unknown Synovial WBC 36392 /uL (0-200) H 09/22/25 Unknown Synovial RBC 46475 /uL 09/22/25 Unknown Synovial Polynuclear % 85.2 % 09/22/25 Unknown Synovial Mononuclear % 14.8 % 09/22/25 Unknown Nasal Screen MRSA (PCR) Negative (Negative) 09/22/25 16:50 Source: Knee,Right OV Order: Ordered: Aer/Lydia Cult/Sm Procedure Result Verified Site Gram Stain Final 09/22/25-2056 Gram Stain Result Many WBCs Seen Moderate Gram Positive Cocci Critical result called to Jo-Ann Brenner On 09/22/25 at 2055 by Jaquan Dong and results were verbalized back. Aero/Lydia Cult PENDING Source: Knee,Right OV Order: Ordered: Marycarmen-Oth Cul/Sm Procedure Result Verified Site Fungal Direct Prep Other Final 09/22/25-2117 Fungal Direct Prep No Yeast or Hyphae Seen Fungal Culture Other Cult PENDING Impressions Chest X-Ray 09/22/25 10:32 XR chest 1V portable CLINICAL HISTORY: Sepsis COMPARISON STUDY: 08/27/2025 FINDINGS: Stable cardiomegaly without pulmonary vascular congestion. Inspiration is shallow. No consolidation or pleural effusion. No pneumothorax. IMPRESSION: No acute findings. ACT 112: Negative or not required by law. Electronically signed by: Jorge Roberts M.D. 09/22/2025 10:56 AM Knee X-Ray 09/22/25 10:36 XR knee RT 3V CLINICAL HISTORY: swelling COMPARISON: None FINDINGS: Right knee prosthesis shows no hardware complication. There is chronic irregularity at the distal femur. No acute fracture or dislocation seen. No evidence of osteomyelitis seen. There are atherosclerotic calcifications. IMPRESSION: No acute osseous finding seen. ACT 112: Negative or not required by law. Electronically signed by: Jorge Roberts M.D. 09/22/2025 10:58 AM
--- NOTE | 2025-09-23 10:40 | Hospitalist Progress Note ---
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 She had a knee replacement surgery before. Her medical history includes atrial fibrillation, stroke, peripheral arterial disease, chronic kidney disease stage 3, anemia, depression, and low albumin levels. # Septic arthritis of the right knee, this is a prosthetic joint infection. Aspirate of fluid collection just inferior and medial to the left knee right knee is purulent and gram-positive cocci on Gram stain. This fluid communicates with the right knee joint thus septic arthritis. Elevated CRP and ESR. Treatment plan: Continue daptomycin and ceftriaxone pending culture results. Follow up on blood cultures. Discussed with Dr. Youssef - continue antibiotics for now if she fails to respond would require transfer to [place] for surgical intervention, she is nonambulatory at baseline. if treated with antibiotics alone will require chronic lifetime suppression with p.o. antibiotics. Plan to consult infectious diseases Thursday # Suspected sacral decubitus ulcer Unstaged. Consulted wound ostomy nurse. Treatment plan: Continue pressure offloading, frequent turns, and moisture avoidance. # Atrial fibrillation Rate controlled with metoprolol. Treatment plan: Apixaban held for potential procedures. # Stroke with residual left-sided hemiparesis History of stroke and peripheral arterial disease with residual left-sided hemiparesis. Wheelchair-bound at baseline. # CKD stage 3 Farxiga held. Treatment plan: Monitor BMP for renal function and avoid nephrotoxins. # Anemia H & H slightly worse. Treatment plan: On ferrous sulfate three times a week. # Depression Treatment plan: Continue sertraline. # Hypoalbuminemia Potential malnutrition. Treatment plan: Consult dietitian, especially considering possible sacral wound. # DVT Prophylaxis: Start enoxaparin while apixaban is held Medical Complexity: Medical decision making was complex, high risk for clinical deterioration morbidity, or mortality for this encounter. Admission and Anticipated Discharge Date Admission Date: September 22, 2025 Subjective She continues to have severe pain in her right knee. Aspiration of an area of soft tissue swelling done on 09/22/2025 showed that the fluid in her knee was red and cloudy, with a high number of white blood cells and red blood cells. Tests showed many white blood cells and moderate gram-positive bacteria. Other tests are still pending. Previous tests from 08/28/2025 showed methicillin- sensitive Staphylococcus aureus. She tested negative for nasal MRSA. Orthopedics consulted Dr. Youssef. There is a suspected pressure sore on her lower back, which hasn't been staged yet. A wound care nurse was consulted. She doesn't have chest pain, shortness of breath, abdominal pain, nausea, or vomiting. She was advised to keep pressure off the sore, turn frequently, and avoid moisture. Her atrial fibrillation is controlled with metoprolol, and apixaban is held for potential procedures. She has a history of stroke and peripheral arterial disease, which has left her with weakness on her left side. She uses a wheelchair and is nonambulatory, sounds like transfers with a lift. A vascular surgery consult in February 2025 suggested that revascularization wouldn't be very beneficial due to her other health issues. She has chronic kidney disease stage 3, Farxiga is held, and her kidney function is monitored. Nephrotoxins are avoided. She has anemia, and her hemoglobin and hematocrit levels are slightly worse than before. She is taking ferrous sulfate three times a week. She has depression and is advised to continue taking sertraline. She has low albumin levels and potential malnutrition. A dietitian consult is recommended, especially considering the possible pressure sore. Physical Exam Physical Exam: General Appearance: awake alert lying in bed no distress Vital signs: Reviewed past 24h vital signs in EMR, unremarkable. HEENT: Within normal limits. Respiratory: Lungs clear bilaterally. Cardiovascular: Regular rhythm, no murmurs, rubs, or gallops. Gastrointestinal: Soft, nontender, nondistended. Back, Musculoskeletal: Left hemiparesis, some motion at left elbow, contracture in left hand. Range of motion and strength at left shoulder. Minimal lift of left lower extremity, heel not cleared from bed. Contracture at left knee. right knee is swollen Warm and erythematous especially medially just inferior to the patella this area is fluctuant this is the area that was aspirated yesterday. there is some patchy erythema tracking down her anterior jenkins to mid jenkins. Extremities: Lower extremities warm, well perfused, no edema. Skin: Significant erythema across right knee joint line, particularly over bulging area of soft tissue at inferior medial knee. Erythema extends group home down anterior jenkins. Neurological: Awake and alert. vague historian, forgetful, left hemiparesis Psychiatric: Normal. Results & Data Results & Data Vital Signs (Past 12 Hours) Vital Signs Temp Pulse Pulse Pulse Resp BP Pulse Ox 09/23/25 07:44 36.8 C 69 18 126/68 93 09/23/25 07:21 65 09/23/25 03:30 36.6 C 66 18 121/62 92 09/22/25 23:08 36.7 C 66 18 118/78 92 09/22/25 22:54 O2 Del Method 09/23/25 07:44 Room Air 09/23/25 07:21 09/23/25 03:30 Room Air 09/22/25 23:08 Room Air 09/22/25 22:54 Room Air Laboratory Results - Labs: - WBC: 10 - Hemoglobin: 10.6 - ESR: 113 - Electrolytes: Normal - BUN: 25 - Creatinine: 0.72 - LFTs: Normal - Lactate: Normal - CRP: 13.7 - Albumin: 2.2 - Procalcitonin: 0.05 - Aspiration from left knee abscess/fluid (09/22/2025): - Fluid: red and turbid - WBC: 37,000 - RBC: 34,000 - Microbiology: many WBCs, moderate gram-positive cocci - Cultures: pending - Fungal smear: negative for yeast/hyphae - AFB smear: pending - Blood cultures (09/22/2025): pending - Previous cultures (08/28/2025): methicillin-sensitive Staphylococcus aureus - Nasal MRSA: Negative PG Care Time/CCT Total # of Minutes Spent Total Time Spent with Patient: Total time spent is greater than 50% in coordination of care (as documented) at patient's floor/unit and/or counseling patient: Coding Level of Care Code 72616 SUB INP/OBS CARE 3/50MIN Diagnoses Cutaneous abscess of right knee L02.415 Generalized weakness R53.1 Decubitus ulcer of sacral region, unstageable L89.150 Anticoagulant long-term use Z79.01 Hemiparesis affecting left side as late effect of stroke I69.354 Graves disease E05.00 Permanent atrial fibrillation I48.91 Atrial fibrillation type: unspecified Stage 3a chronic kidney disease N18.31 Chronic kidney disease stage 3 subtype: stage 3a (GFR 45-59) Secondary hyperparathyroidism N25.81 PAD (peripheral artery disease) I73.9 (7) Atrial fibrillation Atrial fibrillation type: unspecified Qualified Code(s): I48.91 - Unspecified atrial fibrillation (8) Chronic kidney disease, stage III (moderate) Chronic kidney disease stage 3 subtype: stage 3a (GFR 45-59) Qualified Code(s): N18.31 - Chronic kidney disease, stage 3a
[2025-09-23] MEDS: cefTRIAXone SODIUM 2,000 MG/50 ML BAG IV SCH (11:50)
[2025-09-23] MEDS: DAPTOmycin 500 MG in SYRINGE 0 ML IV SCH (11:50)
[2025-09-24 06:10] LABS: Hematocrit (blood only) 34.3 % (37.0-47.0); Hemoglobin 11.4 g/dl (12.0-16.0); Immature Granulocytes # (auto) 0.19 K/uL (0.01-0.20); Immature Granulocytes % (auto) 1.3 %; Mean Corpuscular Hemoglobin 30.1 pg (25.0-34.0); Mean Corpuscular Volume 90.5 fL (80.0-100.0); Platelet Count 230 K/uL (130-400); RDW Standard Deviation 44.9 fL (36.4-46.3); Red Blood Count 3.79 M/uL (4.20-5.40); White Blood Count 14.25 K/ul (4.8-10.8)
[2025-09-24 06:30] LABS: Alanine Aminotransferase 18.0 U/L (7-52); Albumin Globulin Ratio 0.5 (0.9-2); Albumin Level 2.4 gm/dl (3.4-5.0); Alkaline Phosphatase 96.0 U/L (34-104); Anion Gap 6.0 (3-11); Bilirubin,Total 0.6 mg/dl (0.2-1.0); Blood Urea Nitrogen 26.0 mg/dl (6-23); Calcium 9.2 mg/dl (8.6-10.3); Carbon Dioxide 28.0 mmol/L (21-32); Chloride 100.0 mmol/L (98-107); Creatinine Clr Calc Pharmacy 57.5 ml/min; Globulin 4.4 gm/dl (2.5-4.0); Glucose 97.0 mg/dl (70-99(Fasting)); Magnesium 1.8 mg/dl (1.7-2.4); Potassium 4.3 mmol/L (3.5-5.1); Sodium 134.0 mmol/L (136-145); Total Protein 6.8 gm/dl (6.0-8.3)
--- NOTE | 2025-09-24 12:42 | Orthopedic Progress Note ---
Date of Service September 24, 2025 Assessment & Plan (1) Knee swelling: Plan: IMPRESSION: R TKA Infection, with S aureus PLAN: Treatment options of Abx suppression vs surgical intervention with likely I&D, removal hardware and Abx spacer (which would need to be done at a higher level of care, [place]) Continue broad spectrum antibiotics await ID input. Possible transfer to [place] to have further surgical management, this could be done as an outpatient if medically stable. Will continue to follow. Activities as tolerated. Continue care per Hospitalist service Admission and Anticipated Discharge Date Admission Date: September 22, 2025 Subjective R knee pain Physical Exam Physical Exam: RLE: Neurovascularly unchanged. Skin is warm. + Erythema. Diffuse tenderness to palpation about the knee. + swelling anteromedial. Limited ROM 15-30 deg. Results & Data Vital Signs (Past 12 Hours) Vital Signs Temp Pulse Pulse Resp BP Pulse Ox O2 Del Method 09/24/25 08:02 Room Air 09/24/25 07:58 36.9 C 88 18 111/67 94 Room Air 09/24/25 05:45 79 09/24/25 03:39 36.6 C 75 18 107/71 93 Room Air Laboratory Results Gram Stain Final 09/22/25-2056 Gram Stain Result Many WBCs Seen Moderate Gram Positive Cocci Critical result called to Jo-Ann Brenner On 09/22/25 at 2055 by Jaquan Dong and results were verbalized back. Aero/Lydia Cult Preliminary 09/24/25-1040 Organism 1 Staphylococcus aureus Quantity Moderate Sens Sensitivities to Follow Organism 2 Staphylococcus aureus#2 Quantity Few Sens Sensitivities to Follow S aureus RX M.I.C. --- --------- Clindamycin S <=0.25 Daptomycin S <=0.5 Erythromycin R >4 Linezolid S 2 Oxacillin S 0.5 Tetracycline I 8 Trimeth/Sulfa S <=0.5/9.5 Vancomycin S 1 S = SENSITIVE I = INTERMEDIATE R = RESISTANT
--- NOTE | 2025-09-24 17:23 | Hospitalist Progress Note ---
Date of Service September 24, 2025 Assessment & Plan (1) Infected prosthetic knee joint: (2) Cellulitis of right leg: (3) Hemiparesis affecting left side as late effect of stroke: (4) Atrial fibrillation: (5) Chronic kidney disease, stage III (moderate): Plan The patient is an 80-year-old woman who has MSSA right knee prosthetic joint infection. the right TKA was remote, 20 years ago. Her medical history includes atrial fibrillation, stroke, peripheral arterial disease, chronic kidney disease stage 3, anemia, depression, and low albumin levels. # MSSA Septic arthritis of the right knee, this is a prosthetic joint infection. Aspirate of fluid collection just inferior and medial to the left patella is purulent and grew MSSA. This fluid communicates with the right knee joint thus septic arthritis. Elevated CRP and ESR. Treatment plan: stop daptomycin and ceftriaxone and changed to cefazolin 2 g IV every 8 hours. Follow up on blood cultures. Discussed with Dr. Youssef - continue antibiotics for now if she fails to respond would require transfer to [place] for surgical intervention, she is nonambulatory at baseline. if treated with antibiotics alone will require chronic lifetime suppression with p.o. antibiotics. Plan to consult infectious diseases Thursday # Suspected sacral decubitus ulcer Unstaged. Consulted wound ostomy nurse. Treatment plan: Continue pressure offloading, frequent turns, and moisture avoidance. # Atrial fibrillation Rate controlled with metoprolol. Treatment plan: Apixaban held for potential procedures. # Stroke with residual left-sided hemiparesis History of stroke and peripheral arterial disease with residual left-sided hemiparesis. Wheelchair-bound at baseline, has not walked in years according to her daughter. # CKD stage 3 Farxiga held. Treatment plan: Monitor BMP for renal function and avoid nephrotoxins. # Anemia stable Treatment plan: On ferrous sulfate three times a week. # Depression Treatment plan: Continue sertraline. # Hypoalbuminemia Potential malnutrition. Treatment plan: Consult dietitian, especially considering possible sacral wound. # DVT Prophylaxis: enoxaparin at prophylaxis dose while apixaban is held I updated her daughter Brandi by phone 09/24 Admission and Anticipated Discharge Date Admission Date: September 22, 2025 Subjective RLE and R knee still painful, unchanged No chest pain or dyspnea No abdominal pain or N/V States she's eating ok Afebrile overnight Physical Exam Physical Exam: General Appearance: awake alert lying in bed no distress Vital signs: Reviewed past 24h vital signs in EMR, unremarkable. HEENT: Within normal limits. Respiratory: Lungs clear bilaterally. Cardiovascular: Regular rhythm, no murmurs, rubs, or gallops. Gastrointestinal: Soft, nontender, nondistended. Back, Musculoskeletal: Left hemiparesis and left sided contractures darrius L hand unchanged there is erythema of the lower anterior thigh crossing the anterior knee and patchy down onto anterior medial jenkins. This is much less acutely inflamed appearing and has darkened the only indurated area is the ballotable fluid collection left anterior medial knee, erythema over this part has also darkened. overall the erythema appears larger in territory compared to yesterday but is much less inflamed appearing so on the balance an improvement Neurological: Awake and alert. vague historian, forgetful, not fully oriented to situation. left hemiparesis Psychiatric: Normal. Results & Data Results & Data Vital Signs (Past 12 Hours) Vital Signs Temp Pulse Pulse Resp BP Pulse Ox O2 Del Method 09/24/25 16:37 37.0 C 90 18 129/76 92 Room Air 09/24/25 13:16 84 09/24/25 08:02 Room Air 09/24/25 07:58 36.9 C 88 18 111/67 94 Room Air 09/24/25 05:45 79 Laboratory Results White blood count is 14 hemoglobin 11.4 which is stable sodium 134 BUN 26 cre atinine 0.77 magnesium 1.8 culture from aspiration of the knee fluid collection is growing methicillin sensitive Staph aureus PG Care Time/CCT Total # of Minutes Spent Total Time Spent with Patient: Total time spent is greater than 50% in coordination of care (as documented) at patient's floor/unit and/or counseling patient: Coding Level of Care Code 38943 SUB INP/OBS CARE 235MIN Diagnoses Infected prosthetic knee joint T84.59XA; Z96.659 Cellulitis of right leg L03.115 Hemiparesis affecting left side as late effect of stroke I69.354 Permanent atrial fibrillation I48.91 Atrial fibrillation type: unspecified Stage 3a chronic kidney disease N18.31 Chronic kidney disease stage 3 subtype: stage 3a (GFR 45-59) (4) Atrial fibrillation Atrial fibrillation type: unspecified Qualified Code(s): I48.91 - Unspecified atrial fibrillation (5) Chronic kidney disease, stage III (moderate) Chronic kidney disease stage 3 subtype: stage 3a (GFR 45-59) Qualified Code(s): N18.31 - Chronic kidney disease, stage 3a
[2025-09-25 07:44] LABS: Hematocrit (blood only) 31.0 % (37.0-47.0); Hemoglobin 10.2 g/dl (12.0-16.0); Immature Granulocytes # (auto) 0.13 K/uL (0.01-0.20); Immature Granulocytes % (auto) 1.3 %; Mean Corpuscular Hemoglobin 29.8 pg (25.0-34.0); Mean Corpuscular Volume 90.6 fL (80.0-100.0); Platelet Count 189 K/uL (130-400); RDW Standard Deviation 45.1 fL (36.4-46.3); Red Blood Count 3.42 M/uL (4.20-5.40); White Blood Count 10.31 K/ul (4.8-10.8)
[2025-09-25] MEDS: FERROUS SULFATE 325 MG TAB PO SCH (08:12)
[2025-09-25 08:48] LABS: Albumin Level 2.1 gm/dl (3.4-5.0); Anion Gap 7.0 (3-11); Bilirubin,Total 0.4 mg/dl (0.2-1.0); Calcium 8.9 mg/dl (8.6-10.3); Carbon Dioxide 27.0 mmol/L (21-32); Chloride 100.0 mmol/L (98-107); Magnesium 1.8 mg/dl (1.7-2.4); Potassium 3.7 mmol/L (3.5-5.1); Sodium 134.0 mmol/L (136-145)
--- NOTE | 2025-09-25 08:53 | Orthopedic Progress Note ---
Date of Service September 25, 2025 Assessment & Plan (1) Knee swelling: Plan: IMPRESSION: R TKA Infection, with S aureus PLAN: Treatment options of Abx suppression vs surgical intervention with likely I&D, removal hardware and Abx spacer (which would need to be done at a higher level of care, [place]) Continue broad spectrum antibiotics await ID input, ID consulted by medicine team White count has trended down Would recommend follow up in [place] for further surgical management, this could be done as an outpatient if medically stable; otherwise would need to be transferred. Will continue to follow while in hospital Activities as tolerated, patient is non-ambulatory at baseline Continue care per Hospitalist service Discussed with Dr Youssef Admission and Anticipated Discharge Date Admission Date: September 22, 2025 Supervising Physician Co-Signing Physician Notes I, Dr. Youssef, saw and examined the patient and discussed the management with my PA. I reviewed my PAs note and agree with the documented findings and the plan of care I developed. Subjective Pt seen and examined bedside. She is sitting up comfortably eating her breakfast. She says her pain is a little better. Physical Exam Physical Exam: Patient is sitting comfortably in her bed. Upon examination of her right knee there appears to be small improvement but still erythematous with swelling/fluid collection over medial aspect of her knee, likely communicating with her joint. Patient is tender over this area. She also is tender over the medial > lateral joint line. She has very limited range of motion of the knee and does have a flexion contracture. She is only able to flex her knee to about 45 degrees. She is able to freely wiggle all of her toes and dorsiflex and plantarflex against some light resistance. Results & Data Vital Signs (Past 12 Hours) Vital Signs Temp Pulse Pulse Resp BP BP Pulse Ox 09/25/25 07:53 36.6 C 75 18 96/61 L 91 09/25/25 05:47 72 09/25/25 04:00 36.8 C 74 18 105/64 92 09/24/25 23: 36.8 C 71 18 106/69 95 09/24/25 21:52 76 O2 Del Method 09/25/25 07:53 Room Air 09/25/25 05:47 09/25/25 04:00 Room Air 09/24/25 23:25 Room Air 09/24/25 21:52 Laboratory Results 09/25/25 Range/Units 07:08 WBC 10.31 (4.8-10.8) K/ul RBC 3.42 L (4.20-5.40) M/uL Hgb 10.2 L (12.0-16.0) g/dl Hct 31.0 L (37.0-47.0) % MCV 90.6 (80.0-100.0) fL MCH 29.8 (25.0-34.0) pg MCHC 32.9 (32.0-36.0) g/dL RDW Std Deviation 45.1 (36.4-46.3) fL RDW Coeff of Fozia 13.7 (11.5-14.5) % Plt Count 189 (130-400) K/uL MPV 10.6 (9.4-12.4) fL Immature Gran % (Auto) 1.3 % Neut % (Auto) 78.8 % Lymph % (Auto) 11.1 % Wallace % (Auto) 6.4 % Eos % (Auto) 2.0 % Baso % (Auto) 0.4 % Neut # (Auto) 8.13 H (1.40-6.50) K/uL Lymph # (Auto) 1.14 L (1.20-3.40) K/uL Wallace # (Auto) 0.66 H (0.11-0.59) K/uL Eos # (Auto) 0.21 (0.00-0.50) K/uL Baso # (Auto) 0.04 (0.00-0.20) K/uL Immature Gran # (Auto) 0.13 (0.01-0.20) K/uL Sodium Pending Potassium Pending Chloride Pending Carbon Dioxide Pending Anion Gap Pending BUN Pending Creatinine Pending Est Cr Clr Drug Dosing Pending eGFR Pending BUN/Creatinine Ratio Pending Glucose Pending Calcium Pending Magnesium Pending Total Bilirubin Pending AST Pending ALT Pending Alkaline Phosphatase Pending Total Protein Pending Albumin Pending Globulin Pending Albumin/Globulin Ratio Pending [facility] [address] [id number] [address] / Director: Chelsey Dickey M.D. Clinical Laboratory Report Name: ENDER FOSTER Acct: [id number] Status: [place] 1945 [facility] [place] 09/22/25 Age: 80 Sex: F Dis Date: Loc: [address] Rm/Bed: W258-1 Spec: [id number] Collected: 09/22/25-UNK Received: 09/22/[address]: Tangela Hill, PA-C Copy To: Greg Adorno DO Source: Knee,Right OV Order: Ordered: Aer/Lydia Cult/Sm Procedure Result Verified Site Gram Stain Final 09/22/25-2056 Gram Stain Result Many WBCs Seen Moderate Gram Positive Cocci Critical result called to Jo-Ann Brenner On 09/22/25 at 2055 by Jaquan Dong and results were verbalized back. Aero/Lydia Cult Preliminary 09/25/25-115 Organism 1 Staphylococcus aureus Quantity Moderate Sens Sensitivities to Follow No Anaerobes Isolated No Anaerobes Isolated Organism 2 Staphylococcus aureus#2 Quantity Few Sens Sensitivities to Follow S aureus S aureus#2 RX M.I.C. RX M.I.C. --- --------- --- --------- Clindamycin S <=0.25 S <=0.25 Daptomycin S <=0.5 S <=0.5 Erythromycin R >4 R >4 Linezolid S 2 S <=1 Oxacillin S 0.5 S 1 Tetracycline I 8 I 8 Trimeth/Sulfa S <=0.5/9.5 S <=0.5/9.5 Vancomycin S 1 S 1 S = SENSITIVE I = INTERMEDIATE R = RESISTANT
[2025-09-25 08:54] LABS: Alanine Aminotransferase 7.0 U/L (7-52); Albumin Globulin Ratio 0.5 (0.9-2); Alkaline Phosphatase 93.0 U/L (34-104); Blood Urea Nitrogen 25.0 mg/dl (6-23); Creatinine Clr Calc Pharmacy 59.4 ml/min; Globulin 4.0 gm/dl (2.5-4.0); Glucose 98.0 mg/dl (70-99(Fasting)); Total Protein 6.1 gm/dl (6.0-8.3)
[2025-09-25] MEDS: SODIUM CHLORIDE 0.9% 500 ML IV ONE (09:57)
--- NOTE | 2025-09-25 14:13 | Infectious Disease Consult ---
Date of Consultation September 25, 2025 Assessment & Plan (1) Infected prosthetic knee joint: (2) Knee swelling: Plan This is an 80-year-old female with a past medical history of CVA with residual left-sided hemiparesis,? Dementia, COPD, stage IIIa CKD, PAD with chronic left lower extremity wounds, A-fib on Eliquis, right TKA ( ? 1997), hypothyroidism who was recently admitted to [facility] 08/27/2025 - 08/31/2025 with weakness, fatigue, fevers, chills and left second toe erythema. She was diagnosed with left lower extremity cellulitis and received daptomycin and ceftriaxone inpatient. She was evaluated by podiatry and no surgical intervention was warranted. Wound cultures grew MSSA and she was discharged on Bactrim. She returns to the ED on 09/22/2025 with right knee edema and worsening knee pain. Patient is a poor historian and a limited ROS obtained. Mo st of history obtained per chart review and d/w team. She denies fever, chills, trauma to the knee, nausea, vomiting. In the ED, she is afebrile and hemodynamically stable. Labs:WBC 10.78, ESR 113, CRP 13.70, BUN 30, creatinine 0.85, lactic acid 2.3---> 1.8, procalcitonin 0.05. Urinalysis 1120 WBC. Chest x-ray shows no acute findings. Right knee x-ray shows no acute osseous findings. No hardware complications. There is chronic irregularity at the distal femur. She was evaluated by orthopedics and there was concern for right knee PJI given right knee erythema, warmth, tenderness. Tissue swelling seemed to be communicating with the joint. 4 cc of thick cloudy purulent fluid was aspirated from the knee. Right knee synovial fluid demonstrated 37,225 WBC (85% neutrophils. ), 34,000 RBC. Right knee synovial fluid grew MSSA. She is currently on cefazolin. Infectious disease consulted for right knee PJI. Orthopedics recommends possible transfer to tertiary center for intervention on the knee. Microbiology 09/23/2025 Urine cx- 3 types of organismsalthough counts probable skin gisele 09/22/2025 fungal synovial fluid cx NGTD 09/22/2025 AFB synovial fluid cx NGTD 09/22 synovial fluid Gram stain moderate GPC, cx MSSA (resistant to erythromycin, intermediate tetracycline) 09/22/2025 blood culture NGTD Prior microbiology: 08/28/2025 wound culture MSSA (resistant to erythromycin) Antibiotics Ceftriaxone Daptomycin 09/22 - 09/23 Cefazolin resent # Right knee PJI, synovial fluid cx+MSSA # Elevated inflammatory markers # Left toe chronic ulcers # Clindamycin allergy, hives # Piperacillin/tazobactam allergy, hives # Vancomycin allergy, unknown reaction Discussion Patient presents with R knee pain, erythema, effusion/edema i/s/o TKA done > 20 years ago. Found to have an MSSA right knee prosthetic joint infection. Labs notable for elevated ESR, crp. Lactic acidosis resolved. Definitive therapy for Staph aureus knee PJI is surgical intervention as antibiotics alone is not curative. Options include DAIR with abx versus 1 or two-stage implant removal + abx. If no surgical intervention then abx alone would be considered palliative and not curative. Recommendations Continue cefazolin 2 g IV q 8 hrs Added rifampin 300 mg p.o. twice daily in the setting of staph aureus PJI Follow-up blood cultures Follow-up orthopedics regarding surgical intervention Recommendations communicated to hospitalist Thank you for this consult. ID will continue to follow. Karen Sevilla MD, MPH Infectious Disease [facility], [facility] Call [phone] with questions Consultation Information Consultation was provided via telemedicine using two-way real-time interactive telecommunication between the patient and the telemedicine provider. For the duration of the visit, the provider was performing the assessment from a different facility than the patient. This includesuse of bluetooth stethoscope forauscultationperformed by the telepresenter that the telemedicine provider can hear if described in the physical exam. Manager Document Control contact information: Please call [facility] Call Center [phone]. (Phone Number For Physician Use Only) After establishing a telemedicine visit, patient was: Patient was verified with two unique identifiers and Gave permission to continue telehealth session Time Spent with Patient: Initial => 75 min History of Present Illness Reason for Consultation: Right knee PJI Requesting Physician: Chelsey Staton MD Attending Physician: Chelsey Staton MD History of Present Illness This is an 80-year-old female with a past medical history of CVA with residual left-sided hemiparesis,? Dementia, COPD, stage IIIa CKD, PAD with chronic left lower extremity wounds, A-fib on Eliquis, right TKA ( ? 1997), hypothyroidism who was recently admitted to [facility] 08/27/2025 - 08/31/2025 with weakness, fatigue, fevers, chills and left second toe erythema. She was diagnosed with left lower extremity cellulitis and received daptomycin and ceftriaxone inpatient. She was evaluated by podiatry and no surgical intervention was warranted. Wound cultures grew MSSA and she was discharged on Bactrim. She returns to the ED on 09/22/2025 with right knee edema and worsening knee pain. Patient is a poor historian and a limited ROS obtained. Most of history obtained per chart review and d/w team. She denies fever, chills, trauma to the knee, nausea, vomiting. In the ED, she is afebrile and hemodynamically stable. Labs:WBC 10.78, ESR 113, CRP 13.70, BUN 30, creatinine 0.85, lactic acid 2.3---> 1.8, procalcitonin 0.05. Urinalysis 1120 WBC. Chest x-ray shows no acute findings. Right knee x-ray shows no acute osseous findings. No hardware complications. There is chronic irregularity at the distal femur. She was evaluated by orthopedics and there was concern for right knee PJI given right knee erythema, warmth, tenderness. Tissue swelling seemed to be communicating with the joint. 4 cc of thick cloudy purulent fluid was aspirated from the knee. Right knee synovial fluid demonstrated 37,225 WBC (85% neutrophils. ), 34,000 RBC. Right knee synovial fluid grew MSSA. She is currently on cefazolin. Infectious disease consulted for right knee PJI. Orthopedics recommends possible transfer to tertiary center for intervention on the knee. Allergies Allergy/AdvReac Type Severity Reaction Status Date / Time clindamycin Allergy Intermediate HIVES Verified 08/27/25 17:57 piperacillin Allergy Intermediate HIVES Verified 08/27/25 17:57 vancomycin Allergy Unknown unknown Verified 08/27/25 17:57 Home Medications Medication Instructions Recorded Confirmed Type acetaminophen 325 mg tablet 650 mg PO Q6H PRN Pain 11/17/18 09/22/25 History (Tylenol) ferrous sulfate 325 mg (65 mg 325 mg PO 3XWK 02/28/21 09/22/25 History iron) tablet (iron) nystatin 100,000 unit/gram topical 1 applic topical BID PRN 09/05/24 09/22/25 Rx powder Candidiasis #60 grams apixaban 5 mg tablet (Eliquis) 5 mg PO BID #180 tabs 09/21/24 09/22/25 Rx cholecalciferol (vitamin D3) 25 2,000 unit PO DAILY 09/21/24 09/22/25 History mcg (1,000 unit) capsule (Vitamin D3) metoprolol tartrate 50 mg tablet 50 mg PO BID #180 tabs 10/27/24 09/22/25 Rx albuterol sulfate 90 mcg/actuation 2 puffs inhalation 6XD PRN 11/03/24 09/22/25 Rx aerosol inhaler shortness of breath or wheezing #6.7 grams atorvastatin 20 mg tablet 20 mg PO QAM #90 tabs 01/24/25 09/22/25 Rx ipratropium 0.5 mg-albuterol 3 mg 3 ml inhalation Q4H PRN wheezing 04/03/25 09/22/25 Rx (2.5 mg base)/3 mL nebulization #180 mL soln nebulizer accessories #1 ea 04/03/25 07/21/25 Rx nebulizer and compressor #1 ea 04/03/25 07/21/25 Rx Hospital Bed Homecare (Hospital #1 ea 05/30/25 07/21/25 Rx Bed) levothyroxine 125 mcg tablet 125 mcg PO DAILY #90 tabs 07/20/25 09/22/25 Rx sertraline 50 mg tablet 50 mg PO DAILY #90 tabs 07/20/25 09/22/25 Rx dapagliflozin propanediol 10 mg 10 mg PO DAILY #90 tabs 08/21/25 09/22/25 Rx tablet albuterol sulfate 1.25 mg/3 mL 1.25 mg inhalation QID PRN 08/27/25 09/22/25 History solution for nebulization Shortness Of Breath Or Wheezing tramadol 50 mg tablet 50 mg PO .Q4-6HR PRN pain 08/27/25 09/22/25 History aspirin 81 mg chewable tablet 81 mg PO DAILY #30 tabs 08/31/25 09/22/25 Rx sulfamethoxazole 800 1 tab PO BID #9 tabs 08/31/25 09/22/25 Rx mg-trimethoprim 160 mg tablet (Bactrim DS) Patient History Medical History H/O gastric ulcer Hematoma of left lower leg Stage III pressure ulcer of left heel COPD exacerbation Open wound of left great toe Cellulitis of left foot CVA (cerebral vascular accident) Acute anterior epistaxis Candidiasis of breast Cellulitis of leg Surgical History H/O colonoscopy S/P hammer toe correction S/P foot surgery, left S/P knee surgery Status post hip surgery Family History Father COPD (chronic obstructive pulmonary disease) Mother Brain cancer Sister Coronary heart disease Sister No problems noted. Brother No problems noted. Denies family history of Ovarian cancer Prostate cancer Breast cancer Colorectal cancer Social History Smoking Status: Former smoker Tobacco Type: Cigarettes Age Started Using Tobacco: 14; Age Quit Using Tobacco: 39; packs per day: 1; Second Hand Exposure: No; Do You Dip or Chew Tobacco: No; Hx Alcohol Use: No Hx Substance Use: No Preferred Language: Korean Communication Ability: Impaired Visual Impairment: Limited Hearing Ability: Normal Movie Theater Manager Required: No Beliefs That Will Affect Care: None marital status: Current Living Situation: [facility] Current Living Situation Comment: at [facility] current occupational status: retired Feels Safe at Home: Yes Diet: regular caffeine: No during the past year weight has: remained stable Dental Care, Regularly: No Physical Activity Frequency: Does not Exercise Seatbelt Use: never Assistive Devices: Walker and Wheelchair Review of System A 10 point ROS obtained. Pertinent positives as per HPI. Pt is a poor historian. Physical Exam Physical Exam: Gen- NAD Neck- Supple Heent-Anicteric sclera, EOMI Lungs- Non labored breathing, On RA Abdomen- soft, NT Extremities- Right knee edema, warm, erythematous, tender. + knee effusion . Limited ROM at knee 2/2 pain Left great toe and second toe ulcer- doesnt appear infected. Neuro- AAO times 2 Psych- cooperative Results & Data Vital Signs (Past 12 Hours) Vital Signs Temp Pulse Pulse Resp BP BP Pulse Ox 09/25/25 11:03 36.8 C 60 18 105/64 98 09/25/25 07:53 36.6 C 75 18 96/61 L 91 09/25/25 05:47 72 09/25/25 04:00 36.8 C 74 18 105/64 92 O2 Del Method 09/25/25 11:03 Room Air 09/25/25 07:53 Room Air 09/25/25 05:47 09/25/25 04:00 Room Air Laboratory Results Laboratory Results - last 48 hr 09/24/25 09/25/25 05:39 07:08 WBC 14.25 H 10.31 RBC 3.79 L 3.42 L Hgb 11.4 L 10.2 L Hct 34.3 L 31.0 L MCV 90.5 90.6 MCH 30.1 29.8 MCHC 33.2 32.9 RDW Std Deviation 44.9 45.1 RDW Coeff of Foz[place] 13.5 13.7 Plt Count 230 189 MPV 10.4 10.6 Immature Gran % (Auto) 1.3 1.3 Neut % (Auto) 81.0 78.8 Lymph % (Auto) 10.2 11.1 [place] % (Auto) 5.6 6.4 Eos % (Auto) 1.6 2.0 Baso % (Auto) 0.3 0.4 Neut # (Auto) 11.54 H 8.13 H Lymph # (Auto) 1.45 1.14 L [place] # (Auto) 0.80 H 0.66 H Eos # (Auto) 0.23 0.21 Baso # (Auto) 0.04 0.04 Immature Gran # (Auto) 0.19 0.13 Sodium 134 L 134 L Potassium 4.3 3.7 Chloride 100 100 Carbon Dioxide 28 27 Anion Gap 6 7 BUN 26 H 25 H Creatinine 0.77 0.75 Est Cr Clr Drug Dosing 57.5 59.4 eGFR 77.93 80.43 BUN/Creatinine Ratio 33.8 H 33.3 H Glucose 97 98 Calcium 9.2 8.9 Magnesium 1.8 1.8 Total Bilirubin 0.6 0.4 AST 26 21 ALT 18 7 Alkaline Phosphatase 96 93 Total Protein 6.8 6.1 Albumin 2.4 L 2.1 L Globulin 4.4 H 4.0 Albumin/Globulin Ratio 0.5 L 0.5 L Microbiology 09/22/25 Unknown Knee,Right Gram Stain - Final 09/22/25 Unknown Knee,Right Aerobic and Anaerobic Culture - Preliminary Staphylococcus aureus Staphylococcus aureus#2 09/22/25 Unknown Joint Fluid/Space (Synovial) Acid Fast Bacilli Smear - Final 09/22/25 Unknown Joint Fluid/Space (Synovial) Acid Fast Bacilli Culture - Preliminary No Acid-Fast Bacilli Isolated - Report 1, Additional Report to Follow. 09/23/25 07:25 Urine,Clean Catch Urine Culture - Final Three types of organisms present, all low counts probable skin gisele. No further identifications or sensitivities to follow. 09/22/25 Unknown Knee,Right Fungal Smear - Final 09/22/25 Unknown Knee,Right Fungal Culture - Preliminary No yeast or fungus isolated - Report 1, Additional Report to Follow. 09/22/25 10:45 Blood Aerobic Blood Culture - Preliminary No growth in Aerobic bottle after 48 hours. 09/22/25 10:45 Blood Anaerobic Blood Culture - Final 09/22/25 10:25 Blood Aerobic Blood Culture - Preliminary No growth in Aerobic bottle after 48 hours. 09/22/25 10:25 Blood Anaerobic Blood Culture - Preliminary No growth in Anaerobic bottle after 48 hours. Medications Administered Home Medications Medication Instructions Recorded Confirmed Last Taken acetaminophen 325 mg tablet 650 mg PO Q6H PRN Pain 11/17/18 09/22/25 02/27/21 (Tylenol) 325 mg ferrous sulfate 325 mg (65 mg 325 mg PO 3XWK 02/28/21 09/22/25 08/25/25 iron) tablet (iron) nystatin 100,000 unit/gram topical 1 applic topical BID PRN 09/05/24 09/22/25 Unknown powder Candidiasis #60 grams apixaban 5 mg tablet (Eliquis) 5 mg PO BID #180 tabs 09/21/24 09/22/25 08/27/25 08:00 cholecalciferol (vitamin D3) 25 2,000 unit PO DAILY 09/21/24 09/22/25 08/27/25 mcg (1,000 unit) capsule (Vitamin D3) metoprolol tartrate 50 mg tablet 50 mg PO BID #180 tabs 10/27/24 09/22/25 08/27/25 08:00 albuterol sulfate 90 mcg/actuation 2 puffs inhalation 6XD PRN 11/03/24 09/22/25 Unknown aerosol inhaler shortness of breath or wheezing #6.7 grams atorvastatin 20 mg tablet 20 mg PO QAM #90 tabs 01/24/25 09/22/25 08/27/25 ipratropium 0.5 mg-albuterol 3 mg 3 ml inhalation Q4H PRN wheezing 04/03/25 09/22/25 Unknown (2.5 mg base)/3 mL nebulization #180 mL soln nebulizer accessories #1 ea 04/03/25 07/21/25 Unknown nebulizer and compressor #1 ea 04/03/25 07/21/25 Unknown Hospital Bed Homecare (Hospital #1 ea 05/30/25 07/21/25 Unknown Bed) levothyroxine 125 mcg tablet 125 mcg PO DAILY #90 tabs 07/20/25 09/22/25 08/27/25 sertraline 50 mg tablet 50 mg PO DAILY #90 tabs 07/20/25 09/22/25 08/27/25 dapagliflozin propanediol 10 mg 10 mg PO DAILY #90 tabs 08/21/25 09/22/25 08/27/25 tablet albuterol sulfate 1.25 mg/3 mL 1.25 mg inhalation QID PRN 08/27/25 09/22/25 Unknown solution for nebulization Shortness Of Breath Or Wheezing tramadol 50 mg tablet 50 mg PO .Q4-6HR PRN pain 08/27/25 09/22/25 Unknown aspirin 81 mg chewable tablet 81 mg PO DAILY #30 tabs 08/31/25 09/22/25 Unknown sulfamethoxazole 800 1 tab PO BID #9 tabs 08/31/25 09/22/25 Unknown mg-trimethoprim 160 mg tablet (Bactrim DS) Active Medications Generic Name Dose Route Start Last Admin Trade Name Freq PRN Reason Stop Dose Admin Enoxaparin Sodium 40 mg 09/23/25 09:00 09/25/25 08:12 Enoxaparin Inj 40 Mg/0.4 Ml Syr SQ 10/23/25 08:59 40 mg QAM AZUL Administration Ferrous Sulfate 325 mg 09/25/25 09:00 09/25/25 08:12 Ferrous Sulfate 325 Mg Tab PO 10/25/25 08:59 325 mg [id number] AZUL Administration Cefazolin Sodium 2,000 mg in 15 mls @ 3.75 mls/min 09/24/25 08:30 09/25/25 09:57 Ancef 2000mg IV 11/05/25 08:29 3.75 mls/min Q8H AZUL Administration Levothyroxine Sodium 125 mcg 09/23/25 06:30 09/25/25 06:25 Levothyroxine Sodium 125 Mcg Tablet PO 10/23/25 06:29 125 mcg DAILYBB AZUL Administration Sertraline HCl 50 mg 09/23/25 09:00 09/25/25 08:11 Sertraline Hcl 50 Mg Tablet PO 10/23/25 08:59 50 mg DAILY AZUL Administration Tramadol HCl 50 mg 09/22/25 15:53 09/24/25 07:55 Tramadol Hcl 50 Mg Tablet PO 10/22/25 15:52 50 mg Q4H PRN Administration pain
--- NOTE | 2025-09-25 16:51 | Hospitalist Progress Note ---
Date of Service September 25, 2025 Assessment & Plan (1) Infected prosthetic knee joint: (2) Cellulitis of right leg: (3) Hemiparesis affecting left side as late effect of stroke: (4) Atrial fibrillation: (5) Chronic kidney disease, stage III (moderate): Plan The patient is an 80-year-old woman who has MSSA right knee prosthetic joint infection. the right TKA was remote, 20 years ago. Her medical history includes atrial fibrillation, stroke, peripheral arterial disease, chronic kidney disease stage 3, anemia, depression, and low albumin levels. # MSSA Septic arthritis of the right knee, this is a prosthetic joint infection. Aspirate of fluid collection just inferior and medial to the left patella is purulent and grew MSSA. This fluid communicates with the right knee joint thus septic arthritis. Elevated CRP and ESR. Treatment plan: continue cefazolin and ID may add rifampin. Follow up on blood cultures. Discussed with ID and ortho. Would need to transfer to tertiary care for surgery which is seeming more likely. She is nonambulatory and has not walked in >2 years. She has PAD, arterial duplex 08/30 - ABIs on the right LE were 1. There is significant distal L sided vascular disease which is the side of her heel ulcer. ABIs on L are 0.58, 0.72. Vascular surgery consulted but did not recommend intervention because of her nonambulatory state, poor overall health and dementia # sacral decubitus ulcers and left heel ulcer present on admission Unstaged. Consulted wound ostomy nurse. Had L foot MRI 08/30 Treatment plan: Continue pressure offloading, frequent turns, and moisture avoidance. # Atrial fibrillation Rate controlled with metoprolol. Treatment plan: Apixaban held for potential procedures. # Stroke with residual left-sided hemiparesis History of stroke and peripheral arterial disease with residual left-sided hemiparesis. Wheelchair-bound at baseline, has not walked in years according to her daughter. # CKD stage 3 Farxiga held. Treatment plan: Monitor BMP for renal function and avoid nephrotoxins. # Anemia stable Treatment plan: On ferrous sulfate three times a week. # Depression Treatment plan: Continue sertraline. # Hypoalbuminemia Potential malnutrition. Treatment plan: Consult dietitian, especially considering possible sacral wound. # DVT Prophylaxis: enoxaparin at prophylaxis dose while apixaban is held I updated her daughter Brandi by phone 09/24 Admission and Anticipated Discharge Date Admission Date: September 22, 2025 Subjective R knee painful remains red/swollen Currently getting rolled for wound care Physical Exam Physical Exam: General Appearance: awake alert lying in bed WON nurses working with her Vital signs: Reviewed past 24h vital signs in EMR, unremarkable. HEENT: Within normal limits. Respiratory: Lungs clear bilaterally posteriorly and anteriorly Cardiovascular: Regular rhythm, no murmurs, rubs, or gallops. Gastrointestinal: Soft, nontender, nondistended. MSK/skin: R knee remains swollen warm and erythematous, large effusion. Persistent cellulitis prox and distal to the knee. I don't see improvement in the knee swelling L heel pressure ulcer Sacral pressure ulcers examined, see photos in WON note Neurological: Awake and alert. vague historian, forgetful, not fully oriented to situation. left hemiparesis Psychiatric: Normal. Results & Data Results & Data Vital Signs (Past 12 Hours) Vital Signs Temp Pulse Pulse Resp BP Pulse Ox O2 Del Method 09/25/25 15:35 36.9 C 97 H 18 129/78 94 Room Air 09/25/25 13:01 82 09/25/25 12:13 Room Air 09/25/25 11:03 36.8 C 60 18 105/64 98 Room Air 09/25/25 07:53 36.6 C 75 18 96/61 L 91 Room Air 09/25/25 05:47 72 Laboratory Results sodium 134 potassium 3.7 BUN 25 creatinine 0.75 mag 1.8 white blood count proved to 10, hemoglobin stable at 10 culture from knee aspirate growing 2 types of MSSA. AFB and fungal smears negative, cultures pending blood cultures no growth to date at 48 hours urine culture negative PG Care Time/CCT Total # of Minutes Spent Total Time Spent with Patient: Total time spent is greater than 50% in coordination of care (as documented) at patient's floor/unit and/or counseling patient: Coding Level of Care Code 91012 SUB INP/OBS CARE 3/50MIN Diagnoses Infected prosthetic knee joint T84.59XA; Z96.659 Cellulitis of right leg L03.115 Hemiparesis affecting left side as late effect of stroke I69.354 Permanent atrial fibrillation I48.91 Atrial fibrillation type: unspecified Stage 3a chronic kidney disease N18.31 Chronic kidney disease stage 3 subtype: stage 3a (GFR 45-59) (4) Atrial fibrillation Atrial fibrillation type: unspecified Qualified Code(s): I48.91 - Unspecified atrial fibrillation (5) Chronic kidney disease, stage III (moderate) Chronic kidney disease stage 3 subtype: stage 3a (GFR 45-59) Qualified Code(s): N18.31 - Chronic kidney disease, stage 3a
[2025-09-25] MEDS: METOPROLOL TARTRATE 25 MG TAB PO SCH (21:48)
[2025-09-25] MEDS: MICONAZOLE NITRATE POWDER 85 GM EXT SCH (21:48)
[2025-09-26 06:58] LABS: Hematocrit (blood only) 32.4 % (37.0-47.0); Hemoglobin 10.5 g/dl (12.0-16.0); Immature Granulocytes # (auto) 0.15 K/uL (0.01-0.20); Immature Granulocytes % (auto) 1.3 %; Mean Corpuscular Hemoglobin 29.1 pg (25.0-34.0); Mean Corpuscular Volume 89.8 fL (80.0-100.0); Platelet Count 218 K/uL (130-400); RDW Standard Deviation 45.4 fL (36.4-46.3); Red Blood Count 3.61 M/uL (4.20-5.40); White Blood Count 11.25 K/ul (4.8-10.8)
[2025-09-26 07:22] LABS: Alanine Aminotransferase < 3 U/L (7-52); Albumin Globulin Ratio 0.5 (0.9-2); Albumin Level 2.2 gm/dl (3.4-5.0); Alkaline Phosphatase 85 U/L (34-104); Anion Gap 6 (3-11); Bilirubin,Total 0.9 mg/dl (0.2-1.0); Blood Urea Nitrogen 24 mg/dl (6-23); Calcium 8.9 mg/dl (8.6-10.3); Carbon Dioxide 29 mmol/L (21-32); Chloride 98 mmol/L (98-107); Creatinine Clr Calc Pharmacy 67.9 ml/min; Globulin 4.2 gm/dl (2.5-4.0); Glucose 106 mg/dl (70-99(Fasting)); Magnesium 1.8 mg/dl (1.7-2.4); Potassium 3.5 mmol/L (3.5-5.1); Sodium 133 mmol/L (136-145); Total Protein 6.4 gm/dl (6.0-8.3)
--- NOTE | 2025-09-26 08:20 | Hospitalist Progress Note ---
Date of Service September 26, 2025 Assessment & Plan (1) Infected prosthetic knee joint: (2) Cellulitis of right leg: (3) Hemiparesis affecting left side as late effect of stroke: (4) Atrial fibrillation: (5) Chronic kidney disease, stage III (moderate): Plan The patient is an 80-year-old woman who has MSSA right knee prosthetic joint infection. the right TKA was remote, 20 years ago. Her medical history includes atrial fibrillation, stroke, peripheral arterial disease, chronic kidney disease stage 3, anemia, depression, and low albumin levels. #MSSA Septic arthritis of the right knee, this is a prosthetic joint infection Aspirate of fluid collection just inferior and medial to the left patella is purulent and grew MSSA. This fluid communicates with the right knee joint thus septic arthritis. Elevated CRP and ESR. Treatment plan: continue cefazolin and ID may add rifampin. Follow up on blood cultures. Discussed with ID and ortho. Would need to transfer to tertiary care for surgery which is seeming more likely. She is nonambulatory and has not walked in >2 years. She has PAD, arterial duplex 08/30 - ABIs on the right LE were 1. There is significant distal L sided vascular disease which is the side of her heel ulcer. ABIs on L are 0.58, 0.72. Vascular surgery consulted but did not recommend intervention because of her nonambulatory state, poor overall health and dementia Long discussion with patient's daughter (Brandi) at bedside on 09/26 -broached palliative care discussions (see ACP note) #Sacral decubitus ulcers and left heel ulcer present on admission Unstaged. Consulted wound ostomy nurse. Had L foot MRI 08/30 Treatment plan: Continue pressure offloading, frequent turns, and moisture avoidance. #Atrial fibrillation Rate controlled with metoprolol. Treatment plan: Apixaban held for potential procedures. #Stroke with residual left-sided hemiparesis History of stroke and peripheral arterial disease with residual left-sided hemiparesis. Wheelchair-bound at baseline, has not walked in years according to her daughter. #CKD stage 3 Farxiga held. Treatment plan: Monitor BMP for renal function and avoid nephrotoxins. #Anemia Stable Treatment plan: On ferrous sulfate three times a week. #Depression Treatment plan: Continue sertraline. #Hypoalbuminemia Potential malnutrition. Treatment plan: Consult dietitian, especially considering possible sacral wound. VTE PPx: Enoxaparin at prophylaxis dose while apixaban is held Disposition: Continued stay in the setting of ongoing infection; family currently deciding between palliative care vs surgery Admission and Anticipated Discharge Date Admission Date: September 22, 2025 Supervising Physician Co-Signing Physician Notes I did not see or examine the patient. I verified all pritchett points and agree with Fransisco Carmichael PA-C with the following exceptions and/or additions: Goals of care need to be clearly established. Futility in the event of cardiac arrest that we could make her DNR but would need to inform POA and better this is done in collaboration. No urgency to do this today. Advance care directive note reviewed and seem daughter wishes to talk to other family members and no urgency to change code status today. Palliative consult has been placed which is appropriate. I would advise against transfer given orthopedics here aren't recommending treatment and all she would be getting is a second opinion rather than need for escalation of care and need for tertiary care center but pending further discussion with palliative care. Subjective Mrs. Olson is reporting pain in her left knee rather than her right this morning. However, she does grimace when palpating the right knee, which is swollen and red. She is a poor historian at this time; not oriented to month of the year, location, or purpose in the hospital; unable to obtain history. Unable to obtain ROS given patient's underlying dementia. Review of Systems 2 Review of Systems: See HPI above Physical Exam 2 Physical Exam: General: no acute distress; non-toxic appearing; cooperative; SpO2 90% on RA HEENT: normocephalic, atraumatic; PERRLA; vision and hearing intact Neck: supple; trachea midline Skin: warm, dry without signs of tenting; no cyanosis; erythema and swelling noting in joints of the 3rd and 2nd metacarpals of multiple joints (PIP, MCP); see photos below CV: chest wall NTP; RRR; S1/S2 normal; no murmurs/rubs/gallops; pulses intact and symmetric at radial, DP, and PT Lungs: no acute respiratory distress; symmetrical chest wall expansion; clear breath sounds across all lung florence w/o adventitious sounds; no wheezing ABD: Soft, NTP; BS present; no rebound/guarding; no distention MSK: no tics or fasciculations Right knee: Swollen, erythematous, and tender to palpation (see photos below) Neuro: Oriented to name and date of , but not location, purpose in the hospital, or month of the year; flat mood and affect; fluent speech; incoherent thought processes; unable to assess sensation Results & Data Results & Data Vital Signs (Past 12 Hours) Vital Signs Temp Pulse Pulse Resp BP BP Pulse Ox 09/26/25 07:48 37.3 C 77 18 167/63 H 91 09/26/25 06:06 79 09/26/25 04:00 36.7 C 85 18 103/67 94 09/25/25 23:23 37.0 C 75 18 109/62 95 O2 Del Method 09/26/25 07:48 Room Air 09/26/25 06:06 09/26/25 04:00 Room Air 09/25/25 23:23 Room Air Laboratory Results Abnormal lab results 09/25/25 09/26/25 Range/Units 07:08 05:52 WBC 11.25 H (4.8-10.8) K/ul RBC 3.61 L (4.20-5.40) M/uL Hgb 10.5 L (12.0-16.0) g/dl Hct 32.4 L (37.0-47.0) % Neut # (Auto) 9.12 H (1.40-6.50) K/uL Lymph # (Auto) 1.05 L (1.20-3.40) K/uL [place] # (Auto) 0.72 H (0.11-0.59) K/uL Sodium 134 L 133 L (136-145) mmol/L BUN 25 H 24 H (6-23) mg/dl BUN/Creatinine Ratio 33.3 H 36.4 H (10-20) Glucose 106 H (70-99(Fasting)) mg/dl ALT < 3 L (7-52) U/L Albumin 2.1 L 2.2 L (3.4-5.0) gm/dl Globulin 4.2 H (2.5-4.0) gm/dl Albumin/Globulin Ratio 0.5 L 0.5 L (0.9-2) PG Care Time/CCT Total # of Minutes Spent Total Time Spent with Patient: Total time spent is greater than 50% in coordination of care (as documented) at patient's floor/unit and/or counseling patient: [place] [address] SUB INP/OBS CARE MIN Patient Type Established Medical Decision Making High Complexity Diagnoses Infected prosthetic knee joint T84.59XA; Z96.659 Cellulitis of right leg L03.115 Hemiparesis affecting left side as late effect of stroke I69.354 Permanent atrial fibrillation I48.91 Atrial fibrillation type: unspecified Stage 3a chronic kidney disease N18.31 Chronic kidney disease stage 3 subtype: stage 3a (GFR 45-59) (4) Atrial fibrillation Atrial fibrillation type: unspecified Qualified Code(s): I48.91 - Unspecified atrial fibrillation (5) Chronic kidney disease, stage III (moderate) Chronic kidney disease stage 3 subtype: stage 3a (GFR 45-59) Qualified Code(s): N18.31 - Chronic kidney disease, stage 3a
--- NOTE | 2025-09-26 10:31 | Orthopedic Progress Note ---
Date of Service September 26, 2025 Assessment & Plan (1) Knee swelling: Plan: IMPRESSION: R TKA Infection, with S aureus PLAN: Treatment options of Abx suppression vs surgical intervention with likely I&D, removal hardware and Abx spacer (which would need to be done at a higher level of care, [place]) Continue broad spectrum antibiotics with Ancef and rifampin per infectious disease recommendation Recommend follow up in [place] for further surgical management, this could be done as an outpatient if medically stable; otherwise would need to be transferred. Will continue to follow while in hospital Activities as tolerated, patient is non-ambulatory and has been wheelchair-bound for at least the past 2 years Continue care per Hospitalist service Admission and Anticipated Discharge Date Admission Date: September 22, 2025 Supervising Physician Co-Signing Physician Notes I, Dr. Youssef, saw and examined the patient and discussed the management with my PA. I reviewed my PAs note and agree with the documented findings and the plan of care I developed. Subjective This 80-year-old female seen for follow-up of right knee periprosthetic septic joint. Patient states she still has discomfort in the knee. She is currently receiving IV Ancef and p.o. rifampin. Patient states she has very limited mobility. She is slightly confused and denies any traumatic injury that may have exacerbated this issue. Currently she denies any chest pain or shortness of breath. She has no complaint of fever, chills, sweats, nausea, vomiting or diarrhea. Review of Systems Review of Systems: All systems reviewed & are unremarkable except as noted in Subjective Physical Exam Physical Exam: Right knee: Patient has a flexion contracture in her knee and has about 50 degrees of flexion. She has significant edema and effusion over the anterior aspect of the knee with erythema and warmth. She is unable to perform an active straight leg raise test. She is able to detect light sensation to touch over her digits and actively dorsi and plantarflex her foot. Her peripheral pulses are 1+. She is neurovascularly intact. Results & Data Vital Signs (Past 12 Hours) Vital Signs Temp Pulse Pulse Resp BP BP Pulse Ox 09/26/25 10:16 36.8 C 66 16 115/73 95 09/26/25 10:00 09/26/25 07:48 37.3 C 77 18 167/63 H 91 09/26/25 06:06 79 09/26/25 04:00 36.7 C 85 18 103/67 94 09/25/25 23:23 37.0 C 75 18 109/62 95 O2 Del Method 09/26/25 10:16 Room Air 09/26/25 10:00 Room Air 09/26/25 07:48 Room Air 09/26/25 06:06 09/26/25 04:00 Room Air 09/25/25 23:23 Room Air Diagnostic Findings Laboratory Results WBC 11.25 K/ul (4.8-10.8) H 09/26/25 05:52 RBC 3.61 M/uL (4.20-5.40) L 09/26/25 05:52 Hgb 10.5 g/dl (12.0-16.0) L 09/26/25 05:52 Hct 32.4 % (37.0-47.0) L 09/26/25 05:52 MCV 89.8 fL (80.0-100.0) 09/26/25 05:52 MCH 29.1 pg (25.0-34.0) 09/26/25 05:52 MCHC 32.4 g/dL (32.0-36.0) 09/26/25 05:52 RDW Std Deviation 45.4 fL (36.4-46.3) 09/26/25 05:52 RDW Coeff of Fozia 13.9 % (11.5-14.5) 09/26/25 05:52 Plt Count 218 K/uL (130-400) 09/26/25 05:52 MPV 10.6 fL (9.4-12.4) 09/26/25 05:52 Immature Gran % (Auto) 1.3 % 09/26/25 05:52 Neut % (Auto) 81.1 % 09/26/25 05:52 Lymph % (Auto) 9.3 % 09/26/25 05:52 [place] % (Auto) 6.4 % 09/26/25 05:52 Eos % (Auto) 1.6 % 09/26/25 05:52 Baso % (Auto) 0.3 % 09/26/25 05:52 Neut # (Auto) 9.12 K/uL (1.40-6.50) H 09/26/25 05:52 Lymph # (Auto) 1.05 K/uL (1.20-3.40) L 09/26/25 05:52 [place] # (Auto) 0.72 K/uL (0.11-0.59) H 09/26/25 05:52 Eos # (Auto) 0.18 K/uL (0.00-0.50) 09/26/25 05:52 Baso # (Auto) 0.03 K/uL (0.00-0.20) 09/26/25 05:52 Immature Gran # (Auto) 0.15 K/uL (0.01-0.20) 09/26/25 05:52 ESR 113 mm/hr (0-30) H 09/22/25 10:25 Sodium 133 mmol/L (136-145) L 09/26/25 05:52 Potassium 3.5 mmol/L (3.5-5.1) 09/26/25 05:52 Chloride 98 mmol/L (98-107) 09/26/25 05:52 Carbon Dioxide 29 mmol/L (21-32) 09/26/25 05:52 Anion Gap 6 (3-11) 09/26/25 05:52 BUN 24 mg/dl (6-23) H 09/26/25 05:52 Creatinine 0.66 mg/dl (0.6-1.2) 09/26/25 05:52 Est Cr Clr Drug Dosing 67.9 ml/min 09/26/25 05:52 eGFR 88.62 09/26/25 05:52 BUN/Creatinine Ratio 36.4 (10-20) H 09/26/25 05:52 Glucose 106 mg/dl (70-99(Fasting)) H 09/26/25 05:52 Lactate 1.8 mmol/L (0.4-2.0) 09/22/25 13:00 Calcium 8.9 mg/dl (8.6-10.3) 09/26/25 05:52 Magnesium 1.8 mg/dl (1.7-2.4) 09/26/25 05:52 Total Bilirubin 0.9 mg/dl (0.2-1.0) D 09/26/25 05:52 Direct Bilirubin 0.1 mg/dl (0-0.2) 09/22/25 10:25 AST 22 U/L (13-39) 09/26/25 05:52 ALT < 3 U/L (7-52) L 09/26/25 05:52 Alkaline Phosphatase 85 U/L (34-104) 09/26/25 05:52 Troponin I High Sens 10.2 pg/ml (0-14) 09/22/25 10:25 C-Reactive Protein 13.70 mg/dl (0-0.5) H 09/22/25 10:25 Total Protein 6.4 gm/dl (6.0-8.3) 09/26/25 05:52 Albumin 2.2 gm/dl (3.4-5.0) L 09/26/25 05:52 Globulin 4.2 gm/dl (2.5-4.0) H 09/26/25 05:52 Albumin/Globulin Ratio 0.5 (0.9-2) L 09/26/25 05:52 Procalcitonin 0.05 ng/ml (0-0.5) 09/22/25 10:25 Urine Color Yellow 09/23/25 07:25 Urine Appearance Clear (Clear) 09/23/25 07:25 Urine pH 8.0 (4.5-7.5) H 09/23/25 07:25 Ur Specific [place] 1.026 (1.000-1.030) 09/23/25 07:25 Urine Protein Trace (Negative) H 09/23/25 07:25 Urine Glucose (UA) 3+ (Negative) H 09/23/25 07:25 Urine Ketones Negative (Negative) 09/23/25 07:25 Urine Blood Negative (Negative) 09/23/25 07:25 Urine Nitrite Negative (Negative) 09/23/25 07:25 Urine Bilirubin Negative (Negative) 09/23/25 07:25 Urine Urobilinogen Negative (Negative) 09/23/25 07:25 Ur Leukocyte Esterase Trace (Negative) H 09/23/25 07:25 Urine WBC (Auto) 11-20 /hpf (0-5) H 09/23/25 07:25 Urine RBC (Auto) 0-2 /hpf (0-2) 09/23/25 07:25 U Hyaline Cast (Auto) 3-5 /lpf (0-2) H 09/23/25 07:25 U Epithel Cells (Auto) 0-2 /hpf (0-2) 09/23/25 07:25 Urine Bacteria (Auto) None Seen (None Seen) 09/23/25 07:25 Urine Comment 09/23/25 07:25 Fluid Comment 09/22/25 Unknown Synovial Source Right Knee 09/22/25 Unknown Synovial Color Red 09/22/25 Unknown Synovial Appearance Turbid 09/22/25 Unknown Synovial WBC (Auto) CHEMICAL TECHNICIAN 09/22/25 Unknown Synovial WBC 30980 /uL (0-200) H 09/22/25 Unknown Synovial RBC 82973 /uL 09/22/25 Unknown Synovial Polynuclear % 85.2 % 09/22/25 Unknown Synovial Mononuclear % 14.8 % 09/22/25 Unknown Nasal Screen MRSA (PCR) Negative (Negative) 09/22/25 16:50 Impressions Chest X-Ray 09/22/25 10:32 XR chest 1V portable CLINICAL HISTORY: Sepsis COMPARISON STUDY: 08/27/2025 FINDINGS: Stable cardiomegaly without pulmonary vascular congestion. Inspiration is shallow. No consolidation or pleural effusion. No pneumothorax. IMPRESSION: No acute findings. ACT 112: Negative or not required by law. Electronically signed by: Jorge Roberts M.D. 09/22/2025 10:56 AM Knee X-Ray 09/22/25 10:36 XR knee RT 3V CLINICAL HISTORY: swelling COMPARISON: None FINDINGS: Right knee prosthesis shows no hardware complication. There is chronic irregularity at the distal femur. No acute fracture or dislocation seen. No evidence of osteomyelitis seen. There are atherosclerotic calcifications. IMPRESSION: No acute osseous finding seen. ACT 112: Negative or not required by law. Electronically signed by: Jorge Roberts M.D. 09/22/2025 10:58 AM
--- NOTE | 2025-09-26 13:22 | Infectious Disease Progress Nt ---
Date of Service September 26, 2025 Assessment & Plan (1) Infected prosthetic knee joint: (2) Knee swelling: Plan This is an 80-year-old female with a past medical history of CVA with residual left-sided hemiparesis,? Dementia, COPD, stage IIIa CKD, PAD with chronic left lower extremity wounds, A-fib on Eliquis, right TKA ( ? 1997), hypothyroidism who was recently admitted to [facility] 08/27/2025 - 08/31/2025 with weakness, fatigue, fevers, chills and left second toe erythema. She was diagnosed with left lower extremity cellulitis and received daptomycin and ceftriaxone inpatient. She was evaluated by podiatry and no surgical intervention was warranted. Wound cultures grew MSSA and she was discharged on Bactrim. She returns to the ED on 09/22/2025 with right knee edema and worsening knee pain. Patient is a poor historian and a limited ROS obtained. M ost of history obtained per chart review and d/w team. She denies fever, chills, trauma to the knee, nausea, vomiting. In the ED, she is afebrile and hemodynamically stable. Labs:WBC 10.78, ESR 113, CRP 13.70, BUN 30, creatinine 0.85, lactic acid 2.3---> 1.8, procalcitonin 0.05. Urinalysis 1120 WBC. Chest x-ray shows no acute findings. Right knee x-ray shows no acute osseous findings. No hardware complications. There is chronic irregularity at the distal femur. She was evaluated by orthopedics and there was concern for right knee PJI given right knee erythema, warmth, tenderness. Tissue swelling seemed to be communicating with the joint. 4 cc of thick cloudy purulent fluid was aspirated from the knee. Right knee synovial fluid demonstrated 37,225 WBC (85% neutrophils. ), 34,000 RBC. Right knee synovial fluid grew MSSA. She is currently on cefazolin. Infectious disease consulted for right knee PJI. Orthopedics recommends possible transfer to tertiary center for intervention on the knee. Microbiology 09/23/2025 Urine cx- 3 types of organismsalthough counts probable skin gisele 09/22/2025 fungal synovial fluid cx NGTD 09/22/2025 AFB synovial fluid cx NGTD 09/22 synovial fluid Gram stain moderate GPC, cx MSSA (resistant to erythromycin, intermediate tetracycline) 09/22/2025 blood culture NGTD Prior microbiology: 08/28/2025 wound culture MSSA (resistant to erythromycin) Antibiotics Ceftriaxone Daptomycin 09/22 - 09/23 Cefazolin resent Rifampin 09/25-present # Right knee PJI, synovial fluid cx+MSSA # Elevated inflammatory markers # Left toe chronic ulcers # Clindamycin allergy, hives # Piperacillin/tazobactam allergy, hives # Vancomycin allergy, unknown reaction Discussion Patient presents with R knee pain, erythema, effusion/edema i/s/o TKA done > 20 years ago. Found to have an MSSA right knee prosthetic joint infection. Labs notable for elevated ESR, crp. Lactic acidosis resolved. Definitive therapy for Staph aureus knee PJI is surgical intervention as antibiotics alone is not curative. Options include DAIR with abx versus 1 or two-stage implant removal + abx. If no surgical intervention then abx alone would be considered palliative and not curative. WBC increased today to 11.24 Recommendations Continue cefazolin 2 g IV q 8 hrs Continue rifampin 300 mg p.o. twice daily in the setting of staph aureus PJI Follow-up blood cultures Follow-up orthopedics regarding surgical intervention plan ID will continue to follow. Karen Sevilla MD, MPH Infectious Disease [facility], [facility] Call [phone] with questions Admission and Anticipated Discharge Date Admission Date: September 22, 2025 Subjective This patient recommendation is based on a telemedicine consult request which was completed asynchronously through chart review and information provided by the primary physician. The patient was not seen or examined today. The evaluation is consultative in nature and all patient care and treatment decisions can either be accepted or rejected by the patient's primary hospital-based treating physician using their own independent medical judgment for their patient. Time Spent Reviewing Chart: 11 - 20 minutes Afebrile WBC 11.25, cr 0.66 Results & Data Vital Signs (Past 12 Hours) Vital Signs Temp Pulse Pulse Resp BP BP Pulse Ox 09/26/25 10:16 36.8 C 66 16 115/73 95 09/26/25 10:00 09/26/25 07:48 37.3 C 77 18 167/63 H 91 09/26/25 06:06 79 09/26/25 04:00 36.7 C 85 18 103/67 94 O2 Del Method 09/26/25 10:16 Room Air 09/26/25 10:00 Room Air 09/26/25 07:48 Room Air 09/26/25 06:06 09/26/25 04:00 Room Air Laboratory Results 09/22/25 Unknown Gram Stain - Final Knee,Right Aerobic and Anaerobic Culture - Preliminary Staphylococcus aureus Staphylococcus aureus#2 09/22/25 Unknown Acid Fast Bacilli Smear - Final Joint Fluid/Space (Synovial) Acid Fast Bacilli Culture - Preliminary No Acid-Fast Bacilli Isolated - Report 1, Additional Report to Follow. 09/23/25 07:25 Urine Culture - Final Urine,Clean Catch Three types of organisms present, all low counts probable skin gisele. No further identifications or sensitivities to follow. 09/26/25 05:52 WBC 11.25 H RBC 3.61 L Hgb 10.5 L Hct 32.4 L MCV 89.8 MCH 29.1 MCHC 32.4 RDW Std Deviation 45.4 RDW Coeff of Fozia 13.9 Plt Count 218 MPV 10.6 Immature Gran % (Auto) 1.3 Neut % (Auto) 81.1 Lymph % (Auto) 9.3 [place] % (Auto) 6.4 Eos % (Auto) 1.6 Baso % (Auto) 0.3 Neut # (Auto) 9.12 H Lymph # (Auto) 1.05 L [place] # (Auto) 0.72 H Eos # (Auto) 0.18 Baso # (Auto) 0.03 Immature Gran # (Auto) 0.15 Sodium 133 L Potassium 3.5 Chloride 98 Carbon Dioxide 29 Anion Gap 6 BUN 24 H Creatinine 0.66 Est Cr Clr Drug Dosing 67.9 eGFR 88.62 BUN/Creatinine Ratio 36.4 H Glucose 106 H Calcium 8.9 Magnesium 1.8 Total Bilirubin 0.9 D AST 22 ALT < 3 L Alkaline Phosphatase 85 Total Protein 6.4 Albumin 2.2 L Globulin 4.2 H Albumin/Globulin Ratio 0.5 L Medications Administered Home Medications Medication Instructions Recorded Confirmed Last Taken acetaminophen 325 mg tablet 650 mg PO Q6H PRN Pain 11/17/18 09/22/25 02/27/21 (Tylenol) 325 mg ferrous sulfate 325 mg (65 mg 325 mg PO [id number] 02/28/21 09/22/25 08/25/25 iron) tablet (iron) nystatin 100,000 unit/gram topical 1 applic topical BID PRN 09/05/24 09/22/25 Unknown powder Candidiasis #60 grams apixaban 5 mg tablet (Eliquis) 5 mg PO BID #180 tabs 09/21/24 09/22/25 08/27/25 08:00 cholecalciferol (vitamin D3) 25 2,000 unit PO DAILY 09/21/24 09/22/25 08/27/25 mcg (1,000 unit) capsule (Vitamin D3) metoprolol tartrate 50 mg tablet 50 mg PO BID #180 tabs 10/27/24 09/22/25 08/27/25 08:00 albuterol sulfate 90 mcg/actuation 2 puffs inhalation 6XD PRN 11/03/24 09/22/25 Unknown aerosol inhaler shortness of breath or wheezing #6.7 grams atorvastatin 20 mg tablet 20 mg PO QAM #90 tabs 01/24/25 09/22/25 08/27/25 ipratropium 0.5 mg-albuterol 3 mg 3 ml inhalation Q4H PRN wheezing 04/03/25 09/22/25 Unknown (2.5 mg base)/3 mL nebulization #180 mL soln nebulizer accessories #1 ea 04/03/25 07/21/25 Unknown nebulizer and compressor #1 ea 04/03/25 07/21/25 Unknown Hospital Bed Homecare (Hospital #1 ea 05/30/25 07/21/25 Unknown Bed) levothyroxine 125 mcg tablet 125 mcg PO DAILY #90 tabs 07/20/25 09/22/25 08/27/25 sertraline 50 mg tablet 50 mg PO DAILY #90 tabs 07/20/25 09/22/25 08/27/25 dapagliflozin propanediol 10 mg 10 mg PO DAILY #90 tabs 08/21/25 09/22/25 08/27/25 tablet albuterol sulfate 1.25 mg/3 mL 1.25 mg inhalation QID PRN 08/27/25 09/22/25 U nknown solution for nebulization Shortness Of Breath Or Wheezing tramadol 50 mg tablet 50 mg PO .Q4-6HR PRN pain 08/27/25 09/22/25 Unknown aspirin 81 mg chewable tablet 81 mg PO DAILY #30 tabs 08/31/25 09/22/25 Unknown sulfamethoxazole 800 1 tab PO BID #9 tabs 08/31/25 09/22/25 Unknown mg-trimethoprim 160 mg tablet (Bactrim DS) Active Medications Generic Name Dose Route Start Last Admin Trade Name Freq PRN Reason Stop Dose Admin Enoxaparin Sodium 40 mg 09/23/25 09:00 09/26/25 08:04 Enoxaparin Inj 40 Mg/0.4 Ml Syr SQ 10/23/25 08:59 40 mg QAM AZUL Administration Ferrous Sulfate 325 mg 09/25/25 09:00 09/25/25 08:12 Ferrous Sulfate 325 Mg Tab PO 10/25/25 08:59 325 mg [id number] AZUL Administration Cefazolin Sodium 2,000 mg in 15 mls @ 3.75 mls/min 09/24/25 08:30 09/26/25 08:04 Ancef 2000mg IV 11/05/25 08:29 3.75 mls/min Q8H AZUL Administration Levothyroxine Sodium 125 mcg 09/23/25 06:30 09/26/25 06:12 Levothyroxine Sodium 125 Mcg Tablet PO 10/23/25 06:29 125 mcg DAILYBB AZUL Administration Metoprolol Tartrate 25 mg 09/25/25 21:00 09/26/25 08:05 Metoprolol Tartrate 25 Mg Tab PO 10/25/25 20:59 25 mg BID AZUL Administration Miconazole Nitrate 1 appln 09/25/25 21:00 09/26/25 08:05 Miconazole Nitrate Powder 85 Gm EXT 10/25/25 20:59 1 appln BID AZUL Administration Rifampin 300 mg 09/25/25 21:00 09/26/25 08:04 Rifampin 300 Mg Capsule PO 10/25/25 20:59 300 mg BID AZUL Administration Sertraline HCl 50 mg 09/23/25 09:00 09/26/25 08:05 Sertraline Hcl 50 Mg Tablet PO 10/23/25 08:59 50 mg DAILY AZUL Administration Tramadol HCl 50 mg 09/22/25 15:53 09/24/25 07:55 Tramadol Hcl 50 Mg Tablet PO 10/22/25 15:52 50 mg Q4H PRN Administration pain
--- NOTE | 2025-09-26 18:34 | Advance Care Plan Prog Note ---
Advanced Care Planning Note Date of Discussion September 26, 2025 ACP Discussion Diagnoses requiring ACP discussion: MSSA prosthetic joint infection, worsening dementia, nonambulatory status A [id number] discussion with the patient and patient's daughter (Brandi) regarding the patient's advanced care planning took place during this hospitalization on the above date. The discussion included the explanation and discussion of advance directives and associated forms/documents, as well as the patient's current code status. We also discussed at length the patient's medical conditions (both acute and chronic), general prognosis, treatment options, and goals of care. The following summarizes the discussion: Spoke at bedside with the patient's daughter, who is the patient's primary hat block bench hand. Patient has lived with her daughter for the past 14 years. Daughter reports that she has had a gradual decline in cognition over the past several years, and that there have not been any acute changes. However, in regard to ambulation, she reports her mother has not walked in around 12 years. She says her last labs were in 2012. Overall, daughter painted the picture of of chronic/gradual decline in both ambulatory status and cognitive function with several acute insults that began this fall. For instance, she had a recent case of pneumonia, and then was admitted August 27 to for cellulitis. She was then discharged to [facility] on August 31, and was told that she would have a permanent spot there on September 14. 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 She was planning to have this sorted at some point, but given the acute decline over the past month, she has not had time to get the paperwork in place. I explained that the patient does not exhibit medical capacity at this time. She is unable to express her symptoms, has difficulty conveying where and when she is in pain, and is not alert and oriented to location, month of the year, or purpose in the hospital. I explained that these are many signs of late stage dementia. I also explained that while we can place the patient on IV antibiotics for her prosthetic joint infection, this would be more of a palliative measure, rather than being curative. I also offered to reach out to [facility] regarding right knee hardware/antibiotic spacer, but explained that it is possible they might see the same thing is our orthopedics team. Namely, that the patient's medical frailty, nonambulatory status, worsening dementia, and poor prognosis would put the patient at too much of a risk for surgery. Daughter was appreciative this conversation, and expressed understanding of the situation. She also expresses concerns about putting her mother through surgery. She reports she is open to chatting with palliative care at this time. Additionally, we discussed patient's CODE STATUS, she is currently listed as a full code. Explained possible sequela of CPR, defibrillation, and intubation given patient's medical frailty (which could include things such as broken ribs, and a prolonged stay on the ventilator). When asked - patient had full medical capacity and was in a normal state of health, would she want to be placed on a mechanical ventilator, the daughter reports "I do not think she would want to be on a machine". However, daughter would like to discuss this with her 2 brothers prior to making a change in her CODE STATUS. Will leave patient is a full code for now, and reapproach the conversation after she has these family discussions. Status Resuscitation Status Full Code Total Time I spent a total of 30 minutes was spent on this discussion, including counseling, answering questions, and completing, if any, pertinent advanced care planning forms/documents.
[2025-09-27 07:22] LABS: Hematocrit (blood only) 30.5 % (37.0-47.0); Hemoglobin 9.9 g/dl (12.0-16.0); Immature Granulocytes # (auto) 0.16 K/uL (0.01-0.20); Immature Granulocytes % (auto) 1.6 %; Mean Corpuscular Hemoglobin 29.4 pg (25.0-34.0); Mean Corpuscular Volume 90.5 fL (80.0-100.0); Platelet Count 207 K/uL (130-400); RDW Standard Deviation 45.5 fL (36.4-46.3); Red Blood Count 3.37 M/uL (4.20-5.40); White Blood Count 10.10 K/ul (4.8-10.8)
[2025-09-27 08:04] LABS: Alanine Aminotransferase < 3 U/L (7-52); Albumin Globulin Ratio 0.5 (0.9-2); Albumin Level 2.1 gm/dl (3.4-5.0); Alkaline Phosphatase 76 U/L (34-104); Anion Gap 5 (3-11); Bilirubin,Total 1.0 mg/dl (0.2-1.0); Blood Urea Nitrogen 22 mg/dl (6-23); Calcium 8.7 mg/dl (8.6-10.3); Carbon Dioxide 30 mmol/L (21-32); Chloride 99 mmol/L (98-107); Creatinine Clr Calc Pharmacy 69.9 ml/min; Globulin 3.9 gm/dl (2.5-4.0); Glucose 99 mg/dl (70-99(Fasting)); Magnesium 1.8 mg/dl (1.7-2.4); Potassium 3.6 mmol/L (3.5-5.1); Sodium 134 mmol/L (136-145); Total Protein 6.0 gm/dl (6.0-8.3)
--- NOTE | 2025-09-27 08:48 | Palliative Care Consultation ---
Date of Consultation September 27, 2025 Assessment & Plan (1) Knee swelling: (2) Generalized weakness: (3) Right knee pain: Pt denies pain while lying in bed, but does wince and pull away with any manipulation of RLE. (4) Counseling regarding advanced directives and goals of care: Met with pt at bedside, no visitors present. Patient currently lacks decisional capacity based on the inability to convey understanding of personal PMHx, current medical condition, treatment options nor the risks / benefits/ potential outcomes of accepting/declining those options, and inability to make decisions based on such knowledge. Hospital does not have written documentation of patient wishes concerning her chosen proxy for medical decisions. Per primary team, pt is with three adult children. She has lived with her daughter Brandi Hopson (listed as primary contact) for several years and also has 2 adult sons. Per PA [id number], in absence of written documentation of patient wishes, pt's proxy for medical decisions would be her three adult children with equal authority. Attempt made to contact Brandi by phone, no answer, general VM left. (5) Palliative care by specialist: Palliative care will continue to follow for ongoing advanced care planning and patient/family support. History of Present Illness Reason for Consultation: goals of care Requesting Physician: Fransisco Carmichael PA-C Attending Physician: Bret Somers MD History of Present Illness Ms. 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 She has been admitted for MSSA infecti on of right knee prosthetic joint and is being followed by ortho and ID with recs for surgical intervention as antibiotics alone is not curative. ID recs DAIR with abx versus 1 or two-stage implant removal + abx as abx alone would be considered palliative and not curative. . Allergies Allergy/AdvReac Type Severity Reaction Status Date / Time clindamycin Allergy Intermediate HIVES Verified 08/27/25 17:57 piperacillin Allergy Intermediate HIVES Verified 08/27/25 17:57 vancomycin Allergy Unknown unknown Verified 08/27/25 17:57 Home Medications Medication Instructions Recorded Confirmed Type acetaminophen 325 mg tablet 650 mg PO Q6H PRN Pain 11/17/18 09/22/25 History (Tylenol) ferrous sulfate 325 mg (65 mg 325 mg PO 3XWK 02/28/21 09/22/25 History iron) tablet (iron) nystatin 100,000 unit/gram topical 1 applic topical BID PRN 09/05/24 09/22/25 Rx powder Candidiasis #60 grams apixaban 5 mg tablet (Eliquis) 5 mg PO BID #180 tabs 09/21/24 09/22/25 Rx cholecalciferol (vitamin D3) 25 2,000 unit PO DAILY 09/21/24 09/22/25 History mcg (1,000 unit) capsule (Vitamin D3) metoprolol tartrate 50 mg tablet 50 mg PO BID #180 tabs 10/27/24 09/22/25 Rx albuterol sulfate 90 mcg/actuation 2 puffs inhalation 6XD PRN 11/03/24 09/22/25 Rx aerosol inhaler shortness of breath or wheezing #6.7 grams atorvastatin 20 mg tablet 20 mg PO QAM #90 tabs 01/24/25 09/22/25 Rx ipratropium 0.5 mg-albuterol 3 mg 3 ml inhalation Q4H PRN wheezing 04/03/25 09/22/25 Rx (2.5 mg base)/3 mL nebulization #180 mL soln nebulizer accessories #1 ea 04/03/25 07/21/25 Rx nebulizer and compressor #1 ea 04/03/25 07/21/25 Rx Hospital Bed [facility] (Hospital #1 ea 05/30/25 07/21/25 Rx Bed) levothyroxine 125 mcg tablet 125 mcg PO DAILY #90 tabs 07/20/25 09/22/25 Rx sertraline 50 mg tablet 50 mg PO DAILY #90 tabs 07/20/25 09/22/25 Rx dapagliflozin propanediol 10 mg 10 mg PO DAILY #90 tabs 08/21/25 09/22/25 Rx tablet albuterol sulfate 1.25 mg/3 mL 1.25 mg inhalation QID PRN 08/27/25 09/22/25 History solution for nebulization Shortness Of Breath Or Wheezing tramadol 50 mg tablet 50 mg PO .Q4-6HR PRN pain 08/27/25 09/22/25 History aspirin 81 mg chewable tablet 81 mg PO DAILY #30 tabs 08/31/25 09/22/25 Rx sulfamethoxazole 800 1 tab PO BID #9 tabs 08/31/25 09/22/25 Rx mg-trimethoprim 160 mg tablet (Bactrim DS) Patient History Medical History H/O gastric ulcer Hematoma of left lower leg Stage III pressure ulcer of left heel COPD exacerbation Open wound of left great toe Cellulitis of left foot CVA (cerebral vascular accident) Acute anterior epistaxis Candidiasis of breast Cellulitis of leg Surgical History H/O colonoscopy S/P hammer toe correction S/P foot surgery, left S/P knee surgery Status post hip surgery Family History Father COPD (chronic obstructive pulmonary disease) Mother Brain cancer Sister Coronary heart disease Sister No problems noted. Brother No problems noted. 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 Beliefs That Will Affect Care: None marital status: [facility] Living Situation Comment: [facility] current occupational status: retired Feels Safe at Home: Yes Diet: regular caffeine: No during the past year weight has: remained stable Dental Care, Regularly: No Physical Activity Frequency: Does not Exercise Seatbelt Use: never Assistive Devices: Walker and Wheelchair Review of Systems Review of Systems: All systems reviewed & are unremarkable except as noted in HPI & below Pt denied discomfort while lying in bed, but winces with any manipulation of RLE. Physical Exam Constitutional: WD/WN, vitals as above Eyes: PERRL, conjunctivae normal, anicteric sclerae Neck: trachea midline, no thyromegaly Respiratory: normal respiratory effort and able to speak in complete sentences; no respiratory distress and no labored breathing Auscultation: + diminished lung sounds and + wheezes audible expiratory wheeze Cardiovascular: RRR, no murmur, no edema Gastrointestinal (Abdomen): normal bowel sounds, soft, nontender, no hepatosplenomegaly Skin: no rashes, warm and dry Psychiatric: Orientation: alert, oriented to person and cooperative; + not oriented to place and + not oriented to time Eye Contact: good eye contact Speech: normal rate/rhythm/volume of speech Affect: + flat affect Results & Data Vital Signs (Past 12 Hours) Vital Signs Temp Pulse Pulse Resp BP Pulse Ox O2 Del Method 09/27/25 07:53 36.8 C 80 16 108/66 92 Room Air 09/27/25 07:00 81 09/27/25 02:55 36.7 C 89 18 123/75 90 Room Air 09/26/25 23:28 37.1 C 79 18 107/63 94 Room Air 09/26/25 23:00 72 Laboratory Results Abnormal lab results 09/27/25 Range/Units 06:25 RBC 3.37 L (4.20-5.40) M/uL Hgb 9.9 L (12.0-16.0) g/dl Hct 30.5 L (37.0-47.0) % Neut # (Auto) 7.94 H (1.40-6.50) K/uL Lymph # (Auto) 1.00 L (1.20-3.40) K/uL [place] # (Auto) 0.74 H (0.11-0.59) K/uL Sodium 134 L (136-145) mmol/L BUN/Creatinine Ratio 34.4 H (10-20) ALT < 3 L (7-52) U/L Albumin 2.1 L (3.4-5.0) gm/dl Albumin/Globulin Ratio 0.5 L (0.9-2) Diagnostic Findings Chest X-Ray 09/22/25 10:32 XR chest 1V portable CLINICAL HISTORY: Sepsis COMPARISON STUDY: 08/27/2025 FINDINGS: Stable cardiomegaly without pulmonary vascular congestion. Inspiration is shallow. No consolidation or pleural effusion. No pneumothorax. IMPRESSION: No acute findings. ACT 112: Negative or not required by law. Electronically signed by: Jorge Roberts M.D. 09/22/2025 10:56 AM Knee X-Ray 09/22/25 10:36 XR knee RT 3V CLINICAL HISTORY: swelling COMPARISON: None FINDINGS: Right knee prosthesis shows no hardware complication. There is chronic irregularity at the distal femur. No acute fracture or dislocation seen. No evidence of osteomyelitis seen. There are atherosclerotic calcifications. IMPRESSION: No acute osseous finding seen. ACT 112: Negative or not required by law. Electronically signed by: Jorge Roberts M.D. 09/22/2025 10:58 AM Medications Administered Current Inpatient Medications Albuterol (Albuterol Hfa 8 Gm Inhaler) 2 puffs INH 6XD PRN PRN Reason: shortness of breath or wheezing Stop: 10/22/25 15:52 Albuterol (Albut/Ipratrop 3mg/0.5mg Neb 3 Ml Vial) 3 ml INH Q4H PRN; Protocol PRN Reason: wheezing Stop: 10/22/25 15:52 Enoxaparin Sodium (Enoxaparin Inj 40 Mg/0.4 Ml Syr) 40 mg SQ QAM AZUL Stop: 10/23/25 08:59 Last Admin: 09/26/25 08:04 Dose: 40 mg Ferrous Sulfate (Ferrous Sulfate 325 Mg Tab) 325 mg PO MoWeFr@0900 AZUL Stop: 10/25/25 08:59 Last Admin: 09/25/25 08:12 Dose: 325 mg Cefazolin Sodium (Ancef 2000mg) 2,000 mg in 15 mls @ 3.75 mls/min IV Q8H AZUL Stop: 11/05/25 08:29 Last Admin: 09/27/25 01:31 Dose: 3.75 mls/min Levothyroxine Sodium (Levothyroxine Sodium 125 Mcg Tablet) 125 mcg PO DAILYBB AZUL Stop: 10/23/25 06:29 Last Admin: 09/27/25 05:16 Dose: 125 mcg Metoprolol Tartrate (Metoprolol Tartrate 25 Mg Tab) 25 mg PO BID AZUL Stop: 10/25/25 20:59 Last Admin: 09/26/25 19:49 Dose: 25 mg Miconazole Nitrate (Miconazole Nitrate Powder 85 Gm) 1 appln EXT BID AZUL Stop: 10/25/25 20:59 Last Admin: 09/26/25 19:50 Dose: 1 appln Rifampin (Rifampin 300 Mg Capsule) 300 mg PO BID AZUL Stop: 10/25/25 20:59 Last Admin: 09/26/25 19:49 Dose: 300 mg Sertraline HCl (Sertraline Hcl 50 Mg Tablet) 50 mg PO DAILY AZUL Stop: 10/23/25 08:59 Last Admin: 09/26/25 08:05 Dose: 50 mg Tramadol HCl (Tramadol Hcl 50 Mg Tablet) 50 mg PO Q4H PRN PRN Reason: pain Stop: 10/22/25 15:52 Last Admin: 09/27/25 01:45 Dose: 50 mg PG Care Time/CCT Total # of Minutes Spent Total Time Spent with Patient: Total time spent is greater than 50% in coordination of care (as documented) at patient's floor/unit and/or counseling patient: [place] [address] IN/OBS CONSULT LVL 4,60M Patient Type New History Expanded Problem Focused Exam Expanded Problem Focused Medical Decision Making Moderate Complexity Diagnoses Knee swelling M25.469 Generalized weakness R53.1 Right knee pain M25.561 Counseling regarding advanced directives and goals of care Z71.89 Palliative care by specialist Z51.5
--- NOTE | 2025-09-27 14:01 | Infectious Disease Progress Nt ---
Date of Service September 27, 2025 Assessment & Plan (1) Infected prosthetic knee joint: (2) Knee swelling: Plan This is an 80-year-old female with a past medical history of CVA with residual left-sided hemiparesis,? Dementia, COPD, stage IIIa CKD, PAD with chronic left lower extremity wounds, A-fib on Eliquis, right TKA ( ? 1997), hypothyroidism who was recently admitted to [facility] 08/27/2025 - 08/31/2025 with weakness, fatigue, fevers, chills and left second toe erythema. She was diagnosed with left lower extremity cellulitis and received daptomycin and ceftriaxone inpatient. She was evaluated by podiatry and no surgical intervention was warranted. Wound cultures grew MSSA and she was discharged on Bactrim. She returns to the ED on 09/22/2025 with right knee edema and worsening knee pain. Patient is a poor historian and a limited ROS obtained. M ost of history obtained per chart review and d/w team. She denies fever, chills, trauma to the knee, nausea, vomiting. In the ED, she is afebrile and hemodynamically stable. Labs:WBC 10.78, ESR 113, CRP 13.70, BUN 30, creatinine 0.85, lactic acid 2.3---> 1.8, procalcitonin 0.05. Urinalysis 1120 WBC. Chest x-ray shows no acute findings. Right knee x-ray shows no acute osseous findings. No hardware complications. There is chronic irregularity at the distal femur. She was evaluated by orthopedics and there was concern for right knee PJI given right knee erythema, warmth, tenderness. Tissue swelling seemed to be communicating with the joint. 4 cc of thick cloudy purulent fluid was aspirated from the knee. Right knee synovial fluid demonstrated 37,225 WBC (85% neutrophils. ), 34,000 RBC. Right knee synovial fluid grew MSSA. She is currently on cefazolin. Infectious disease consulted for right knee PJI. Orthopedics recommends possible transfer to tertiary center for intervention on the knee. Microbiology 09/23/2025 Urine cx- 3 types of organismsalthough counts probable skin gisele 09/22/2025 fungal synovial fluid cx NGTD 09/22/2025 AFB synovial fluid cx NGTD 09/22 synovial fluid Gram stain moderate GPC, cx MSSA (resistant to erythromycin, intermediate tetracycline) 09/22/2025 blood culture NGTD Prior microbiology: 08/28/2025 wound culture MSSA (resistant to erythromycin) Antibiotics Ceftriaxone Daptomycin 09/22 - 09/23 Cefazolin resent Rifampin 09/25-present # Right knee PJI, synovial fluid cx+MSSA # Elevated inflammatory markers # Left toe chronic ulcers # Clindamycin allergy, hives # Piperacillin/tazobactam allergy, hives # Vancomycin allergy, unknown reaction Discussion Patient presents with R knee pain, erythema, effusion/edema i/s/o TKA done > 20 years ago. Found to have an MSSA right knee prosthetic joint infection. Labs notable for elevated ESR, crp. Lactic acidosis resolved. Definitive therapy for Staph aureus knee PJI is surgical intervention as antibiotics alone is not curative. Options include DAIR with abx versus 1 or two-stage implant removal + abx. If no surgical intervention then abx alone would be considered palliative and not curative. Would be on suppressive therapy lifelong after a 6 week course of IV abx. Family is considering if they will pursue surgical intervention. Recommendations Continue cefazolin 2 g IV q 8 hrs Continue rifampin 300 mg p.o. twice daily in the setting of staph aureus PJI Follow-up blood cultures Follow-up on family' decision on surgical intervention vs abx alone. ID will continue to follow. Karen Sevilla MD, MPH Infectious Disease [facility], [facility] Call [phone] with questions Admission and Anticipated Discharge Date Admission Date: September 22, 2025 Subjective Subsequent visit was provided via telemedicine using two-way real-time interactive telecommunication between the patient and the telemedicine provider. For the duration of the visit, the provider was performing the assessment from a different facility than the patient. This includesuse of bluetooth stethoscope forauscultationperformed by the telepresenter that the telemedicine provider can hear if described in the physical exam. Community Nutrition Educator contact information: Please call [facility] Call Center . (Phone Number For Physician Use Only) After establishing a telemedicine visit, patient was: Patient was verified with two unique identifiers Time Spent with Patient: Subsequent => 25 min Pt with dementia and tells me she feels fine R knee still edematous and tender Family is deciding if they will pursue surgical intervention. No family at time of my visit. Physical Exam 2 Physical Exam: Gen- NAD Neck- Supple Heent-Anicteric sclera, EOMI Lungs- Non labored breathing, On RA Abdomen- soft, NT Extremities- Right knee edema, warm, erythematous, tender. + knee effusion . Limited ROM at knee 2/2 pain Left great toe and second toe ulcer- doesnt appear infected. Neuro- AAO times 2 Psych- cooperative Results & Data Vital Signs (Past 12 Hours) Vital Signs Temp Pulse Pulse Resp BP Pulse Ox O2 Del Method 09/27/25 11:55 Room Air 09/27/25 10:39 37.1 C 73 16 102/68 92 Room Air 09/27/25 07:53 36.8 C 80 16 108/66 92 Room Air 09/27/25 07:00 81 09/27/25 02:55 36.7 C 89 18 123/75 90 Room Air Laboratory Results Short CBC 09/27/25 Range/Units 06:25 WBC 10.10 (4.8-10.8) K/ul Hgb 9.9 L (12.0-16.0) g/dl Hct 30.5 L (37.0-47.0) % Plt Count 207 (130-400) K/uL BMP 09/27/25 06:25 Sodium 134 L Potassium 3.6 Chloride 99 Carbon Dioxide 30 BUN 22 Creatinine 0.64 Glucose 99 Calcium 8.7 Liver Function 09/27/25 Range/Units 06:25 Total Bilirubin 1.0 (0.2-1.0) mg/dl AST 18 (13-39) U/L ALT < 3 L (7-52) U/L Alkaline Phosphatase 76 (34-104) U/L Albumin 2.1 L (3.4-5.0) gm/dl Microbiology 09/22/25 10:45 Blood Aerobic Blood Culture - Final No growth in Aerobic bottle after 5 days. 09/22/25 10:45 Blood Anaerobic Blood Culture - Final 09/22/25 10:25 Blood Aerobic Blood Culture - Final No growth in Aerobic bottle after 5 days. 09/22/25 10:25 Blood Anaerobic Blood Culture - Final No growth in Anaerobic bottle after 5 days. 09/22/25 Unknown Knee,Right Gram Stain - Final 09/22/25 Unknown Knee,Right Aerobic and Anaerobic Culture - Final Staphylococcus aureus Staphylococcus aureus#2 09/22/25 Unknown Joint Fluid/Space (Synovial) Acid Fast Bacilli Smear - Final 09/22/25 Unknown Joint Fluid/Space (Synovial) Acid Fast Bacilli Culture - Preliminary No Acid-Fast Bacilli Isolated - Report 1, Additional Report to Follow. 09/23/25 07:25 Urine,Clean Catch Urine Culture - Final Three types of organisms present, all low counts probable skin gisele. No further identifications or sensitivities to follow. 09/22/25 Unknown Knee,Right Fungal Smear - Final 09/22/25 Unknown Knee,Right Fungal Culture - Preliminary No yeast or fungus isolated - Report 1, Additional Report to Follow. Medications Administered Home Medications Medication Instructions Recorded Confirmed Last Taken acetaminophen 325 mg tablet 650 mg PO Q6H PRN Pain 11/17/18 09/22/25 02/27/21 (Tylenol) 325 mg ferrous sulfate 325 mg (65 mg 325 mg PO 3XWK 02/28/21 09/22/25 08/25/25 iron) tablet (iron) nystatin 100,000 unit/gram topical 1 applic topical BID PRN 09/05/24 09/22/25 Unknown powder Candidiasis #60 grams apixaban 5 mg tablet (Eliquis) 5 mg PO BID #180 tabs 09/21/24 09/22/25 08/27/25 08:00 cholecalciferol (vitamin D3) 25 2,000 unit PO DAILY 09/21/24 09/22/25 08/27/25 mcg (1,000 unit) capsule (Vitamin D3) metoprolol tartrate 50 mg tablet 50 mg PO BID #180 tabs 10/27/24 09/22/25 08/27/25 08:00 albuterol sulfate 90 mcg/actuation 2 puffs inhalation 6XD PRN 11/03/24 09/22/25 Unknown aerosol inhaler shortness of breath or wheezing #6.7 grams atorvastatin 20 mg tablet 20 mg PO QAM #90 tabs 01/24/25 09/22/25 08/27/25 ipratropium 0.5 mg-albuterol 3 mg 3 ml inhalation Q4H PRN wheezing 04/03/25 09/22/25 Unknown (2.5 mg base)/3 mL nebulization #180 mL soln nebulizer accessories #1 ea 04/03/25 07/21/25 Unknown nebulizer and compressor #1 ea 04/03/25 07/21/25 Unknown Hospital Bed Homecare (Hospital #1 ea 05/30/25 07/21/25 Unknown Bed) levothyroxine 125 mcg tablet 125 mcg PO DAILY #90 tabs 07/20/25 09/22/25 08/27/25 sertraline 50 mg tablet 50 mg PO DAILY #90 tabs 07/20/25 09/22/25 08/27/25 dapagliflozin propanediol 10 mg 10 mg PO DAILY #90 tabs 08/21/25 09/22/25 08/27/25 tablet albuterol sulfate 1.25 mg/3 mL 1.25 mg inhalation QID PRN 08/27/25 09/22/25 Unknown solution for nebulization Shortness Of Breath Or Wheezing tramadol 50 mg tablet 50 mg PO .Q4-6HR PRN pain 08/27/25 09/22/25 Unknown aspirin 81 mg chewable tablet 81 mg PO DAILY #30 tabs 08/31/25 09/22/25 Unknown sulfamethoxazole 800 1 tab PO BID #9 tabs 08/31/25 09/22/25 Unknown mg-trimethoprim 160 mg tablet (Bactrim DS) Active Medications Generic Name Dose Route Start Last Admin Trade Name Freq PRN Reason Stop Dose Admin Enoxaparin Sodium 40 mg 09/23/25 09:00 09/27/25 09:00 Enoxaparin Inj 40 Mg/0.4 Ml Syr SQ 10/23/25 08:59 40 mg QAM AZUL Administration Ferrous Sulfate 325 mg 09/25/25 09:00 09/27/25 09:00 Ferrous Sulfate 325 Mg Tab PO 10/25/25 08:59 325 mg [id number] AZUL Administration Cefazolin Sodium 2,000 mg in 15 mls @ 3.75 mls/min 09/24/25 08:30 09/27/25 17:42 Ancef 2000mg IV 11/05/25 08:29 3.75 mls/min Q8H AZUL Administration Levothyroxine Sodium 125 mcg 09/23/25 06:30 09/27/25 05:16 Levothyroxine Sodium 125 Mcg Tablet PO 10/23/25 06:29 125 mcg DAILYBB AZUL Administration Metoprolol Tartrate 25 mg 09/25/25 21:00 09/27/25 09:00 Metoprolol Tartrate 25 Mg Tab PO 10/25/25 20:59 25 mg BID AZUL Administration Miconazole Nitrate 1 appln 09/25/25 21:00 09/27/25 09:00 Miconazole Nitrate Powder 85 Gm EXT 10/25/25 20:59 1 appln BID AZUL Administration Rifampin 300 mg 09/25/25 21:00 09/27/25 09:01 Rifampin 300 Mg Capsule PO 10/25/25 20:59 300 mg BID AZUL Administration Sertraline HCl 50 mg 09/23/25 09:00 09/27/25 09:01 Sertraline Hcl 50 Mg Tablet PO 10/23/25 08:59 50 mg DAILY AZUL Administration Tramadol HCl 50 mg 09/22/25 15:53 09/27/25 01:45 Tramadol Hcl 50 Mg Tablet PO 10/22/25 15:52 50 mg Q4H PRN Administration pain
--- NOTE | 2025-09-27 16:28 | Hospitalist Progress Note ---
"Date of Service September 27, 2025 Assessment & Plan (1) Infected prosthetic knee joint: (2) Cellulitis of right leg: (3) Hemiparesis affecting left side as late effect of stroke: (4) Atrial fibrillation: (5) Chronic kidney disease, stage III (moderate): Plan The patient is an 80-year-old woman who has MSSA right knee prosthetic joint infection. the right TKA was remote, 20 years ago. Her medical history includes atrial fibrillation, stroke, peripheral arterial disease, chronic kidney disease stage 3, anemia, depression, and low albumin levels. #MSSA Septic arthritis of the right knee, this is a prosthetic joint infection Aspirate of fluid collection grew MSSA. This fluid communicates with the right knee joint thus septic arthritis. Elevated CRP and ESR. Treatment plan: continue cefazolin and ID may add rifampin Infectious disease consult appreciated IV antibiotics would be palliative but not curative Orthopedics consult appreciated Would need to transfer to tertiary care for surgery Patient has been nonambulatory for >12 years. She has PAD, arterial duplex 08/30 - ABIs on the right LE were 1. There is significant distal L sided vascular disease which is the side of her heel ulcer. ABIs on L are 0.58, 0.72. Vascular surgery consulted, but did not recommend intervention because of her nonambulatory state, poor overall health and dementia Multiple discussions with patient's daughter (Brandi) on 09/26 and 09/27 No advanced directive or medical POA in place Palliative care consult appreciated Patient's 3 adult children are planning to have a phone discussion on the evening of 09/27 regarding whether or not it would be worth it to put her through the surgery #Dementia Gradually worsening over the past several years, per daughter Per nursing staff, patient is still able to feed herself However, she has difficulty conveying pain, and is not alert and oriented to month, location, or purpose in hospital; poor historian at baseline #Sacral decubitus ulcers and left heel ulcer present on admission | pressure induced deep tissue damage Unstaged. Consulted wound ostomy nurse. Had L foot MRI 08/30 Treatment plan: Continue pressure offloading, frequent turns, and moisture avoidance #Atrial fibrillation Rate controlled with metoprolol. Treatment plan: Apixaban held for potential procedures. #Stroke with residual left-sided hemiparesis History of stroke and peripheral arterial disease with residual left-sided hemiparesis Wheelchair-bound at baseline, has not walked in years according to her daughter. #CKD stage 3 Farxiga held. Treatment plan: Monitor BMP for renal function and avoid nephrotoxins. #Anemia Stable Treatment plan: On ferrous sulfate three times a week. #Depression Treatment plan: Continue sertraline. #Hypoalbuminemia Potential malnutrition. Treatment plan: Consult dietitian, especially considering possible sacral wound. VTE PPx: Enoxaparin at prophylaxis dose while apixaban is held Disposition: Continued stay in the setting for ongoing infection; family discussion definitely on 09/27 Updated patient's daughter (Brandi) at bedside on 09/26. Spoke on the phone with patient's daughter on 11/27. She reports that she and her brothers are deliberating. Admission and Anticipated Discharge Date Admission Date: September 22, 2025 Subjective Mrs. Olson appears in no acute distress. She is sitting up in her bed watching TV. She is unable to provide a history at this time. While unable to provide history due to underlying dementia, patient denies any acute chest pain, trouble breathing, abdominal pain, or knee pain at this time. Per nursing staff, she was able to feed herself earlier today. Review of Systems Review of Systems: See HPI above Physical Exam Physical Exam: General: no acute distress; non-toxic appearing; cooperative; SpO2 97% on RA HEENT: normocephalic, atraumatic; PERRLA; vision and hearing intact Neck: supple; trachea midline Skin: warm, dry without signs of tenting; no cyanosis; erythema and swelling noting in joints of the 3rd and 2nd metacarpals of multiple joints (PIP, MCP); see photos below CV: chest wall NTP; RRR; S1/S2 normal; no murmurs/rubs/gallops; pulses intact and symmetric at radial, DP, and PT Lungs: no acute respiratory distress; symmetrical chest wall expansion; clear breath sounds across all lung florence w/o adventitious sounds; no wheezing ABD: Soft, NTP; BS present; no rebound/guarding; no distention MSK: no tics or fasciculations Right knee: Swollen, erythematous, and tender to palpation (see photos below) Neuro: Oriented to name and date of , but not location, purpose in the hospital, or month of the year; flat mood and affect; fluent speech; incoherent thought processes; unable to assess sensation Results & Data Results & Data Vital Signs (Past 12 Hours) Vital Signs Temp Pulse Pulse Resp BP Pulse Ox O2 Del Method 09/27/25 15:27 36.8 C 85 16 117/74 97 Room Air 09/27/25 11:55 Room Air 09/27/25 10:39 37.1 C 73 16 102/68 92 Room Air 09/27/25 07:53 36.8 C 80 16 108/66 92 Room Air 09/27/25 07:00 81 PG Care Time/CCT Total # of Minutes Spent Total Time Spent with Patient: Total time spent is greater than 50% in coordination of care (as documented) at patient's floor/unit and/or counseling patient: [place] [address] SUB INP/OBS CARE 3/50MIN Patient Type Established History Comprehensive Exam Comprehensive Medical Decision Making High Complexity Diagnoses Infected prosthetic knee joint T84.59XA; Z96.659 Cellulitis of right leg L03.115 Hemiparesis affecting left side as late effect of stroke I69.354 Permanent atrial fibrillation I48.91 Atrial fibrillation type: unspecified Stage 3a chronic kidney disease N18.31 Chronic kidney disease stage 3 subtype: stage 3a (GFR 45-59) (4) Atrial fibrillation Atrial fibrillation type: unspecified Qualified Code(s): I48.91 - Unspecified atrial fibrillation (5) Chronic kidney disease, stage III (moderate) Chronic kidney disease stage 3 subtype: stage 3a (GFR 45-59) Qualified Code(s): N18.31 - Chronic kidney disease, stage 3a"
--- NOTE | 2025-09-27 18:24 | Orthopedic Progress Note ---
Date of Service September 27, 2025 Assessment & Plan (1) Knee swelling: Plan: IMPRESSION: R TKA Infection, with S aureus PLAN: Treatment options of discussed with daughter via telephone this evening of: Abx suppression vs surgical intervention with likely I&D, removal hardware and Abx spacer vs AKA (which would need to be done at a higher level of care, [place]). Also discussed her poor nutritional status. She will discuss with her family and come to a consensus as to how they would like to proceed with treatment. Continue broad spectrum antibiotics with Ancef and rifampin per infectious disease recommendation Recommend follow up in [place] for further surgical management, this could be done as an outpatient if medically stable; otherwise would need to be transferred. Will continue to follow while in hospital Activities as tolerated, patient is non-ambulatory and has been wheelchair-bound for at least the past 12 years Continue care per Hospitalist service Admission and Anticipated Discharge Date Admission Date: September 22, 2025 Subjective Unchanged right knee pain Physical Exam Physical Exam: RLE: Neurovascularly unchanged. Skin is warm. + Erythema. Diffuse tenderness to palpation about the knee. + swelling anteromedial. Limited ROM 15-30 deg. Results & Data Vital Signs (Past 12 Hours) Vital Signs Temp Pulse Pulse Resp BP Pulse Ox O2 Del Method 09/27/25 15:27 36.8 C 85 16 117/74 97 Room Air 09/27/25 11:55 Room Air 09/27/25 10:39 37.1 C 73 16 102/68 92 Room Air 09/27/25 07:53 36.8 C 80 16 108/66 92 Room Air 09/27/25 07:00 81
[2025-09-28 06:13] LABS: Hematocrit (blood only) 29.1 % (37.0-47.0); Hemoglobin 9.7 g/dl (12.0-16.0); Immature Granulocytes # (auto) 0.17 K/uL (0.01-0.20); Immature Granulocytes % (auto) 1.6 %; Mean Corpuscular Hemoglobin 30.1 pg (25.0-34.0); Mean Corpuscular Volume 90.4 fL (80.0-100.0); Platelet Count 209 K/uL (130-400); RDW Standard Deviation 46.3 fL (36.4-46.3); Red Blood Count 3.22 M/uL (4.20-5.40); White Blood Count 10.87 K/ul (4.8-10.8)
[2025-09-28 06:36] LABS: Anion Gap 5 (3-11); Blood Urea Nitrogen 20 mg/dl (6-23); Calcium 8.9 mg/dl (8.6-10.3); Carbon Dioxide 31 mmol/L (21-32); Chloride 98 mmol/L (98-107); Creatinine Clr Calc Pharmacy 69.5 ml/min; Glucose 80 mg/dl (70-99(Fasting)); Potassium 3.3 mmol/L (3.5-5.1); Sodium 134 mmol/L (136-145)
[2025-09-28 06:37] LABS: Alanine Aminotransferase < 3 U/L (7-52); Albumin Globulin Ratio 0.5 (0.9-2); Albumin Level 2.0 gm/dl (3.4-5.0); Alkaline Phosphatase 85 U/L (34-104); Bilirubin,Total 1.0 mg/dl (0.2-1.0); Globulin 3.9 gm/dl (2.5-4.0); Magnesium 1.9 mg/dl (1.7-2.4); Total Protein 5.9 gm/dl (6.0-8.3)
[2025-09-28] MEDS: POTASSIUM CHLORIDE CRTAB 20 MEQ TABCR PO STA (10:13)
[2025-09-28 11:08] VITALS: RESP 18; TEMP 98.3; O2SAT 93
--- NOTE | 2025-09-28 11:23 | Discharge Summary ---
Discharge Summary Date of Service September 28, 2025 Principal Dx & Hospital Course #1 = Principal Diagnosis (1) Infected prosthetic knee joint: (2) Cellulitis of right leg: (3) Hemiparesis affecting left side as late effect of stroke: (4) Atrial fibrillation: (5) Chronic kidney disease, stage III (moderate): (6) Swelling of finger joint of right hand: Plan The patient is an 80-year-old female who was hospitalized for a MSSA right knee prosthetic joint infection. History of prior right TKA at [facility] (1997). Her medical history includes atrial fibrillation, stroke, peripheral arterial disease, chronic kidney disease stage 3, anemia, depression, and low albumin levels. #MSSA Septic arthritis of the right knee, this is a prosthetic joint infection Aspirate of fluid collection grew MSSA. This fluid communicates with the right knee joint thus septic arthritis. Elevated CRP and ESR. Treatment plan: continue cefazolin and ID may add rifampin Infectious disease consult appreciated Recommend IV antibiotics x 6 weeks: - Cefazolin 2 g IV q8h started on 09/24 - Rifampin 300 mg p.o. BID started on 09/25 Following IV antibiotics, patient will need to be on lifelong prophylactic therapy However, family was made aware that IV antibiotic would be would be palliative but not curative Orthopedics consult appreciated Would need to transfer to tertiary care for surgery Patient has been nonambulatory for >12 years. She has PAD, arterial duplex 08/30 - ABIs on the right LE were 1. There is significant distal L sided vascular disease which is the side of her heel ulcer. ABIs on L are 0.58, 0.72. Vascular surgery consulted, but did not recommend intervention because of her nonambulatory state, poor overall health and dementia Multiple discussions with patient's daughter (Brandi) took place over the course of this hospitalization; see ACP note 09/26 Patient does not exhibit medical capacity due to underlying dementia No advanced directive or medical POA in place at this time Patient's 3 adult children discussed next apps on the evening of 10/07, and ultimately, day determined that they would NOT like for their mother to pursue surgery at this time, but would like to continue IV abx as a palliative They would however, like to continue IV antibiotics as a palliative measure Additionally, patient will remain a full code for now, as family would like further time to consider PICC line prior to d/c Palliative care consult appreciated #Dementia Gradually worsening over several years Poor historian at baseline Difficulty with conveying pain Still able to feed herself #Swelling/erythema of finger joint (right hand, second digit) Noted prior to discharge No acute fracture seen on x-ray imaging, but did reveal chronic calcification adjacent to the second MCP joint Uric acid level ordered, pending at time of discharge Suspect pseudogout as x-ray imaging revealed chondrocalcinosis Prednisone 10 mg p.o. x 2 days, followed by prednisone 5 mg p.o. x 5 days Note: Discussed this with Dr. Izaguirre, as patient does exhibit septic arthritis; however, we are in agreement that a lower dose over a short time period would be the best course of action for symptomatic relief #Sacral decubitus ulcers and left heel ulcer present on admission | pressure induced deep tissue damage Unstaged. Consulted wound ostomy nurse. Had L foot MRI 08/30 Treatment plan: Continue pressure offloading, frequent turns, and moisture avoidance #Atrial fibrillation Rate controlled with metoprolol. Restart apixaban upon discharge #Stroke with residual left-sided hemiparesis History of stroke and peripheral arterial disease with residual left-sided hemiparesis Wheelchair-bound at baseline, has not walked in years according to her daughter. #CKD stage 3 Farxiga held. Treatment plan: Monitor BMP for renal function and avoid nephrotoxins. #Anemia Stable Treatment plan: On ferrous sulfate three times a week. #Depression Treatment plan: Continue sertraline. #Hypoalbuminemia Potential malnutrition Dietitian consult appreciated Disposition: Discharge to [facility] Attempted to call [facility] directly on 09/28 regarding transitional care, but was unable to reach anyone. Note: Patient is being discharged on a pured, nectar thick diet. Unclear when this started; recommend reassessment by speech therapy at [facility]. Notes For Next Care Provider Patient hospitalized for septic arthritis: MSSA right knee PJI. She was assessed by both orthopedics and infectious disease. Infectious disease recommended IV antibiotics x 6 weeks, and lifelong prophylaxis following this, but reported this would be palliative rather than curative. Orthopedics did recommend transfer to a tertiary care facility for surgical management. Multiple palliative care discussions took place with family members, patient's daughter (Brandi) serving as a point person. Patient does not exhibit medical capacity due to underlying dementia. There is currently no advance directive or medical power of civil litigation attorney in place. Ultimately, after family discussion, they determined that he would not want to pursue surgery. We have just been gone approaching the concept of palliative care (see additional part of care notes for follow-up). Family would still like to pursue 6 weeks of IV antibiotics, and leave the patient as a full code at this time. Cefazolin 2 g IV every 8 hours (09/24 - 11/05) Rifampin 300 mg p.o. BID (09/25 - 11/06) Patient is on rifampin, recommend obtaining LFTs weekly to assess liver function. Please reach out with any questions or concerns. Admission HPI Per Admitting Provider Ms. Olson is an 80-year-old female whose active medical conditions include stage IIIa CKD secondary to hypertensive nephrosclerosis and complicated by secondary hyperparathyroidism, essential hypertension, Graves' disease, permanent atrial fibrillation, hyperlipidemia with peripheral arterial disease, previous CVA with residual left-sided hemiparesis among other chronic medical conditions who presented to the [facility] from [facility] on 09/22 due to progressive right knee pain. Obtaining history with respect to their presenting complaint is complicated as the patient is unable to provide significant history secondary to their moderately severe dementia, the patient's daughter is available at bedside to provide some history though detailed review of systems is difficult to fully obtain. In summary, it appears that after the patient's discharge from this facility on 08/31, the following weekend they began to develop some redness and swelling involving the right knee joint that would wax and wane however over the past week or so there is been progressive increased swelling involving the medial aspect of the joint with increasing discomfort per the patient's report. Due to the findings that are described further in the patient's physical exam they were brought to the emergency department for further evaluation. And a limited review of system secondary to the patient's cognitive impairments I was able to ascertain that they do have pain involving the medial aspect of the right knee both with active and passive range of motion; they deny any fevers, chills, nausea, vomiting, recent changes in their medication regimen though they are unsure of their baseline medication regimen. The patient's daughter is unsure if has been any recent changes to the patient's medication regimen at the time of my exam. Admission Exam Per Admitting Provider General: Elderly female in no acute distress Vital Signs: Reviewed; irregular RR interval noted on telemetry with controlled rate HEENT: Tacky mucous membranes; pupils equally round and reactive to light with extraocular motion intact Pulmonary: Symmetric chest wall excursion without restriction; clear to auscultation bilaterally Cardiovascular: Irregularly irregular rhythm with controlled rate; no murmurs, rubs, or gallops; right radial pulse 2+; bilateral posterior tibial and dorsalis pedis pulses 1+ without notable lower extremity edema Gastrointestinal: Soft, nondistended; nontender throughout Musculoskeletal: The right knee has a large midline surgical scar at the distal aspect of which just past the tibial tuberosity there is a 6 mm circular epithelial defect with a dark eschar overlying; beginning approximately 1 to 2 cm superior and medial to this lesion there is a 5 to 6 cm ellipsoid fluctuant, tender raised lesion that is radiating heat; there is another raised lesion superior and medial to the patella that is approximately 1 cm in diameter with similar characteristics to the former lesion, these are not obviously communicating on physical exam; there is significant pain involving the right knee joint with both active and passive range of motion Neurologic: CN II-XII grossly intact; no discernible focal weakness; patient remains with limited sensorium in the left upper and lower extremity secondary to previous CVA Skin: Patient declined examination of the sacral region, though there is mention in the patient's daughter that there was concern for an early stage sacral decubitus ulcer at [facility] care; the patient's previously documented left heel pressure ulcer is resolved on exam today Discharge Exam General: no acute distress; non-toxic appearing; cooperative; SpO2 93% on RA HEENT: normocephalic, atraumatic; PERRLA; vision and hearing intact Neck: supple; trachea midline Skin: warm, dry without signs of tenting; no cyanosis; erythema and swelling noting in joints of the 2nd metacarpal (PIP, MCP); TTP; see photos below CV: chest wall NTP; RRR; S1/S2 normal; no murmurs/rubs/gallops; pulses intact and symmetric at radial, DP, and PT Lungs: no acute respiratory distress; symmetrical chest wall expansion; clear breath sounds across all lung florence w/o adventitious sounds; no wheezing ABD: Soft, NTP; BS present; no rebound/guarding; no distention : Gibbons catheter in place draining bright red urine MSK: no tics or fasciculations Right knee: Swollen, erythematous, and tender to palpation (see photos below) Neuro: Oriented to name and date of , but not location, purpose in the hospital, or month of the year; flat mood and affect; fluent speech; incoherent thought processes; unable to assess sensation Discharge Plan Discharge Items Patient Disposition: Transfer Custodial Fac Reason For Visit: RIGHT KNEE SEPTIC ARTHRITIS Discharge Diagnosis: MSSA right knee PJI Condition on Discharge: Fair Activity: As commented below Non-emergency contact: Primary Care Provider Call non-emergency contact if: you have any medication questions, your symptoms worsen, your pain is not controlled and you have a fever Follow-up/Referrals: Ted Stewart III, MD [Primary Care Provider] - Diet: Regular Diet Texture: Pureed (blended smooth) Liquid Consistency: [place] thick Diet Comment: Recommend speech therapy reassessment Addtl Attending Provider Instructions: You were hospitalized at [facility] from 09/22 to 09/28 due to a right knee infection. While in the hospital, you were evaluated by both our infectious disease and orthopedic teams. Through multiple labs and imaging, it was determined that you had a prosthetic joint infection in the right knee due to a bacteria called staph aureus ("MSSA"). While IV antibiotics can help with swelling and pain control, the curative option would be surgery to remove the hardware in your right knee. This would need to be done at [facility]. After multiple discussions, it was determined not to pursue surgery at this time. Will plan to discharge you back to [facility], who can accommodate IV antibiotics for the next 6 weeks. Following this course of treatment, you will need to be on lifelong chronic suppression therapy with pill antibiotics. New antibiotics on discharge: Cefazolin 2 g IV every 8 hours (09/24 - 11/05) Rifampin 300 mg p.o. BID (09/25 - 11/06) A PICC line was placed prior to hospital discharge. We recommend that you follow-up with the infectious disease clinic in the next 4 to 5 weeks after discharge. Please note that side effects of rifampin can include turning your urine a reddish/orange color, and this medication can affect your liver function. We recommend you have weekly blood work drawn for the following labs: BMP, LFTs, and CBC with differential. New Rx: Prednisone 10mg x 2 days, followed by... Prednisone 5mg x 5 days We are prescribing a short course of prednisone due to presumptive pseudogout in the second finger of your right hand. Please stop taking the following medication: Atorvastatin 20 mg Please plan to follow-up with your PCP in the next 7 to 10 days for a transitional care appointment. If you develop any new or worsening symptoms, such as fever, chills, intractable right knee pain, worsening of your right knee pain, nausea, or vomiting, please return to the emergency department immediately. It was a pleasure taking care of you. Please reach out with any questions or concerns. Sincerely, The Hospital medicine team at [facility] Pending Studies at Discharge: Yes Studies:: Uric acid level Stand-Alone Forms: My [facility] Skilled Items Patient informed of condition?: Yes DNR: No Discharge Level of Care: Skilled Communicable Disease: No Discharge Prognosis: Stable Lines: PICC Urinary Catheter: No Medications and DC Order Prescriptions: New rifampin 300 mg Capsule 300 mg PO BID 40 Days Qty: 80 0RF Rx Instructions: Take 1 capsule by mouth twice daily from 09/25 - 11/06 cefazolin 2 gram recon soln 2 g IV Q8H 39 Days Rx Instructions: Cefazolin 2 g IV every 8 hours from 09/24 - 11/05 prednisone 5 mg tablet See Rx Instructions .ROUTE .COMPLEX Qty: 9 0RF Rx Instructions: Take 10mg (2 tablets daily) x 2 days, then take 5mg (1 tablet daily) x 5 days Continued nystatin 100,000 unit/gram powder 1 applic TOP BID PRN (Reason: Candidiasis) Qty: 60 5RF metoprolol tartrate 50 mg tablet 50 mg PO BID Qty: 180 3RF ([facility] [place] Hospital Bed Mis See Rx Instructions .Route Qty: 1 0RF Rx Instructions: As directed sertraline 50 mg tablet 50 mg PO DAILY Qty: 90 3RF levothyroxine 125 mcg tablet 125 mcg PO DAILY Qty: 90 3RF dapagliflozin propanediol 10 mg tablet 10 mg PO DAILY Qty: 90 3RF cholecalciferol (vitamin D3) [Vitamin D3] 25 mcg (1,000 unit) capsule 2,000 unit PO DAILY Hold Instructions: on higher dose x2 months, then switch back Rx Instructions: otc unable to verify Eliquis 5 mg tablet 5 mg PO BID Qty: 180 3RF ipratropium-albuterol 0.5 mg-3 mg(2.5 mg base)/3 mL solution for nebulization 3 ml inhalation Q4H PRN (Reason: wheezing) Qty: 180 1RF Rx Instructions: no fill history unable to verify (DME) nebulizer and compressor Device See Rx Instructions .Route Qty: 1 0RF Rx Instructions: As directed (DME) nebulizer accessories Kit See Rx Instructions .Route Qty: 1 0RF Rx Instructions: As directed acetaminophen [Tylenol] 325 mg Tablet 650 mg PO Q6H PRN (Reason: Pain) Rx Instructions: otc unable to verify ferrous sulfate [iron] 325 mg (65 mg iron) Tablet 325 mg PO 3XWK Rx Instructions: MON, WED, & FRI albuterol sulfate 1.25 mg/3 mL solution for nebulization 1.25 mg inhalation QID PRN (Reason: Shortness Of Breath Or Wheezing) tramadol 50 mg tablet 50 mg PO .Q4-6HR PRN (Reason: pain) Rx Instructions: PER PT'S DAUGHTER "USUALLY TAKES 1 TAB AT HS". Ongoing RX Dr. Tacos Davis HANSEL# [id number] License: [id number] aspirin 81 mg Tablet,Chewable 81 mg PO DAILY Qty: 30 0RF albuterol sulfate 90 mcg/actuation HFA aerosol inhaler 2 puffs INH 6XD PRN (Reason: shortness of breath or wheezing) Qty: 6.7 0RF Rx Instructions: no fill history unable to verify Discontinued atorvastatin 20 mg tablet 20 mg PO QAM Qty: 90 3RF sulfamethoxazole-trimethoprim [Bactrim DS] 800-160 mg tablet 1 tab PO BID Qty: 9 0RF Discharge Orders: Discharge Order (Routine); Ordered 09/28/25 Ordered By: Fransisco Carmichael Admission Data Admit Date/Time: 09/22/25 12:24 Attending Provider: Bret Somers Admit Provider: Greg Adorno Primary Care Provider: Ted Stewart III Other Providers: Chuck Youssef; Leyla Ramos; Claritza Grossman; Jenna Banuelos; Karen Sevilla; Chelsey Mo; Mary Self; Claudia Valencia; Fogelman,Lorna A.; [place] Other Interventions: Discharge Summary Assessment (RN) Last Done: 09/28/25 11:34 Hospital Stay Data Consultations 09/22/25 12:10 Consult Orthopedic Surgery Routine 09/25/25 07:46 Consult Infectious Diseases Routine 09/26/25 18:35 Consult Palliative Care Routine Discharge Instructions Given to Patient (Per Discharging Provider) You were hospitalized at [facility] from 09/22 to 09/28 due to a right knee infection. While in the hospital, you were evaluated by both our infectious disease and orthopedic teams. Through multiple labs and imaging, it was determined that you had a prosthetic joint infection in the right knee due to a bacteria called staph aureus ("MSSA"). While IV antibiotics can help with swelling and pain control, the curative option would be surgery to remove the hardware in your right knee. This would need to be done at [facility]. After multiple discussions, it was determined not to pursue surgery at this time. Will plan to [facility], who can accommodate IV antibiotics for the next 6 weeks. Following this course of treatment, you will need to be on lifelong chronic suppression therapy with pill antibiotics. New antibiotics on discharge: Cefazolin 2 g IV every 8 hours (09/24 - 11/05) Rifampin 300 mg p.o. BID (09/25 - 11/06) A PICC line was placed prior to hospital discharge. We recommend that you follow-up with the infectious disease clinic in the next 4 to 5 weeks after discharge. Please note that side effects of rifampin can include turning your urine a reddish/orange color, and this medication can affect your liver function. We recommend you have weekly blood work drawn for the following labs: BMP, LFTs, and CBC with differential. New Rx: Prednisone 10mg x 2 days, followed by... Prednisone 5mg x 5 days We are prescribing a short course of prednisone due to presumptive pseudogout in the second finger of your right hand. Please stop taking the following medication: Atorvastatin 20 mg Please plan to follow-up with your PCP in the next 7 to 10 days for a transitional care appointment. If you develop any new or worsening symptoms, such as fever, chills, intractable right knee pain, worsening of your right knee pain, nausea, or vomiting, please return to the emergency department immediately. It was a pleasure taking care of you. Please reach out with any questions or concerns. Sincerely, The Hospital medicine team at [facility] Total Time Total Time Spent Total Time Spent (In Minutes): 60 [place] [address] INP/OBS DISCH >30 MIN Patient Type Established Medical Decision Making High Complexity Diagnoses Infected prosthetic knee joint T84.59XA; Z96.659 Cellulitis of right leg L03.115 Hemiparesis affecting left side as late effect of stroke I69.354 Permanent atrial fibrillation I48.91 Atrial fibrillation type: unspecified Stage 3a chronic kidney disease N18.31 Chronic kidney disease stage 3 subtype: stage 3a (GFR 45-59) Swelling of finger joint of right hand M25.441
[2025-09-28 11:35] VITALS: BP 108/66; PULSE 66
--- NOTE | 2025-09-28 12:32 | Infectious Disease Progress Nt ---
Date of Service September 28, 2025 Assessment & Plan (1) Infected prosthetic knee joint: (2) Knee swelling: Plan This is an 80-year-old female with a past medical history of CVA with residual left-sided hemiparesis, Dementia, COPD, stage IIIa CKD, PAD with chronic left lower extremity wounds, A-fib on Eliquis, right TKA ( ? 1997), hypothyroidism who was recently admitted to [facility] 08/27/2025 - 08/31/2025 with weakness, fatigue, fevers, chills and left second toe erythema. She was diagnosed with left lower extremity cellulitis and received daptomycin and ceftriaxone inpatient. She was evaluated by podiatry and no surgical intervention was warranted as no c/f osteomyelitis or abscess. Wound culture grew MSSA and she was discharged on Bactrim. She returns to the ED on 09/22/2025 with right knee edema and worsening knee pain. Patient is a poor historian and a limited ROS obtained. Most of history obtained per chart review and d/w team. She denied fever, chills, trauma to the knee, nausea, vomiting. In the ED, she was afebrile and hemodynamically stable. Labs:WBC 10.78, ESR 113, CRP 13.70, BUN 30, creatinine 0.85, lactic acid 2.3---> 1.8, procalcitonin 0.05. Urinalysis 1120 WBC. Chest x-ray shows no acute findings. Right knee x-ray shows no acute osseous findings. No hardware complications. There is chronic irregularity at the distal femur. She was evaluated by orthopedics and there was concern for right knee PJI given right knee erythema, warmth, tenderness. Tissue swelling seemed to be communicating with the joint. 4 cc of thick cloudy purulent fluid was aspirated from the knee. Right knee synovial fluid demonstrated 37,225 WBC (85% neutrophils. ), 34,000 RBC. Right knee synovial fluid grew MSSA. She was started on cefazolin. Infectious disease consulted for right knee PJI. Orthopedics recommended possible transfer to tertiary center for intervention on the knee. Microbiology 09/23/2025 Urine cx- 3 types of organismsalthough counts probable skin gisele 09/22/2025 fungal synovial fluid cx NGTD 09/22/2025 AFB synovial fluid cx NGTD 09/22 synovial fluid Gram stain moderate GPC, cx MSSA (resistant to erythromycin, intermediate tetracycline) 09/22/2025 blood culture NG Prior microbiology: 08/28/2025 wound culture MSSA (resistant to erythromycin) Antibiotics Ceftriaxone Daptomycin 09/22 - 09/23 Cefazolin resent Rifampin 09/25-present # Right knee PJI, synovial fluid cx+MSSA # Elevated inflammatory markers # Left toe chronic ulcers # Clindamycin allergy, hives # Piperacillin/tazobactam allergy, hives # Vancomycin allergy, unknown reaction Discussion Patient presents with R knee pain, erythema, effusion/edema i/s/o TKA done > 20 years ago. Found to have an MSSA right knee prosthetic joint infection. Labs notable for elevated ESR, crp. Lactic acidosis resolved. Definitive therapy for Staph aureus knee PJI is surgical intervention +antibiotics as antibiotics alone is not curative. Options include DAIR with antibiotics versus 1 or 2- stage implant removal + antibiotics. If no surgical intervention then antibiotics alone would be considered palliative and not curative. In the case on hardware retention , she would require suppressive therapy lifelong after a 6 week course of IV abx. Family farheen decided not to pursue surgical intervention. She will require 6 weeks of IV Cefazolin with PO rifampin followed by Po suppression. Recommendations Continue cefazolin 2 g IV q 8 hrs Continue rifampin 300 mg p.o. twice daily in the setting of staph aureus PJI. Monitor for side effects including orange- red discoloration of tears, sweats, urine and feces, liver toxicity, cytopenias . Plan for 6 weeks of IV Cefazolin and Po Rifampin See OPAT instructions below for further details Outpatient Discharge summary, Discharging Physician please order the following on discharge: Diagnosis: Right knee prosthetic joint infection Organism:MSSA Antibiotic: (dose and frequency) Cefazolin 2 g IV q 8h AND Rifampin 300 mg po q12h ( cr cl ~69) Start of therapy: 09/24/2025- End of therapy: 11/05/2025 PICC line: Care per protocol, remove PICC line at end of therapy: yes Oral suppression after cessation of IV antibiotics (drug, dose, duration): YES ; cefadroxil 500 mg po q12h + rifampin ( if can continue to tolerate) for 6 months and then cefadroxil alone lifelong Labs should be faxed to ID office attention [facility] [phone] Labs needed and frequency weekly Cbc with diff, BMP, LFT, ESR, CRP. Appointment-time frame 4-5 weeks Please follow up with [facility] in outpatient clinic Clinic Address [address], [place] [address] Office (P) [phone] Communicated recommendations with PA. ID will sign off. Call with questions. Karen Sevilla MD, MPH Infectious Disease [facility], [facility] Call [phone] with questions Admission and Anticipated Discharge Date Admission Date: September 22, 2025 Subjective This patient recommendation is based on a telemedicine consult request which was completed asynchronously through chart review and information provided by the primary physician. The patient was not seen or examined today. The evaluation is consultative in nature and all patient care and treatment decisions can either b e accepted or rejected by the patient's primary hospital-based treating physician using their own independent medical judgment for their patient. Time Spent Reviewing Chart: 21 - 30 minutes Pt's family decided to forego surgical intervention. Will continue abx She remains afebrile HDS WBC 10.87 Results & Data Vital Signs (Past 12 Hours) Vital Signs Temp Pulse Pulse Pulse Resp BP BP 09/28/25 11:34 36.8 C 66 73 18 108/66 93/60 L 09/28/25 11:07 36.8 C 73 18 93/60 L 09/28/25 07:20 36.6 C 83 20 100/61 09/28/25 05:20 80 09/28/25 03:55 36.9 C 86 18 108/66 Pulse Ox O2 Del Method 09/28/25 11:34 93 09/28/25 11:07 93 Room Air 09/28/25 07:20 94 Room Air 09/28/25 05:20 09/28/25 03:55 94 Room Air Laboratory Results 09/22/25 10:45 Aerobic Blood Culture - Final Blood No growth in Aerobic bottle after 5 days. Anaerobic Blood Culture - Final 09/22/25 10:25 Aerobic Blood Culture - Final Blood No growth in Aerobic bottle after 5 days. Anaerobic Blood Culture - Final No growth in Anaerobic bottle after 5 days. 09/22/25 Unknown Gram Stain - Final Knee,Right Aerobic and Anaerobic Culture - Final Staphylococcus aureus Staphylococcus aureus#2 09/28/25 05:43 WBC 10.87 H RBC 3.22 L Hgb 9.7 L Hct 29.1 L MCV 90.4 MCH 30.1 MCHC 33.3 RDW Std Deviation 46.3 RDW Coeff of [place]oz[place] 14.1 Plt Count 209 MPV 10.2 Immature Gran % (Auto) 1.6 Neut % (Auto) 78.2 Lymph % (Auto) 10.2 [place] % (Auto) 7.2 Eos % (Auto) 2.4 Baso % (Auto) 0.4 Neut # (Auto) 8.51 H Lymph # (Auto) 1.11 L [place] # (Auto) 0.78 H Eos # (Auto) 0.26 Baso # (Auto) 0.04 Immature Gran # (Auto) 0.17 Sodium 134 L Potassium 3.3 L Chloride 98 Carbon Dioxide 31 Anion Gap 5 BUN 20 Creatinine 0.65 Est Cr Clr Drug Dosing 69.5 eGFR 88.95 BUN/Creatinine Ratio 30.8 H Glucose 80 Calcium 8.9 Magnesium 1.9 Total Bilirubin 1.0 AST 22 ALT < 3 L Alkaline Phosphatase 85 Total Protein 5.9 L Albumin 2.0 L Globulin 3.9 Albumin/Globulin Ratio 0.5 L Microbiology 09/22/25 10:45 Blood Aerobic Blood Culture - Final No growth in Aerobic bottle after 5 days. 09/22/25 10:45 Blood Anaerobic Blood Culture - Final 09/22/25 10:25 Blood Aerobic Blood Culture - Final No growth in Aerobic bottle after 5 days. 09/22/25 10:25 Blood Anaerobic Blood Culture - Final No growth in Anaerobic bottle after 5 days. 09/22/25 Unknown Knee,Right Gram Stain - Final 09/22/25 Unknown Knee,Right Aerobic and Anaerobic Culture - Final Staphylococcus aureus Staphylococcus aureus#2 09/22/25 Unknown Joint Fluid/Space (Synovial) Acid Fast Bacilli Smear - Final 09/22/25 Unknown Joint Fluid/Space (Synovial) Acid Fast Bacilli Culture - Preliminary No Acid-Fast Bacilli Isolated - Report 1, Additional Report to Follow. 09/23/25 07:25 Urine,Clean Catch Urine Culture - Final Three types of organisms present, all low counts probable skin gisele. No further identifications or sensitivities to follow. 09/22/25 Unknown Knee,Right Fungal Smear - Final 09/22/25 Unknown Knee,Right Fungal Culture - Preliminary No yeast or fungus isolated - Report 1, Additional Report to Follow. Medications Administered Home Medications Medication Instructions Recorded Confirmed Last Taken acetaminophen 325 mg tablet 650 mg PO Q6H PRN Pain 11/17/18 09/22/25 02/27/21 (Tylenol) 325 mg ferrous sulfate 325 mg (65 mg 325 mg PO 3XWK 02/28/21 09/22/25 08/25/25 iron) tablet (iron) nystatin 100,000 unit/gram topical 1 applic topical BID PRN 09/05/24 09/22/25 Unknown powder Candidiasis #60 grams apixaban 5 mg tablet (Eliquis) 5 mg PO BID #180 tabs 09/21/24 09/22/25 08/27/25 08:00 cholecalciferol (vitamin D3) 25 2,000 unit PO DAILY 09/21/24 09/22/25 08/27/25 mcg (1,000 unit) capsule (Vitamin D3) metoprolol tartrate 50 mg tablet 50 mg PO BID #180 tabs 10/27/24 09/22/25 08/27/25 08:00 albuterol sulfate 90 mcg/actuation 2 puffs inhalation 6XD PRN 11/03/24 09/22/25 Unknown aerosol inhaler shortness of breath or wheezing #6.7 grams atorvastatin 20 mg tablet 20 mg PO QAM #90 tabs 01/24/25 09/22/25 08/27/25 ipratropium 0.5 mg-albuterol 3 mg 3 ml inhalation Q4H PRN wheezing 04/03/25 09/22/25 Unknown (2.5 mg base)/3 mL nebulization #180 mL soln nebulizer accessories #1 ea 04/03/25 07/21/25 Unknown nebulizer and compressor #1 ea 04/03/25 07/21/25 Unknown Hospital Bed Homecare (Hospital #1 ea 05/30/25 07/21/25 Unknown Bed) levothyroxine 125 mcg tablet 125 mcg PO DAILY #90 tabs 07/20/25 09/22/25 08/27/25 sertraline 50 mg tablet 50 mg PO DAILY #90 tabs 07/20/25 09/22/25 08/27/25 dapagliflozin propanediol 10 mg 10 mg PO DAILY #90 tabs 09/29/25 10/31/25 10/05/25 tablet albuterol sulfate 1.25 mg/3 mL 1.25 mg inhalation QID PRN 08/27/25 09/22/25 Unknown solution for nebulization Shortness Of Breath Or Wheezing tramadol 50 mg tablet 50 mg PO .Q4-6HR PRN pain 08/27/25 09/22/25 Unknown aspirin 81 mg chewable tablet 81 mg PO DAILY #30 tabs 08/31/25 09/22/25 Unknown sulfamethoxazole 800 1 tab PO BID #9 tabs 08/31/25 09/22/25 Unknown mg-trimethoprim 160 mg tablet (Bactrim DS) rifampin 300 mg capsule 300 mg PO BID Right knee PJI 40 09/28/25 Unknown days #80 caps Active Medications Generic Name Dose Route Start Last Admin Trade Name Cristinoq PRN Reason Stop Dose Admin Enoxaparin Sodium 40 mg 09/23/25 09:00 09/28/25 07:52 Enoxaparin Inj 40 Mg/0.4 Ml Syr SQ 10/23/25 08:59 40 mg QAM AZUL Administration Ferrous Sulfate 325 mg 09/25/25 09:00 09/27/25 09:00 Ferrous Sulfate 325 Mg Tab PO 10/25/25 08:59 325 mg [id number] AZUL Administration Cefazolin Sodium 2,000 mg in 15 mls @ 3.75 mls/min 09/24/25 08:30 09/28/25 07:50 Ancef 2000mg IV 11/05/25 08:29 3.75 mls/min Q8H AZUL Administration Levothyroxine Sodium 125 mcg 09/23/25 06:30 09/28/25 06:09 Levothyroxine Sodium 125 Mcg Tablet PO 10/23/25 06:29 125 mcg DAILYBB AZUL Administration Metoprolol Tartrate 25 mg 09/25/25 21:00 09/28/25 07:51 Metoprolol Tartrate 25 Mg Tab PO 10/25/25 20:59 25 mg BID AZUL Administration Miconazole Nitrate 1 appln 09/25/25 21:00 09/28/25 07:53 Miconazole Nitrate Powder 85 Gm EXT 10/25/25 20:59 1 appln BID AZUL Administration Rifampin 300 mg 09/25/25 21:00 09/28/25 07:51 Rifampin 300 Mg Capsule PO 10/25/25 20:59 300 mg BID AZUL Administration Sertraline HCl 50 mg 09/23/25 09:00 09/28/25 07:51 Sertraline Hcl 50 Mg Tablet PO 10/23/25 08:59 50 mg DAILY AZUL Administration Tramadol HCl 50 mg 09/22/25 15:53 09/28/25 07:51 Tramadol Hcl 50 Mg Tablet PO 10/22/25 15:52 50 mg Q4H PRN Administration pain
--- NOTE | 2025-09-28 13:02 | XRay Report ---
XR hand RT 2V CLINICAL HISTORY: Right 2nd metacarpal swelling; ?gout COMPARISON: None FINDINGS: There are severe degenerative changes at the carpus and minimal scattered degenerative vasiliy nges at the hand without erosions. There is dorsal subluxation of the distal ulna with adjacent chond rocalcinosis, likely chronic. No acute fracture or dislocation seen at the right hand. There are mental retardation nurse maxwell calcifications adjacent to the second MCP joint. IMPRESSION: 1. No acute fracture seen at the right hand. 2. Severe degenerative changes at the right wrist. ACT 112: Negative or not required by law. Electronically signed by: Jorge Roberts M.D. 09/28/2025 1:00 PM
--- NOTE | 2025-09-28 14:03 | Communication Note ---
Called daughter (Brandi) at 1400. Reconfirmed that family desires to have 6 weeks of the IV antibiotics. Explained that this would require a PICC line. Went over details of PICC line, and risks/benefits which include things like infection, blood clots, mechanical problems, or bleeding. Daughter voices understanding of risks, and gives verbal consent over the phone for PICC line ingrid ni. Date of Service: September 28, 2025
--- NOTE | 2025-09-28 15:02 | Palliative Family Discussion ---
Date of Service September 28, 2025 Patient Directed Conference Time of Meetin:00 - 14:20 Participants: Lu Valencia AGACNP Patient participation: no Patient Support System: daughter Other Healthcare Provider Participation: None Meeting Location:telephonic Advanced Directive available: no If yes, descriptors: The patient's surrogate medical decision maker participated: tyshawn Hopson Legally authorized health care proxy:n/a Other surrogate: n/a A family meeting was held for MISSY FOSTER. This meeting was necessary for determining the appropriate course of treatment. Topics of Discussion 1. Opportunity given for participants to speak and ask questions. 2. Participants were assured of attention to patient comfort. 3. Reassurance provided. 4. Support was provided for informed, good-adam decisions. 5. Emotions expressed by family were acknowledged and addressed. 6. Follow-up Outpatient: n/a 7. Plan of Care: DNR/DNI continue all other life prolonging treatments We discussed at length the patient's acute and chronic medical conditions, general prognosis, treatment options, and goals of care. Brandi shared that she and her brothers are all in agreement that they do not roma to pursue surgical options for Missy but do wish to continue to treat infection with placement of central line (PICC) for 6 weeks of IV ABx followed by oral prophylactic ABx. SHe shared that they are in agreement that the ppatient would not want to be on life support given her advanced dementia and limited quality of life. Discussed code status and helped Brandi understand that CPR is only done after a person has and involves uncomfortable and invasive procedures that, if successful. have high risk of multiple complications including but not limited to rib fractures, pneumo/hemothorax, KATINA, ventilator dependence, anoxic brain injury, and intermediate teacher/permanent cognitive and functional deficits. Brandi shared that they had discussed this at length and she requests DNR/DNI status. Orders placed and primary team made aware. I encouraged Brandi to complete a POLST form at [facility] to protect the patient from unwanted resuscitation outside the hospital. Time Involved in Meeting: I spent 40 minutes overall addressing this case: 5 in medical data review/discussion with referring provider(s) and/or preparation for the visit 10 in direct interaction with the patient 20 Advance Care Planning/Goals of Care discussions as detailed above in note (must be >16min) 5 in communicating with other providers regarding the patient's case:primary team, CM, BSRN
[2025-09-28 15:40] LABS: Uric Acid 4.3 mg/dl (2.6-7.2)
--- NOTE | 2025-09-28 16:00 | XRay Report ---
XR chest 1V portable CLINICAL HISTORY: A-Fib left PICC tip placement COMPARISON STUDY: 09/22/2025 FINDINGS: Left PICC line tip is at the cavoatrial junction in good position. Stable cardiomegaly with out pulmonary vascular congestion. No consolidation or pleural effusion seen. No pneumothorax. IMPRESSION: Well-positioned left PICC line. ACT 112: Negative or not required by law. Electronically signed by: Jorge Roberts M.D. 09/28/2025 3:59 PM
== END 2025-09-28 16:19 | DRG 560 ==
LOC: ED 10:14 → 2W 12:24 → SUATTDRO 12:24 → 2W 16:28